=== PATIENT | female | born 1950 | race Caucasian/White ===

== ENCOUNTER → 2020-04-09 09:37 | Outpatient (BNVA) | payer MEDICARE, MEDICAID, SELFPAY | PROVIDERS: PCP Internal Medicine; Referring Provider Internal Medicine; Visit Provider Internal Medicine Endocrinology, Diabetes & Metabolism | DX: E11.65 Type 2 diabetes mellitus with hyperglycemia (principal); E11.21 Type 2 diabetes mellitus with diabetic nephropathy; E11.42 Type 2 diabetes mellitus with diabetic polyneuropathy; E11.22 Type 2 diabetes mellitus with diabetic chronic kidney disease; I12.9 Hypertensive chronic kidney disease with stage 1 through stage 4 chronic kidney disease, or unspecified chronic kidney disease; N18.30 Chronic kidney disease, stage 3 unspecified; E66.01 Morbid (severe) obesity due to excess calories; E78.5 Hyperlipidemia, unspecified; Z79.4 Long term (current) use of insulin | CPT/HCPCS: 82947; 99202 ==

== ENCOUNTER → 2020-04-12 13:10 | Outpatient (BNVA) | payer MEDICARE, MEDICAID, SELFPAY | PROVIDERS: PCP Internal Medicine; Visit Provider Dietitian, Registered | DX: Z76.89 Persons encountering health services in other specified circumstances (principal) ==

== ENCOUNTER → 2020-04-30 15:08 | Outpatient (BNVA) | payer MEDICARE, MEDICAID, SELFPAY | PROVIDERS: PCP Internal Medicine; Visit Provider Dietitian, Registered | DX: Z76.89 Persons encountering health services in other specified circumstances (principal) ==

== ENCOUNTER → 2020-06-12 12:05 | Outpatient (BNVA) | payer MEDICARE, MEDICAID, SELFPAY | PROVIDERS: PCP Internal Medicine; Visit Provider Dietitian, Registered ==

== ENCOUNTER 2020-06-26 09:29 | Outpatient (REF) | payer MEDICARE, MEDICAID, SELFPAY ==
[2020-06-26 11:34] LABS: Hematocrit 39.1 % (37-47); Hemoglobin 12.3 g/dl (12.0-16.0); Mean Corpuscular HGB Conc 31.5 g/dl (31.0-35.0); Mean Corpuscular Hemoglobin 30.1 pg (27.0-33.0); Mean Corpuscular Volume 95.6 fL (80-98); Mean Platelet Volume 10.5 fL (9.4-12.3); Platelet Count 378 X10*3/uL (160-400); Red Blood Count 4.09 X10*6/uL (4.20-5.50); Red Cell Distribution Width 13.3 % (11.0-16.0); White Blood Count 9.6 X10*3/uL (4.8-10.8)
[2020-06-26 11:48] LABS: Estimated Average Glucose 194 mg/dL; Hemoglobin A1c % 8.4 %
[2020-06-26 12:12] LABS: Cholesterol 161 mg/dL; HDL Cholesterol 61 mg/dL; LDL Cholesterol Calculated 81 mg/dl; Triglycerides 95 mg/dL
[2020-06-26 12:13] LABS: Free T4 (Free Thyroxine) 1.06 ng/dL (0.71-1.85); Thyroid Stimulating Hormone 3.09 uIU/mL (0.32-4.0)
[2020-06-26 12:20] LABS: Creatinine Urine 143.29 mg/dL; Microalbum/Creatinine Ratio Ur 60.7 ug/mg cr; TSH reflex Free T4 3.23 uIU/mL (0.32-4.0)
[2020-06-26 12:23] LABS: Alanine Aminotransferase 11 U/L (0-31); Alkaline Phosphatase 63 U/L (39-117); Anion Gap 16 (12-20); Aspartate Amino Transferase 15 U/L (5-31); Bilirubin Total 0.5 mg/dL (0.0-1.0); Blood Urea Nitrogen 25 mg/dL (9-16); Calcium 8.9 mg/dL (8.4-10.2); Carbon Dioxide 26 mmol/L (22-29); Chloride 103 mmol/L (96-108); Cholesterol 163 mg/dL; Estimated Glomerular Filt Rate 40; Glucose Fasting 186 mg/dL (60-99); HDL Cholesterol 61 mg/dL; LDL Cholesterol Calculated 84 mg/dl; Potassium 4.9 mmol/L (3.3-5.1); Sodium 140 mmol/L (135-145); Total Protein 6.8 g/dL (6.5-8.0); Triglycerides 94 mg/dL
[2020-06-26 13:12] LABS: Vitamin B12 431 pg/mL (200-900)
[2020-06-27 03:27] LABS: LDL Cholesterol Direct 82 mg/dL (<100)
[2020-06-27 19:48] LABS: C Peptide 2.22 ng/mL (0.80-3.85)
== END 2020-06-26 09:30 | disposition home or self-care (01) ==
LOC: HO.HMGCLDS 09:29
PROVIDERS: PCP Internal Medicine; Visit Provider Internal Medicine Endocrinology, Diabetes & Metabolism
DX: E11.65 Type 2 diabetes mellitus with hyperglycemia (principal); T78.40XA Allergy, unspecified, initial encounter; X58.XXXA Exposure to other specified factors, initial encounter; J45.909 Unspecified asthma, uncomplicated; K58.9 Irritable bowel syndrome, unspecified; F33.9 Major depressive disorder, recurrent, unspecified; E66.9 Obesity, unspecified; F41.1 Generalized anxiety disorder; E78.9 Disorder of lipoprotein metabolism, unspecified; Z79.4 Long term (current) use of insulin
CPT/HCPCS: 36415; 80053; 80061; 82043; 82607; 83036; 83721; 84439; 84443; 84681; 85027

== ENCOUNTER → 2020-08-02 14:31 | Outpatient (BNVA) | payer MEDICARE, MEDICAID, SELFPAY | PROVIDERS: PCP Internal Medicine; Visit Provider Dietitian, Registered | DX: E11.22 Type 2 diabetes mellitus with diabetic chronic kidney disease (principal); N18.30 Chronic kidney disease, stage 3 unspecified | CPT/HCPCS: 97803 ==

== ENCOUNTER → 2020-08-27 08:34 | Outpatient (BNVA) | payer MEDICARE, MEDICAID, SELFPAY | PROVIDERS: PCP Internal Medicine; Visit Provider Nurse Practitioner Gerontology | DX: I12.9 Hypertensive chronic kidney disease with stage 1 through stage 4 chronic kidney disease, or unspecified chronic kidney disease (principal); E11.65 Type 2 diabetes mellitus with hyperglycemia; E11.42 Type 2 diabetes mellitus with diabetic polyneuropathy; E11.21 Type 2 diabetes mellitus with diabetic nephropathy; E11.22 Type 2 diabetes mellitus with diabetic chronic kidney disease; N18.30 Chronic kidney disease, stage 3 unspecified; E66.01 Morbid (severe) obesity due to excess calories; Z68.42 Body mass index [BMI] 45.0-49.9, adult; E78.5 Hyperlipidemia, unspecified; Z79.4 Long term (current) use of insulin; Z71.3 Dietary counseling and surveillance | CPT/HCPCS: 82947; 99212 ==

== ENCOUNTER 2020-09-10 09:10 | Outpatient (REF) | payer MEDICARE, MEDICAID, SELFPAY ==
--- NOTE | ~2020-09-10 | MR_ITS ---
EXAMINATION: MRI OF THE BRAIN WITHOUT CONTRAST CLINICAL INFORMATION: Encephalopathy. COMPARISON: There are no prior studies available for comparison. TECHNIQUE: MRI of the brain was obtained using routine sequences without intravenous contrast. FINDINGS: No diffusion abnormalities are identified to suggest an acute or subacute infarct. No mass effect or midline shift is seen. The ventricles are moderately prominent. 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 Evaluation of the pituitary stalk, optic chiasm and optic nerve is suboptimal on the available images. The genu of the corpus callosum is intact. There are scattered areas of increased T2 and FLAIR signal in the periventricular and subcortical white matter, and in the dex most consistent with chronic microvascular ischemic changes. No extra-axial fluid collections are seen. The brainstem and cerebellum are normal. No pathologic magnetic susceptibility artifact is identified on the gradient refocused acquisition. The craniovertebral junction, marrow signal, and intracranial midline structures are normal. 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 There are spondylitic changes at C4-C5 and C5-C6. The major intracranial flow-voids at the level of the saxman of Jara are preserved. The dural venous sinus flow-voids are maintained. The mastoid air cells and paranasal sinuses are well-aerated. MR/MR head/brain wo con IMPRESSION: 1. There are no acute bleeds or infarcts. No masses are demonstrated. There are chronic microvascular ischemic changes. 2. 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
== END 2020-09-10 09:11 | disposition home or self-care (01) ==
LOC: HO.MRI 09:10
PROVIDERS: Visit Provider Psychiatry & Neurology Neurology
DX: G93.40 Encephalopathy, unspecified (principal); E11.65 Type 2 diabetes mellitus with hyperglycemia; Z71.3 Dietary counseling and surveillance
CPT/HCPCS: 70551; 82947; 99212

== ENCOUNTER → 2020-11-21 14:03 | Outpatient (BNVA) | payer MEDICARE, MEDICAID, SELFPAY | PROVIDERS: PCP Internal Medicine; Referring Provider Internal Medicine; Visit Provider Nurse Practitioner Family | DX: Z12.11 Encounter for screening for malignant neoplasm of colon (principal); K58.9 Irritable bowel syndrome, unspecified | CPT/HCPCS: 99202 ==

== ENCOUNTER → 2020-11-29 10:20 | Outpatient (BNVA) | payer MEDICARE, MEDICAID, SELFPAY | PROVIDERS: PCP Internal Medicine; Visit Provider Internal Medicine | DX: E66.01 Morbid (severe) obesity due to excess calories (principal); G47.33 Obstructive sleep apnea (adult) (pediatric); J45.909 Unspecified asthma, uncomplicated; Z68.43 Body mass index [BMI] 50.0-59.9, adult | CPT/HCPCS: 99202 ==

== ENCOUNTER 2020-12-27 09:52 | Outpatient (REF) | payer MEDICARE, MEDICAID, SELFPAY ==
--- NOTE | 2020-12-27 17:16 | PFT_ITS ---
Forced vital capacity, FEV1, KFC34-83, and MVV are all normal. Post bronchodilator therapy, there is no significant change. Total lung capacity is normal. Residual volume slightly decreased. Diffusion capacity normal. CONCLUSION: Normal pulmonary function test and there is no evidence of restrictive pulmonary disorder. MD LUCIANA Lancaster/MODL / [id number]
== END 2020-12-27 09:53 | disposition home or self-care (01) ==
LOC: HO.RESP 09:52
PROVIDERS: PCP Internal Medicine; Visit Provider Internal Medicine
DX: J45.909 Unspecified asthma, uncomplicated (principal); R06.00 Dyspnea, unspecified; E66.01 Morbid (severe) obesity due to excess calories; Z68.43 Body mass index [BMI] 50.0-59.9, adult
CPT/HCPCS: 94060; 94727; 94729

== ENCOUNTER 2021-02-13 10:05 | Day surgery (SDC) | payer MEDICARE, MEDICAID, SELFPAY ==
[2021-01-25 10:36] VITALS: BMI 50.6
--- NOTE | 2021-01-30 09:57 | P.CONAN_ITS ---
HPI - Anesthesia Eval Consult details Narrative: 70yo F for Colonoscopy [facility] Active Problems Active Problems: All Active Problems (Updated 01/25/21 @ 10:33 by Barb Campbell, RN) Long-term insulin use (Acute) Obesity (Acute) Morbid obesity (Acute) Cellulitis (Acute) Memory deficit (Acute) Drainage from ear, left (Acute) Sleep apnea (Acute) Encounter for general adult medical examination with abnormal findings (Acute) Breast screening (Acute) Colon cancer screening (Acute) Dyspnea on exertion (Acute) OZ (obstructive sleep apnea) (Acute) Morbid obesity with BMI of 50.0-59.9, adult (Acute) Diabetic polyneuropathy associated with type 2 diabetes mellitus (Acute) Hypertension (Acute) Dyslipidemia (Acute) CKD stage 3 due to type 2 diabetes mellitus (Acute) Diabetic nephropathy associated with type 2 diabetes mellitus (Acute) 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 (Acute) Diabetes type 2, uncontrolled (Acute) Allergies (Acute) Asthma (Acute) Irritable bowel syndrome (Acute) Depression, major, recurrent (Acute) Anxiety, generalized (Acute) Lipid disorder (Acute) Diabetes 1.5, managed as type 1 (Acute) Past Medical History Medical History (Updated 01/25/21 @ 10:33 by Barb Campbell RN) Allergies Anxiety, generalized Asthma Breast cancer CKD stage 3 due to type 2 diabetes mellitus COVID-19 vaccine series completed Depression, major, 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 Surgical History Surgical History History of colonoscopy History of lumpectomy Hx of mammogram Social History Social History (Updated 01/25/21 @ 10:35 by Barb Campbell RN) Household Members: Family Are you a primary rn wound care to a significant other at home: No Do you presently have visiting nurse or other home services: No Alcohol intake: current Alcohol intake frequency: a few times a week Alcohol type: beer Patient Tobacco Use Status: Former Tobacco user Quit Date: teenager Tobacco use type: Cigarette Use of substances other than those prescribed or required for medical reasons: No Have you been hit, kicked, punched, or otherwise hurt by someone within the past year? If so, by whom?: No Are you DNR?: No Advance Directives Information Provided: Yes (informational brochure mailed) Advance Directives on File: No Recently lost weight without trying: No Eating poorly because of decreased appetite: No Nutrition Risks: No Nutritional Risk Meds Allergies Allergy/AdvReac Type Severity Reaction Status Date / Time adhesive tape [Adhesive Tape] Allergy Severe BLISTERS Verified 11/29/20 10:30 dairy products Allergy Severe GI upset Verified 11/29/20 10:30 semaglutide [From Ozempic] Allergy Severe Diarrhea Verified 11/29/20 10:32 Home Medications Medication Instructions Recorded Confirmed Last Taken Type albuterol sulfate 90 mcg/actuation 2 puff INHALATION Q4H PRN 04/09/20 01/25/21 Unknown History aerosol inhaler carvedilol 6.25 mg tablet 6.25 mg PO BID 04/09/20 01/25/21 Unknown History metoprolol succinate 25 mg 25 mg PO BEDTIME 04/09/20 01/25/21 Unknown History tablet,extended release 24 hr pen needle, diabetic 32 gauge x #50 ea 04/09/20 10/02/20 Unknown History Exam Exam Date and Time: January 30, 2021 0957 Height,Weight and Vital Signs: Height 4 ft 10 in Weight 109.939 kg Pertinent Lab Results Pertinent Lab Results: Laboratory Tests 06/26/20 06/26/20 09:45 09:45 WBC 9.6 Hgb 12.3 Hct 39.1 Plt Count 378 Sodium 140 Potassium 4.9 Chloride 103 Carbon Dioxide 26 BUN 25 H Creatinine 1.33 Narrative Narrative: PFT 12/2020 CONCLUSION:? Normal pulmonary function test and there is no evidence of restrictive pulmonary disorder. Assessment and Plan Assessment Anesthesia Assessment: Chart Reviewed
--- NOTE | 2021-02-12 10:42 | P.CONAN_ITS ---
Documented by User: Britney Dean NP 02/12/21 10:43 HPI - Anesthesia Eval Consult details Narrative: 70yo F for Colonoscopy [facility] Active Problems Active Problems: All Active Problems (Updated 01/25/21 @ 10:33 by Barb Campbell, EVELYN) Long-term insulin use (Acute) Obesity (Acute) Morbid obesity (Acute) Cellulitis (Acute) Memory deficit (Acute) Drainage from ear, left (Acute) Sleep apnea (Acute) Encounter for general adult medical examination with abnormal findings (Acute) Breast screening (Acute) Colon cancer screening (Acute) Dyspnea on exertion (Acute) OZ (obstructive sleep apnea) (Acute) Morbid obesity with BMI of 50.0-59.9, adult (Acute) Diabetic polyneuropathy associated with type 2 diabetes mellitus (Acute) Hypertension (Acute) Dyslipidemia (Acute) CKD stage 3 due to type 2 diabetes mellitus (Acute) Diabetic nephropathy associated with type 2 diabetes mellitus (Acute) 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 of 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 (Acute) Diabetes type 2, uncontrolled (Acute) Allergies (Acute) Asthma (Acute) Irritable bowel syndrome (Acute) Depression, major, recurrent (Acute) Anxiety, generalized (Acute) Lipid disorder (Acute) Diabetes 1.5, managed as type 1 (Acute) Past Medical History Medical History (Updated 01/25/21 @ 10:33 by Barb Campbell RN) Allergies Anxiety, generalized Asthma Breast cancer CKD stage 3 due to type 2 diabetes mellitus COVID-19 vaccine series completed Depression, major, 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 Surgical History Surgical History History of colonoscopy History of lumpectomy Hx of mammogram Social History Social History (Updated 01/25/21 @ 10:35 by Barb Campbell RN) Household Members: Family Are you a primary hospice care transitions coordinator to a significant other at home: No Do you presently have visiting nurse or other home services: No Alcohol intake: current Alcohol intake frequency: a few times a week Alcohol type: beer Patient Tobacco Use Status: Former Tobacco user Quit Date: teenager Tobacco use type: Cigarette Use of substances other than those prescribed or required for medical reasons: No Have you been hit, kicked, punched, or otherwise hurt by someone within the past year? If so, by whom?: No Are you DNR?: No Advance Directives Information Provided: Yes (informational brochure mailed) Advance Directives on File: No Recently lost weight without trying: No Eating poorly because of decreased appetite: No Nutrition Risks: No Nutritional Risk Meds Allergies Allergy/AdvReac Type Severity Reaction Status Date / Time adhesive tape [Adhesive Tape] Allergy Severe BLISTERS Verified 11/29/20 10:30 dairy products Allergy Severe GI upset Verified 11/29/20 10:30 semaglutide [From Ozempic] Allergy Severe Diarrhea Verified 11/29/20 10:32 Home Medications Medication Instructions Recorded Confirmed Last Taken Type albuterol sulfate 90 mcg/actuation 2 puff INHALATION Q4H PRN 04/09/20 01/25/21 Unknown History aerosol inhaler carvedilol 6.25 mg tablet 6.25 mg PO BID 04/09/20 01/25/21 Unknown History metoprolol succinate 25 mg 25 mg PO BEDTIME 04/09/20 01/25/21 Unknown History tablet,extended release 24 hr pen needle, diabetic 32 gauge x #50 ea 04/09/20 10/02/20 Unknown History Exam Exam Date and Time: February 12, 2021 1042 Height,Weight and Vital Signs: Height 4 ft 10 in Weight 109.939 kg Pertinent Lab Results Pertinent Lab Results: Laboratory Tests 06/26/20 06/26/20 09:45 09:45 WBC 9.6 Hgb 12.3 Hct 39.1 Plt Count 378 Sodium 140 Potassium 4.9 Chloride 103 Carbon Dioxide 26 BUN 25 H Creatinine 1.33 Narrative Narrative: PFT 12/2020 CONCLUSION:? Normal pulmonary function test and there is no evidence of restrictive pulmonary disorder. 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, managed as type 1 Diabetes type 2, uncontrolled Diabetic nephropathy associated with type 2 diabetes mellitus Diabetic polyneuropathy associated with type 2 diabetes mellitus Dyslipidemia Dyspnea on exertion Hypertension Irritable bowel syndrome Lipid disorder 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 Surgical History Surgical History History of colonoscopy History of lumpectomy Hx of mammogram Social History Social History (Updated 01/25/21 @ 10:35 by Barb Campbell, EVELYN) Household Members: Family Are you a primary hospice care transitions coordinator to a significant other at home: No Do you presently have visiting nurse or other home services: No Alcohol intake: current Alcohol intake frequency: a few times a week Alcohol t ype: beer Patient Tobacco Use Status: Former Tobacco user Quit Date: teenager Tobacco use type: Cigarette Use of substances other than those prescribed or required for medical reasons: No Have you been hit, kicked, punched, or otherwise hurt by someone within the past year? If so, by whom?: No Are you DNR?: No Advance Directives Information Provided: Yes (informational brochure mailed) Advance Directives on File: No Recently lost weight without trying: No Eating poorly because of decreased appetite: No Nutrition Risks: No Nutritional Risk Meds Allergies Allergy/AdvReac Type Severity Reaction Status Date / Time adhesive tape [Adhesive Tape] Allergy Severe BLISTERS Verified 11/29/20 10:30 dairy products Allergy Severe GI upset Verified 11/29/20 10:30 semaglutide [From Ozempic] Allergy Severe Diarrhea Verified 11/29/20 10:32 Home Medications Medication Instructions Recorded Confirmed Last Taken Type albuterol sulfate 90 mcg/actuation 2 puff INHALATION Q4H PRN 04/09/20 01/25/21 Unknown History aerosol inhaler carvedilol 6.25 mg tablet 6.25 mg PO BID 04/09/20 01/25/21 Unknown History metoprolol succinate 25 mg 25 mg PO BEDTIME 04/09/20 01/25/21 Unknown History tablet,extended release 24 hr pen needle, diabetic 32 gauge x #50 ea 04/09/20 10/02/20 Unknown History Exam Airway Mallampati Class: III TM Dist: >3cm Neck ROM: Full Heart: RRR Lungs: CTA
--- NOTE | 2021-02-13 10:12 | MHC.SHP ---
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, managed as type 1 Diabetes type 2, uncontrolled Diabetic nephropathy associated with type 2 diabetes mellitus Diabetic polyneur) History of Previous Operations: Relevant previous surgery/procedure and date(s) (History of colonoscopy History of lumpectomy Hx of mammogram) Allergies: Allergies Allergy/AdvReac Type Severity Reaction Status Date / Time adhesive tape [Adhesive Tape] Allergy Severe BLISTERS Verified 11/29/20 10:30 dairy products Allergy Severe GI upset Verified 11/29/20 10:30 semaglutide [From Ozempic] Allergy Severe Diarrhea Verified 11/29/20 10:32 Review of Systems Sugical H&P ROS: Negative: Constitution, Cardiovascular, Respiratory, Neurological, Psychiatric, Hem-Onc, Allergic/Immunologic, Gastrointestinal, Genitourinary, Musculoskeletal, Integumentary, Endocrine and Eyes/Ears/Nose/Throat Exam Surgical H&P Exam: Normal: HEENT, Normal: Heart, Normal: Lungs, Normal: Extremities, Normal: Abdomen, Normal: Skin and Normal: Neurological Plan Diagnosis/Plan: Unchanged I have reviewed the history and physical and performed a pertinent physical examination on my patient. No changes have occurred unless specified.
[2021-02-13 10:55] VITALS: BP 178/81; PULSE 84; RESP 19; TEMP 36.3; O2SAT 97; BMI 48.9
--- NOTE | 2021-02-13 10:59 | PC.NURSE ---
h/o R sided breast cancer with lymph nodes removed. no blood pressure of venipuncture on R side
[2021-02-13 11:01] LABS: Glucose, Whole Blood 150 mg/dL (60-115)
[2021-02-13] MEDS: Sodium Phosphate,Mono-Dibasic 133 ML ENEMA PR (11:01)
[2021-02-13] MEDS: Lactated Ringers 1,000 ML 100 ML IVCONT (11:01)
--- NOTE | 2021-02-13 11:50 | PM.OP ---
Brief Operative Note Date of Service: 02/13/21 Pre-op diagnosis: screening Post-op diagnosis: same Procedure: see op note Surgeon: Marlon Dennison MD Anesthesia: MAC Was an Highway Maintenance Crew Worker used for this Procedure?: No Estimated blood loss (mL): 0 Condition: stable Disposition: PACU
--- NOTE | 2021-02-13 11:51 | P.OP_ITS ---
Operative Note Operative Note Date of Service: 02/13/21 Narrative: Operative Information Procedure Description: Colonoscopy COLONOSCOPY Instrument: Olympus variable stiffness adult scope 190L Colonoscopy Monitoring: Vital signs and clinical assessment, continuous EKG monitoring, Pulse oximetry, Carbon Dioxide monitoring and blood pressure monitoring were done throughout the procedure. Colon withdrawal time was 8 minutes. Procedure: The patient was placed in the left lateral decubitis position and pre-procedure medications were administered. After a digital rectal examination of the ano-rectum, the video colonoscope was inserted into the rectum and advanced through the colon to the cecum/TI. The colonoscope was slowly withdrawn in a retrograde panoramic fashion and the colon mucosa was carefully examined including a retroflexed view of the rectum. Findings and interventions are described below. Procedure Difficulty:moderate Findings: Terminal Ileum-normal Cecum:normal Ascending Colon: x 2 sessiel polyps 8-9 mm removed with forceps and 10 mm sessile polyp removed with cold snare Transverse Colon -normal Descending Colon: 8-9 mm sessile polyp removed with forcesp Sigmoid Colon: small tics and mucosal hypertrophy and narrowing Rectum: Retroflexion with moderate large internal hemorrhoids, grade I, with skin tags and inflammation Anorectum - normal Colon preparation: Stanley Bowel Preparation Scale Right colon; 2 Transverse colon: 3 Left colon; 2 (0 = Unprepared colon segment with mucosa not seen due to solid stool that cannot be cleared. 1 = Portion of mucosa of the colon segment seen, but other areas of the colon segment not well seen due to staining, residual stool and/or opaque liquid. 2 = Minor amount of residual staining, small fragments of stool and/or opaque liquid, but mucosa of colon segment seen well. 3 = Entire mucosa of colon segment seen well with no residual staining, small fragments of stool or opaque liquid) Impression and Post Procedure Diagnosis: polyps internal hemorrhoids diverticular disease Plan: High fiber diet leaflet Avoid straining at stool, epsom salts and sitz bath, anusol supps or cream Repeat Colonoscopy in 3-5 years or earlier if clinically indicated Above findings were reviewed with the patient and relevant handouts were provided if indicated.
[2021-02-13 11:56] VITALS: BP 109/43; PULSE 74; RESP 16; TEMP 37.1; O2SAT 96
[2021-02-13 12:14] VITALS: BP 113/94; PULSE 74; RESP 16; O2SAT 96
--- NOTE | 2021-02-13 14:25 | HO.POSTANES ---
Post Anesthesia Evaluation Post Anesthesia Evaluation Vital Signs: Vital Signs Temp Pulse Resp BP Pulse Ox 02/13/21 12:14 74 16 113/94 H 96 02/13/21 11:56 98.8 F 74 16 109/43 L 96 02/13/21 10:55 97.4 F 84 19 178/81 H 97 Anesthesia: Monitored Mental Status: Awake Pain Control: Satisfactory Nausea/Vomiting: None Hydration: Adequate Anesthesia-Related Issues: No Anes. Related Issues
== END 2021-02-13 12:57 | disposition home or self-care (01) ==
PROVIDERS: PCP Internal Medicine; Visit Provider Internal Medicine Gastroenterology
PROC: 0DJD8ZZ Inspection of Lower Intestinal Tract, Via Natural or Artificial Opening Endoscopic (ICD-10-PCS; CPT 45378; principal; 2021-02-13 11:00)
DX: Z12.11 Encounter for screening for malignant neoplasm of colon (principal); D12.2 Benign neoplasm of ascending colon; D12.4 Benign neoplasm of descending colon; K57.30 Diverticulosis of large intestine without perforation or abscess without bleeding; K64.0 First degree hemorrhoids; K64.4 Residual hemorrhoidal skin tags; K58.9 Irritable bowel syndrome, unspecified; J45.909 Unspecified asthma, uncomplicated; G47.33 Obstructive sleep apnea (adult) (pediatric); E11.22 Type 2 diabetes mellitus with diabetic chronic kidney disease; E11.21 Type 2 diabetes mellitus with diabetic nephropathy; E11.42 Type 2 diabetes mellitus with diabetic polyneuropathy; I12.9 Hypertensive chronic kidney disease with stage 1 through stage 4 chronic kidney disease, or unspecified chronic kidney disease; N18.30 Chronic kidney disease, stage 3 unspecified; Z79.4 Long term (current) use of insulin; Z79.899 Other long term (current) drug therapy; Z91.040 Latex allergy status; E66.01 Morbid (severe) obesity due to excess calories; Z68.43 Body mass index [BMI] 50.0-59.9, adult; Z87.891 Personal history of nicotine dependence
CPT/HCPCS: 45380; 82947; 88305

== ENCOUNTER 2021-02-19 13:36 | Outpatient (REF) | payer MEDICARE, MEDICAID, SELFPAY ==
[2021-02-19 16:25] LABS: MANUAL DIFF FLAG NO
[2021-02-19 16:29] LABS: Basophils Absolute Auto 0.1 X10*3/uL (0.0-0.2); Basophils Percent Auto 0.5 % (0-2); Eosinophils Absolute Auto 0.2 X10*3/uL (0.0-0.4); Eosinophils Percent Auto 1.9 % (0-4); Hemoglobin 12.8 g/dl (12.0-16.0); Imm Gran Abs Auto 0.05 X10*3/uL (0.00-0.03); Imm Gran Pct Auto 0.4 % (0.0-0.4); Lymphocytes Absolute Auto 3.4 X10*3/uL (1.2-4.9); Lymphocytes Percent Auto 27.4 % (20-40); Mean Corpuscular HGB Conc 31.2 g/dl (31.0-35.0); Mean Corpuscular Hemoglobin 29.6 pg (27.0-33.0); Mean Corpuscular Volume 94.9 fL (80-98); Mean Platelet Volume 10.7 fL (9.4-12.3); Monocytes Absolute Auto 0.7 X10*3/uL (0.1-1.2); Monocytes Percent Auto 5.7 % (2-11); Neutrophils Percent Auto 64.1 % (45-73); Platelet Count 392 X10*3/uL (160-400); Red Blood Count 4.32 X10*6/uL (4.20-5.50); Red Cell Distribution Width 13.4 % (11.0-16.0); White Blood Count 12.5 X10*3/uL (4.8-10.8)
[2021-02-19 16:38] LABS: Estimated Average Glucose 154 mg/dL
[2021-02-19 16:50] LABS: Alanine Aminotransferase 51 U/L (0-31); Alkaline Phosphatase 79 U/L (39-117); Anion Gap 17 (12-20); Aspartate Amino Transferase 50 U/L (5-31); Bilirubin Total 0.4 mg/dL (0.0-1.0); Blood Urea Nitrogen 20 mg/dL (9-16); Calcium 9.4 mg/dL (8.4-10.2); Carbon Dioxide 23 mmol/L (22-29); Chloride 105 mmol/L (96-108); Cholesterol 183 mg/dL; Estimated Glomerular Filt Rate 28; Glucose Fasting 87 mg/dL (60-99); HDL Cholesterol 60 mg/dL; LDL Cholesterol Calculated 101 mg/dl; Sodium 140 mmol/L (135-145); Total Protein 7.4 g/dL (6.5-8.0); Triglycerides 112 mg/dL
== END 2021-02-19 13:37 | disposition home or self-care (01) ==
LOC: HO.HMGCLDS 13:36
PROVIDERS: PCP Internal Medicine; Visit Provider Internal Medicine
DX: Z00.01 Encounter for general adult medical examination with abnormal findings (principal); E11.42 Type 2 diabetes mellitus with diabetic polyneuropathy; I10 Essential (primary) hypertension; E66.01 Morbid (severe) obesity due to excess calories; E78.5 Hyperlipidemia, unspecified; G47.30 Sleep apnea, unspecified
CPT/HCPCS: 36415; 80053; 80061; 83036; 85025

== ENCOUNTER → 2021-05-23 10:52 | Outpatient (BNVA) | payer MEDICARE, MEDICAID, SELFPAY | PROVIDERS: PCP Internal Medicine; Visit Provider Nurse Practitioner Gerontology | DX: E11.65 Type 2 diabetes mellitus with hyperglycemia (principal); E11.21 Type 2 diabetes mellitus with diabetic nephropathy; E11.42 Type 2 diabetes mellitus with diabetic polyneuropathy; E11.22 Type 2 diabetes mellitus with diabetic chronic kidney disease; I12.9 Hypertensive chronic kidney disease with stage 1 through stage 4 chronic kidney disease, or unspecified chronic kidney disease; N18.30 Chronic kidney disease, stage 3 unspecified; E78.5 Hyperlipidemia, unspecified; E66.01 Morbid (severe) obesity due to excess calories; Z79.4 Long term (current) use of insulin | CPT/HCPCS: Q3014 ==

== ENCOUNTER → 2021-06-06 13:02 | Outpatient (BNVA) | payer MEDICARE, MEDICAID, SELFPAY | PROVIDERS: PCP Internal Medicine; Visit Provider Dietitian, Registered | DX: E11.42 Type 2 diabetes mellitus with diabetic polyneuropathy (principal); Z71.6 Tobacco abuse counseling | CPT/HCPCS: 97803 ==

== ENCOUNTER → 2021-08-22 12:30 | Outpatient (BNVA) | payer MEDICARE, MEDICAID, SELFPAY | PROVIDERS: PCP Internal Medicine; Visit Provider Nurse Practitioner Gerontology | DX: E11.65 Type 2 diabetes mellitus with hyperglycemia (principal); E11.42 Type 2 diabetes mellitus with diabetic polyneuropathy; E11.21 Type 2 diabetes mellitus with diabetic nephropathy; E11.22 Type 2 diabetes mellitus with diabetic chronic kidney disease; I12.9 Hypertensive chronic kidney disease with stage 1 through stage 4 chronic kidney disease, or unspecified chronic kidney disease; N18.30 Chronic kidney disease, stage 3 unspecified; E66.01 Morbid (severe) obesity due to excess calories; E78.5 Hyperlipidemia, unspecified; Z79.4 Long term (current) use of insulin; Z79.899 Other long term (current) drug therapy | CPT/HCPCS: Q3014 ==

== ENCOUNTER 2021-10-04 09:41 | Outpatient (REF) | payer MEDICARE, SELFPAY ==
[2021-10-04 12:09] LABS: Anion Gap 14 (12-20); Blood Urea Nitrogen 34 mg/dL (9-16); Calcium 9.3 mg/dL (8.4-10.2); Carbon Dioxide 25 mmol/L (22-29); Chloride 104 mmol/L (96-108); Estimated Glomerular Filt Rate 29; Glucose Fasting 121 mg/dL (60-99); Potassium 5.3 mmol/L (3.3-5.1); Sodium 138 mmol/L (135-145)
[2021-10-04 12:12] LABS: Estimated Average Glucose 123 mg/dL; Hemoglobin A1c % 5.9 %
== END 2021-10-04 09:42 | disposition home or self-care (01) ==
LOC: HO.HMGCLDS 09:41
PROVIDERS: Nurse Practitioner Gerontology; PCP Internal Medicine; Visit Provider Internal Medicine
DX: T78.40XA Allergy, unspecified, initial encounter (principal); E11.42 Type 2 diabetes mellitus with diabetic polyneuropathy; J45.909 Unspecified asthma, uncomplicated; K58.9 Irritable bowel syndrome, unspecified; F33.9 Major depressive disorder, recurrent, unspecified; E66.9 Obesity, unspecified; F41.1 Generalized anxiety disorder; E78.9 Disorder of lipoprotein metabolism, unspecified; Z79.4 Long term (current) use of insulin
CPT/HCPCS: 36415; 80048; 83036

== ENCOUNTER 2022-06-17 11:33 | Outpatient (REF) | payer OTHER, MEDICAID, SELFPAY ==
[2022-06-17 14:16] LABS: MANUAL DIFF FLAG NO
[2022-06-17 14:25] LABS: Basophils Absolute Auto 0.1 X10*3/uL (0.0-0.2); Basophils Percent Auto 0.7 % (0-2); Eosinophils Absolute Auto 0.2 X10*3/uL (0.0-0.4); Hematocrit 42.8 % (37.0-47.0); Hemoglobin 13.1 g/dl (12.0-16.0); Imm Gran Abs Auto 0.04 X10*3/uL (0.00-0.03); Imm Gran Pct Auto 0.4 % (0.0-0.4); Lymphocytes Absolute Auto 2.8 X10*3/uL (1.2-4.9); Lymphocytes Percent Auto 28.3 % (20-40); Mean Corpuscular HGB Conc 30.6 g/dl (31.0-35.0); Mean Corpuscular Hemoglobin 29.5 pg (27.0-33.0); Mean Corpuscular Volume 96.4 fL (80.0-98.0); Mean Platelet Volume 10.3 fL (9.4-12.3); Monocytes Absolute Auto 0.6 X10*3/uL (0.1-1.2); Neutrophils Absolute Auto 6.1 x10*3/uL (2.0-8.3); Neutrophils Percent Auto 62.6 % (45-73); Platelet Count 402 X10*3/uL (160-400); Red Blood Count 4.44 X10*6/uL (4.20-5.50); Red Cell Distribution Width 14.3 % (11.0-16.0); White Blood Count 9.7 X10*3/uL (4.8-10.8)
[2022-06-17 14:42] LABS: Alanine Aminotransferase 12 U/L (0-31); Albumin Level 3.7 g/dL (3.5-5.0); Alkaline Phosphatase 59 U/L (39-117); Anion Gap 14 (12-20); Aspartate Amino Transferase 18 U/L (5-31); Bilirubin Total 0.6 mg/dL (0.0-1.0); Blood Urea Nitrogen 24 mg/dL (9-16); Calcium 9.4 mg/dL (8.4-10.2); Carbon Dioxide 24 mmol/L (22-29); Chloride 105 mmol/L (96-108); Cholesterol 163 mg/dL; Estimated Glomerular Filt Rate 31; Glucose Fasting 73 mg/dL (60-99); HDL Cholesterol 54 mg/dL; LDL Cholesterol Calculated 87 mg/dl; Sodium 138 mmol/L (135-145); Total Protein 6.7 g/dL (6.5-8.0); Triglycerides 110 mg/dL
[2022-06-17 14:49] LABS: Estimated Average Glucose 123 mg/dL; Hemoglobin A1c % 5.9 %
[2022-06-17 15:00] LABS: TSH reflex Free T4 3.46 uIU/mL (0.32-4.0)
== END 2022-06-17 11:34 | disposition home or self-care (01) ==
LOC: HO.HMGCLDS 11:33
PROVIDERS: PCP Internal Medicine; Visit Provider Internal Medicine
DX: K58.9 Irritable bowel syndrome, unspecified (principal); E78.9 Disorder of lipoprotein metabolism, unspecified; E78.5 Hyperlipidemia, unspecified; E11.21 Type 2 diabetes mellitus with diabetic nephropathy; E11.22 Type 2 diabetes mellitus with diabetic chronic kidney disease; N18.30 Chronic kidney disease, stage 3 unspecified; Z79.4 Long term (current) use of insulin
CPT/HCPCS: 36415; 80053; 80061; 83036; 84443; 85025

== ENCOUNTER 2022-08-27 09:37 | Outpatient (REF) | payer OTHER, MEDICAID, SELFPAY ==
--- NOTE | ~2022-08-27 | XR_ITS ---
EXAMINATION: XR BILATERAL KNEES CLINICAL INDICATION: Pain bilateral knees. TECHNIQUE: 2 views each knee. COMPARISON: None available. RIGHT KNEE: There is severe loss of tricompartment joint space with moderate superior periarticular spurring. No loose bodies or bony erosive changes are seen. No abnormal suprapatellar joint effusion is seen. Small areas of fat necrosis are seen anterior to the patellar tendon. LEFT KNEE: There is severe loss of tricompartment joint space with [id number] marginal osteophytes. No loose bodies or joint effusion seen. No visible acute fracture or dislocation. XR/XR knee LT 2V IMPRESSION: Severe degenerative arthritic changes of the bilateral knees.
--- NOTE | ~2022-08-27 | XR_ITS ---
EXAMINATION: XR BILATERAL KNEES CLINICAL INDICATION: Pain bilateral knees. TECHNIQUE: 2 views each knee. COMPARISON: None available. RIGHT KNEE: There is severe loss of tricompartment joint space with moderate superior periarticular spurring. No loose bodies or bony erosive changes are seen. No abnormal suprapatellar joint effusion is seen. Small areas of fat necrosis are seen anterior to the patellar tendon. LEFT KNEE: There is severe loss of tricompartment joint space with [id number] marginal osteophytes. No loose bodies or joint effusion seen. No visible acute fracture or dislocation. XR/XR knee RT 2V IMPRESSION: Severe degenerative arthritic changes of the bilateral knees.
== END 2022-08-27 09:38 | disposition home or self-care (01) ==
LOC: HO.HMGCX 09:37
PROVIDERS: PCP Internal Medicine; Visit Provider Internal Medicine
DX: M25.562 Pain in left knee (principal); M25.561 Pain in right knee
CPT/HCPCS: 73560

== ENCOUNTER 2022-10-08 12:04 | Outpatient (REF) | payer OTHER, MEDICAID, SELFPAY ==
[2022-10-08 14:00] LABS: MANUAL DIFF FLAG NO
[2022-10-08 14:07] LABS: Basophils Absolute Auto 0.1 X10*3/uL (0.0-0.2); Basophils Percent Auto 0.4 % (0-2); Eosinophils Absolute Auto 0.2 X10*3/uL (0.0-0.4); Eosinophils Percent Auto 1.9 % (0-4); Hematocrit 39.1 % (37.0-47.0); Hemoglobin 12.5 g/dl (12.0-16.0); Imm Gran Abs Auto 0.07 X10*3/uL (0.00-0.03); Imm Gran Pct Auto 0.6 % (0.0-0.4); Lymphocytes Absolute Auto 2.8 X10*3/uL (1.2-4.9); Lymphocytes Percent Auto 24.3 % (20-40); Mean Corpuscular Hemoglobin 30.7 pg (27.0-33.0); Mean Corpuscular Volume 96.1 fL (80.0-98.0); Monocytes Absolute Auto 0.6 X10*3/uL (0.1-1.2); Monocytes Percent Auto 5.3 % (2-11); Neutrophils Absolute Auto 7.7 x10*3/uL (2.0-8.3); Neutrophils Percent Auto 67.5 % (45-73); Platelet Count 429 X10*3/uL (160-400); Red Blood Count 4.07 X10*6/uL (4.20-5.50); Red Cell Distribution Width 13.8 % (11.0-16.0); White Blood Count 11.4 X10*3/uL (4.8-10.8)
[2022-10-08 14:17] LABS: Estimated Average Glucose 123 mg/dL; Hemoglobin A1c % 5.9 %
[2022-10-08 14:30] LABS: Alanine Aminotransferase 8 U/L (0-31); Albumin Level 3.6 g/dL (3.5-5.0); Alkaline Phosphatase 58 U/L (39-117); Anion Gap 15 (12-20); Aspartate Amino Transferase 15 U/L (5-31); Bilirubin Total 0.5 mg/dL (0.0-1.0); Blood Urea Nitrogen 26 mg/dL (9-16); Calcium 9.7 mg/dL (8.4-10.2); Carbon Dioxide 22 mmol/L (22-29); Chloride 105 mmol/L (96-108); Cholesterol 136 mg/dL; Estimated Glomerular Filt Rate 31; Glucose Fasting 86 mg/dL (60-99); HDL Cholesterol 51 mg/dL; LDL Cholesterol Calculated 67 mg/dl; Potassium 5.3 mmol/L (3.3-5.1); Sodium 137 mmol/L (135-145); Total Protein 7.5 g/dL (6.5-8.0); Triglycerides 92 mg/dL
[2022-10-08 14:39] LABS: TSH reflex Free T4 3.76 uIU/mL (0.32-4.0)
[2022-10-08 15:33] LABS: Creatinine Urine 219.91 mg/dL; Microalbum/Creatinine Ratio Ur 145.9 ug/mg cr
== END 2022-10-08 12:05 | disposition home or self-care (01) ==
LOC: HO.HMGCLDS 12:04
PROVIDERS: PCP Internal Medicine; Visit Provider Internal Medicine
DX: I12.9 Hypertensive chronic kidney disease with stage 1 through stage 4 chronic kidney disease, or unspecified chronic kidney disease (principal); E11.22 Type 2 diabetes mellitus with diabetic chronic kidney disease; N18.30 Chronic kidney disease, stage 3 unspecified; E11.42 Type 2 diabetes mellitus with diabetic polyneuropathy; E66.01 Morbid (severe) obesity due to excess calories; E78.5 Hyperlipidemia, unspecified; E78.9 Disorder of lipoprotein metabolism, unspecified; F33.9 Major depressive disorder, recurrent, unspecified; F41.1 Generalized anxiety disorder; G25.81 Restless legs syndrome; Z79.4 Long term (current) use of insulin
CPT/HCPCS: 36415; 80053; 80061; 82043; 83036; 84443; 85025

== ENCOUNTER 2022-10-16 06:28 | Outpatient (REF) | payer OTHER, MEDICAID, SELFPAY ==
--- NOTE | ~2022-10-16 | XR_ITS ---
EXAMINATION: XR KNEE STANDING, BILATERAL XR KNEE, RIGHT XR KNEE, LEFT CLINICAL INFORMATION: Pain in both knees. COMPARISON: 08/27/2022 TECHNIQUE: Standing AP view of both knees and sunrise views of each knee. FINDINGS: RIGHT KNEE: Severe tricompartmental osteoarthritis is most pronounced in the medial compartment with complete joint space, articular cortical irregularity, articular sclerosis, and marginal osteophytes. The joint space remains apparent at the patellofemoral compartment, though there is significant articular cortical remodeling and large marginal osteophytes. A vacuum phenomenon is present in the narrowed lateral compartment with associated articular cortical remodeling. Minimal varus angulation. Small ossific foci medial to the tibial plateau likely correspond to the foci of heterotopic bone in the superficial soft tissues anteriorly seen on the prior study. Soft tissues are diffusely swollen with subcutaneous edema. No fractures. Two curvilinear metallic foci are evident within the regions of the medial femoral condyles, unchanged as compared to prior. LEFT KNEE: Tricompartmental osteoarthritis is most severe in the medial compartment with complete medial joint space narrowing. Articular sclerosis, articular cortical remodeling, and marginal osteophytes are again noted. There is associated varus angulation at the knee which is more pronounced on these weightbearing images. More moderate osteoarthritis is evident in the lateral and patellofemoral compartments. Soft tissues are swollen with associated subcutaneous edema, XR/XR knee LT 1V IMPRESSION: 1. Severe tricompartmental osteoarthritis in both knees, most severe in the medial compartments with associated varus angulation. Varus angulation in the left knee, in particular, is more pronounced with weightbearing. 2. Small foci of heterotopic bone in the superficial soft tissues anteriorly at the right knee, unchanged from the prior study.
--- NOTE | ~2022-10-16 | XR_ITS ---
EXAMINATION: XR KNEE STANDING, BILATERAL XR KNEE, RIGHT XR KNEE, LEFT CLINICAL INFORMATION: Pain in both knees. COMPARISON: 08/27/2022 TECHNIQUE: Standing AP view of both knees and sunrise views of each knee. FINDINGS: RIGHT KNEE: Severe tricompartmental osteoarthritis is most pronounced in the medial compartment with complete joint space, articular cortical irregularity, articular sclerosis, and marginal osteophytes. The joint space remains apparent at the patellofemoral compartment, though there is significant articular cortical remodeling and large marginal osteophytes. A vacuum phenomenon is present in the narrowed lateral compartment with associated articular cortical remodeling. Minimal varus angulation. Small ossific foci medial to the tibial plateau likely correspond to the foci of heterotopic bone in the superficial soft tissues anteriorly seen on the prior study. Soft tissues are diffusely swollen with subcutaneous edema. No fractures. Two curvilinear metallic foci are evident within the regions of the medial femoral condyles, unchanged as compared to prior. LEFT KNEE: Tricompartmental osteoarthritis is most severe in the medial compartment with complete medial joint space narrowing. Articular sclerosis, articular cortical remodeling, and marginal osteophytes are again noted. There is associated varus angulation at the knee which is more pronounced on these weightbearing images. More moderate osteoarthritis is evident in the lateral and patellofemoral compartments. Soft tissues are swollen with associated subcutaneous edema, XR/XR knee RT 1V IMPRESSION: 1. Severe tricompartmental osteoarthritis in both knees, most severe in the medial compartments with associated varus angulation. Varus angulation in the left knee, in particular, is more pronounced with weightbearing. 2. Small foci of heterotopic bone in the superficial soft tissues anteriorly at the right knee, unchanged from the prior study.
--- NOTE | ~2022-10-16 | XR_ITS ---
EXAMINATION: XR KNEE STANDING, BILATERAL XR KNEE, RIGHT XR KNEE, LEFT CLINICAL INFORMATION: Pain in both knees. COMPARISON: 08/27/2022 TECHNIQUE: Standing AP view of both knees and sunrise views of each knee. FINDINGS: RIGHT KNEE: Severe tricompartmental osteoarthritis is most pronounced in the medial compartment with complete joint space, articular cortical irregularity, articular sclerosis, and marginal osteophytes. The joint space remains apparent at the patellofemoral compartment, though there is significant articular cortical remodeling and large marginal osteophytes. A vacuum phenomenon is present in the narrowed lateral compartment with associated articular cortical remodeling. Minimal varus angulation. Small ossific foci medial to the tibial plateau likely correspond to the foci of heterotopic bone in the superficial soft tissues anteriorly seen on the prior study. Soft tissues are diffusely swollen with subcutaneous edema. No fractures. Two curvilinear metallic foci are evident within the regions of the medial femoral condyles, unchanged as compared to prior. LEFT KNEE: Tricompartmental osteoarthritis is most severe in the medial compartment with complete medial joint space narrowing. Articular sclerosis, articular cortical remodeling, and marginal osteophytes are again noted. There is associated varus angulation at the knee which is more pronounced on these weightbearing images. More moderate osteoarthritis is evident in the lateral and patellofemoral compartments. Soft tissues are swollen with associated subcutaneous edema, XR/XR knee standing BI IMPRESSION: 1. Severe tricompartmental osteoarthritis in both knees, most severe in the medial compartments with associated varus angulation. Varus angulation in the left knee, in particular, is more pronounced with weightbearing. 2. Small foci of heterotopic bone in the superficial soft tissues anteriorly at the right knee, unchanged from the prior study.
== END 2022-10-16 06:29 | disposition home or self-care (01) ==
LOC: HO.HOSX 06:28
PROVIDERS: Visit Provider Physician Assistant
DX: M17.0 Bilateral primary osteoarthritis of knee (principal)
CPT/HCPCS: 20610; 73560; 73565; 99202; J1020

== ENCOUNTER 2022-12-31 09:57 | Outpatient (AMB) | payer OTHER, MEDICAID, SELFPAY ==
[2022-12-31 09:59] VITALS: BP 136/70; PULSE 103; O2SAT 98; BMI 50.2
--- NOTE | 2022-12-31 09:59 | MHC.PC.OV ---
Vital Signs 12/31/22 09:59 Height 4 ft 10 in Weight 240 lb BMI 50.2 BP 136/70 Blood Pressure Location Lt brachial Position Sitting Pulse 103 H Pulse Source Pulse Oximeter Pulse Oximetry (%) 98 Oxygen Delivery Method Room Air Intake Visit Reasons: 3 month follow up Allergies adhesive tape [Adhesive Tape] Allergy (Severe, Verified 12/31/22 09:59) BLISTERS dairy products Allergy (Severe, Verified 12/31/22 09:59) GI upset semaglutide [From Ozempic] Allergy (Severe, Verified 12/31/22 09:59) Diarrhea NSAIDS (Non-Steroidal Anti-Inflamma Adverse Reaction (Verified 12/31/22 09:59) Nephropathy Medication List - Last Reconciled 12/31/22 by Marilyn Gillespie MD acetaminophen ER (Tylenol Arthritis Pain) 650 mg PO Q8H PRN albuterol sulfate 90 mcg/actuation 2 puffs inhalation Q4H PRN amlodipine 10 mg PO DAILY 90 days blood sugar diagnostic (Bilimsuch Ultra Test strips) tid esting 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 meter (Desk Ultra2 Meter) tid testing bupropion HCl 200 mg PO ONCE 90 days carvedilol 6.25 mg PO BID dicyclomine 10 mg PO BID PRN 90 days fenofibrate 160 mg PO DAILY 90 days fluoxetine 40 mg PO DAILY 90 days insulin degludec (Tresiba FlexTouch U-200 insulin) 80 units (0.4 mL) subcut DAILY 30 days lancets tid testing lancets (Quantum OPSTouch Delica Lancets) Use to check blood sugars three times a day loratadine (Allergy Relief (loratadine)) 10 mg PO DAILY 90 days metoprolol succinate ER 25 mg PO BEDTIME pen needle, diabetic daily pen needle, diabetic (BD Nadya 2nd Gen Pen Needle) 1 ea miscellaneous BID ropinirole 0.5 mg PO BEDTIME 90 days simvastatin 20 mg PO DAILY 90 days tramadol 50 mg PO Q8H PRN 7 days Tobacco use date assessed: 12/31/22 Fall risk assessment: 2 + Falls in past year Last assessed Fall Risk: 12/31/22 Dental Screening Dental Screen Date: 12/31/22 Did you have a dental visit in the last 12 months?: No Did you have a dental problem in the last 6 months where you did not have access to dental care?: No Was dental information given to patient?: No HPI 3 month follow up HPI Details Patient is 72-year-old female came in today for her regular follow-up appointment with the daughter Patient had labs done September of this year, her creatinine was 1.64 and potassium was 5.9 She missed her appointment with the Nephrology, encouraged patient to call and book the appointment. She suffers from severe osteoarthritis of her knees and patient is morbidly obese , Her apartment is 14 stairs on 2nd floor which is making it very difficult for the patient to climb stairs She is also unstable on her feet because of diabetic neuropathy Currently using cane to ambulate She is requesting a letter for the apartment complex so they can give the residence on the ground floor. Letter provided. She will have labs done today She is taking long-acting insulin 30 units b.i.d. her last hemoglobin A1c was 5.9 when I reduced the dose from 80-60 units IBS is stable Patient also suffer from anxiety, depression, IBS Blood pressure is stable Medication list reviewed Follow-up 3 months [facility] Medical History Allergies Anxiety, generalized Asthma Breast cancer CKD stage 3 due to type 2 diabetes mellitus COVID-19 vaccine series completed Depression, major, recurrent Diabetes 1.5, managed as type 1 Diabetes type 2, uncontrolled Diabetic nephropathy associated with type 2 diabetes mellitus Diabetic polyneuropathy associated with type 2 diabetes mellitus Dyslipidemia Dyspnea on exertion Hypertension Irritable bowel syndrome Lipid disorder 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 Other Mental health disorder Substance use disorder Social History Household Members: Family Housing: House Are you a primary director of primary care to a significant other at home: No Do you presently have visiting nurse or other home services: No Alcohol intake: current Alcohol intake frequency: a few times a week Alcohol type: beer Patient Tobacco Use Status: Former Tobacco user Quit Date: teenager Tobacco use type: Cigarette e-Cigarette/Vaping Use: Never Used service: No Current occupational status: unemployed Cognitive needs: No Hearing needs: No Vision needs: No Questionnaire Thrive Questionnaire Date Thrive assessed: 06/17/22 AUDIT C Alcohol Use Questionnaire (AUDIT-C) 1. How often do you have a drink containing alcohol?: Never 3. How often do you have six or more drinks on one occasion?: Never Total Score: 0 Score Reviewed/Action Taken: Yes MADI-7 AMB Questionnaire MADI-7 Date MADI - 7 assessed: 06/17/22 Source: Developed by Drs. Johnnie Hammonds, Laly Hoyt, León Norton and colleagues, with an educational maryanne from [employer]. Review of Systems Const Denies chills and Denies fever(s) ENT Denies epistaxis and Denies nasal discharge Card Denies chest pain Resp Denies chest congestion, Denies cough and Denies hemoptysis GI Denies diarrhea and Denies nausea Skin/Breast Denies rash Neuro Reports no additional complaints Psych Reports no additional complaints Endo Reports no additional complaints Physical exam (Primary Care) Vital Signs: Last Vital Signs Pulse 103 H 12/31/22 09:59 BP 136/70 12/31/22 09:59 Pulse Ox 98 12/31/22 09:59 Oxygen Delivery Method Room Air 12/31/22 09:59 BMI result Body Mass Index 50.2 Tobacco/Smoking Status: Tobacco use Status Tobacco use date assessed 12/31/22 12/31/22 10:08 Patient Tobacco Use Status Former Tobacco user 12/31/22 10:01 Tobacco use type Cigarette 12/31/22 10:01 e-Cigarette/Vaping Use Never Used 12/31/22 10:01 Thrive Assessment: Date of Thrive Assessment Date Thrive assessed 06/17/22 12/31/22 10:01 Const General: cooperative, comfortable and no acute distress Orientation/consciousness: patient oriented x3 HENMT Head: Yes normocephalic Eyes General: appearance normal, both eyes and all related structures Neck Neck: Yes supple Resp Effort & Inspection: normal respiratory effort, no cough and no stridor Cardio Rhythm: regular rhythm Heart sounds: S1 normal heart sound present and S2 normal heart sound present Skin General skin exam: turgor normal Neuro General: patient oriented x3, tone normal and moves all extremities Extrem Right lower extremity: no edema Left lower extremity: no edema Assessment and Plan Assessment & Plan (1) Diabetes 1.5, managed as type 1: Code(s): E13.9 - Other specified diabetes mellitus without complications (2) Lipid disorder: Code(s): E78.9 - Disorder of lipoprotein metabolism, unspecified (3) Anxiety, generalized: Code(s): F41.1 - Generalized anxiety disorder (4) Depression, major, recurrent: Code(s): F33.9 - Major depressive disorder, recurrent, unspecified Qualifiers: Active/Remission status: in partial remission Qualified Code(s): F33.41 - Major depressive disorder, recurrent, in partial remission (5) Irritable bowel syndrome: Code(s): K58.9 - Irritable bowel syndrome without diarrhea Qualifiers: Irritable bowel syndrome type: with diarrhea Qualified Code(s): K58.0 - Irritable bowel syndrome with diarrhea (6) 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: Code(s): Z79.4 - skilled nursing (current) use of insulin (7) Diabetic nephropathy associated with type 2 diabetes mellitus: Code(s): E11.21 - Type 2 diabetes mellitus with diabetic nephropathy (8) Diabetic polyneuropathy associated with type 2 diabetes mellitus: Code(s): E11.42 - Type 2 diabetes mellitus with diabetic polyneuropathy (9) Morbid obesity with BMI of 50.0-59.9, adult: Code(s): E66.01 - Morbid (severe) obesity due to excess calories; Z68.43 - Body mass index [BMI] 50.0-59.9, adult (10) Restless leg syndrome: Code(s): G25.81 - Restless legs syndrome (11) Osteoarthritis of knees, bilateral: Code(s): M17.0 - Bilateral primary osteoarthritis of knee Qualifiers: Osteoarthritis type: primary Qualified Code(s): M17.0 - Bilateral primary osteoarthritis of knee Plan Patient is 72-year-old female came in today for her regular follow-up appointment with the daughter Patient had labs done September of this year, her creatinine was 1.64 and potassium was 5.9 She missed her appointment with the Nephrology, encouraged patient to call and book the appointment. She suffers from severe osteoarthritis of her knees and patient is morbidly obese , Her apartment is 14 stairs on 2nd floor which is making it very difficult for the patient to climb stairs She is also unstable on her feet because of diabetic neuropathy Currently using cane to ambulate She is requesting a letter for the apartment complex so they can give the residence on the ground floor. Letter provided. She will have labs done today She is taking long-acting insulin 30 units b.i.d. her last hemoglobin A1c was 5.9 when I reduced the dose from 80-60 units IBS is stable Patient also suffer from anxiety, depression, IBS Blood pressure is stable Medication list reviewed Follow-up 3 months Orders: Orders Comprehensive [place]. Panel Fast Today E11.21 - Type 2 diabetes mellitus with diabetic nephropathy, E11.42 - Type 2 diabetes mellitus with diabetic polyneuropathy, E13.9 - Other specified diabetes mellitus without complications, E66.01 - Morbid (severe) obesity due to excess calories, E78.9 - Disorder of lipoprotein metabolism, unspecified, F33.9 - Major depressive disorder, recurrent, unspecified, F41.1 - Generalized anxiety disorder, G25.81 - Restless legs syndrome, K58.9 - Irritable bowel syndrome without diarrhea, M17.0 - Bilateral primary osteoarthritis of knee, Z68.43 - Body mass index [BMI] 50.0-59.9, adult, Z79.4 - skilled nursing (current) use of insulin Hemoglobin A1c Today E11.21 - Type 2 diabetes mellitus with diabetic nephropathy, E11.42 - Type 2 diabetes mellitus with diabetic polyneuropathy, E13.9 - Other specified diabetes mellitus without complications, E66.01 - Morbid (severe) obesity due to excess calories, E78.9 - Disorder of lipoprotein metabolism, unspecified, F33.9 - Major depressive disorder, recurrent, unspecified, F41.1 - Generalized anxiety disorder, G25.81 - Restless legs syndrome, K58.9 - Irritable bowel syndrome without diarrhea, M17.0 - Bilateral primary osteoarthritis of knee, Z68.43 - Body mass index [BMI] 50.0-59.9, adult, Z79.4 - skilled nursing (current) use of insulin Lipid Panel Today E11.21 - Type 2 diabetes mellitus with diabetic nephropathy, E11.42 - Type 2 diabetes mellitus with diabetic polyneuropathy, E13.9 - Other specified diabetes mellitus without complications, E66.01 - Morbid (severe) obesity due to excess calories, E78.9 - Disorder of lipoprotein metabolism, unspecified, F33.9 - Major depressive disorder, recurrent, unspecified, F41.1 - Generalized anxiety disorder, G25.81 - Restless legs syndrome, K58.9 - Irritable bowel syndrome without diarrhea, M17.0 - Bilateral primary osteoarthritis of knee, Z68.43 - Body mass index [BMI] 50.0-59.9, adult, Z79.4 - 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 TSH reflex Free T4 Today E11.21 - Type 2 diabetes mellitus with diabetic nephropathy, E11.42 - Type 2 diabetes mellitus with diabetic polyneuropathy, E13.9 - Other specified diabetes mellitus without complications, E66.01 - Morbid (severe) obesity due to excess calories, E78.9 - Disorder of lipoprotein metabolism, unspecified, F33.9 - Major depressive disorder, recurrent, unspecified, F41.1 - Generalized anxiety disorder, G25.81 - Restless legs syndrome, K58.9 - Irritable bowel syndrome without diarrhea, M17.0 - Bilateral primary osteoarthritis of knee, Z68.43 - Body mass index [BMI] 50.0-59.9, adult, Z79.4 - 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 Microalbumin, Random (w Creat) Today E11.21 - Type 2 diabetes mellitus with diabetic nephropathy, E11.42 - Type 2 diabetes mellitus with diabetic polyneuropathy, E13.9 - Other specified diabetes mellitus without complications, E66.01 - Morbid (severe) obesity due to excess calories, E78.9 - Disorder of lipoprotein metabolism, unspecified, F33.9 - Major depressive disorder, recurrent, unspecified, F41.1 - Generalized anxiety disorder, G25.81 - Restless legs syndrome, K58.9 - Irritable bowel syndrome without diarrhea, M17.0 - Bilateral primary osteoarthritis of knee, Z68.43 - Body mass index [BMI] 50.0-59.9, adult, Z79.4 - 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 Complete Blood Count Auto Diff Today E11.21 - Type 2 diabetes mellitus with diabetic nephropathy, E11.42 - Type 2 diabetes mellitus with diabetic polyneuropathy, E13.9 - Other specified diabetes mellitus without complications, E66.01 - Morbid (severe) obesity due to excess calories, E78.9 - Disorder of lipoprotein metabolism, unspecified, F33.9 - Major depressive disorder, recurrent, unspecified, F41.1 - Generalized anxiety disorder, G25.81 - Restless legs syndrome, K58.9 - Irritable bowel syndrome without diarrhea, M17.0 - Bilateral primary osteoarthritis of knee, Z68.43 - Body mass index [BMI] 50.0-59.9, adult, Z79.4 - skilled nursing (current) use of insulin Medications: Changed From insulin degludec (Tresiba FlexTouch U-200 insulin) 80 units (0.4 mL) subcut DAILY 30 days 12 mL 1RF E11.65 - Type 2 diabetes mellitus with hyperglycemia To insulin degludec (Tresiba FlexTouch U-200 insulin) 30 units (0.15 mL) subcut BID 27 mL 1RF 90 days E11.65 - Type 2 diabetes mellitus with hyperglycemia Coding Level of Care Code Est Pt Level 4 (46903) Diagnoses Diabetes 1.5, managed as type 1 E13.9 Lipid disorder E78.9 Anxiety, generalized F41.1 Depression, major, recurrent F33.41 Active/Remission status: in partial remission Irritable bowel syndrome K58.0 Irritable bowel syndrome type: with diarrhea 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
== END 2022-12-31 11:38 | disposition home or self-care (01) ==
PROVIDERS: PCP Internal Medicine; Visit Provider Internal Medicine
DX: E11.21 Type 2 diabetes mellitus with diabetic nephropathy (principal); F33.41 Major depressive disorder, recurrent, in partial remission; K58.0 Irritable bowel syndrome with diarrhea; Z79.4 Long term (current) use of insulin; E11.42 Type 2 diabetes mellitus with diabetic polyneuropathy; E78.9 Disorder of lipoprotein metabolism, unspecified; F41.1 Generalized anxiety disorder; E66.01 Morbid (severe) obesity due to excess calories; Z68.43 Body mass index [BMI] 50.0-59.9, adult; G25.81 Restless legs syndrome; M17.0 Bilateral primary osteoarthritis of knee
CPT/HCPCS: 99214

== ENCOUNTER 2022-12-31 10:59 | Outpatient (REF) | payer OTHER, MEDICAID, SELFPAY ==
[2022-12-31 13:21] LABS: MANUAL DIFF FLAG NO
[2022-12-31 13:32] LABS: Basophils Absolute Auto 0.1 X10*3/uL (0.0-0.2); Basophils Percent Auto 0.6 % (0-2); Eosinophils Absolute Auto 0.2 X10*3/uL (0.0-0.4); Eosinophils Percent Auto 2.4 % (0-4); Estimated Average Glucose 126 mg/dL; Hematocrit 37.9 % (37.0-47.0); Hemoglobin 12.1 g/dl (12.0-16.0); Imm Gran Abs Auto 0.04 X10*3/uL (0.00-0.03); Imm Gran Pct Auto 0.4 % (0.0-0.4); Lymphocytes Absolute Auto 1.7 X10*3/uL (1.2-4.9); Lymphocytes Percent Auto 19.2 % (20-40); Mean Corpuscular HGB Conc 31.9 g/dl (31.0-35.0); Mean Corpuscular Hemoglobin 30.3 pg (27.0-33.0); Mean Corpuscular Volume 94.8 fL (80.0-98.0); Mean Platelet Volume 10.2 fL (9.4-12.3); Monocytes Absolute Auto 0.6 X10*3/uL (0.1-1.2); Monocytes Percent Auto 6.9 % (2-11); Neutrophils Absolute Auto 6.3 x10*3/uL (2.0-8.3); Neutrophils Percent Auto 70.5 % (45-73); Platelet Count 402 X10*3/uL (160-400)
[2022-12-31 13:51] LABS: Alanine Aminotransferase 6 U/L (0-31); Albumin Level 3.6 g/dL (3.5-5.0); Alkaline Phosphatase 55 U/L (39-117); Anion Gap 14 (12-20); Aspartate Amino Transferase 16 U/L (5-31); Bilirubin Total 0.4 mg/dL (0.0-1.0); Blood Urea Nitrogen 26 mg/dL (9-16); Calcium 9.6 mg/dL (8.4-10.2); Carbon Dioxide 22 mmol/L (22-29); Chloride 106 mmol/L (96-108); Cholesterol 146 mg/dL (<200); Estimated Glomerular Filt Rate 39; Glucose Fasting 115 mg/dL (60-99); HDL Cholesterol 60 mg/dL (>40); LDL Cholesterol Calculated 68 mg/dL (<100); Potassium 4.9 mmol/L (3.3-5.1); Sodium 137 mmol/L (135-145); Total Protein 7.3 g/dL (6.5-8.0); Triglycerides 90 mg/dL (<150)
[2022-12-31 14:12] LABS: TSH reflex Free T4 5.54 uIU/mL (0.32-4.0)
[2022-12-31 14:52] LABS: Free T4 (Free Thyroxine) 1.15 ng/dL (0.71-1.85)
== END 2022-12-31 11:00 | disposition home or self-care (01) ==
LOC: HO.HMGCLDS 10:59
PROVIDERS: PCP Internal Medicine; Visit Provider Internal Medicine
DX: E11.21 Type 2 diabetes mellitus with diabetic nephropathy (principal); E11.42 Type 2 diabetes mellitus with diabetic polyneuropathy; E78.9 Disorder of lipoprotein metabolism, unspecified; F33.9 Major depressive disorder, recurrent, unspecified; F41.1 Generalized anxiety disorder; G25.81 Restless legs syndrome; K58.9 Irritable bowel syndrome, unspecified; M17.0 Bilateral primary osteoarthritis of knee; E66.01 Morbid (severe) obesity due to excess calories; Z68.43 Body mass index [BMI] 50.0-59.9, adult; Z79.4 Long term (current) use of insulin
CPT/HCPCS: 36415; 80053; 80061; 83036; 84439; 84443; 85025

== ENCOUNTER 2023-05-27 13:19 | Outpatient (AMB) | payer MEDICARE, MEDICAID, SELFPAY ==
[2023-05-27 13:26] VITALS: BP 136/64; PULSE 70; O2SAT 96; BMI 53.5
--- NOTE | 2023-05-27 13:26 | MHC.PC.OV ---
Vital Signs 05/27/23 13:26 Height 4 ft 10 in Weight 256 lb 2 oz BMI 53.5 BP 136/64 Blood Pressure Location Lt brachial Position Sitting Pulse 70 Pulse Source Pulse Oximeter Pulse Oximetry (%) 96 Oxygen Delivery Method Room Air Intake Visit Reasons: 3 month Follow Up ( Meds) Allergies adhesive tape [Adhesive Tape] Allergy (Severe, Verified 05/27/23 13:29) BLISTERS dairy products Allergy (Severe, Verified 05/27/23 13:29) GI upset semaglutide [From Ozempic] Allergy (Severe, Verified 05/27/23 13:29) Diarrhea NSAIDS (Non-Steroidal Anti-Inflamma Adverse Reaction (Verified 05/27/23 13:29) Nephropathy Medication List - Last Reconciled 05/27/23 by Marilyn Gillespie MD acetaminophen ER (Tylenol Arthritis Pain) 650 mg PO Q8H PRN albuterol sulfate 90 mcg/actuation 2 puffs inhalation Q4H PRN amlodipine 10 mg PO DAILY 90 days blood sugar diagnostic ([employer] Ultra Test strips) tid esting 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 meter (PixelPin Ultra2 Meter) tid testing bupropion HCl 200 mg PO ONCE 90 days carvedilol 6.25 mg PO BID dicyclomine 10 mg PO BID PRN 90 days fenofibrate 160 mg PO DAILY 90 days fluoxetine 40 mg PO DAILY 90 days insulin degludec (Tresiba FlexTouch U-200 insulin) 30 units (0.15 mL) subcut BID 90 days lancets tid testing lancets (5[employer] GamesTouch Delica Lancets) Use to check blood sugars three times a day loratadine (Allergy Relief (loratadine)) 10 mg PO DAILY 90 days metoprolol succinate ER 25 mg PO BEDTIME pen needle, diabetic daily pen needle, diabetic (BD Nadya 2nd Gen Pen Needle) 1 ea miscellaneous BID ropinirole 0.5 mg PO BEDTIME 90 days simvastatin 20 mg PO DAILY 90 days tramadol 50 mg PO Q8H PRN 7 days Tobacco use date assessed: 05/27/23 Fall risk assessment: No Falls in past year Last assessed Fall Risk: 05/27/23 Dental Screening Dental Screen Date: 05/27/23 Did you have a dental visit in the last 12 months?: Yes Did you have a dental problem in the last 6 months where you did not have access to dental care?: No Was dental information given to patient?: Patient has dentist HPI 3 month Follow Up ( Meds) HPI Details Patient is 72-year-old female with a history of diabetes mellitus insulin-dependent, lipid disorder, hypertension, anxiety, depression, irritable bowel syndrome, asthma, allergies, diabetic nephropathy, diabetic polyneuropathy obstructive sleep apnea, morbid obesity, dyspnea on exertion, memory deficit, restless leg syndrome Came in today for her regular follow-up appointment with the daughter Patient is requesting a flu vaccine, explained to her that we do not carry the stronger flu vaccine that is given to seniors Patient says that she does not want to go to pharmacy so she will take the regular. She was evaluated by neurologist in 2020 when she complained of memory deficit I reviewed the note which states that patient need to stop drinking alcohol and start using her CPAP machine regularly She continued to have the problem would like to see the neurologist again. 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 Other Mental health disorder Substance use disorder Social History Household Members: Family Housing: House Are you a primary career development associate to a significant other at home: No Do you presently have visiting nurse or other home services: No Alcohol intake: current Alcohol intake frequency: a few times a week Alcohol type: beer Patient Tobacco Use Status: Former Tobacco user Quit Date: teenager Tobacco use type: Cigarette e-Cigarette/Vaping Use: Never Used service: No Current occupational status: unemployed Cognitive needs: No Hearing needs: No Vision needs: No Questionnaire Thrive Questionnaire Date Thrive assessed: 06/17/22 AUDIT C Alcohol Use Questionnaire (AUDIT-C) 1. How often do you have a drink containing alcohol?: Never 3. How often do you have six or more drinks on one occasion?: Never Total Score: 0 Score Reviewed/Action Taken: Yes MADI-7 AMB Questionnaire MADI-7 Date MADI - 7 assessed: 06/17/22 Source: Developed by Drs. Johnnie Hammonds, Laly Hoyt, León Norton and colleagues, with an educational maryanne from [employer]. Review of Systems Const Denies chills and Denies fever(s) ENT Denies epistaxis and Denies nasal discharge Card Denies chest pain Resp Denies chest congestion, Denies cough and Denies hemoptysis GI Denies diarrhea and Denies nausea Skin/Breast Denies rash Neuro Reports no additional complaints Psych Reports no additional complaints Endo Reports no additional complaints Physical exam (Primary Care) Vital Signs: Last Vital Signs Pulse 70 05/27/23 13:26 BP 136/64 05/27/23 13:26 Pulse Ox 96 05/27/23 13:26 Oxygen Delivery Method Room Air 05/27/23 13:26 BMI result Body Mass Index 53.5 Tobacco/Smoking Status: Tobacco use Status Tobacco use date assessed 05/27/23 05/27/23 13:30 Patient Tobacco Use Status Former Tobacco user 05/27/23 13:30 Tobacco use type Cigarette 05/27/23 13:30 e-Cigarette/Vaping Use Never Used 05/27/23 13:30 Thrive Assessment: Date of Thrive Assessment Date Thrive assessed 06/17/22 05/27/23 13:30 Advance Care Planning discussion: Completed/Scanned Forms completed: Health Care Proxy and MOLST Time spent: 1-15 minutes, on File Const General: cooperative, comfortable and no acute distress Orientation/consciousness: patient oriented x3 HENMT Head: Yes normocephalic Eyes General: appearance normal, both eyes and all related structures Neck Neck: Yes supple Resp Effort & Inspection: normal respiratory effort, no cough and no stridor Cardio Rhythm: regular rhythm Heart sounds: S1 normal heart sound present and S2 normal heart sound present Skin General skin exam: turgor normal Neuro General: patient oriented x3, tone normal and moves all extremities Extrem Right lower extremity: no edema Left lower extremity: no edema Office Procedures Flu Questionnaire Does the patient have a severe egg allergy?: No Does the patient have severe life threatening allergies?: No Does the patient have a fever or illness today?: No Has the patient ever had Guillain-[place] Syndrome?: No Has the patient ever had any past reaction to a flu shot?: No Immunizations flu vacc [id number] 6mos up(PF) 60 mcg(15 mcgx4)/0.5 mL IM syringe Performing Provider: Marilyn Gillespie MD Performing Location: [facility] [place] [facility] Administered by: Etienne Velásquez CMA on 05/27/23 13:53 Dose Route Admin Location Dispensed Lot Number Expiration Date NDC Prop[employer]en [employer] 0.5 mL IM Left Deltoid 0.5 mL [id number] 10/25/23 42918-903-75 [employer] VIS Given Date VIS Provided VIS Publication Date 05/27/23 Single Vaccine 20 Eligibility Eligibility Date Funding Source Not [facility] Eligible 05/27/23 Private Assessment and Plan Assessment & Plan (1) Long-term insulin use: Code(s): Z79.4 - senior living (current) use of insulin (2) Memory deficit: Code(s): R41.3 - Other amnesia (3) OZ (obstructive sleep apnea): Comment: not using CPAP at this time Code(s): G47.33 - Obstructive sleep apnea (adult) (pediatric) (4) Diabetic polyneuropathy associated with type 2 diabetes mellitus: Code(s): E11.42 - Type 2 diabetes mellitus with diabetic polyneuropathy (5) CKD stage 3 due to type 2 diabetes mellitus: Code(s): E11.22 - Type 2 diabetes mellitus with diabetic chronic kidney disease; N18.30 - Chronic kidney disease, stage 3 unspecified (6) Morbid obesity: Code(s): E66.01 - Morbid (severe) obesity due to excess calories (7) Diabetic nephropathy associated with type 2 diabetes mellitus: Code(s): E11.21 - Type 2 diabetes mellitus with diabetic nephropathy (8) Irritable bowel syndrome: Code(s): K58.9 - Irritable bowel syndrome without diarrhea Qualifiers: Irritable bowel syndrome type: with diarrhea Qualified Code(s): K58.0 - Irritable bowel syndrome with diarrhea (9) Depression, major, recurrent: Code(s): F33.9 - Major depressive disorder, recurrent, unspecified Qualifiers: Active/Remission status: in partial remission Qualified Code(s): F33.41 - Major depressive disorder, recurrent, in partial remission (10) Anxiety, generalized: Code(s): F41.1 - Generalized anxiety disorder (11) Lipid disorder: Code(s): E78.9 - Disorder of lipoprotein metabolism, unspecified (12) Diabetes 1.5, managed as type 1: Code(s): E13.9 - Other specified diabetes mellitus without complications Plan Patient is 72-year-old female with a history of diabetes mellitus insulin-dependent, lipid disorder, hypertension, anxiety, depression, irritable bowel syndrome, asthma, allergies, diabetic nephropathy, diabetic polyneuropathy obstructive sleep apnea, morbid obesity, dyspnea on exertion, memory deficit, restless leg syndrome Came in today for her regular follow-up appointment with the daughter Patient is requesting a flu vaccine, explained to her that we do not carry the stronger flu vaccine that is given to seniors Patient says that she does not want to go to pharmacy so she will take the regular. She was evaluated by neurologist in 2020 when she complained of memory deficit I reviewed the note which states that patient need to stop drinking alcohol and start using her CPAP machine regularly She continued to have the problem would like to see the neurologist again. Referral placed Patient is due for labs Her diabetes is well-controlled last hemoglobin A1c was in 6 range Patient is tolerating all her medications Medication list reviewed Orders: Orders Microalbumin, Random (w Creat) Today E11.21 - Type 2 diabetes mellitus with diabetic nephropathy, E11.22 - Type 2 diabetes mellitus with diabetic chronic kidney disease, E11.42 - Type 2 diabetes mellitus with diabetic polyneuropathy, E13.9 - Other specified diabetes mellitus without complications, E66.01 - Morbid (severe) obesity due to excess calories, E78.9 - Disorder of lipoprotein metabolism, unspecified, F33.9 - Major depressive disorder, recurrent, unspecified, F41.1 - Generalized anxiety disorder, G47.33 - Obstructive sleep apnea (adult) (pediatric), K58.9 - Irritable bowel syndrome without diarrhea, N18.30 - Chronic kidney disease, stage 3 unspecified, R41.3 - Other amnesia, Z79.4 - 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 Hemoglobin A1c Today E11.21 - Type 2 diabetes mellitus with diabetic nephropathy, E11.22 - Type 2 diabetes mellitus with diabetic chronic kidney disease, E11.42 - Type 2 diabetes mellitus with diabetic polyneuropathy, E13.9 - Other specified diabetes mellitus without complications, E66.01 - Morbid (severe) obesity due to excess calories, E78.9 - Disorder of lipoprotein metabolism, unspecified, F33.9 - Major depressive disorder, recurrent, unspecified, F41.1 - Generalized anxiety disorder, G47.33 - Obstructive sleep apnea (adult) (pediatric), K58.9 - Irritable bowel syndrome without diarrhea, N18.30 - Chronic kidney disease, stage 3 unspecified, R41.3 - Other amnesia, Z79.4 - 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 TSH reflex Free T4 Today E11.21 - Type 2 diabetes mellitus with diabetic nephropathy, E11.22 - Type 2 diabetes mellitus with diabetic chronic kidney disease, E11.42 - Type 2 diabetes mellitus with diabetic polyneuropathy, E13.9 - Other specified diabetes mellitus without complications, E66.01 - Morbid (severe) obesity due to excess calories, E78.9 - Disorder of lipoprotein metabolism, unspecified, F33.9 - Major depressive disorder, recurrent, unspecified, F41.1 - Generalized anxiety disorder, G47.33 - Obstructive sleep apnea (adult) (pediatric), K58.9 - Irritable bowel syndrome without diarrhea, N18.30 - Chronic kidney disease, stage 3 unspecified, R41.3 - Other amnesia, Z79.4 - 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 LDL Cholesterol Direct Today E11.21 - Type 2 diabetes mellitus with diabetic nephropathy, E11.22 - Type 2 diabetes mellitus with diabetic chronic kidney disease, E11.42 - Type 2 diabetes mellitus with diabetic polyneuropathy, E13.9 - Other specified diabetes mellitus without complications, E66.01 - Morbid (severe) obesity due to excess calories, E78.9 - Disorder of lipoprotein metabolism, unspecified, F33.9 - Major depressive disorder, recurrent, unspecified, F41.1 - Generalized anxiety disorder, G47.33 - Obstructive sleep apnea (adult) (pediatric), K58.9 - Irritable bowel syndrome without diarrhea, N18.30 - Chronic kidney disease, stage 3 unspecified, R41.3 - Other amnesia, Z79.4 - senior living (current) use of insulin Influenza [id number] Immunization Today Z23 - Encounter for immunization Complete Blood Count Auto Diff Today E11.21 - Type 2 diabetes mellitus with diabetic nephropathy, E11.22 - Type 2 diabetes mellitus with diabetic chronic kidney disease, E11.42 - Type 2 diabetes mellitus with diabetic polyneuropathy, E13.9 - Other specified diabetes mellitus without complications, E66.01 - Morbid (severe) obesity due to excess calories, E78.9 - Disorder of lipoprotein metabolism, unspecified, F33.9 - Major depressive disorder, recurrent, unspecified, F41.1 - Generalized anxiety disorder, G47.33 - Obstructive sleep apnea (adult) (pediatric), K58.9 - Irritable bowel syndrome without diarrhea, N18.30 - Chronic kidney disease, stage 3 unspecified, R41.3 - Other amnesia, Z79.4 - senior living (current) use of insulin Comprehensive Met. Panel Today E11.21 - Type 2 diabetes mellitus with diabetic nephropathy, E11.22 - Type 2 diabetes mellitus with diabetic chronic kidney disease, E11.42 - Type 2 diabetes mellitus with diabetic polyneuropathy, E13.9 - Other specified diabetes mellitus without complications, E66.01 - Morbid (severe) obesity due to excess calories, E78.9 - Disorder of lipoprotein metabolism, unspecified, F33.9 - Major depressive disorder, recurrent, unspecified, F41.1 - Generalized anxiety disorder, G47.33 - Obstructive sleep apnea (adult) (pediatric), K58.9 - Irritable bowel syndrome without diarrhea, N18.30 - Chronic kidney disease, stage 3 unspecified, R41.3 - Other amnesia, Z79.4 - senior living (current) use of insulin Referrals Neurology Referral R41.3 - Other amnesia Coding Level of Care Code Est Pt Level 5 (98303) Diagnoses Long-term insulin use Z79.4 Memory deficit R41.3 OZ (obstructive sleep apnea) G47.33 Diabetic polyneuropathy associated with type 2 diabetes mellitus E11.42 CKD stage 3 due to type 2 diabetes mellitus E11.22; N18.30 Morbid obesity E66.01 Diabetic nephropathy associated with type 2 diabetes mellitus E11.21 Irritable bowel syndrome with diarrhea K58.0 Irritable bowel syndrome type: with diarrhea Recurrent major depressive disorder, in partial remission F33.41 Active/Remission status: in partial remission Anxiety, generalized F41.1 Lipid disorder E78.9 Diabetes 1.5, managed as type 1 E13.9 Additional Codes Vital Signs *Quality* - Advance Care Planning discussion: Completed/Scanned ([id number]) Vital Signs *Quality* - Time spent: 1-15 minutes, on File ([id number]) Time Spent (min) 40 Comment 5 Pre visit, 25 with patient, 5 minute charting, 5 minute coordination of care
== END 2023-05-27 14:44 | disposition home or self-care (01) ==
PROVIDERS: PCP Internal Medicine; Visit Provider Internal Medicine
DX: Z23 Encounter for immunization (principal); Z00.00 Encounter for general adult medical examination without abnormal findings
CPT/HCPCS: 1123F; 90471; 90686; 99215

== ENCOUNTER 2023-05-27 13:50 | Outpatient (REF) | payer MEDICARE, MEDICAID, SELFPAY ==
[2023-05-27 16:09] LABS: MANUAL DIFF FLAG NO
[2023-05-27 16:16] LABS: Basophils Percent Auto 0.5 % (0-2); Eosinophils Absolute Auto 0.2 X10*3/uL (0.0-0.4); Hematocrit 38.9 % (37.0-47.0); Hemoglobin 12.2 g/dl (12.0-16.0); Imm Gran Abs Auto 0.03 X10*3/uL (0.00-0.03); Imm Gran Pct Auto 0.4 % (0.0-0.4); Lymphocytes Absolute Auto 2.5 X10*3/uL (1.2-4.9); Lymphocytes Percent Auto 29.5 % (20-40); Mean Corpuscular HGB Conc 31.4 g/dl (31.0-35.0); Mean Corpuscular Hemoglobin 29.9 pg (27.0-33.0); Mean Corpuscular Volume 95.3 fL (80.0-98.0); Monocytes Absolute Auto 0.6 X10*3/uL (0.1-1.2); Monocytes Percent Auto 6.9 % (2-11); Neutrophils Absolute Auto 5.2 x10*3/uL (2.0-8.3); Neutrophils Percent Auto 60.7 % (45-73); Platelet Count 286 X10*3/uL (160-400); Red Blood Count 4.08 X10*6/uL (4.20-5.50); Red Cell Distribution Width 14.6 % (11.0-16.0); White Blood Count 8.5 X10*3/uL (4.8-10.8)
[2023-05-27 16:26] LABS: Estimated Average Glucose 120 mg/dL; Hemoglobin A1c % 5.8 % (<6.0)
[2023-05-27 16:33] LABS: Alanine Aminotransferase 8 U/L (0-31); Albumin Level 3.5 g/dL (3.5-5.0); Alkaline Phosphatase 53 U/L (39-117); Anion Gap 13 (12-20); Aspartate Amino Transferase 15 U/L (5-31); Bilirubin Total 0.3 mg/dL (0.0-1.0); Blood Urea Nitrogen 26 mg/dL (9-16); Calcium 9.3 mg/dL (8.4-10.2); Carbon Dioxide 26 mmol/L (22-29); Chloride 107 mmol/L (96-108); Estimated Glomerular Filt Rate 39; Glucose Random 90 mg/dL (60-115); Potassium 4.4 mmol/L (3.3-5.1); Sodium 142 mmol/L (135-145)
[2023-05-27 16:50] LABS: TSH reflex Free T4 3.86 uIU/mL (0.32-4.0)
[2023-05-28 12:39] LABS: LDL Cholesterol Direct 71 mg/dL (<100)
== END 2023-05-27 13:51 | disposition home or self-care (01) ==
LOC: HO.HMGCLDS 13:50
PROVIDERS: PCP Internal Medicine; Visit Provider Internal Medicine
DX: E66.01 Morbid (severe) obesity due to excess calories (principal); R41.3 Other amnesia; G47.33 Obstructive sleep apnea (adult) (pediatric); E11.22 Type 2 diabetes mellitus with diabetic chronic kidney disease; N18.30 Chronic kidney disease, stage 3 unspecified; E11.42 Type 2 diabetes mellitus with diabetic polyneuropathy; E11.21 Type 2 diabetes mellitus with diabetic nephropathy; K58.9 Irritable bowel syndrome, unspecified; F41.1 Generalized anxiety disorder; E78.9 Disorder of lipoprotein metabolism, unspecified; Z79.4 Long term (current) use of insulin
CPT/HCPCS: 36415; 80053; 83036; 83721; 84443; 85025

== ENCOUNTER 2023-07-07 10:15 | Outpatient (REF) | payer MEDICARE, MEDICAID, SELFPAY ==
[2023-07-07 14:17] LABS: Creatinine Urine 60.71 mg/dL; Microalbum/Creatinine Ratio Ur 41.1 ug/mg cr (<30)
== END 2023-07-07 10:16 | disposition home or self-care (01) ==
LOC: HO.HMGCLNP 10:15
PROVIDERS: PCP Internal Medicine; Visit Provider Internal Medicine
DX: E11.42 Type 2 diabetes mellitus with diabetic polyneuropathy (principal); E11.21 Type 2 diabetes mellitus with diabetic nephropathy; E11.22 Type 2 diabetes mellitus with diabetic chronic kidney disease; N18.30 Chronic kidney disease, stage 3 unspecified; E66.01 Morbid (severe) obesity due to excess calories; Z79.4 Long term (current) use of insulin
CPT/HCPCS: 82043; 82570

== ENCOUNTER 2023-07-07 11:00 | Outpatient (AMB) | payer MEDICARE, MEDICAID, SELFPAY ==
[2023-07-07 11:03] VITALS: BP 132/68; PULSE 63; O2SAT 95; BMI 54.4
--- NOTE | 2023-07-07 11:03 | A.OFFPC_ITS ---
Vital Signs 07/07/23 11:03 Height 4 ft 10 in Weight 260 lb 2 oz BMI 54.4 BP 132/68 Blood Pressure Location Lt brachial Position Sitting Pulse 63 Pulse Source Pulse Oximeter Pulse Oximetry (%) 95 Oxygen Delivery Method Room Air Intake Visit Reasons: 6 month fu Allergies adhesive tape [Adhesive Tape] Allergy (Severe, Verified 07/07/23 11:03) BLISTERS dairy products Allergy (Severe, Verified 07/07/23 11:03) GI upset semaglutide [From Ozempic] Allergy (Severe, Verified 07/07/23 11:03) Diarrhea NSAIDS (Non-Steroidal Anti-Inflamma Adverse Reaction (Verified 07/07/23 11:03) Nephropathy Medication List - Last Reconciled 07/07/23 by Marilyn Gillespie MD acetaminophen ER (Tylenol Arthritis Pain) 650 mg PO Q8H PRN albuterol sulfate 90 mcg/actuation 2 puffs inhalation Q4H PRN amlodipine 10 mg PO DAILY 90 days blood sugar diagnostic (Mobile Authenticationuch Ultra Test strips) tid esting 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 meter (ilab Ultra2 Meter) tid testing bupropion HCl 200 mg PO ONCE 90 days carvedilol 6.25 mg PO BID dicyclomine 10 mg PO BID PRN 90 days fenofibrate 160 mg PO DAILY 90 days fluoxetine 40 mg PO DAILY 90 days insulin degludec (Tresiba FlexTouch U-200 insulin) 30 units (0.15 mL) subcut BID 90 days lancets tid testing lancets (InsightsTouch Delica Lancets) Use to check blood sugars three times a day loratadine (Allergy Relief (loratadine)) 10 mg PO DAILY 90 days metoprolol succinate ER 25 mg PO BEDTIME pen needle, diabetic daily pen needle, diabetic (BD Nadya 2nd Gen Pen Needle) 1 ea miscellaneous BID ropinirole 0.5 mg PO BEDTIME 90 days simvastatin 20 mg PO DAILY 90 days tramadol 50 mg PO Q8H PRN 7 days Tobacco use date assessed: 07/07/23 Fall risk assessment: No Falls in past year Last assessed Fall Risk: 07/07/23 Dental Screening Dental Screen Date: 07/07/23 Did you have a dental visit in the last 12 months?: No Did you have a dental problem in the last 6 months where you did not have access to dental care?: No Was dental information given to patient?: Patient has dentist HPI 6 month fu HPI Details Patient is 72-year-old female with a history of diabetes mellitus insulin-dependent, lipid disorder, hypertension, anxiety, depression, irritable bowel syndrome, asthma, allergies, diabetic nephropathy, diabetic polyneuropathy obstructive sleep apnea, morbid obesity, dyspnea on exertion, memory deficit, restless leg syndrome Came in today for her regular follow-up appointment with the daughter Patient is currently struggling to find a residence, she has requesting a letter stating that she needs a residence urgently due to her medical problems, letter provided She also have a cat that she would like to keep as an emotional support animal, letter provided for that as well Memory deficit: Patient has appointment with the neurologist coming up in August She also sleep apnea and is in need of CPAP machine, patient will need a new titration study which I have ordered for her Patient is due for labs Her diabetes is well-controlled last hemoglobin A1c was in 6 range Patient is tolerating all her medications Medication list reviewed [facility] Medical History Breast cancer COVID-19 vaccine series completed Dyspnea on exertion OZ (obstructive sleep apnea) Morbid obesity with BMI of 50.0-59.9, adult Diabetic polyneuropathy associated with type 2 diabetes mellitus Hypertension Dyslipidemia CKD stage 3 due to type 2 diabetes mellitus Diabetic nephropathy associated with type 2 diabetes mellitus 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 Other Mental health disorder Substance use disorder Social History Household Members: Family Housing: House Are you a primary assistant child care teacher to a significant other at home: No Do you presently have visiting nurse or other home services: No Alcohol intake: current Alcohol intake frequency: a few times a week Alcohol type: beer Patient Tobacco Use Status: Former Tobacco user Quit Date: teenager Tobacco use type: Cigarette e-Cigarette/Vaping Use: Never Used service: No Current occupational status: unemployed Cognitive needs: No Hearing needs: No Vision needs: No Questionnaire Thrive Questionnaire Date Thrive assessed: 06/17/22 AUDIT C Alcohol Use Questionnaire (AUDIT-C) 1. How often do you have a drink containing alcohol?: Never 3. How often do you have six or more drinks on one occasion?: Never Total Score: 0 Score Reviewed/Action Taken: Yes MADI-7 AMB Questionnaire MADI-7 Date MADI - 7 assessed: 06/17/22 Source: Developed by Drs. Johnnie Hammonds, Laly Hoyt, León Norton and colleagues, with an educational maryanne from [employer]. Review of Systems Const Denies chills and Denies fever(s) ENT Denies epistaxis and Denies nasal discharge Card Denies chest pain Resp Denies chest congestion, Denies cough and Denies hemoptysis GI Denies diarrhea and Denies nausea Skin/Breast Denies rash Neuro Reports no additional complaints Psych Reports no additional complaints Endo Reports no additional complaints Physical exam (Primary Care) Vital Signs: Last Vital Signs Pulse 63 07/07/23 11:03 BP 132/68 07/07/23 11:03 Pulse Ox 95 07/07/23 11:03 Oxygen Delivery Method Room Air 07/07/23 11:03 BMI result Body Mass Index 54.4 Tobacco/Smoking Status: Tobacco use Status Tobacco use date assessed 07/07/23 07/07/23 11:05 Patient Tobacco Use Status Former Tobacco user 07/07/23 11:05 Tobacco use type Cigarette 07/07/23 11:05 e-Cigarette/Vaping Use Never Used 07/07/23 11:05 Thrive Assessment: Date of Thrive Assessment Date Thrive assessed 06/17/22 07/07/23 11:05 Const General: cooperative, comfortable and no acute distress Orientation/consciousness: patient oriented x3 HENMT Head: Yes normocephalic Eyes General: appearance normal, both eyes and all related structures Neck Neck: Yes supple Resp Effort & Inspection: normal respiratory effort, no cough and no stridor Cardio Rhythm: regular rhythm Heart sounds: S1 normal heart sound present and S2 normal heart sound present Skin General skin exam: turgor normal Neuro General: patient oriented x3, tone normal and moves all extremities Assessment and Plan Assessment & Plan (1) Diabetes 1.5, managed as type 1: Code(s): E13.9 - Other specified diabetes mellitus without complications (2) Long-term insulin use: Code(s): Z79.4 - longterm (current) use of insulin (3) Memory deficit: Code(s): R41.3 - Other amnesia (4) OZ (obstructive sleep apnea): Comment: not using CPAP at this time Code(s): G47.33 - Obstructive sleep apnea (adult) (pediatric) (5) Diabetic polyneuropathy associated with type 2 diabetes mellitus: Code(s): E11.42 - Type 2 diabetes mellitus with diabetic polyneuropathy (6) CKD stage 3 due to type 2 diabetes mellitus: Code(s): E11.22 - Type 2 diabetes mellitus with diabetic chronic kidney disease; N18.30 - Chronic kidney disease, stage 3 unspecified (7) Morbid obesity: Code(s): E66.01 - Morbid (severe) obesity due to excess calories (8) Diabetic nephropathy associated with type 2 diabetes mellitus: Code(s): E11.21 - Type 2 diabetes mellitus with diabetic nephropathy (9) Irritable bowel syndrome: Code(s): K58.9 - Irritable bowel syndrome without diarrhea Qualifiers: Irritable bowel syndrome type: with diarrhea Qualified Code(s): K58.0 - Irritable bowel syndrome with diarrhea (10) Depression, major, recurrent: Code(s): F33.9 - Major depressive disorder, recurrent, unspecified Qualifiers: Active/Remission status: in partial remission Qualified Code(s): F33.41 - Major depressive disorder, recurrent, in partial remission (11) Anxiety, generalized: Code(s): F41.1 - Generalized anxiety disorder (12) Lipid disorder: Code(s): E78.9 - Disorder of lipoprotein metabolism, unspecified Plan Patient is 72-year-old female with a history of diabetes mellitus insulin-dependent, lipid disorder, hypertension, anxiety, depression, irritable bowel syndrome, asthma, allergies, diabetic nephropathy, diabetic polyneuropathy obstructive sleep apnea, morbid obesity, dyspnea on exertion, memory deficit, restless leg syndrome Came in today for her regular follow-up appointment with the daughter Patient is currently struggling to find a residence, she has requesting a letter stating that she needs a residence urgently due to her medical problems, letter provided She also have a cat that she would like to keep as an emotional support animal, letter provided for that as well Memory deficit: Patient has appointment with the neurologist coming up in August She also sleep apnea and is in need of CPAP machine, patient will need a new titration study which I have ordered for her Patient is due for labs Her diabetes is well-controlled last hemoglobin A1c was in 6 range Patient is tolerating all her medications Medication list reviewed Orders: Orders RT PSG in-lab sleep titration Today G47.33 - Obstructive sleep apnea (adult) (pediatric) TSH reflex Free T4 Today E11.21 - Type 2 diabetes mellitus with diabetic nephropathy, E11.22 - Type 2 diabetes mellitus with diabetic chronic kidney dise ase, E11.42 - Type 2 diabetes mellitus with diabetic polyneuropathy, E13.9 - Other specified diabetes mellitus without complications, E66.01 - Morbid (severe) obesity due to excess calories, E78.9 - Disorder of lipoprotein metabolism, unspecified, F33.9 - Major depressive disorder, recurrent, unspecified, F41.1 - Generalized anxiety disorder, G47.33 - Obstructive sleep apnea (adult) (pediatric), K58.9 - Irritable bowel syndrome without diarrhea, N18.30 - Chronic kidney disease, stage 3 unspecified, R41.3 - Other amnesia, Z79.4 - long term acute care registered nurse (current) use of insulin Microalbumin, Random (w Creat) 3 Months E11.21 - Type 2 diabetes mellitus with diabetic nephropathy, E11.22 - Type 2 diabetes mellitus with diabetic chronic kidney disease, E11.42 - Type 2 diabetes mellitus with diabetic polyneuropathy, E13.9 - Other specified diabetes mellitus without complications, E66.01 - Morbid (severe) obesity due to excess calories, E78.9 - Disorder of lipoprotein metabolism, unspecified, F33.9 - Major depressive disorder, recurrent, unspecified, F41.1 - Generalized anxiety disorder, G47.33 - Obstructive sleep apnea (adult) (pediatric), K58.9 - Irritable bowel syndrome without diarrhea, N18.30 - Chronic kidney disease, stage 3 unspecified, R41.3 - Other amnesia, Z79.4 - long term acute care registered nurse (current) use of insulin Hemoglobin A1c Today E11.21 - Type 2 diabetes mellitus with diabetic nephropathy, E11.22 - Type 2 diabetes mellitus with diabetic chronic kidney disease, E11.42 - Type 2 diabetes mellitus with diabetic polyneuropathy, E13.9 - Other specified diabetes mellitus without complications, E66.01 - Morbid (severe) obesity due to excess calories, E78.9 - Disorder of lipoprotein metabolism, unspecified, F33.9 - Major depressive disorder, recurrent, unspecified, F41.1 - Generalized anxiety disorder, G47.33 - Obstructive sleep apnea (adult) (pediatric), K58.9 - Irritable bowel syndrome without diarrhea, N18.30 - Chronic kidney disease, stage 3 unspecified, R41.3 - Other amnesia, Z79.4 - long term acute care registered nurse (current) use of insulin Complete Blood Count Auto Diff Today E11.21 - Type 2 diabetes mellitus with diabetic nephropathy, E11.22 - Type 2 diabetes mellitus with diabetic chronic kidney disease, E11.42 - Type 2 diabetes mellitus with diabetic polyneuropathy, E13.9 - Other specified diabetes mellitus without complications, E66.01 - Morbid (severe) obesity due to excess calories, E78.9 - Disorder of lipoprotein metabolism, unspecified, F33.9 - Major depressive disorder, recurrent, unspecified, F41.1 - Generalized anxiety disorder, G47.33 - Obstructive sleep apnea (adult) (pediatric), K58.9 - Irritable bowel syndrome without diarrhea, N18.30 - Chronic kidney disease, stage 3 unspecified, R41.3 - Other amnesia, Z79.4 - long term acute care registered nurse (current) use of insulin Comprehensive [place]. Panel Fast Today E11.21 - Type 2 diabetes mellitus with diabetic nephropathy, E11.22 - Type 2 diabetes mellitus with diabetic chronic kidney disease, E11.42 - Type 2 diabetes mellitus with diabetic polyneuropathy, E13.9 - Other specified diabetes mellitus without complications, E66.01 - Morbid (severe) obesity due to excess calories, E78.9 - Disorder of lipoprotein metabolism, unspecified, F33.9 - Major depressive disorder, recurrent, unspecified, F41.1 - Generalized anxiety disorder, G47.33 - Obstructive sleep apnea (adult) (pediatric), K58.9 - Irritable bowel syndrome without diarrhea, N18.30 - Chronic kidney disease, stage 3 unspecified, R41.3 - Other amnesia, Z79.4 - longterm (current) use of insulin Lipase Today E11.21 - Type 2 diabetes mellitus with diabetic nephropathy, E11.22 - Type 2 diabetes mellitus with diabetic chronic kidney disease, E11.42 - Type 2 diabetes mellitus with diabetic polyneuropathy, E13.9 - Other specified diabetes mellitus without complications, E66.01 - Morbid (severe) obesity due to excess calories, E78.9 - Disorder of lipoprotein metabolism, unspecified, F33.9 - Major depressive disorder, recurrent, unspecified, F41.1 - Generalized anxiety disorder, G47.33 - Obstructive sleep apnea (adult) (pediatric), K58.9 - Irritable bowel syndrome without diarrhea, N18.30 - Chronic kidney disease, stage 3 unspecified, R41.3 - Other amnesia, Z79.4 - long term acute care registered nurse (current) use of insulin Coding Level of Care Code Est Pt Level 5 (29191) Diagnoses Diabetes 1.5, managed as type 1 E13.9 Long-term insulin use Z79.4 Memory deficit R41.3 OZ (obstructive sleep apnea) G47.33 Diabetic polyneuropathy associated with type 2 diabetes mellitus E11.42 CKD stage 3 due to type 2 diabetes mellitus E11.22; N18.30 Morbid obesity E66.01 Diabetic nephropathy associated with type 2 diabetes mellitus E11.21 Irritable bowel syndrome with diarrhea K58.0 Irritable bowel syndrome type: with diarrhea Recurrent major depressive disorder, in partial remission F33.41 Active/Remission status: in partial remission Anxiety, generalized F41.1 Lipid disorder E78.9 Time Spent (min) 46 Comment 7 minute pre visit, 30 minute with the patient, 9 minute charting coordination of care
== END 2023-07-07 11:35 | disposition home or self-care (01) ==
PROVIDERS: PCP Internal Medicine; Visit Provider Internal Medicine
DX: E11.42 Type 2 diabetes mellitus with diabetic polyneuropathy (principal); E11.22 Type 2 diabetes mellitus with diabetic chronic kidney disease; Z79.4 Long term (current) use of insulin; N18.30 Chronic kidney disease, stage 3 unspecified; E66.01 Morbid (severe) obesity due to excess calories; F33.41 Major depressive disorder, recurrent, in partial remission; E11.21 Type 2 diabetes mellitus with diabetic nephropathy; R41.3 Other amnesia; G47.33 Obstructive sleep apnea (adult) (pediatric); K58.0 Irritable bowel syndrome with diarrhea; F41.1 Generalized anxiety disorder; E78.9 Disorder of lipoprotein metabolism, unspecified
CPT/HCPCS: 99215

== ENCOUNTER → 2023-08-04 20:30 | Outpatient (BNV) | payer MEDICARE, MEDICAID, SELFPAY | PROVIDERS: PCP Internal Medicine; Visit Provider Psychiatry & Neurology Neurology | DX: G47.33 Obstructive sleep apnea (adult) (pediatric) (principal) | CPT/HCPCS: 95811 ==

== ENCOUNTER → 2023-08-04 20:30 | Outpatient (REF) | payer MEDICARE, MEDICAID, SELFPAY | LOC: HO.SL 20:30 | PROVIDERS: PCP Internal Medicine; Visit Provider Internal Medicine | DX: G47.33 Obstructive sleep apnea (adult) (pediatric) (principal) | CPT/HCPCS: 95811 ==

== ENCOUNTER 2023-11-20 13:02 | Outpatient (AMB) | payer MEDICARE, MEDICAID, SELFPAY ==
--- NOTE | 2023-11-20 13:16 | MHC.PC.OV ---
Intake Visit Reasons: Discharge F/U [phone] Allergies adhesive tape [Adhesive Tape] Allergy (Severe, Verified 11/20/23 13:16) BLISTERS dairy products Allergy (Severe, Verified 11/20/23 13:16) GI upset semaglutide [From Ozempic] Allergy (Severe, Verified 11/20/23 13:16) Diarrhea NSAIDS (Non-Steroidal Anti-Inflamma Adverse Reaction (Verified 11/20/23 13:16) Nephropathy Tobacco use date assessed: 11/20/23 Fall risk assessment: No Falls in past year Last assessed Fall Risk: 11/20/23 Dental Screening Dental Screen Date: 11/20/23 Did you have a dental visit in the last 12 months?: No Did you have a dental problem in the last 6 months where you did not have access to dental care?: No Was dental information given to patient?: No HPI Discharge F/U [phone] HPI Details Patient is a 73-year-old morbidly obese patient with a significant history of insulin-dependent diabetes mellitus, hypertension, hyperlipidemia, chronic kidney disease stage 3, depression, osteoarthritis severe bilateral knees Patient fell July of this year and had right ankle fracture status post ORIF. Patient was discharged to rehab from rehab she was discharged home and fell again in 2 days She presented to emergency room on of this month with mechanical fall, and complaint of knee and ankle pain with ambulatory dysfunction. It was recommended by Physical therapy , for patient to return to rehab but she was discharged home. I spoke to Janell patient's eldest daughter, who tells me that her mom is living in a basement at her aunt's placed And basically Melvina is homebound. Janell is requesting a letter so she can find a low-income housing for the patient with proper accommodation. Letter with the following working provided Melvina is a patient of [facility] and was seen in the office Melvina is morbidly obese and she suffers from severe osteoarthritis both knees. She is at risk for fall and has fallen twice already this year. She need a low-income housing with wheelchair access and no stairs. She is in need of such housing urgently. Currently she is living in a basement and is basically homebound. She recently had ankle fracture which is causing even more difficulty for the patient to ambulate. Her medication list reviewed from rehab discharge Patient is on insulin Tresiba 20 units subcutaneously b.i.d. Amlodipine 10 mg once a day Bupropion 200 mg once a day Carvedilol 6.25 mg b.i.d. Dicyclomine as needed Famotidine 20 mg b.i.d. Fenofibrate 160 mg q.d. Fluoxetine 40 mg once a day Advair HFA 230 mcg b.i.d. Loratadine 10 mg once a day Metoprolol 25 mg at bedtime Simvastatin 20 mg once a day At discharge her hemoglobin was 11.2 with hematocrit of 35.5 Platelet count 313 Creatinine 1.40 GFR 40 Electrolytes within normal limit [facility] Medical History Breast cancer COVID-19 vaccine series completed Dyspnea on exertion OZ (obstructive sleep apnea) Morbid obesity with BMI of 50.0-59.9, adult Diabetic polyneuropathy associated with type 2 diabetes mellitus Hypertension Dyslipidemia CKD stage 3 due to type 2 diabetes mellitus Diabetic nephropathy associated with type 2 diabetes mellitus half-way (current) 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 Other Mental health disorder Substance use disorder Social History Household Members: Family Housing: House Are you a primary post acute care nurse practitioner to a significant other at home: No Do you presently have visiting nurse or other home services: No Alcohol intake: current Alcohol intake frequency: a few times a week Alcohol type: beer Patient Tobacco Use Status: Former Tobacco user Tobacco use type: Cigarette e-Cigarette/Vaping Use: Never Used service: No Current occupational status: unemployed Cognitive needs: No Hearing needs: No Vision needs: No Questionnaire Thrive Questionnaire Date Thrive assessed: 06/17/22 AUDIT C Alcohol Use Questionnaire (AUDIT-C) 1. How often do you have a drink containing alcohol?: Never 3. How often do you have six or more drinks on one occasion?: Never Total Score: 0 Score Reviewed/Action Taken: Yes MADI-7 AMB Questionnaire MADI-7 Date MADI - 7 assessed: 06/17/22 Source: Developed by Drs. Johnnie Hammonds, Laly Hoyt, León Norton and colleagues, with an educational maryanne from [employer]. Review of Systems Const Denies chills and Denies fever(s) ENT Denies epistaxis and Denies nasal discharge Card Denies chest pain Resp Denies chest congestion, Denies cough and Denies hemoptysis GI Denies diarrhea and Denies nausea Skin/Breast Denies rash Neuro Reports no additional complaints Psych Reports no additional complaints Endo Reports no additional complaints Physical exam (Primary Care) Tobacco/Smoking Status: Tobacco use Status Tobacco use date assessed 11/20/23 11/20/23 13:17 Patient Tobacco Use Status Former Tobacco user 11/20/23 13:17 Tobacco use type Cigarette 11/20/23 13:17 e-Cigarette/Vaping Use Never Used 11/20/23 13:17 Thrive Assessment: Date of Thrive Assessment Date Thrive assessed 06/17/22 11/20/23 13:17 Telehealth Telehealth Telehealth Platform: [employer] Location of provider rendering services: practice address Location of patient: address on file Patient Identification confirmed using: Name, : Yes Telehealth method: video (Attempted) Patient verbally consented to treatment: Yes Patient verbally consented to billing insurance company: Yes Patient informed of any privacy concerns related to visit: Yes Assessment and Plan Assessment & Plan (1) Hospital discharge follow-up: Code(s): Z09 - Encounter for follow-up examination after completed treatment for conditions other than malignant neoplasm (2) Osteoarthritis of knees, bilateral: Code(s): M17.0 - Bilateral primary osteoarthritis of knee Qualifiers: Osteoarthritis type: primary Qualified Code(s): M17.0 - Bilateral primary osteoarthritis of knee (3) Impaired mobility and ADLs: Code(s): Z74.09 - Other reduced mobility; Z78.9 - Other specified health status (4) Morbid obesity with BMI of 50.0-59.9, adult: Code(s): E66.01 - Morbid (severe) obesity due to excess calories; Z68.43 - Body mass index [BMI] 50.0-59.9, adult (5) Hypertension: Code(s): I10 - Essential (primary) hypertension Qualifiers: Hypertension type: essential hypertension Qualified Code(s): I10 - Essential (primary) hypertension (6) Diabetic polyneuropathy associated with type 2 diabetes mellitus: Code(s): E11.42 - Type 2 diabetes mellitus with diabetic polyneuropathy (7) CKD stage 3 due to type 2 diabetes mellitus: Code(s): E11.22 - Type 2 diabetes mellitus with diabetic chronic kidney disease; N18.30 - Chronic kidney disease, stage 3 unspecified (8) Diabetic nephropathy associated with type 2 diabetes mellitus: Code(s): E11.21 - Type 2 diabetes mellitus with diabetic nephropathy (9) half-way (current) use of insulin: Code(s): Z79.4 - half-way (current) use of insulin (10) Allergies: Code(s): T78.40XA - Allergy, unspecified, initial encounter Qualifiers: Encounter type: subsequent encounter Qualified Code(s): T78.40XD - Allergy, unspecified, subsequent encounter (11) Irritable bowel syndrome: Code(s): K58.9 - Irritable bowel syndrome without diarrhea Qualifiers: Irritable bowel syndrome type: with diarrhea Qualified Code(s): K58.0 - Irritable bowel syndrome with diarrhea (12) Asthma: Code(s): J45.909 - Unspecified asthma, uncomplicated Qualifiers: Asthma complication type: uncomplicated Asthma persistence: persistent Asthma severity: moderate Qualified Code(s): J45.40 - Moderate persistent asthma, uncomplicated (13) Depression, major, recurrent: Code(s): F33.9 - Major depressive disorder, recurrent, unspecified Qualifiers: Active/Remission status: in partial remission Qualified Code(s): F33.41 - Major depressive disorder, recurrent, in partial remission (14) Anxiety, generalized: Code(s): F41.1 - Generalized anxiety disorder (15) Lipid disorder: Code(s): E78.9 - Disorder of lipoprotein metabolism, unspecified (16) Recurrent falls: Code(s): R29.6 - Repeated falls (17) Difficulty walking: Code(s): R26.2 - Difficulty in walking, not elsewhere classified Plan Patient is a 73-year-old morbidly obese patient with a significant history of insulin-dependent diabetes mellitus, hypertension, hyperlipidemia, chronic kidney disease stage 3, depression, osteoarthritis severe bilateral knees Patient fell July of this year and had right ankle fracture status post ORIF. Patient was discharged to rehab from rehab she was discharged home and fell again in 2 days She presented to emergency room on 12th of this month with mechanical fall, and complaint of knee and ankle pain with ambulatory dysfunction. It was recommended by Physical therapy , for patient to return to rehab but she was discharged home. I spoke to Janell patient's eldest daughter, who tells me that her mom is living in a basement at her aunt's placed And basically Melvina is homebound. Janell is requesting a letter so she can find a low-income housing for the patient with proper accommodation. Letter with the following working provided [facility] and was seen in the office Melvina is morbidly obese and she suffers from severe osteoarthritis both knees. She is at risk for fall and has fallen twice already this year. She need a low-income housing with wheelchair access and no stairs. She is in need of such housing urgently. Currently she is living in a basement and is basically homebound. She recently had ankle fracture which is causing even more difficulty for the patient to ambulate. Her medication list reviewed from rehab discharge Patient is on insulin Tresiba 20 units subcutaneously b.i.d. Amlodipine 10 mg once a day Bupropion 200 mg once a day Carvedilol 6.25 mg b.i.d. Dicyclomine as needed Famotidine 20 mg b.i.d. Fenofibrate 160 mg q.d. Fluoxetine 40 mg once a day Advair HFA 230 mcg b.i.d. Loratadine 10 mg once a day Metoprolol 25 mg at bedtime Simvastatin 20 mg once a day At discharge her hemoglobin was 11.2 with hematocrit of 35.5 Platelet count 313 Creatinine 1.40 GFR 40 Electrolytes within normal limit 46 minute spent in care of this patient Coding Level of Care Code Tele Est Pt Level 5 (89167) Diagnoses Hospital discharge follow-up Z09 Primary osteoarthritis of both knees M17.0 Osteoarthritis type: primary Impaired mobility and ADLs Z74.09; Z78.9 Morbid obesity with BMI of 50.0-59.9, adult E66.01; Z68.43 Essential hypertension I10 Hypertension type: essential hypertension Diabetic polyneuropathy associated with type 2 diabetes mellitus E11.42 CKD stage 3 due to type 2 diabetes mellitus E11.22; N18.30 Diabetic nephropathy associated with type 2 diabetes mellitus E11.21 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 of insulin Z79.4 Allergy, subsequent encounter T78.40XD Encounter type: subsequent encounter Irritable bowel syndrome with diarrhea K58.0 Irritable bowel syndrome type: with diarrhea Moderate persistent asthma without complication J45.40 Asthma complication type: uncomplicated Asthma persistence: persistent Asthma severity: moderate Recurrent major depressive disorder, in partial remission F33.41 Active/Remission status: in partial remission Anxiety, generalized F41.1 Lipid disorder E78.9 Recurrent falls R29.6 Difficulty walking R26.2
== END 2023-11-20 17:45 | disposition home or self-care (01) ==
LOC: HO.HMGC 13:02
PROVIDERS: PCP Internal Medicine; Visit Provider Internal Medicine
DX: E11.22 Type 2 diabetes mellitus with diabetic chronic kidney disease (principal); N18.30 Chronic kidney disease, stage 3 unspecified; E66.01 Morbid (severe) obesity due to excess calories; Z68.43 Body mass index [BMI] 50.0-59.9, adult; E11.42 Type 2 diabetes mellitus with diabetic polyneuropathy; E11.21 Type 2 diabetes mellitus with diabetic nephropathy; F33.41 Major depressive disorder, recurrent, in partial remission; Z79.4 Long term (current) use of insulin; M17.0 Bilateral primary osteoarthritis of knee; Z09 Encounter for follow-up examination after completed treatment for conditions other than malignant neoplasm; Z74.09 Other reduced mobility; R29.6 Repeated falls
CPT/HCPCS: 99215

== ENCOUNTER 2023-12-22 13:02 | Outpatient (REF) | payer MEDICARE, MEDICAID, SELFPAY ==
--- NOTE | ~2023-12-22 | XR_ITS ---
EXAMINATION: XR CHEST CLINICAL INFORMATION: Obesity. COMPARISON: Prior chest June 2014. TECHNIQUE: 2 views of the chest were obtained. FINDINGS: No significant abnormality is noted involving the heart, lungs, mediastinum, bony thorax or soft tissues. XR/XR chest 2V IMPRESSION: Unremarkable examination. Electronically signed by: Rey Mckeon MD 01/12/2024 07:23 AM EDT
== END 2023-12-22 13:03 | disposition home or self-care (01) ==
LOC: HO.XRAY 13:02
PROVIDERS: PCP Internal Medicine; Visit Provider Internal Medicine
DX: J45.40 Moderate persistent asthma, uncomplicated (principal); J98.4 Other disorders of lung; E66.01 Morbid (severe) obesity due to excess calories; Z68.43 Body mass index [BMI] 50.0-59.9, adult; G47.33 Obstructive sleep apnea (adult) (pediatric)
CPT/HCPCS: 71046; 94010; 99212

== ENCOUNTER 2023-12-22 13:02 | Outpatient (AMB) | payer MEDICARE, MEDICAID, SELFPAY ==
[2023-12-22 13:16] VITALS: BP 132/60; PULSE 65; O2SAT 98
--- NOTE | 2023-12-22 13:16 | A.OFFVIS_ITS ---
Vital Signs 12/22/23 13:16 Height 4 ft 10 in BP 132/60 Blood Pressure Location Rt radial Position Sitting Pulse 65 Pulse Source Pulse Oximeter Pulse Oximetry (%) 98 Oxygen Delivery Method Room Air Intake Visit Reasons: Sleep apnea Intake Note: pt is here for foljin ramírezue follow up and states she has a cough with phelgm, and coughing with light red blood and needs refill on albuterol and family thinks there is mold in the cellar. Humidifier Operator Required: No Allergies adhesive tape [Adhesive Tape] Allergy (Severe, Verified 12/22/23 13:48) BLISTERS dairy products Allergy (Severe, Verified 12/22/23 13:48) GI upset semaglutide [From Ozempic] Allergy (Severe, Verified 12/22/23 13:48) Diarrhea NSAIDS (Non-Steroidal Anti-Inflamma Adverse Reaction (Verified 12/22/23 13:48) Nephropathy Medication List - Last Reconciled 12/22/23 by Tiffany Zimmer MD acetaminophen ER (Tylenol Arthritis Pain) 650 mg PO Q8H PRN albuterol sulfate 90 mcg/actuation 2 puffs inhalation Q4H PRN amlodipine 10 mg PO DAILY 90 days blood sugar diagnostic ([employer] [place] Ultra Test strips) tid esting 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 meter ([employer] [place] Ultra2 Meter) tid testing bupropion HCl SR 200 mg PO ONCE 90 days carvedilol 6.25 mg PO BID dicyclomine 10 mg PO BID PRN 90 days fenofibrate 160 mg PO DAILY 90 days fluoxetine 40 mg PO DAILY 90 days insulin degludec (Tresiba FlexTouch U-200 insulin) 30 units (0.15 mL) subcut BID 90 days lancets tid testing lancets ([employer]ica Lancets) Use to check blood sugars three times a day loratadine (Allergy Relief (loratadine)) 10 mg PO DAILY 90 days metoprolol succinate ER 25 mg PO BEDTIME pen needle, diabetic daily pen needle, diabetic (BD Nadya 2nd Gen Pen Needle) 1 ea miscellaneous BID ropinirole 0.5 mg PO BEDTIME 90 days simvastatin 20 mg PO DAILY 90 days tramadol 50 mg PO Q8H PRN 7 days Do you need a note to return to daycare/school/sports/work: No HPI HPI Sleep apnea: Details: 73 years old female is brought by her daughters as she is having frequent cough, but no wheezing, no shortness of breath at rest. She has past history of question of bronchial asthma, used to have albuterol inhaler to use when she had cough or shortness of breath. Now she is out of this inhaler. The family thinks that she reacts to the mold in the basement. This patient is morbidly obese. She has typical physical features conducive to sleep apnea. She had a polysomnogram study in the sleep lab on 08/04/2023. It showed severe obstructive sleep apnea with some nocturnal hypoxemia but plenty of periodic limb movements. CPAP titration in the sleep lab was recommended however patient has adamantly declined to use anything on her face. She say is she can use nasal cannula for oxygen but no mask. The daughters who came with her are hoping that we can just prescribe oxygen for the night. Patient is nonsmoker. [facility] Medical History (Updated 12/22/23 @ 14:15 by Tiffany Zimmer MD) Restrictive lung disease Breast cancer COVID-19 vaccine series completed Dyspnea on exertion OZ (obstructive sleep apnea) Morbid obesity with BMI of 50.0-59.9, adult Diabetic polyneuropathy associated with type 2 diabetes mellitus Hypertension Dyslipidemia CKD stage 3 due to type 2 diabetes mellitus Diabetic nephropathy associated with type 2 diabetes mellitus jail (current) 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 Other Mental health disorder Substance use disorder Social History Household Members: Family Housing: House Are you a primary ocular care technician to a significant other at home: No Do you presently have visiting nurse or other home services: No Alcohol intake: current Alcohol intake frequency: a few times a week Alcohol type: beer Patient Tobacco Use Status: Former Tobacco user Tobacco use type: Cigarette e-Cigarette/Vaping Use: Never Used service: No Current occupational status: unemployed Cognitive needs: No Hearing needs: No Vision needs: No Review of Systems Const All systems reviewed & are unremarkable except as noted in HPI and below Physical Exam Vital Signs: Last Vital Signs Pulse 65 12/22/23 13:16 BP 132/60 12/22/23 13:16 Pulse Ox 98 12/22/23 13:16 Oxygen Delivery Method Room Air 12/22/23 13:16 Patient is morbidly obese confined to wheelchair, She has a round face very short and obese neck. Const General: comfortable, no acute distress, alert and awake Orientation/consciousness: patient oriented x3 HEENT Head: Yes normal to inspection General nose exam: No nasal polyps present and No nasal discharge present Face and sinus: Yes sinuses nontender Mouth: oropharynx abnormals (Very narrow oropharynx, Mallampati class 4) Throat: Yes posterior oropharynx normal Eyes General: appearance normal, both eyes and all related structures Neck Other: Short and very obese Neck: Yes normal visual inspection, Yes no lymphadenopathy, Yes trachea midline and Yes no JVD Thyroid: Thyroid normal Chest Chest palpation & inspection: normal inspection of the chest, normal palpation of entire chest wall and no tenderness Resp Other: Percussion note is not perceptible because. of obesity Breath sounds are distant, No audible wheezes or crepitations Cardio Palpation: PMI not normal (Not palpable) Rate: regular rate Rhythm: regular rhythm Heart sounds: no gallops and no murmurs GI Palpation (GI): Soft to palpation, nontender, No hepatosplenomegaly present, no masses and Other GI palpation findings present (Abdomen extremely obese and protuberant) Auscultation: normal bowel sounds Back/Spine/Pelvis Thoracic/Lumbar Spine: thoracic and lumbar spine normal to inspection and No thoraco-lumbar ROM limited Skin General skin exam: no rashes or lesions noted Neuro General: patient oriented x3, No gait normal (Patient is non ambulatory because of recent fracture of the right lower ext) and no focal motor deficits Cranial nerves: Yes CN's II-XII intact bilaterally Extrem General: Yes normal to inspection, Yes no clubbing, cyanosis or edema and Yes no calf tenderness Psych Appearance: grossly normal and well kempt Speech and movement: Normal speech and movement present Office Procedures Spirometry Testing Spirometry Comments: Spirometry done in the office, Dr. Zimmer has the results results scanned to her chart. 79100- Spirometry Results Reviewed Results Reviewed: Polysomnogram study of 08/04/2023 showed very poor sleep for only 42% of the sleep time Had severe obstructive sleep apnea, with total sleep time AHI 39.6. Also had periodic limb movement disorder with PLM index of 124 Assessment & Plan Assessment & Plan (1) Morbid obesity with BMI of 50.0-59.9, adult: Comment: Patient has super morbid obesity. She was in wheelchair and could not be weighed today. She has not been able to lose any weight. Code(s): E66.01 - Morbid (severe) obesity due to excess calories; Z68.43 - Body mass index [BMI] 50.0-59.9, adult Category: Medical Plan: Advised her that she should continue to work with her primary care physician. She is on treatment for diabetes mellitus. May be considered for anti obesity meds. (2) OZ (obstructive sleep apnea): Comment: She has known case of very severe obstructive sleep apnea. She has been adamantly declining to use the CPAP. Code(s): G47.33 - Obstructive sleep apnea (adult) (pediatric) Category: Medical Plan: Had a long talk with the patient and her 2 daughters. She does need to use CPAP. If she is afraid to use fullface mask I would order, a nasal interface ( NasalAir or nasal pillows ) With pressure setting of 6-20 cm , and we will watch closely to monitor her compliance and benefits. (3) Asthma: Comment: She has periodic cough and occasional wheezing . For many years Spirometry shows mostly restrictive pattern and no obstructive airway disorder. But she could have mild reactive airways/asthma. Code(s): J45.909 - Unspecified asthma, uncomplicated Category: Medical Qualifiers: Asthma complication type: uncomplicated Asthma persistence: persistent Asthma severity: moderate Qualified Code(s): J45.40 - Moderate persistent asthma, uncomplicated Plan: Albuterol HFA 2 puffs Q 4-6 hours only p.r.n. is prescribed. (4) Restrictive lung disease: Comment: Patient is morbidly obese. As expected she has mild to moderate restrictive pulmonary disorder. Code(s): J98.4 - Other disorders of lung Category: Medical Plan: Chest x-ray is ordered. Patient advised to do deep. breathing exercises Orders: Orders XR chest 2V Today E66.01 - Morbid (severe) obesity due to excess calories, J45.40 - Moderate persistent asthma, uncomplicated, J98.4 - Other disorders of lung, Z68.43 - Body mass index [BMI] 50.0-59.9, adult AMB Spirometry Testing Today J45.40 - Moderate persistent asthma, uncomplicated Coding Level of Care Code Est Pt Level 5 (75065) Diagnoses Morbid obesity with BMI of 50.0-59.9, adult E66.01; Z68.43 OZ (obstructive sleep apnea) G47.33 Moderate persistent asthma without complication J45.40 Asthma complication type: uncomplicated Asthma persistence: persistent Asthma severity: moderate Restrictive lung disease J98.4 CPT Codes Spirometry - CPT: 10184- Spirometry ([id number])
== END 2023-12-22 14:09 | disposition home or self-care (01) ==
PROVIDERS: PCP Internal Medicine; Visit Provider Internal Medicine
DX: G47.33 Obstructive sleep apnea (adult) (pediatric) (principal); J45.40 Moderate persistent asthma, uncomplicated; J98.4 Other disorders of lung; E66.01 Morbid (severe) obesity due to excess calories; Z68.43 Body mass index [BMI] 50.0-59.9, adult
CPT/HCPCS: 94010; 99214

== ENCOUNTER 2023-12-29 12:49 | Outpatient (AMB) | payer MEDICARE, MEDICAID, SELFPAY ==
[2023-12-29 12:55] VITALS: BP 122/68; PULSE 63; O2SAT 97
--- NOTE | 2023-12-29 12:55 | MHC.PC.OV ---
Vital Signs 12/29/23 12:55 Height 4 ft 10 in BMI Reason not done Patient refused/unable BP 122/68 Blood Pressure Location Lt brachial Position Sitting Pulse 63 Pulse Source Pulse Oximeter Pulse Oximetry (%) 97 Oxygen Delivery Method Room Air Intake Visit Reasons: ED/BONE DENSITY Allergies adhesive tape [Adhesive Tape] Allergy (Severe, Verified 12/29/23 13:20) BLISTERS dairy products Allergy (Severe, Verified 12/29/23 13:20) GI upset semaglutide [From Ozempic] Allergy (Severe, Verified 12/29/23 13:20) Diarrhea NSAIDS (Non-Steroidal Anti-Inflamma Adverse Reaction (Verified 12/29/23 13:20) Nephropathy Medication List - Last Reconciled 12/29/23 by Marliyn Gillespie MD acetaminophen ER (Tylenol Arthritis Pain) 650 mg PO Q8H PRN albuterol sulfate 90 mcg/actuation 2 puffs inhalation Q4H PRN amlodipine 10 mg PO DAILY 90 days blood sugar diagnostic ([employer] Ultra Test strips) tid esting 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 meter ([employer] Ultra2 Meter) tid testing bupropion HCl SR 200 mg PO ONCE 90 days carvedilol 6.25 mg PO BID dicyclomine 10 mg PO BID PRN 90 days fenofibrate 160 mg PO DAILY 90 days fluoxetine 40 mg PO DAILY 90 days insulin degludec (Tresiba FlexTouch U-200 insulin) 30 units (0.15 mL) subcut BID 90 days lancets tid testing lancets ([employer] Delica Lancets) Use to check blood sugars three times a day loratadine (Allergy Relief (loratadine)) 10 mg PO DAILY 90 days metoprolol succinate ER 25 mg PO BEDTIME pen needle, diabetic daily pen needle, diabetic (BD Nadya 2nd Gen Pen Needle) 1 ea miscellaneous BID ropinirole 0.5 mg PO BEDTIME 90 days simvastatin 20 mg PO DAILY 90 days tramadol 50 mg PO Q8H PRN 7 days Tobacco use date assessed: 12/29/23 Fall risk assessment: 1 Fall in past year Last assessed Fall Risk: 12/29/23 Dental Screening Dental Screen Date: 12/29/23 Did you have a dental visit in the last 12 months?: No Did you have a dental problem in the last 6 months where you did not have access to dental care?: No Was dental information given to patient?: No HPI ED/BONE DENSITY HPI Details Patient is a 73-year-old morbidly obese patient with a significant history of insulin-dependent diabetes mellitus, hypertension, hyperlipidemia, chronic kidney disease stage 3, depression, osteoarthritis severe bilateral knees Patient continue to be morbidly obese she agree to try semaglutide injection, after reviewing the side effect i have sent the script she just had labs done few min ago, so i dont have the report Patient is on insulin Tresiba 20 units subcutaneously b.i.d. Amlodipine 10 mg once a day Bupropion 200 mg once a day Carvedilol 6.25 mg b.i.d. Dicyclomine as needed Famotidine 20 mg b.i.d. Fenofibrate 160 mg q.d. Fluoxetine 40 mg once a day Advair HFA 230 mcg b.i.d. Loratadine 10 mg once a day Metoprolol 25 mg at bedtime Simvastatin 20 mg once a day she has depresion / anxiety which is stable Neuropathy, and Nephropathy stable patient also have sever sleep apnea , had first part of sleep study done meghana Zimmer waiting for second part of study, I have encourged her and her daughter to call sleep lab and book apt IBS stable Allergy stable Gerd stable diabetes managed by [facility] Medical History Restrictive lung disease Breast cancer COVID-19 vaccine series completed Dyspnea on exertion OZ (obstructive sleep apnea) Morbid obesity with BMI of 50.0-59.9, adult Diabetic polyneuropathy associated with type 2 diabetes mellitus Hypertension Dyslipidemia CKD stage 3 due to type 2 diabetes mellitus Diabetic nephropathy associated with type 2 diabetes mellitus 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 Other Mental health disorder Substance use disorder Social History Household Members: Family Housing: House Are you a primary transitional care manager to a significant other at home: No Do you presently have visiting nurse or other home services: No Alcohol intake: current Alcohol intake frequency: a few times a week Alcohol type: beer Patient Tobacco Use Status: Former Tobacco user Tobacco use type: Cigarette e-Cigarette/Vaping Use: Never Used service: No Current occupational status: unemployed Cognitive needs: No Hearing needs: No Vision needs: No Questionnaire PHQ-9 Over the last 2 weeks, how often have you been bothered by any of the following problems? 1. Little interest or pleasure in doing things: more than half the days 2. Feeling down, depressed, or hopeless: more than half the days 3. Trouble falling or staying asleep, or sleeping too much: several days 4. Feeling tired or having little energy: several days 5. Poor appetite or overeating: several days 6. Feeling bad about yourself - or that you are a failure or have let yourself or your family down: more than half the days 7. Trouble concentrating on things, such as reading the newspaper or watching television: not at all 8. Moving or speaking so slowly that other people could have noticed. Or the opposite - being so fidgety or restless that you have been moving around a lot more than usual: not at all 9. Thoughts that you would be better off or of hurting yourself in some way: not at all Total score: 9 Depression Screening Interpretation: Positive Depression Screening Follow-up: Existing condition and In treatment Depression Screening Done: Yes 55300 - PHQ-9 Billing: Yes Source: Developed by Drs. Johnnie Hammonds, Laly Hoyt, León Norton and colleagues, with an educational maryanne from [employer]. Thrive Questionnaire Date Thrive assessed: 12/29/23 I am a: Patient What is your living situation today?: I have a steady place to live Within the past 12 months, did the food you bought not last and you didn't have the money to get more?: Never true Within the past 12 months, did you worry whether your food would run out before you got money to buy more?: Never true Do you have trouble paying for medicines?: No Do you have trouble getting transportation to medical appointments?: No Do you have trouble paying your heating and electricity bill?: No Do you have trouble taking care of your child, family member or friend?: No Do you have trouble with day-to-day activities such as bathing, preparing meals, shopping, managing finances, etc.?: No Are you currently unemployed and looking for a job?: No Are you interested in more education?: No Please select the resources that you would like help with: None Currently or been in a relationship where the following occur: No concerns reported THRIVE Score: 0 AUDIT C Alcohol Use Questionnaire (AUDIT-C) 1. How often do you have a drink containing alcohol?: Never 3. How often do you have six or more drinks on one occasion?: Never Total Score: 0 Score Reviewed/Action Taken: Yes MADI-7 AMB Questionnaire MADI-7 Date MADI - 7 assessed: 12/29/23 Feeling nervous, anxious, or on edge: 0 = Not at all Not being able to stop or control worryin = Not at all Worrying too much about different things: 0 = Not at all Trouble relaxin = Not at all Being so restless that it is hard to sit still: 0 = Not at all Becoming easily annoyed or irritable: 0 = Not at all Feeling afraid as if something awful might happen: 0 = Not at all Total MADI-7 score (0-4 normal; 5-9 mild; 10-14 moderate; 15-21 severe): 0 Source: Developed by Drs. Johnnie Hammonds, Laly Hoyt, León Norton and colleagues, with an educational maryanne from [employer]. MADI-7 Assessment Billing MADI-7 Assessment Tool: MADI-7 Assessment 86884 Review of Systems Const Denies chills and Denies fever(s) ENT Denies epistaxis and Denies nasal discharge Card Denies chest pain Resp Denies chest congestion, Denies cough and Denies hemoptysis Skin/Breast Denies rash Neuro Reports no additional complaints Psych Reports no additional complaints Endo Reports no additional complaints Physical exam (Primary Care) Vital Signs: Last Vital Signs Pulse 63 12/29/23 12:55 BP 122/68 12/29/23 12:55 Pulse Ox 97 12/29/23 12:55 Oxygen Delivery Method Room Air 12/29/23 12:55 Tobacco/Smoking Status: Tobacco use Status Tobacco use date assessed 12/29/23 12/29/23 13:22 Patient Tobacco Use Status Former Tobacco user 12/29/23 12:56 Tobacco use type Cigarette 12/29/23 12:56 e-Cigarette/Vaping Use Never Used 12/29/23 12:56 PHQ-9: PHQ-9 Score PHQ-9: Total score 9 12/29/23 13:36 Depression Screening Interpretation: Positive Depression Screening Follow-up: Existing condition and In treatment Thrive Assessment: Date of Thrive Assessment Date Thrive assessed 12/29/23 12/29/23 13:22 Currently or been in a relationship where the following occur: No concerns reported Const General: cooperative, comfortable and no acute distress Orientation/consciousness: patient oriented x3 HENMT Head: Yes normocephalic Eyes General: appearance normal, both eyes and all related structures Neck Neck: Yes supple Resp Effort & Inspection: normal respiratory effort, no cough and no stridor Cardio Rhythm: regular rhythm Heart sounds: S1 normal heart sound present and S2 normal heart sound present Skin General skin exam: turgor normal Neuro General: patient oriented x3, tone normal and moves all extremities Assessment and Plan Assessment & Plan (1) Severe sleep apnea: Code(s): G47.30 - Sleep apnea, unspecified (2) Long-term insulin use: Code(s): 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 (3) Morbid obesity: Code(s): E66.01 - Morbid (severe) obesity due to excess calories (4) long-term (current) use of insulin: Code(s): Z79.4 - long-term (current) use of insulin (5) Diabetic nephropathy associated with type 2 diabetes mellitus: Code(s): E11.21 - Type 2 diabetes mellitus with diabetic nephropathy (6) Diabetic polyneuropathy associated with type 2 diabetes mellitus: Code(s): E11.42 - Type 2 diabetes mellitus with diabetic polyneuropathy (7) Hypertension: Code(s): I10 - Essential (primary) hypertension Qualifiers: Hypertension type: essential hypertension Qualified Code(s): I10 - Essential (primary) hypertension (8) Dyslipidemia: Code(s): E78.5 - Hyperlipidemia, unspecified (9) CKD stage 3 due to type 2 diabetes mellitus: Code(s): E11.22 - Type 2 diabetes mellitus with diabetic chronic kidney disease; N18.30 - Chronic kidney disease, stage 3 unspecified (10) Osteoarthritis of knees, bilateral: Code(s): M17.0 - Bilateral primary osteoarthritis of knee Qualifiers: Osteoarthritis type: primary Qualified Code(s): M17.0 - Bilateral primary osteoarthritis of knee (11) Morbid obesity with BMI of 50.0-59.9, adult: Comment: Patient has super morbid obesity. She was in wheelchair and could not be weighed today. She has not been able to lose any weight. Code(s): E66.01 - Morbid (severe) obesity due to excess calories; Z68.43 - Body mass index [BMI] 50.0-59.9, adult (12) Allergies: Code(s): T78.40XA - Allergy, unspecified, initial encounter Qualifiers: Encounter type: subsequent encounter Qualified Code(s): T78.40XD - Allergy, unspecified, subsequent encounter (13) Irritable bowel syndrome: Code(s): K58.9 - Irritable bowel syndrome without diarrhea Qualifiers: Irritable bowel syndrome type: with diarrhea Qualified Code(s): K58.0 - Irritable bowel syndrome with diarrhea (14) Asthma: Comment: She has periodic cough and occasional wheezing . For many years Spirometry shows mostly restrictive pattern and no obstructive airway disorder. But she could have mild reactive airways/asthma. Code(s): J45.909 - Unspecified asthma, uncomplicated Qualifiers: Asthma severity: moderate Asthma persistence: persistent Asthma complication type: uncomplicated Qualified Code(s): J45.40 - Moderate persistent asthma, uncomplicated (15) Depression, major, recurrent: Code(s): F33.9 - Major depressive disorder, recurrent, unspecified Qualifiers: Active/Remission status: in partial remission Qualified Code(s): F33.41 - Major depressive disorder, recurrent, in partial remission (16) Anxiety, generalized: Code(s): F41.1 - Generalized anxiety disorder (17) Lipid disorder: Code(s): E78.9 - Disorder of lipoprotein metabolism, unspecified Plan Patient is a 73-year-old morbidly obese patient with a significant history of insulin-dependent diabetes mellitus, hypertension, hyperlipidemia, chronic kidney disease stage 3, depression, osteoarthritis severe bilateral knees Patient continue to be morbidly obese she agree to try semaglutide injection, after reviewing the side effect i have sent the script she just had labs done few min ago, so i dont have the report Patient is on insulin Tresiba 20 units subcutaneously b.i.d. Amlodipine 10 mg once a day Bupropion 200 mg once a day Carvedilol 6.25 mg b.i.d. Dicyclomine as needed Famotidine 20 mg b.i.d. Fenofibrate 160 mg q.d. Fluoxetine 40 mg once a day Advair HFA 230 mcg b.i.d. Loratadine 10 mg once a day Metoprolol 25 mg at bedtime Simvastatin 20 mg once a day she has depresion / anxiety which is stable Neuropathy, and Nephropathy stable patient also have sever sleep apnea , had first part of sleep study done meghana Zimmer waiting for second part of study, I have encourged her and her daughter to call sleep lab and book apt IBS stable Allergy stable Gerd stable diabetes managed by [facility] Medications: New semaglutide (weight loss) (Wegovy) administer weeks 1 through 4 of therapy 0.25 mg (0.5 mL) subcut QWEEK 2 mL 0RF E11.22 - Type 2 diabetes mellitus with diabetic chronic kidney disease, E66.01 - Morbid (severe) obesity due to excess calories, E78.5 - Hyperlipidemia, unspecified, G47.30 - Sleep apnea, unspecified, I10 - Essential (primary) hypertension, N18.30 - Chronic kidney disease, stage 3 unspecified, 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 nystatin 1 appl topical DAILY 30 days 60 grams 2RF B35.4 - Tinea corporis semaglutide (weight loss) (Wegovy) administer weeks 1 through 4 of therapy 0.25 mg (0.5 mL) subcut QWEEK 2 mL 0RF E11.22 - Type 2 diabetes mellitus with diabetic chronic kidney disease, E66.01 - Morbid (severe) obesity due to excess calories, E78.5 - Hyperlipidemia, unspecified, G47.30 - Sleep apnea, unspecified, I10 - Essential (primary) hypertension, N18.30 - Chronic kidney disease, stage 3 unspecified, 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 Coding Level of Care Code Est Pt Level 4 (84179) Complex EM visit Add On G2211 Diagnoses Severe sleep apnea G47.30 Long-term insulin use Z79.4 Morbid obesity E66.01 Diabetic nephropathy associated with type 2 diabetes mellitus E11.21 Diabetic polyneuropathy associated with type 2 diabetes mellitus E11.42 Essential hypertension I10 Hypertension type: essential hypertension Dyslipidemia E78.5 CKD stage 3 due to type 2 diabetes mellitus E11.22; N18.30 Primary osteoarthritis of both knees M17.0 Osteoarthritis type: primary Morbid obesity with BMI of 50.0-59.9, adult E66.01; Z68.43 Allergy, subsequent encounter T78.40XD Encounter type: subsequent encounter Irritable bowel syndrome with diarrhea K58.0 Irritable bowel syndrome type: with diarrhea Moderate persistent asthma without complication J45.40 Asthma severity: moderate Asthma persistence: persistent Asthma complication type: uncomplicated Recurrent major depressive disorder, in partial remission F33.41 Active/Remission status: in partial remission Anxiety, generalized F41.1 Lipid disorder E78.9 Additional Codes MADI-7 Assessment Billing - MADI-7 Assessment Tool: MADI-7 Assessment 46457 ([id number])
== END 2023-12-29 13:47 | disposition home or self-care (01) ==
PROVIDERS: PCP Internal Medicine; Visit Provider Internal Medicine
DX: I12.9 Hypertensive chronic kidney disease with stage 1 through stage 4 chronic kidney disease, or unspecified chronic kidney disease (principal); N18.30 Chronic kidney disease, stage 3 unspecified; Z79.4 Long term (current) use of insulin; E11.22 Type 2 diabetes mellitus with diabetic chronic kidney disease; E66.01 Morbid (severe) obesity due to excess calories; E11.21 Type 2 diabetes mellitus with diabetic nephropathy; E11.42 Type 2 diabetes mellitus with diabetic polyneuropathy; Z68.43 Body mass index [BMI] 50.0-59.9, adult; F33.41 Major depressive disorder, recurrent, in partial remission; G47.30 Sleep apnea, unspecified; E78.5 Hyperlipidemia, unspecified; M17.0 Bilateral primary osteoarthritis of knee
CPT/HCPCS: 99214; G2211

== ENCOUNTER 2023-12-29 12:53 | Outpatient (REF) | payer MEDICARE, MEDICAID, SELFPAY ==
[2023-12-29 16:06] LABS: MANUAL DIFF FLAG NO
[2023-12-29 16:23] LABS: Basophils Percent Auto 0.5 % (0-2); Eosinophils Absolute Auto 0.2 X10*3/uL (0.0-0.4); Eosinophils Percent Auto 1.9 % (0-4); Hematocrit 36.2 % (37.0-47.0); Hemoglobin 11.4 g/dl (12.0-16.0); Imm Gran Abs Auto 0.05 X10*3/uL (0.00-0.03); Imm Gran Pct Auto 0.6 % (0.0-0.4); Lymphocytes Percent Auto 33.4 % (20-40); Mean Corpuscular HGB Conc 31.5 g/dl (31.0-35.0); Mean Corpuscular Hemoglobin 30.4 pg (27.0-33.0); Mean Corpuscular Volume 96.5 fL (80.0-98.0); Mean Platelet Volume 10.4 fL (9.4-12.3); Monocytes Absolute Auto 0.5 X10*3/uL (0.1-1.2); Monocytes Percent Auto 6.1 % (2-11); Neutrophils Absolute Auto 5.1 x10*3/uL (2.0-8.3); Neutrophils Percent Auto 57.5 % (45-73); Platelet Count 357 X10*3/uL (160-400); Red Blood Count 3.75 X10*6/uL (4.20-5.50); Red Cell Distribution Width 14.3 % (11.0-16.0); White Blood Count 8.9 X10*3/uL (4.8-10.8)
[2023-12-29 16:45] LABS: Estimated Average Glucose 131 mg/dL; Hemoglobin A1c % 6.2 % (<6.0)
[2023-12-29 17:03] LABS: Alanine Aminotransferase 6 U/L (0-31); Albumin Level 3.5 g/dL (3.5-5.0); Alkaline Phosphatase 60 U/L (39-117); Anion Gap 14 (12-20); Aspartate Amino Transferase 12 U/L (5-31); Bilirubin Total 0.4 mg/dL (0.0-1.0); Blood Urea Nitrogen 32 mg/dL (9-16); Calcium 9.1 mg/dL (8.4-10.2); Carbon Dioxide 23 mmol/L (22-29); Chloride 106 mmol/L (96-108); Estimated Glomerular Filt Rate 36; Glucose Fasting 69 mg/dL (60-99); Lipase 30 U/L (8-78); Potassium 4.5 mmol/L (3.3-5.1); Sodium 138 mmol/L (135-145); Total Protein 6.8 g/dL (6.5-8.0)
[2023-12-29 17:09] LABS: TSH reflex Free T4 5.05 uIU/mL (0.32-4.0)
[2023-12-29 17:17] LABS: Microalbum/Creatinine Ratio Ur 42.4 ug/mg cr (<30)
[2023-12-29 20:24] LABS: Free T4 (Free Thyroxine) 1.01 ng/dL (0.71-1.85)
== END 2023-12-29 12:54 | disposition home or self-care (01) ==
LOC: HO.HMGCLDS 12:53
PROVIDERS: PCP Internal Medicine; Visit Provider Internal Medicine
DX: Z79.4 Long term (current) use of insulin (principal); E66.01 Morbid (severe) obesity due to excess calories; R41.3 Other amnesia; G47.33 Obstructive sleep apnea (adult) (pediatric); E11.42 Type 2 diabetes mellitus with diabetic polyneuropathy; E11.22 Type 2 diabetes mellitus with diabetic chronic kidney disease; N18.30 Chronic kidney disease, stage 3 unspecified; E11.21 Type 2 diabetes mellitus with diabetic nephropathy; K58.9 Irritable bowel syndrome, unspecified; E13.9 Other specified diabetes mellitus without complications; E78.9 Disorder of lipoprotein metabolism, unspecified; F41.1 Generalized anxiety disorder; F33.9 Major depressive disorder, recurrent, unspecified
CPT/HCPCS: 36415; 80053; 82043; 82570; 83036; 83690; 84439; 84443; 85025

== ENCOUNTER 2024-01-13 10:57 | Outpatient (AMB) | payer MEDICARE, MEDICAID, SELFPAY ==
--- NOTE | 2024-01-13 10:59 | AM.OFFVISMDC ---
Intake Vital Signs 01/13/24 11:03 Height 4 ft 10 in Weight 253 lb BMI 52.9 BP 128/72 Blood Pressure Location Lt brachial Position Sitting Pulse 85 Pulse Source Pulse Oximeter Pulse Oximetry (%) 96 Oxygen Delivery Method Room Air Intake Visit Reasons: SWV G0439 Allergies adhesive tape [Adhesive Tape] Allergy (Severe, Verified 01/13/24 11:04) BLISTERS dairy products Allergy (Severe, Verified 01/13/24 11:04) GI upset semaglutide [From Ozempic] Allergy (Severe, Verified 01/13/24 11:04) Diarrhea NSAIDS (Non-Steroidal Anti-Inflamma Adverse Reaction (Verified 01/13/24 11:04) Nephropathy Medication List - Last Reconciled 01/13/24 by Marilyn Gillespie MD acetaminophen ER (Tylenol Arthritis Pain) 650 mg PO Q8H PRN albuterol sulfate 90 mcg/actuation 2 puffs inhalation Q4H PRN amlodipine 10 mg PO DAILY 90 days blood sugar diagnostic (GreenC[employer] Securityuch Ultra Test strips) tid esting 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 meter (PaperV Ultra2 Meter) tid testing bupropion HCl SR 200 mg PO ONCE 90 days carvedilol 6.25 mg PO BID dicyclomine 10 mg PO BID PRN 90 days fenofibrate 160 mg PO DAILY 90 days fluoxetine 40 mg PO DAILY 90 days insulin degludec (Tresiba FlexTouch U-200 insulin) 30 units (0.15 mL) subcut BID 90 days lancets tid testing lancets ([employer]care BluebookTouch Delica Lancets) Use to check blood sugars three times a day loratadine (Allergy Relief (loratadine)) 10 mg PO DAILY 90 days metoprolol succinate ER 25 mg PO BEDTIME nystatin 1 appl topical DAILY 30 days pen needle, diabetic daily pen needle, diabetic (BD Nadya 2nd Gen Pen Needle) 1 ea miscellaneous BID ropinirole 0.5 mg PO BEDTIME 90 days semaglutide (weight loss) (Wegovy) 0.25 mg (0.5 mL) subcut QWEEK simvastatin 20 mg PO DAILY 90 days tramadol 50 mg PO Q8H PRN 7 days Do you need a note to return to daycare/school/sports/work: No HPI SWV G0439 HPI Details Labs done recently reviewed Hemoglobin came back at 11.4 Creatinine 1.42, patient have chronic nephropathy secondary to hypertension and diabetes Hemoglobin A1c is 6.2% , currently she is taking long-acting insulin 20 units b.i.d., I am reducing the dose to 15 units b.i.d. TSH came back at 5.5, I am starting her on levothyroxine 25 mcg Colonoscopy was in 2020 Follow-up 3 months HPI Comments History of Present Illness Details AWV Medical/social history reviewed Past medical history reviewed [place] of care / care team list updated Surgical/ hospitalization history reviewed Current medications including OTC and supplements reviewed Family history reviewed Tobacco controlled form updated Alcohol use form updated Illicit drug use in social history reviewed Current diagnosis of depression ?screening updated Appropriate PHQ 2/PHQ-9 completed . Vital signs reviewed Alcohol tobacco drug use reviewed and discussed . MMSE completed . ? Fall risk: ?Assessed Fall history: ?None Have you had any falls with injury in the past year?? No Have you had 2 or more falls in the past year?? No Fall risk assessment completed Home safety discussed with the patient Functional ability assessed and discussed and documented Activities of daily living reviewed and appropriate actions taken . HRA filled out by the patient and reviewed by provider and scanned . Appropriate written screening schedule established . Any health advise needed provided . Advance care planning discussed with the patient , necessary paperwork filled Examination IPPE/AWE: Balance failed Romberg failed Tandem walk failed walk-in turn failed rise from sit to stand failed . ?Hearing ?whisper test pass . Medication list reviewed, patient is stable on medications All other providers patient is seeing discussed and noted . [facility] Medical History Restrictive lung disease Breast cancer COVID-19 vaccine series completed Dyspnea on exertion OZ (obstructive sleep apnea) Morbid obesity with BMI of 50.0-59.9, adult Diabetic polyneuropathy associated with type 2 diabetes mellitus Hypertension Dyslipidemia CKD stage 3 due to type 2 diabetes mellitus Diabetic nephropathy associated with type 2 diabetes mellitus senior living (current) 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 Other Mental health disorder Substance use disorder Social History Household Members: Family Housing: House Are you a primary cattle care worker to a significant other at home: No Do you presently have visiting nurse or other home services: No Alcohol intake: current Alcohol intake frequency: a few times a week Alcohol type: beer Patient Tobacco Use Status: Former Tobacco user Tobacco use type: Cigarette e-Cigarette/Vaping Use: Never Used service: No Current occupational status: unemployed Cognitive needs: No Hearing needs: No Vision needs: No Questionnaire Medicare Wellness Checkup [age] What gender do you identify with?: female During the past 4 weeks, how much have you been bothered by emotional problems such as feeling anxious, depressed, irritable, sad or downhearted, and blue?: slightly During the past 4 weeks, has your physical & emotional health limited your social activities with family, friends, neighbors, or groups?: slightly During the past 4 weeks, how much bodily pain have you generally had?: severe pain During the past 4 weeks, was someone available to help you if you needed & wanted help?: yes, quite a bit During the past 4 weeks, what was the hardest physical activity you could do for at least 2 minutes?: moderate Can you get to places out of walking distance without help? (For eg., can you travel alone on buses, taxis or drive your car?): No Can you go shopping for groceries or clothes without someone's help?: No Can you prepare your own meals?: No Can you do your housework without help?: No Because of any health problems, do you need the help of another person with your personal care needs such as eating, bathing, dressing or getting around the house?: Yes Can you handle your own money without help?: Yes During the past 4 weeks, how would you rate your health in general?: good During the past 4 weeks how have things been going for you?: pretty bad Are you having difficulties driving your car?: not applicable, I don't use a car Do you always fasten your seat belt when you are in a car?: yes, sometimes During past 4 weeks, have you been bothered by the following: never: Sexual problems? and Trouble eating well?, sometimes: Falling or dizzy when standing up, Teeth or denture problems? and Problems using the telephone? and often: Tiredness or fatigue? Have you fallen 2 or more times in the past year?: Yes Are you afraid of falling?: Yes Are you a smoker?: no During the past 4 weeks, how many drinks of wine, beer, or other alcoholic beverages did you have?: no alcohol at all Do you exercise for about 20 minutes 3 or more times a week?: yes, some of the time Have you been given information to help with the following?: yes: Hazards in your house that might hurt you? and yes: Keeping track of your medications? How often do you have trouble taking medicines the way you have been told to take them?: I always take medicine as prescribed How confident are you that you can control & manage most of your health problems?: somewhat confident What is your race?: White Mini Mental State Exam (MMSE) Orientation What is the (year) (season) (date) (day) (month)?: year, season, date, day and month Where are we (state) (county) (town or city) (hospital) (floor)?: state, county, town or city, hospital/clinic and floor Score Score: 10 Activity of Daily Living Bathing - sponge bath, tub bath or shower: receives help in bathing more than one body part (or not bathed) Dressing - getting clothes from closets & drawers, including inner/outer garments & fasteners.: receives help getting clothes or getting dressed, or stays undressed Toileting - going to the 'toilet room' for urine/bowel elimination & cleaning self/arranging clothes: receives help going to toilet room, cleaning self or arranging clothes Transfer: moves in & out of bed or chair with help Continence: supervision helps urination/bowel control; catheter use; incontinent Feeding: feeds self without help Total Score: 3 Information obtained from: patient Using telephone: independent Traveling: dependent Shopping: dependent Preparing meals: dependent Housework: dependent Taking medicine: dependent Managing money: needs assistance PHQ-9 Over the last 2 weeks, how often have you been bothered by any of the following problems? 1. Little interest or pleasure in doing things: several days 2. Feeling down, depressed, or hopeless: not at all 3. Trouble falling or staying asleep, or sleeping too much: more than half the days 4. Feeling tired or having little energy: more than half the days 5. Poor appetite or overeating: not at all 6. Feeling bad about yourself - or that you are a failure or have let yourself or your family down: not at all 7. Trouble concentrating on things, such as reading the newspaper or watching television: several days 8. Moving or speaking so slowly that other people could have noticed. Or the opposite - being so fidgety or restless that you have been moving around a lot more than usual: not at all 9. Thoughts that you would be better off or of hurting yourself in some way: not at all Total score: 6 Depression Screening Interpretation: Negative Depression Screening Done: Yes 56966 - PHQ-9 Billing: Yes Source: Developed by Drs. Johnnie Hammonds, Laly Hoyt, León Norton and colleagues, with an educational maryanne from [employer]. Review of Systems Const Denies chills and Denies fever(s) ENT Denies epistaxis and Denies nasal discharge Card Denies chest pain Resp Denies chest congestion, Denies cough and Denies hemoptysis GI Denies diarrhea and Denies nausea Skin/Breast Denies rash Neuro Reports no additional complaints Psych Reports no additional complaints Endo Reports no additional complaints Physical Exam Vital Signs: Last Vital Signs Pulse 85 01/13/24 11:03 BP 128/72 01/13/24 11:03 Pulse Ox 96 01/13/24 11:03 Oxygen Delivery Method Room Air 01/13/24 11:03 BMI result Body Mass Index 52.9 Const General: cooperative, comfortable and no acute distress Orientation/consciousness: patient oriented x3 HEENT Head: Yes normocephalic Eyes General: appearance normal, both eyes and all related structures Neck Other: Supple Neck: Yes supple Resp Effort & Inspection: normal respiratory effort, no cough and no stridor Cardio Rhythm: regular rhythm Heart sounds: S1 normal heart sound present and S2 normal heart sound present Skin General skin exam: turgor normal Neuro Other: Motor sensory intact General: patient oriented x3, tone normal and moves all extremities Psych Other: Normal effect, speech clear Assessment & Plan Assessment & Plan (1) Medicare annual wellness visit, subsequent: Code(s): Z00.00 - Encounter for general adult medical examination without abnormal findings (2) Diabetes 1.5, managed as type 1: Code(s): E13.9 - Other specified diabetes mellitus without complications (3) Diabetic polyneuropathy associated with type 2 diabetes mellitus: Code(s): E11.42 - Type 2 diabetes mellitus with diabetic polyneuropathy (4) long term care social worker (current) use of insulin: Code(s): Z79.4 - senior living (current) use of insulin (5) CKD stage 3 due to type 2 diabetes mellitus: Code(s): E11.22 - Type 2 diabetes mellitus with diabetic chronic kidney disease; N18.30 - Chronic kidney disease, stage 3 unspecified (6) Diabetic nephropathy associated with type 2 diabetes mellitus: Code(s): E11.21 - Type 2 diabetes mellitus with diabetic nephropathy (7) Hypertension: Code(s): I10 - Essential (primary) hypertension Qualifiers: Hypertension type: essential hypertension Qualified Code(s): I10 - Essential (primary) hypertension (8) Dyslipidemia: Code(s): E78.5 - Hyperlipidemia, unspecified (9) Morbid obesity: Code(s): E66.01 - Morbid (severe) obesity due to excess calories (10) Breast screening: Code(s): Z12.39 - Encounter for other screening for malignant neoplasm of breast (11) Restless leg syndrome: Code(s): G25.81 - Restless legs syndrome (12) Sleep apnea: Code(s): G47.30 - Sleep apnea, unspecified Qualifiers: Sleep apnea type: unspecified type Qualified Code(s): G47.30 - Sleep apnea, unspecified (13) Lipid disorder: Code(s): E78.9 - Disorder of lipoprotein metabolism, unspecified (14) Anxiety, generalized: Code(s): F41.1 - Generalized anxiety disorder (15) Depression, major, recurrent: Code(s): F33.9 - Major depressive disorder, recurrent, unspecified Qualifiers: Active/Remission status: in partial remission Qualified Code(s): F33.41 - Major depressive disorder, recurrent, in partial remission (16) Irritable bowel syndrome: Code(s): K58.9 - Irritable bowel syndrome without diarrhea Qualifiers: Irritable bowel syndrome type: with diarrhea Qualified Code(s): K58.0 - Irritable bowel syndrome with diarrhea (17) Allergies: Code(s): T78.40XA - Allergy, unspecified, initial encounter Qualifiers: Encounter type: subsequent encounter Qualified Code(s): T78.40XD - Allergy, unspecified, subsequent encounter Plan Labs done recently reviewed Hemoglobin came back at 11.4 Creatinine 1.42, patient have chronic nephropathy secondary to hypertension and diabetes Hemoglobin A1c is 6.2% , currently she is taking long-acting insulin 20 units b.i.d., I am reducing the dose to 15 units b.i.d. TSH came back at 5.5, I am starting her on levothyroxine 25 mcg Colonoscopy was in 2020 Orders: Orders MM tomosynthesis screening BI Today Z12.31 - Encounter for screening mammogram for malignant neoplasm of breast Medications: New levothyroxine 25 mcg PO DAILY 90 tabs 0RF Changed From insulin degludec (Tresiba FlexTouch U-200 insulin) 30 units (0.15 mL) subcut BID 90 days 27 mL 2RF E11.65 - Type 2 diabetes mellitus with hyperglycemia To insulin degludec (Tresiba FlexTouch U-200 insulin) 15 units (0.075 mL) subcut BID 90 days 13.5 mL 2RF E11.65 - Type 2 diabetes mellitus with hyperglycemia Refilled dicyclomine take 20 min before meal 10 mg PO BID 90 days PRN 180 caps 0RF abdominal cramping Quality Reporting (2019) Depression/Bipolar (159/160/161/177) PHQ-9: Total score: 6 Coding Level of Care Code Medicare Subsequent (G0439) Est Pt Level 4 (20236) Diagnoses Medicare annual wellness visit, subsequent Z00.00 Diabetes 1.5, managed as type 1 E13.9 Diabetic polyneuropathy associated with type 2 diabetes mellitus E11.42 long term care social worker (current) use of insulin Z79.4 CKD stage 3 due to type 2 diabetes mellitus E11.22; N18.30 Diabetic nephropathy associated with type 2 diabetes mellitus E11.21 Essential hypertension I10 Hypertension type: essential hypertension Dyslipidemia E78.5 Morbid obesity E66.01 Breast screening Z12.39 Restless leg syndrome G25.81 Sleep apnea, unspecified type G47.30 Sleep apnea type: unspecified type Lipid disorder E78.9 Anxiety, generalized F41.1 Recurrent major depressive disorder, in partial remission F33.41 Active/Remission status: in partial remission Irritable bowel syndrome with diarrhea K58.0 Irritable bowel syndrome type: with diarrhea Allergy, subsequent encounter T78.40XD Encounter type: subsequent encounter CPT Codes Advance Care Planning - Advance Care Planning discussion: On file, no changes ([id number]) Advance Care Planning Advance Care Planning discussion: On file, no changes
[2024-01-13 11:03] VITALS: BP 128/72; PULSE 85; O2SAT 96; BMI 52.9
== END 2024-01-13 11:35 | disposition home or self-care (01) ==
PROVIDERS: PCP Internal Medicine; Visit Provider Internal Medicine
DX: Z00.00 Encounter for general adult medical examination without abnormal findings (principal); I12.9 Hypertensive chronic kidney disease with stage 1 through stage 4 chronic kidney disease, or unspecified chronic kidney disease; N18.30 Chronic kidney disease, stage 3 unspecified; E11.22 Type 2 diabetes mellitus with diabetic chronic kidney disease; E11.42 Type 2 diabetes mellitus with diabetic polyneuropathy; Z79.4 Long term (current) use of insulin; E11.21 Type 2 diabetes mellitus with diabetic nephropathy; E66.01 Morbid (severe) obesity due to excess calories; E78.5 Hyperlipidemia, unspecified; Z12.39 Encounter for other screening for malignant neoplasm of breast; G25.81 Restless legs syndrome

== ENCOUNTER → 2024-01-13 10:57 | Outpatient (BNVA) | payer MEDICARE, MEDICAID, SELFPAY | PROVIDERS: PCP Internal Medicine; Visit Provider Internal Medicine | DX: Z00.00 Encounter for general adult medical examination without abnormal findings (principal); E11.42 Type 2 diabetes mellitus with diabetic polyneuropathy; I12.9 Hypertensive chronic kidney disease with stage 1 through stage 4 chronic kidney disease, or unspecified chronic kidney disease; E11.22 Type 2 diabetes mellitus with diabetic chronic kidney disease; N18.30 Chronic kidney disease, stage 3 unspecified; E11.21 Type 2 diabetes mellitus with diabetic nephropathy; E66.01 Morbid (severe) obesity due to excess calories; Z68.43 Body mass index [BMI] 50.0-59.9, adult; G25.81 Restless legs syndrome; G47.30 Sleep apnea, unspecified; E78.9 Disorder of lipoprotein metabolism, unspecified; F41.1 Generalized anxiety disorder; F33.41 Major depressive disorder, recurrent, in partial remission; K58.0 Irritable bowel syndrome with diarrhea; T78.40XD Allergy, unspecified, subsequent encounter; Z71.3 Dietary counseling and surveillance | CPT/HCPCS: 99212 ==

== ENCOUNTER 2024-02-16 12:48 | Outpatient (AMB) | payer MEDICARE, MEDICAID, SELFPAY ==
--- NOTE | 2024-02-16 12:50 | A.OFFPC_ITS ---
Vital Signs 02/16/24 12:51 Height 4 ft 10 in Weight 262 lb BMI 54.8 BP 122/70 Blood Pressure Location Rt radial Position Sitting Pulse 68 Pulse Source Pulse Oximeter Pulse Oximetry (%) 98 Oxygen Delivery Method Room Air Intake Visit Reasons: Bilateral Severe Ankle foot swelling Allergies adhesive tape [Adhesive Tape] Allergy (Severe, Verified 02/16/24 12:51) BLISTERS dairy products Allergy (Severe, Verified 02/16/24 12:51) GI upset semaglutide [From Ozempic] Allergy (Severe, Verified 02/16/24 12:51) Diarrhea NSAIDS (Non-Steroidal Anti-Inflamma Adverse Reaction (Verified 02/16/24 12:51) Nephropathy Medication List - Last Reconciled 02/16/24 by Marilyn Gillespie MD acetaminophen ER (Tylenol Arthritis Pain) 650 mg PO Q8H PRN [Adult Pull-ups As directed] [adult pull-ups size As directed] albuterol sulfate 90 mcg/actuation 2 puffs inhalation Q4H PRN alcohol swabs (Alcohol Pads) 1 pad topical TIDWMEAL amlodipine 10 mg PO DAILY 90 days blood sugar diagnostic (OneTouch Ultra Test strips) tid esting 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 meter (OneTouch Ultra2 Meter) tid testing 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 meter,continuous (FreeStyle Ihsan 3 [place]) As directed 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 sensor (FreeStyle Ihsan 3 Sensor device) As directed bupropion HCl SR 200 mg PO ONCE 90 days carvedilol 6.25 mg PO BID [cloth bed pads As directed] dicyclomine 10 mg PO BID PRN 90 days fenofibrate 160 mg PO DAILY 90 days fluoxetine 40 mg PO DAILY 90 days insulin degludec (Tresiba FlexTouch U-200 insulin) 15 units (0.075 mL) subcut BID 90 days lancets tid testing lancets Use to check blood sugars three times a day levothyroxine 25 mcg PO DAILY loratadine (Allergy Relief (loratadine)) 10 mg PO DAILY 90 days metoprolol succinate ER 25 mg PO BEDTIME nystatin 1 appl topical DAILY 30 days [panty liners As directed] pen needle, diabetic daily pen needle, diabetic (BD Nadya 2nd Gen Pen Needle) 1 ea miscellaneous BID ropinirole 0.5 mg PO BEDTIME 90 days simvastatin 20 mg PO DAILY 90 days tramadol 50 mg PO Q8H PRN 7 days Tobacco use date assessed: 02/16/24 Fall risk assessment: 2 + Falls in past year Last assessed Fall Risk: 02/16/24 Dental Screening Dental Screen Date: 02/16/24 Did you have a dental visit in the last 12 months?: No Did you have a dental problem in the last 6 months where you did not have access to dental care?: No Was dental information given to patient?: No HPI Bilateral Severe Ankle foot swelling HPI Details Patient is 73-year-old female came in today to be evaluated for swelling of his ankles Left more than right I see that patient is on amlodipine I am stopping that That might improve the swelling Her blood pressure is well-controlled She has appointment in March we will re-evaluate off amlodipine and if needed we will send another medication for blood pressure Hemoglobin A1c was 6.2 in December Her sugars are running low in the morning still currently she is taking 15 units of long-acting insulin b.i.d. I am reducing it to 10 units b.i.d. Other abnormalities in her labs were Creatinine was slightly elevated TSH was also elevated She will be repeating labs again Patient is questioning possibility of UTI as she was having discomfort suprapubic this past weekend UA added IBS: Dicyclomine was denied by the insurance initially but it is approve now New script sent [facility] Medical History Restrictive lung disease Breast cancer COVID-19 vaccine series completed Dyspnea on exertion OZ (obstructive sleep apnea) Morbid obesity with BMI of 50.0-59.9, adult Diabetic polyneuropathy associated with type 2 diabetes mellitus Hypertension Dyslipidemia CKD stage 3 due to type 2 diabetes mellitus Diabetic nephropathy associated with type 2 diabetes mellitus half-way (current) 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 Other Mental health disorder Substance use disorder Social History Household Members: Family Housing: House Are you a primary care team assistant to a significant other at home: No Do you presently have visiting nurse or other home services: No Alcohol intake: current Alcohol intake frequency: a few times a week Alcohol type: beer Patient Tobacco Use Status: Former Tobacco user Tobacco use type: Cigarette e-Cigarette/Vaping Use: Never Used service: No Current occupational status: unemployed Cognitive needs: No Hearing needs: No Vision needs: No Questionnaire PHQ-9 Over the last 2 weeks, how often have you been bothered by any of the following problems? 2. Feeling down, depressed, or hopeless: more than half the days Source: Developed by Drs. Johnnie Hammonds, Laly Hoyt, León Norton and colleagues, with an educational maryanne from [employer]. Thrive Questionnaire Date Thrive assessed: 01/13/24 I am a: Patient What is your living situation today?: I do not have a steady places to live I am living in an abandoned building Within the past 12 months, did the food you bought not last and you didn't have the money to get more?: Never true Within the past 12 months, did you worry whether your food would run out before you got money to buy more?: Never true Do you have trouble paying for medicines?: No Do you have trouble getting transportation to medical appointments?: No Do you have trouble paying your heating and electricity bill?: No Do you have trouble taking care of your child, family member or friend?: No Do you have trouble with day-to-day activities such as bathing, preparing meals, shopping, managing finances, etc.?: Yes Are you currently unemployed and looking for a job?: Yes Are you interested in more education?: No Please select the resources that you would like help with: Housing/Longterm Currently or been in a relationship where the following occur: I choose not to answer THRIVE Score: 1 AUDIT C Alcohol Use Questionnaire (AUDIT-C) 1. How often do you have a drink containing alcohol?: Monthly or less 2. How many drinks containing alcohol do you have on a typical day when you are drinking?: 3 or 4 3. How often do you have six or more drinks on one occasion?: Never Total Score: 2 MADI-7 AMB Questionnaire MADI-7 Date MADI - 7 assessed: 12/29/23 Source: Developed by Drs. Johnnie Hammonds, Laly Hoyt, León Norton and colleagues, with an educational maryanne from [employer]. Review of Systems Const Denies chills and Denies fever(s) ENT Denies epistaxis and Denies nasal discharge Card Denies chest pain Resp Denies chest congestion, Denies cough and Denies hemoptysis GI Denies diarrhea and Denies nausea Skin/Breast Denies rash Neuro Reports no additional complaints Psych Reports no additional complaints Endo Reports no additional complaints Physical exam (Primary Care) Vital Signs: Last Vital Signs Pulse 68 02/16/24 12:51 BP 122/70 02/16/24 12:51 Pulse Ox 98 02/16/24 12:51 Oxygen Delivery Method Room Air 02/16/24 12:51 BMI result Body Mass Index 54.8 Tobacco/Smoking Status: Tobacco use Status Tobacco use date assessed 02/16/24 02/16/24 12:53 Patient Tobacco Use Status Former Tobacco user 02/16/24 12:53 Tobacco use type Cigarette 02/16/24 12:53 e-Cigarette/Vaping Use Never Used 02/16/24 12:53 Thrive Assessment: Date of Thrive Assessment Date Thrive assessed 01/13/24 02/16/24 12:53 Currently or been in a relationship where the following occur: I choose not to answer Const General: cooperative, comfortable and no acute distress Orientation/consciousness: patient oriented x3 HENMT Head: Yes normocephalic Eyes General: appearance normal, both eyes and all related structures Neck Neck: Yes supple Resp Effort & Inspection: normal respiratory effort, no cough and no stridor Cardio Rhythm: regular rhythm Heart sounds: S1 normal heart sound present and S2 normal heart sound present Skin General skin exam: turgor normal Neuro General: patient oriented x3, tone normal and moves all extremities Extrem Other: 1+ pitting edema right more than left ankle Coding Level of Care Code Est Pt Level 5 (63612) Diagnoses Diabetes 1.5, managed as type 1 E13.9 Lipid disorder E78.9 Anxiety, generalized F41.1 Recurrent major depressive disorder, in partial remission F33.41 Active/Remission status: in partial remission Irritable bowel syndrome with diarrhea K58.0 Irritable bowel syndrome type: with diarrhea CKD stage 3 due to type 2 diabetes mellitus E11.22; N18.30 half-way (current) use of insulin Z79.4 Diabetic polyneuropathy associated with type 2 diabetes mellitus E11.42 Morbid obesity with BMI of 50.0-59.9, adult E66.01; Z68.43 OZ (obstructive sleep apnea) G47.33 Primary osteoarthritis of both knees M17.0 Osteoarthritis type: primary Assessment & Plan Assessment & Plan (1) Diabetes 1.5, managed as type 1: Code(s): E13.9 - Other specified diabetes mellitus without complications Category: Medical (2) Lipid disorder: Code(s): E78.9 - Disorder of lipoprotein metabolism, unspecified Category: Medical (3) Anxiety, generalized: Code(s): F41.1 - Generalized anxiety disorder Category: Medical (4) Depression, major, recurrent: Code(s): F33.9 - Major depressive disorder, recurrent, unspecified Category: Medical Qualifiers: Active/Remission status: in partial remission Qualified Code(s): F33.41 - Major depressive disorder, recurrent, in partial remission (5) Irritable bowel syndrome: Code(s): K58.9 - Irritable bowel syndrome, unspecified Category: Medical Qualifiers: Irritable bowel syndrome type: with diarrhea Qualified Code(s): K58.0 - Irritable bowel syndrome with diarrhea (6) CKD stage 3 due to type 2 diabetes mellitus: Code(s): E11.22 - Type 2 diabetes mellitus with diabetic chronic kidney disease; N18.30 - Chronic kidney disease, stage 3 unspecified Category: Medical (7) half-way (current) use of insulin: Code(s): Z79.4 - half-way (current) use of insulin Category: Medical (8) Diabetic polyneuropathy associated with type 2 diabetes mellitus: Code(s): E11.42 - Type 2 diabetes mellitus with diabetic polyneuropathy Category: Medical (9) Morbid obesity with BMI of 50.0-59.9, adult: Comment: Patient has super morbid obesity. She was in wheelchair and could not be weighed today. She has not been able to lose any weight. Code(s): E66.01 - Morbid (severe) obesity due to excess calories; Z68.43 - Body mass index [BMI] 50.0-59.9, adult Category: Medical (10) OZ (obstructive sleep apnea): Comment: She has known case of very severe obstructive sleep apnea. She has been adamantly declining to use the CPAP. Code(s): G47.33 - Obstructive sleep apnea (adult) (pediatric) Category: Medical (11) Osteoarthritis of knees, bilateral: Code(s): M17.0 - Bilateral primary osteoarthritis of knee Category: Medical Qualifiers: Osteoarthritis type: primary Qualified Code(s): M17.0 - Bilateral primary osteoarthritis of knee Plan Patient is 73-year-old female with a history of depression/anxiety, insulin- dependent diabetes mellitus, irritable bowel syndrome, lipid disorder, hypothyroidism, restless legs syndrome, came in today to be evaluated for swelling of her ankles Left more than right I see that patient is on amlodipine I am stopping that That might improve the swelling Her blood pressure is well-controlled She has appointment in March we will re-evaluate off amlodipine and if needed we will send another medication for blood pressure Hemoglobin A1c was 6.2 in December Her sugars are running low in the morning still currently she is taking 15 units of long-acting insulin b.i.d. I am reducing it to 10 units b.i.d. Other abnormalities in her labs were Creatinine was slightly elevated TSH was also elevated She will be repeating labs again Patient is questioning possibility of UTI as she was having discomfort suprapubic this past weekend UA added IBS: Dicyclomine was denied by the insurance initially but it is approve now New script sent Patient is morbidly obese, we tried to get her on Wegovy injection which were denied by her insurance company We will zepbound, patient was instructed not to start the medication without talking to me She is also asking for letter to be formulated so she can find an apartment on the ground floor close to parking space Due to her inability to walk or climb stairs, patient have severe osteoarthritis and morbid obesity along with COPD Letter formulated and handed to patient 45 minutes spent in care of this patient Orders: Orders UA CC w/rflx Micro + Cult Today E11.22 - Type 2 diabetes mellitus with diabetic chronic kidney disease, E13.9 - Other specified diabetes mellitus without complications, E78.9 - Disorder of lipoprotein metabolism, unspecified, F33.41 - Major depressive disorder, recurrent, in partial remission, F41.1 - Generalized anxiety disorder, K58.0 - Irritable bowel syndrome with diarrhea, N18.30 - Chronic kidney disease, stage 3 unspecified, Z79.4 - superintendent terminal (current) use of insulin TSH reflex Free T4 Today E11.22 - Type 2 diabetes mellitus with diabetic chronic kidney disease, E13.9 - Other specified diabetes mellitus without complications, E78.9 - Disorder of lipoprotein metabolism, unspecified, F33.41 - Major depressive disorder, recurrent, in partial remission, F41.1 - Generalized anxiety disorder, K58.0 - Irritable bowel syndrome with diarrhea, N18.30 - Chronic kidney disease, stage 3 unspecified, Z79.4 - superintendent terminal (current) use of insulin Comprehensive Met. Panel Today E11.22 - Type 2 diabetes mellitus with diabetic chronic kidney disease, E13.9 - Other specified diabetes mellitus without complications, E78.9 - Disorder of lipoprotein metabolism, unspecified, F33.41 - Major depressive disorder, recurrent, in partial remission, F41.1 - Generalized anxiety disorder, K58.0 - Irritable bowel syndrome with diarrhea, N18.30 - Chronic kidney disease, stage 3 unspecified, Z79.4 - superintendent terminal (current) use of insulin Complete Blood Count Auto Diff Today E11.22 - Type 2 diabetes mellitus with diabetic chronic kidney disease, E13.9 - Other specified diabetes mellitus without complications, E78.9 - Disorder of lipoprotein metabolism, unspecified, F33.41 - Major depressive disorder, recurrent, in partial remission, F41.1 - Generalized anxiety disorder, K58.0 - Irritable bowel syndrome with diarrhea, N18.30 - Chronic kidney disease, stage 3 unspecified, Z79.4 - half-way (current) use of insulin Ferritin Today E11.22 - Type 2 diabetes mellitus with diabetic chronic kidney disease, E13.9 - Other specified diabetes mellitus without complications, E78.9 - Disorder of lipoprotein metabolism, unspecified, F33.41 - Major depressive disorder, recurrent, in partial remission, F41.1 - Generalized anxiety disorder, K58.0 - Irritable bowel syndrome with diarrhea, N18.30 - Chronic kidney disease, stage 3 unspecified, Z79.4 - half-way (current) use of insulin Medications: New tirzepatide (weight loss) (Zepbound) 2.5 mg (0.5 mL) subcut QWEEK 2 mL 0RF 4 weeks E11.21 - Type 2 diabetes mellitus with diabetic nephropathy, E11.42 - Type 2 diabetes mellitus with diabetic polyneuropathy, E13.9 - Other specified diabetes mellitus without complications, E66.01 - Morbid (severe) obesity due to excess calories, E78.9 - Disorder of lipoprotein metabolism, unspecified, G47.33 - Obstructive sleep apnea (adult) (pediatric), M17.0 - Bilateral primary osteoarthritis of knee, Z68.43 - Body mass index [BMI] 50.0-59.9, adult, Z79.4 - superintendent terminal (current) use of insulin
[2024-02-16 12:51] VITALS: BP 122/70; PULSE 68; O2SAT 98; BMI 54.8
== END 2024-02-16 14:22 | disposition home or self-care (01) ==
PROVIDERS: PCP Internal Medicine; Visit Provider Internal Medicine
DX: E11.22 Type 2 diabetes mellitus with diabetic chronic kidney disease (principal); F33.41 Major depressive disorder, recurrent, in partial remission; N18.30 Chronic kidney disease, stage 3 unspecified; Z79.4 Long term (current) use of insulin; E11.42 Type 2 diabetes mellitus with diabetic polyneuropathy; E66.01 Morbid (severe) obesity due to excess calories; Z68.43 Body mass index [BMI] 50.0-59.9, adult; E78.9 Disorder of lipoprotein metabolism, unspecified; F41.1 Generalized anxiety disorder; K58.0 Irritable bowel syndrome with diarrhea; G47.33 Obstructive sleep apnea (adult) (pediatric); M17.0 Bilateral primary osteoarthritis of knee

== ENCOUNTER → 2024-02-16 12:48 | Outpatient (BNVA) | payer MEDICARE, MEDICAID, SELFPAY | PROVIDERS: PCP Internal Medicine; Visit Provider Internal Medicine ==

== ENCOUNTER 2024-02-16 13:18 | Outpatient (REF) | payer MEDICARE, MEDICAID, SELFPAY ==
[2024-02-16 16:44] LABS: MANUAL DIFF FLAG NO
[2024-02-16 16:59] LABS: Basophils Percent Auto 0.5 % (0-2); Eosinophils Absolute Auto 0.3 X10*3/uL (0.0-0.4); Eosinophils Percent Auto 4.4 % (0-4); Hematocrit 34.6 % (37.0-47.0); Hemoglobin 10.9 g/dl (12.0-16.0); Imm Gran Abs Auto 0.02 X10*3/uL (0.00-0.03); Imm Gran Pct Auto 0.3 % (0.0-0.4); Lymphocytes Absolute Auto 2.1 X10*3/uL (1.2-4.9); Lymphocytes Percent Auto 28.8 % (20-40); Mean Corpuscular HGB Conc 31.5 g/dl (31.0-35.0); Mean Corpuscular Hemoglobin 30.3 pg (27.0-33.0); Mean Corpuscular Volume 96.1 fL (80.0-98.0); Mean Platelet Volume 10.8 fL (9.4-12.3); Monocytes Absolute Auto 0.5 X10*3/uL (0.1-1.2); Monocytes Percent Auto 7.3 % (2-11); Neutrophils Absolute Auto 4.3 x10*3/uL (2.0-8.3); Neutrophils Percent Auto 58.7 % (45-73); Platelet Count 271 X10*3/uL (160-400); Red Cell Distribution Width 14.3 % (11.0-16.0); White Blood Count 7.3 X10*3/uL (4.8-10.8)
[2024-02-16 17:16] LABS: Appearance Urine Clear; Color Urine Yellow; Glucose Urine UA Negative (Negative); Leukocyte Esterase Urine Trace (Negative); Nitrite Urine Negative (Negative); UMIC TRIGGER UACC YES; Urine Blood Small (1+) (Negative); Urine Ketones Negative (Negative); Urine Protein Negative (Neg-Trace)
[2024-02-16 17:27] LABS: Alanine Aminotransferase 10 U/L (0-31); Albumin Level 3.7 g/dL (3.5-5.0); Alkaline Phosphatase 53 U/L (39-117); Anion Gap 12 (12-20); Aspartate Amino Transferase 24 U/L (5-31); Bilirubin Total 0.4 mg/dL (0.0-1.0); Blood Urea Nitrogen 30 mg/dL (9-16); Calcium 9.6 mg/dL (8.4-10.2); Carbon Dioxide 24 mmol/L (22-29); Chloride 109 mmol/L (96-108); Estimated Glomerular Filt Rate 34; Ferritin 86 ng/mL (10-250); Glucose Random 75 mg/dL (60-115); Potassium 5.3 mmol/L (3.3-5.1); Sodium 140 mmol/L (135-145); TSH reflex Free T4 3.95 uIU/mL (0.32-4.0)
[2024-02-16 17:35] LABS: RBC Urine 0-2 /HPF (0-2); WBC Urine 0-5 /HPF (0-5)
[2024-02-16 17:36] LABS: Bacteria Urine 2+ (None Seen); Hyaline Casts Urine 0-2 /LPF (0-2)
== END 2024-02-16 13:19 | disposition home or self-care (01) ==
LOC: HO.HMGCLDS 13:18
PROVIDERS: PCP Internal Medicine; Visit Provider Internal Medicine
DX: E11.22 Type 2 diabetes mellitus with diabetic chronic kidney disease (principal); E78.9 Disorder of lipoprotein metabolism, unspecified; F41.1 Generalized anxiety disorder; F33.41 Major depressive disorder, recurrent, in partial remission; K58.0 Irritable bowel syndrome with diarrhea; N18.30 Chronic kidney disease, stage 3 unspecified; E11.42 Type 2 diabetes mellitus with diabetic polyneuropathy; E66.01 Morbid (severe) obesity due to excess calories; Z68.43 Body mass index [BMI] 50.0-59.9, adult; G47.33 Obstructive sleep apnea (adult) (pediatric); M17.0 Bilateral primary osteoarthritis of knee; Z79.4 Long term (current) use of insulin
CPT/HCPCS: 36415; 80053; 81001; 81003; 82728; 84443; 85025; 99212

== ENCOUNTER 2024-03-08 13:16 | Outpatient (AMB) | payer MEDICARE, MEDICAID, SELFPAY ==
--- NOTE | 2024-03-08 13:41 | AM.OFFWIN_ITS ---
Intake Vital Signs 03/08/24 13:48 Weight 266 lb BP 118/74 Blood Pressure Location Rt brachial Position Sitting Pulse 69 Pulse Source Pulse Oximeter Pulse Oximetry (%) 97 Oxygen Delivery Method Room Air Intake Visit Reasons: EP Bilateral Leg swelling Intake Note: Patient here for bilat leg pain and swelling that has been worsening over the past month. Patient Tobacco Use Status: Former Tobacco user Allergies adhesive tape [Adhesive Tape] Allergy (Severe, Verified 03/08/24 13:46) BLISTERS dairy products Allergy (Severe, Verified 03/08/24 13:46) GI upset semaglutide [From Ozempic] Allergy (Severe, Verified 03/08/24 13:46) Diarrhea NSAIDS (Non-Steroidal Anti-Inflamma Adverse Reaction (Verified 03/08/24 13:46) Nephropathy Do you need a note to return to daycare/school/sports/work: No HPI HPI Comments History of Present Illness Details 73 y/o female patient who presents to [facility] walk [facility] clinic with c/o B/L lower extremities edema. Denies SOB, CP, Wheezing or cough. She is Morbidly obese and uses Wheelchair for ambulation. 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 Other Mental health disorder Substance use disorder Social History Household Members: Family Housing: House Are you a primary campground caretaker to a significant other at home: No Do you presently have visiting nurse or other home services: No Alcohol intake: current Alcohol intake frequency: a few times a week Alcohol type: beer Patient Tobacco Use Status: Former Tobacco user Tobacco use type: Cigarette e-Cigarette/Vaping Use: Never Used service: No Current occupational status: unemployed Cognitive needs: No Hearing needs: No Vision needs: No Review of Systems Const All systems reviewed & are unremarkable except as noted in HPI and below Physical Exam Vital Signs: Last Vital Signs Pulse 69 03/08/24 13:48 BP 118/74 03/08/24 13:48 Pulse Ox 97 03/08/24 13:48 Oxygen Delivery Method Room Air 03/08/24 13:48 Const General: cooperative and no acute distress Nutritional Appearance: obese morbidly obese Orientation/consciousness: patient oriented x3 Limitations: wheelchair Resp Effort & Inspection: normal respiratory effort Auscultation: clear to auscultation bilaterally Cardio Heart sounds: S1 normal heart sound present and S2 normal heart sound present Neuro General: patient oriented x3 Assessment & Plan Assessment & Plan (1) Peripheral edema: Code(s): R60.0 - Localized edema Plan: Discussed the use of Compression stockings Ordered a short course of Diuretic for 7 days. Urged Patient to f/u with PCP for possible Cardiology referral if necessary. Weight loss and healthy diet. Medications: New furosemide 20 mg PO DAILY 10 tabs 0RF R60.0 - Localized edema Coding Level of Care Code Est Pt Level 3 (49963) Diagnoses Peripheral edema R60.0 Time Spent (min) 15
[2024-03-08 13:48] VITALS: BP 118/74; PULSE 69; O2SAT 97
== END 2024-03-08 14:39 | disposition home or self-care (01) ==
PROVIDERS: PCP Internal Medicine; Visit Provider Nurse Practitioner Family
DX: R60.0 Localized edema (principal)

== ENCOUNTER → 2024-03-08 13:16 | Outpatient (BNVA) | payer MEDICARE, MEDICAID, SELFPAY | PROVIDERS: PCP Internal Medicine; Visit Provider Nurse Practitioner Family | DX: R60.0 Localized edema (principal) | CPT/HCPCS: 99212 ==

== ENCOUNTER 2024-03-10 08:41 | Outpatient (AMB) | payer MEDICARE, MEDICAID, SELFPAY ==
--- NOTE | 2024-03-10 08:43 | A.OFFPC_ITS ---
Intake Visit Reasons: Follow up Walk-In Allergies adhesive tape [Adhesive Tape] Allergy (Severe, Verified 03/10/24 08:43) BLISTERS dairy products Allergy (Severe, Verified 03/10/24 08:43) GI upset semaglutide [From Ozempic] Allergy (Severe, Verified 03/10/24 08:43) Diarrhea NSAIDS (Non-Steroidal Anti-Inflamma Adverse Reaction (Verified 03/10/24 08:43) Nephropathy Medication List - Last Reconciled 03/10/24 by Marilyn Gillespie MD acetaminophen ER (Tylenol Arthritis Pain) 650 mg PO Q8H PRN [Adult Pull-ups As directed] [adult pull-ups size As directed] albuterol sulfate 90 mcg/actuation 2 puffs inhalation Q4H PRN alcohol swabs (Alcohol Pads) 1 pad topical TIDWMEAL blood sugar diagnostic (OneTouch Ultra Test strips) tid esting 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 meter (OneTouch Ultra2 Meter) tid testing 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 meter,continuous (FreeStyle Ihsan 3 Buckner) As directed 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 sensor (FreeStyle Ihsan 3 Sensor device) As directed bupropion HCl SR 200 mg PO ONCE 90 days carvedilol 6.25 mg PO BID [cloth bed pads As directed] dicyclomine 10 mg PO BID PRN 90 days fenofibrate 160 mg PO DAILY 90 days ferrous sulfate 324 mg PO BID 90 days fluoxetine 40 mg PO DAILY 90 days furosemide 20 mg PO DAILY insulin degludec (Tresiba FlexTouch U-200 insulin) 15 units (0.075 mL) subcut BID 90 days lancets tid testing lancets Use to check blood sugars three times a day levothyroxine 25 mcg PO DAILY loratadine (Allergy Relief (loratadine)) 10 mg PO DAILY 90 days metoprolol succinate ER 25 mg PO BEDTIME nystatin 1 appl topical DAILY 30 days [panty liners As directed] pen needle, diabetic daily pen needle, diabetic (BD Nadya 2nd Gen Pen Needle) 1 ea miscellaneous BID ropinirole 0.5 mg PO BEDTIME 90 days simvastatin 20 mg PO DAILY 90 days tirzepatide (weight loss) (Zepbound) 2.5 mg (0.5 mL) subcut QWEEK 4 weeks tramadol 50 mg PO Q8H PRN 7 days Tobacco use date assessed: 03/10/24 Dental Screening Dental Screen Date: 02/16/24 HPI Follow up Walk-In HPI Details Patient is morbidly obese women with CKD secondary to IDDM started having lower ext edema both side for past few weeks she was in our walk in clinic Mar 08 and was given Lasix 20 mg which she still has not started taking she said she will pick that today i am ordering Echo heart to r/u cardiac issues she does have varcosities in lower ext ref to vascular placed as well PFSH Medical History Restrictive lung disease Breast cancer COVID-19 vaccine series completed Dyspnea on exertion OZ (obstructive sleep apnea) Morbid obesity with BMI of 50.0-59.9, adult Diabetic polyneuropathy associated with type 2 diabetes mellitus Hypertension Dyslipidemia CKD stage 3 due to type 2 diabetes mellitus Diabetic nephropathy associated with type 2 diabetes mellitus senior care (current) 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 Other Mental health disorder Substance use disorder Social History Household Members: Family Housing: House Are you a primary healthcare educator to a significant other at home: No Do you presently have visiting nurse or other home services: No Alcohol intake: current Alcohol intake frequency: a few times a week Alcohol type: beer Patient Tobacco Use Status: Former Tobacco user Tobacco use type: Cigarette e-Cigarette/Vaping Use: Never Used service: No Current occupational status: unemployed Cognitive needs: No Hearing needs: No Vision needs: No Questionnaire Thrive Questionnaire Date Thrive assessed: 01/13/24 MADI-7 AMB Questionnaire MADI-7 Date MADI - 7 assessed: 12/29/23 Source: Developed by Drs. Johnnie Hammonds, Laly Hoyt, León Norton and colleagues, with an educational maryanne from [employer]. Review of Systems Const Denies chills and Denies fever(s) ENT Denies epistaxis and Denies nasal discharge Card Denies chest pain Resp Denies chest congestion, Denies cough and Denies hemoptysis GI Denies diarrhea and Denies nausea Skin/Breast Denies rash Neuro Reports no additional complaints Psych Reports no additional complaints Endo Reports no additional complaints Physical exam (Primary Care) Tobacco/Smoking Status: Tobacco use Status Tobacco use date assessed 03/10/24 03/10/24 08:44 Patient Tobacco Use Status Former Tobacco user 03/10/24 08:44 Tobacco use type Cigarette 03/10/24 08:44 e-Cigarette/Vaping Use Never Used 03/10/24 08:44 Thrive Assessment: Date of Thrive Assessment Date Thrive assessed 01/13/24 03/10/24 08:44 Telehealth Telehealth Telehealth Platform: [employer] Location of provider rendering services: practice address Location of patient: address on file Patient Identification confirmed using: Name, : Yes Telehealth method: voice only Patient verbally consented to treatment: Yes Patient verbally consented to billing insurance company: Yes Patient informed of any privacy concerns related to visit: Yes Minutes spent on Phone/Video with Pt.: 14 Coding Level of Care Code Tele Est Pt Level 3 (46330) Diagnoses Localized edema R60.0 Edema type: localized Varicose veins of bilateral lower extremities with other complications I83.893 Varicose vein complication: other Laterality: bilateral Assessment & Plan Assessment & Plan (1) Edema: Code(s): R60.9 - Edema, unspecified Category: Medical Qualifiers: Edema type: localized Qualified Code(s): R60.0 - Localized edema (2) Varicose veins of lower extremity: Code(s): I83.90 - Asymptomatic varicose veins of unspecified lower extremity Category: Medical Qualifiers: Varicose vein complication: other Laterality: bilateral Qualified Code(s): I83.893 - Varicose veins of bilateral lower extremities with other complications Plan Patient is morbidly obese women with CKD secondary to IDDM started having lower ext edema both side for past few weeks she was in our walk in clinic Mar 08 and was given Lasix 20 mg which she still has not started taking she said she will pick that today i am ordering Echo heart to r/u cardiac issues she does have varcosities in lower ext ref to vascular placed as well Orders: Orders CA echo transthoracic complete Today R60.9 - Edema, unspecified Referrals Vascular Surgery Referral I83.90 - Asymptomatic varicose veins of unspecified lower extremity, R60.9 - Edema, unspecified
== END 2024-03-10 15:45 | disposition home or self-care (01) ==
LOC: HO.HMCC 08:41
PROVIDERS: PCP Internal Medicine; Visit Provider Internal Medicine
DX: R60.0 Localized edema (principal); I83.893 Varicose veins of bilateral lower extremities with other complications

== ENCOUNTER → 2024-03-10 08:41 | Outpatient (BNVA) | payer MEDICARE, MEDICAID, SELFPAY | PROVIDERS: PCP Internal Medicine; Visit Provider Internal Medicine ==

== ENCOUNTER → 2024-04-01 12:57 | Outpatient (REF) | payer MEDICARE, MEDICAID, SELFPAY ==
--- NOTE | 2024-04-01 13:00 | CA_ITS ---
Transthoracic Echocardiogram Patient (Last, First, Middle): Melvina Lau A Gender: Female Date of : 1950 Age: 73 Procedure Date: 04/01/2024 Procedure Type: Transthoracic Echocardiogram Location: OP Height: 147.32 cm Weight: 120.2 kg BSA: 2.05 m2 Heart Rate: 77 bpm BP: 118 / 74 mmHg Director [employer]: SB Referring MD: Marilyn Gillespie MD Symptoms: R60.9 - Edema, unspecified Study Quality: Adequate w contrast ECG Rhythm: Sinus Conclusions: - Normal left ventricular size, thickness, systolic function, and wall motion. The visually estimated ejection fraction is between 65-70%. Abnormal diastolic function is noted. Spectral Doppler is indicative of a pseudonormal filling pattern. Elevated filling pressures. - Normal right ventricular cavity size and systolic function. - There is mild aortic valve stenosis. Findings Procedure Information Contrast agent, definity, is being given per protocol without apparent complications. The quality of the study was technically difficult. The study quality is limited by patients body habitus. Left Ventricle Normal left ventricular size, thickness, systolic function, and wall motion. The visually estimated ejection fraction is between 65-70%. Abnormal diastolic function is noted. Spectral Doppler is indicative of a pseudonormal filling pattern. Elevated filling pressures. Right Ventricle Normal right ventricular cavity size and systolic function. Atria The left atrium is normal in size. The right atrium is normal in size. Aortic Valve The aortic valve structure and function is likely normal. There is mild calcification of the aortic valve. There is mild aortic valve stenosis. The peak aortic velocity is 2.39 m/s. The mean gradient is 13 mmHg. The aortic valve area is 1.28 cm2. There is trace (trivial) aortic valve regurgitation. Mitral Valve There is moderate mitral annular calcification. There is no mitral valve regurgitation. There is no mitral valve stenosis. Pulmonic Valve The pulmonic valve was not well visualized. Tricuspid Valve Normal tricuspid valve structure. There is no tricuspid valve regurgitation. Normal right atrial pressure. There is no evidence of pulmonary hypertension. Great Vessels All visible segments of the aorta are normal in size. Venous The inferior vena cava is normal in size and collapses greater than 50% with inspiration. Pericardium/Pleural There is no evidence of pericardial effusion. Prior Study Comparison No prior study available for comparison. Measurements 2D Linear Measurements IVSd: 1.03 0.6-0.9/0.6-1.0 cm LVIDd: 4.43 3.9-5.3/4.2-5.9 cm LVIDd Index: 2.16 2.4-3.2/2.2-3.1 cm/m2 LVIDs: 2.81 2.0-3.6 cm LVPWd: 0.80 0.7-1.1 cm LA Diam: 3.00 2.7-3.8/3.0-4.0 cm LAIDs Index: 1.46 1.5-2.3 cm/m2 LV Mass: 164.83 67-162/88-224 g LV Mass Index: 80.41 43-95/49-115 g/m2 LVOT Diam: 1.80 3.0+(-)1.3 cm 2D Systolic Function EF 4C: 74.00 >55% EF 2C: 73.60 >55% EF BiP: 73.40 >55% Mitral Valve MV VTI: 0.41 MV Pk Ahsan: 1.53 MV Mn Ahsan: 1.10 MV Pk Grad: 9.00 MV Mn Grad: 6.00 MV Pk E: 1.41 MV PK A: 1.40 MV Decel Time: 243.00 E/A: 1.00 E'Lateral: 5.11 E'Medial: 5.66 E/E' Med: 24.90 E/E' Lat: 27.60 PHT: 71.00 MVA PHT: 3.10 MVA Continuity: 1.69 Decel [place]: 5.81 Aortic Valve AoV Pk Ahsan: 2.39 AoV Mn Ahsan: 1.68 AoV VTI: 0.55 AoV Pk Grad: 23.00 Aov Mn Grad: 13.00 NAZIA Cont.VTI: 1.28 LVOT LVOT Pk Ahsan: 1.19 LVOT Mn Ahsan: 0.80 LVOT VTI: 0.28 LVOT Pk Grad: 6.00 LVOT Mn Grad: 3.00 LVOT Diam: 1.80 LVOT Area: 2.54 Diastolic Function MV Pk E: 1.41 MV Pk A: 1.40 E/A: 1.00 E'Medial: 5.66 E/E' Med: 24.90 E' Laterial: 5.11 E/E' Lat: 27.60 Right Ventricle TAPSE (mm): 22.40 TVS' Ahsan: 12.10 Tricuspid Valve TR Pk Ahsan: 2.01 TR Pk Grad: 16.00 RA Press: 3.00 RVSP: 19.00 Great Vessels Aorta Sinus of Valsalva: 3.10 2.0-3.5 cm Ao Asc: 3.30 2.1-3.4 cm Pulmonary Valve PV Pk Ahsan: 0.95 Peak PV Grad: 4.00 Updated in Other Vendor System with Status of Final Osvaldo Milligan MD electronically signed on 04/03/2024 12:16:39 PM with status of Final
--- OUTSIDE RECORDS SUMMARY | 2024-04-06 09:01 | XMS_ITS | Clinical Summary ---
Author Organization Unknown Care Team Providers Care Employment Law Specialist Name Role Phone MARIA ISABEL CHAVEZ, PAULA Unavailable Unavailable ADAM RN, DOUGLAS Unavailable Unavailable MIMI VACAN, CHARLENE Unavailable Unavailable LUDWIN PT, NIKKI Unavailable Unavailable KARLEE BOTTLE WASHER MACHINE, MICHAEL Unavailable Unavailable SPAFFORD OT, NETO Unavailable Unavailable CONDINO CJ/RIVERO, YUNIEL Unavailable Unav ailable Payers Payer Name Policy Type Policy Number Effective Date Expira tion Date [facility] 1942 Problems Condition Name Condition Details Condition Category Status Onset Date Resolution Date Last Treatment Date Treating Clinician Comments OTH FRACTURE OF R LOW LEG, SUBS FOR CLOS FX W ROUTN HEAL Active 12-11 00:00: 00 UNSP FX SHAFT OF R FIBULA, SUBS FOR CLOS FX W ROUTN HEAL Active 12-11 00:00: 00 TYPE 2 DIABETES MELLITUS W DIABETIC CHRONIC KIDNEY DISEASE Active 12-11 00:00: 00 HYPERTENSIVE CHRONIC KIDNEY DISEASE W STG 1-4/UNSP CHR KDNY Active 04-27 00:00: 00 CHRONIC KIDNEY DISEASE, STAGE 3 UNSPECIFIED Active 04-27 00:00: 00 HYPERLIPIDEM IA, UNSPECIFIED Active 04-27 00:00: 00 OTHER SPECIFIED ANXIETY DISORDERS Active 04-27 00:00: 00 UNSPECIFIED RIGHT BUNDLE-BRANC H BLOCK Active 04-27 00:00: 00 HISTORY OF FALLING Active 12-11 00:00: 00 CARE HOME (CURRENT) USE OF INSULIN Active 04-27 00:00: 00 Allergies, Adverse Reactions, Alerts Allergy Name Allergy Type Status Severity Reaction(s) Onset Date Inactive Date Treating Clinician Comments NO KNOWN ALLERGIES Propensity to adverse reactions Active 12-11 11:52: 23 Medications Ordered Medication Name Filled Medication Name Start Date Stop Date Current Medication? Ordering Clinician Indication Dosage Frequency Signature (SIG) Comments Components acetaminoph en 500 mg tablet 12-11 00:00: 00 Yes [id number] PAIN 2 tablet 3 TIMES DAILY 2 tablet 3 TIMES DAILY (route: oral) Med Classific ation: Analgesic , Anti-infl ammatory or Antipyret ic Advair HFA 230 mcg-21 mcg/actuati on aerosol inhaler 12-11 00:00: 00 Yes [id number] COPD 2 puff 2 TIMES DAILY 2 puff 2 TIMES DAILY (route: inhalation ) Med Classific ation: Respirato ry Therapy Agents amlodipine 10 mg tablet 12-11 00:00: 00 Yes [id number] HTN 1 tablet DAILY 1 tablet DAILY (route: oral) Med Classific ation: Cardiovas cular Therapy Agents bupropion HCl SR 200 mg tablet,12 hr sustained-r elease 12-11 00:00: 00 Yes [id number] DEPRESSION 1 tablet DAILY 1 tablet DAILY (route: oral) Med Classific ation: Central Nervous System Agents carvedilol 6.25 mg tablet 12-11 00:00: 00 Yes [id number] HTN 1 tablet 2 TIMES DAILY 1 tablet 2 TIMES DAILY (route: oral) Med Classific ation: Cardiovas cular Therapy Agents famotidine 20 mg tablet 12-11 00:00: 00 Yes [id number] GERD 1 tablet 2 TIMES DAILY 1 tablet 2 TIMES DAILY (route: oral) Med Classific ation: Gastroint estinal Therapy Agents fenofibrate 160 mg tablet 12-11 00:00: 00 Yes [id number] CHOLEST 1 tablet DAILY 1 tablet DAILY (route: oral) Med Classific ation: Cardiovas cular Therapy Agents fluoxetine 40 mg capsule 12-11 00:00: 00 Yes [id number] DEPRESSION 1 capsule DAILY 1 capsule DAILY (route: oral) Med Classific ation: Central Nervous System Agents loratadine 10 mg capsule 12-11 00:00: 00 Yes [id number] ALLERGIES 1 capsule DAILY 1 capsule DAILY (route: oral) Med Classific ation: Respirato ry Therapy Agents metoprolol succinate ER 25 mg tablet,exte nded release 24 hr 12-11 00:00: 00 Yes [id number] HTN 1 tablet DAILY 1 tablet DAILY (route: oral) Med Classific ation: Cardiovas cular Therapy Agents Senna Lax 8.6 mg tablet 12-11 00:00: 00 Yes [id number] LAXATIVE 2 tablet DAILY 2 tablet DAILY (route: oral) Med Classific ation: Gastroint estinal Therapy Agents simvastatin 20 mg tablet 12-11 00:00: 00 Yes [id number] CHOLESTEROL 1 tablet DAILY 1 tablet DAILY (route: oral) Med Classific ation: Cardiovas cular Therapy Agents Tresiba FlexTouch U-100 insulin 100 unit/mL (3 mL) subcutaneou s pen 12-11 00:00: 00 Yes [id number] DM 20 unit 2 TIMES DAILY 20 unit 2 TIMES DAILY (route: subcutaneo us) Med Classific ation: Endocrine levothyroxi ne 25 mcg tablet 01-12 00:00: 00 Yes [id number] HYPOTHYROID ISM 1 tablet DAILY 1 tablet DAILY (route: oral) Med Classific ation: Endocrine meloxicam 15 mg tablet 01-24 00:00: 00 Yes [id number] PAIN 1 tablet DAILY 1 tablet DAILY (route: oral) Med Classific ation: Analgesic , Anti-infl ammatory or Antipyret ic Vital Signs Vital Name Observation Time Observation Value Commen ts Temperature 2024-02-05 14:42:00.000 97.7 [degF] Temperature 2024-02-01 13:11:00.000 97.7 [degF] Temperature 2024-01-28 14:57:00.000 96.9 [degF] Temperature 2024-01-19 14:59:00.000 97.7 [degF] Temperature 2024-01-18 10:30:00.000 97.2 [degF] Temperature 2024-01-13 15:00:00.000 97.7 [degF] Temperature 2024-01-06 14:48:00.000 97.4 [degF] Temperature 2024-01-05 13:07:00.000 98 [degF] Temperature 2023-12-31 13:08:00.000 98.1 [degF] Temperature 2023-12-30 14:23:00.000 97.2 [degF] Temperature 2023-12-30 11:45:00.000 97.1 [degF] Temperature 2023-12-24 14:30:00.000 97.2 [degF] Temperature 2023-12-24 11:50:00.000 97.2 [degF] Temperature 2023-12-17 11:20:00.000 97.2 [degF] Temperature 2023-12-17 09:11:00.000 97.6 [degF] Temperature 2023-12-15 13:25:00.000 96.6 [degF] Temperature 2023-12-12 12:20:00.000 97.5 [degF] BMI (%) 2023-12-12 12:07:04.000 50 kg/m2 Height 2023-12-12 12:06:47.000 58 [in_us] Pulse 2024-02-05 14:42:00.000 64 /min Pulse 2024-02-01 13:11:00.000 66 /min Pulse 2024-01-28 14:57:00.000 69 /min Pulse 2024-01-19 14:59:00.000 79 /min Pulse 2024-01-18 10:30:00.000 80 /min Pulse 2024-01-13 15:00:00.000 78 /min Pulse 2024-01-06 14:48:00.000 69 /min Pulse 2024-01-05 13:07:00.000 79 /min Pulse 2023-12-31 13:08:00.000 78 /min Pulse 2023-12-30 14:23:00.000 60 /min Pulse 2023-12-30 11:45:00.000 68 /min Pulse 2023-12-24 14:30:00.000 78 /min Pulse 2023-12-24 11:50:00.000 77 /min Pulse 2023-12-17 11:20:00.000 74 /min Pulse 2023-12-17 09:11:00.000 66 /min Pulse 2023-12-15 13:25:00.000 66 /min Pulse 2023-12-12 12:20:00.000 70 /min O2 Saturation (%) 2024-02-05 14:42:00.000 96 % O2 Saturation (%) 2024-02-01 13:11:00.000 97 % O2 Saturation (%) 2024-01-13 15:00:00.000 97 % O2 Saturation (%) 2024-01-06 14:48:00.000 98 % O2 Saturation (%) 2023-12-31 13:09:00.000 94 % O2 Saturation (%) 2023-12-30 11:45:00.000 96 % O2 Saturation (%) 2023-12-24 11:50:00.000 97 % O2 Saturation (%) 2023-12-17 11:21:00.000 96 % O2 Saturation (%) 2023-12-17 09:11:00.000 99 % O2 Saturation (%) 2023-12-15 13:25:00.000 97 % O2 Saturation (%) 2023-12-12 12:21:00.000 95 % Respirations 2024-02-05 14:42:00.000 18 /min Respirations 2024-02-01 13:11:00.000 18 /min Respirations 2024-01-28 14:57:00.000 18 /min Respirations 2024-01-19 14:59:00.000 18 /min Respirations 2024-01-18 10:30:00.000 18 /min Respirations 2024-01-13 15:00:00.000 18 /min Respirations 2024-01-06 14:48:00.000 18 /min Respirations 2024-01-05 13:07:00.000 18 /min Respirations 2023-12-31 13:08:00.000 19 /min Respirations 2023-12-30 14:23:00.000 18 /min Respirations 2023-12-30 11:45:00.000 18 /min Respirations 2023-12-24 14:30:00.000 18 /min Respirations 2023-12-24 11:50:00.000 18 /min Respirations 2023-12-17 11:20:00.000 18 /min Respirations 2023-12-17 09:11:00.000 16 /min Respirations 2023-12-15 13:25:00.000 16 /min Respirations 2023-12-12 12:20:00.000 18 /min Weight (lbs) 2023-12-12 12:07:04.000 243 [lb_av] Systolic Blood Pressure 2024-02-05 14:42:00.000 128 mm [Hg] Systolic Blood Pressure 2024-02-01 13:11:00.000 122 mm [Hg] Systolic Blood Pressure 2024-01-28 14:57:00.000 110 mm [Hg] Systolic Blood Pressure 2024-01-19 14:59:00.000 132 mm [Hg] Systolic Blood Pressure 2024-01-18 10:30:00.000 110 mm [Hg] Systolic Blood Pressure 2024-01-13 15:00:00.000 132 mm [Hg] Systolic Blood Pressure 2024-01-06 14:48:00.000 120 mm [Hg] Systolic Blood Pressure 2024-01-05 13:07:00.000 134 mm [Hg] Systolic Blood Pressure 2023-12-31 13:08:00.000 130 mm [Hg] Systolic Blood Pressure 2023-12-30 14:23:00.000 110 mm [Hg] Systolic Blood Pressure 2023-12-30 11:45:00.000 138 mm [Hg] Systolic Blood Pressure 2023-12-24 14:30:00.000 140 mm [Hg] Systolic Blood Pressure 2023-12-24 11:50:00.000 144 mm [Hg] Systolic Blood Pressure 2023-12-17 11:20:00.000 106 mm [Hg] Systolic Blood Pressure 2023-12-17 09:11:00.000 130 mm [Hg] Systolic Blood Pressure 2023-12-15 13:30:00.000 130 mm [Hg] Systolic Blood Pressure 2023-12-12 12:20:00.000 124 mm [Hg] Diastolic Blood Pressure 2024-02-05 14:42:00.000 68 mm [Hg] Diastolic Blood Pressure 2024-02-01 13:11:00.000 68 mm [Hg] Diastolic Blood Pressure 2024-01-28 14:57:00.000 60 mm [Hg] Diastolic Blood Pressure 2024-01-19 14:59:00.000 70 mm [Hg] Diastolic Blood Pressure 2024-01-18 10:30:00.000 62 mm [Hg] Diastolic Blood Pressure 2024-01-13 15:00:00.000 74 mm [Hg] Diastolic Blood Pressure 2024-01-06 14:48:00.000 74 mm [Hg] Diastolic Blood Pressure 2024-01-05 13:07:00.000 76 mm [Hg] Diastolic Blood Pressure 2023-12-31 13:08:00.000 68 mm [Hg] Diastolic Blood Pressure 2023-12-30 14:23:00.000 62 mm [Hg] Diastolic Blood Pressure 2023-12-30 11:45:00.000 70 mm [Hg] Diastolic Blood Pressure 2023-12-24 14:30:00.000 80 mm [Hg] Diastolic Blood Pressure 2023-12-24 11:50:00.000 80 mm [Hg] Diastolic Blood Pressure 2023-12-17 11:20:00.000 68 mm [Hg] Diastolic Blood Pressure 2023-12-17 09:11:00.000 80 mm [Hg] Diastolic Blood Pressure 2023-12-15 13:30:00.000 75 mm [Hg] Diastolic Blood Pressure 2023-12-12 12:20:00.000 70 mm [Hg] Plan of Treatment Planned Activity Planned Date Details Comments Future Scheduled Test RN TO OBSE RVE, ASSESS, EVALUATE, AND DEVELOP AN INDIVIDUALIZED PLAN OF CARE. AGENCY MAY ACCEPT ORDERS FROM CONSULTING PHYSICIANS REGISTERED NURSETO OBSERVE AND ASSESS/LICENSED PRACTICAL NURSE TO OBSERVE FOR RISK FOR FALLS AND INSTRUCT IN FALL PREVENTION, HOME SAFETY, MEDICATION MANAGEMENT, INFECTION PREVENTION, AND NUTRITION MANAGEMENT. REGISTERED NURSE/LICENSED PRACTICAL NURSE MAY PERFORM O2 SATURATION LEVEL ON ADMISSION AND PRN FOR RESP STATUS CHANGES FOR RN TO ASSESS/ADOPTION SPECIALIST TO OBSERVE PATIENT, WITH NOTIFICATION TO THE PHYSICIAN IF SATURATION IS 90% IN THE ABSENCE OF MORE SPECIFIC PARAMETERS FROM THE PHYSICIAN. AGENCY MAY PERFORM A RESUMPTION OF CARE VISIT FOLLOWING ANY HOSPITAL ADMISSION. REGISTERED NURSE/LICENSED PRACTICAL NURSE TO MONITOR CO-MORBID CONDITIONS LISTED ON THE PLAN OF CARE AND ANY NEW CONDITIONS THAT PRESENT THEMSELVES DURING THIS EPISODE TO IDENTIFY CHANGES AND INTERVENE TO MINIMIZE COMPLICATIONS. [code = RN TO OBSERVE, ASSESS, EVALUATE, AND DEVELOP AN INDIVIDUALIZED PLAN OF CARE. AGENCY MAY ACCEPT ORDERS FROM CONSULTING PHYSICIANS REGISTERED NURSETO OBSERVE AND ASSESS/LICENSED PRACTICAL NURSE TO OBSERVE FOR RISK FOR FALLS AND INSTRUCT IN FALL PREVENTION, HOME SAFETY, MEDICATION MANAGEMENT, INFECTION PREVENTION, AND NUTRITION MANAGEMENT. REGISTERED NURSE/LICENSED PRACTICAL NURSE MAY PERFORM O2 SATURATION LEVEL ON ADMISSION AND PRN FOR RESP STATUS CHANGES FOR RN TO ASSESS/ADOPTION SPECIALIST TO OBSERVE PATIENT, WITH NOTIFICATION TO THE PHYSICIAN IF SATURATION IS 90% IN THE ABSENCE OF MORE SPECIFIC PARAMETERS FROM THE PHYSICIAN. AGENCY MAY PERFORM A RESUMPTION OF CARE VISIT FOLLOWING ANY HOSPITAL ADMISSION. REGISTERED NURSE/LICENSED PRACTICAL NURSE TO MONITOR CO-MORBID CONDITIONS LISTED ON THE PLAN OF CARE AND ANY NEW CONDITIONS THAT PRESENT THEMSELVES DURING THIS EPISODE TO IDENTIFY CHANGES AND INTERVENE TO MINIMIZE COMPLICATIONS.] Future Scheduled Test RISK FOR H OSPITALIZATION; REGISTERED NURSE TO ASSESS /TEACH, LICENSED PRACTICAL NURSE TO OBSERVE/TEACH PATIENT/CAREGIVER ON RISK FOR HOSPITALIZATION/EMERGENCY ROOM VISITS, TEACH SIGNS AND SYMPTOMS THAT PUT PATIENT AT RISK, WHEN TO NOTIFY NURSE/PHYSICIAN OF COMPLICATIONS/DECLINE, AND WHEN TO CALL 911. [code = RISK FOR HOSPITALIZATION; REGISTERED NURSE TO ASSESS /TEACH, LICENSED PRACTICAL NURSE TO OBSERVE/TEACH PATIENT/CAREGIVER ON RISK FOR HOSPITALIZATION/EMERGENCY ROOM VISITS, TEACH SIGNS AND SYMPTOMS THAT PUT PATIENT AT RISK, WHEN TO NOTIFY NURSE/PHYSICIAN OF COMPLICATIONS/DECLINE, AND WHEN TO CALL 911.] Future Scheduled Test MEDICATION MANAGEMENT; REGISTERED NURSE/LICENSED PRACTICAL NURSE TO REVIEW MEDICATIONS FOR INTERACTIONS, EFFECTIVENESS OF DRUG THERAPY, AND SIGNS/SYMPTOMS OF ADVERSE REACTIONS. MAY INSTRUCT AND REINFORCE MEDICATION TEACHING RELATED TO THE USE OF MEDICATIONS, DOSAGE, FREQUENCY, PURPOSE, SIDE EFFECTS, AND TO REPORT COMPLICATIONS. [code = MEDICATION MANAGEMENT; REGISTERED NURSE/LICENSED PRACTICAL NURSE TO REVIEW MEDICATIONS FOR INTERACTIONS, EFFECTIVENESS OF DRUG THERAPY, AND SIGNS/SYMPTOMS OF ADVERSE REACTIONS. MAY INSTRUCT AND REINFORCE MEDICATION TEACHING RELATED TO THE USE OF MEDICATIONS, DOSAGE, FREQUENCY, PURPOSE, SIDE EFFECTS, AND TO REPORT COMPLICATIONS.] Future Scheduled Test CARDIOVASC ULAR SYSTEM; REGISTERED NURSE TO ASSESS /TEACH, LICENSED PRACTICAL NURSE TO OBSERVE/TEACH RELATED TO ALTERED CARDIOVASCULAR STATUS TO MINIMIZE COMPLICATIONS AND REDUCE HOSPITALIZATION. [code = CARDIOVASCULAR SYSTEM; REGISTERED NURSE TO ASSESS /TEACH, LICENSED PRACTICAL NURSE TO OBSERVE/TEACH RELATED TO ALTERED CARDIOVASCULAR STATUS TO MINIMIZE COMPLICATIONS AND REDUCE HOSPITALIZATION. ] Future Scheduled Test PAIN MANAG EMENT; REGISTERED NURSE TO ASSESS AND TEACH/LICENSED PRACTICAL NURSE TO OBSERVE AND TEACH AND PROVIDE EDUCATION ON PAIN MANAGEMENT TECHNIQUES. [code = PAIN MANAGEMENT; REGISTERED NURSE TO ASSESS AND TEACH/LICENSED PRACTICAL NURSE TO OBSERVE AND TEACH AND PROVIDE EDUCATION ON PAIN MANAGEMENT TECHNIQUES.] Future Scheduled Test DIABETES M ANAGEMENT; REGISTERED NURSE TO ASSESS AND TEACH/LICENSED PRACTICAL NURSE TO OBSERVE AND TEACH INSTRUCTIONS OF DIABETIC CARE TO INCLUDE: DIET DIABETIC SKIN CARE, SIGNS AND SYMPTOMS OF HYPO/HYPERGLYCEMIA, PROPER ADMINISTRATION OF DIABETIC MEDICATION. REGISTERED NURSE/LICENSED PRACTICAL NURSE TO INSTRUCT ON DIABETIC FOOT CARE AND MONITOR FOR SKIN LESIONS ON LOWER EXTREMITIES. BLOOD GLUCOSE TESTING 2X DAILY FREQ. REGISTERED NURSE TO ASSESS AND TEACH/LICENSED PRACTICAL NURSE TO OBSERVE AND TEACH PATIENT/CAREGIVER ABILITY TO PERFORM AND RECORD BLOOD GLUCOSE TESTING ORDERED AND TO REPORT ABNORMAL FINDINGS TO PHYSICIAN. REGISTERED NURSE/LICENSED PRACTICAL NURSE MAY PERFORM BLOOD GLUCOSE TEST NEEDED. REGISTERED NURSE/LICENSED PRACTICAL NURSE TO REPORT TO PHYSICIAN BLOOD GLUCOSE READINGS GREATER THAN 350 OR LESS THAN 70 REGISTERED NURSE AND LICENSED PRACTICAL NURSE TO INSTRUCT PATIENT ON IMPORTANCE OF HGBA1C MONITORING, KIDNEY FUNCTION TEST, EYE AND FOOT EXAMS. [code = DIABETES MANAGEMENT; REGISTERED NURSE TO ASSESS AND TEACH/LICENSED PRACTICAL NURSE TO OBSERVE AND TEACH INSTRUCTIONS OF DIABETIC CARE TO INCLUDE: DIET DIABETIC SKIN CARE, SIGNS AND SYMPTOMS OF HYPO/HYPERGLYCEMIA, PROPER ADMINISTRATION OF DIABETIC MEDICATION. REGISTERED NURSE/LICENSED PRACTICAL NURSE TO INSTRUCT ON DIABETIC FOOT CARE AND MONITOR FOR SKIN LESIONS ON LOWER EXTREMITIES. BLOOD GLUCOSE TESTING 2X DAILY FREQ. REGISTERED NURSE TO ASSESS AND TEACH/LICENSED PRACTICAL NURSE TO OBSERVE AND TEACH PATIENT/CAREGIVER ABILITY TO PERFORM AND RECORD BLOOD GLUCOSE TESTING ORDERED AND TO REPORT ABNORMAL FINDINGS TO PHYSICIAN. REGISTERED NURSE/LICENSED PRACTICAL NURSE MAY PERFORM BLOOD GLUCOSE TEST NEEDED. REGISTERED NURSE/LICENSED PRACTICAL NURSE TO REPORT TO PHYSICIAN BLOOD GLUCOSE READINGS GREATER THAN 350 OR LESS THAN 70 REGISTERED NURSE AND LICENSED PRACTICAL NURSE TO INSTRUCT PATIENT ON IMPORTANCE OF HGBA1C MONITORING, KIDNEY FUNCTION TEST, EYE AND FOOT EXAMS.] Future Scheduled Test FALL REDUC TION MANAGEMENT; REGISTERED NURSE TO ASSESS AND TEACH/LICENSED PRACTICAL NURSE TO OBSERVE AND TEACH ON EDUCATION AND INTERVENTION TO IDENTIFY FALL RISK FACTORS SUCH MEDICATIONS THAT MAY CAUSE DIZZINESS, CHRONIC DISEASES, PSYCHOLOGICAL FACTORS, AND EMPOWER/EDUCATE PATIENT/CAREGIVER TO MINIMIZE FALL RISK. [code = FALL REDUCTION MANAGEMENT; REGISTERED NURSE TO ASSESS AND TEACH/LICENSED PRACTICAL NURSE TO OBSERVE AND TEACH ON EDUCATION AND INTERVENTION TO IDENTIFY FALL RISK FACTORS SUCH MEDICATIONS THAT MAY CAUSE DIZZINESS, CHRONIC DISEASES, PSYCHOLOGICAL FACTORS, AND EMPOWER/EDUCATE PATIENT/CAREGIVER TO MINIMIZE FALL RISK.] Future Scheduled Test OCCUPATION AL THERAPIST TO EVALUATE FOR ADL AND IADL DEFECIT TRAINING [code = OCCUPATIONAL THERAPIST TO EVALUATE FOR ADL AND IADL DEFECIT TRAINING] Future Scheduled Test AGENCY MAY PERFORM A RESUMPTION OF CARE VISIT FOLLOWING ANY HOSPITAL ADMISSION. OT TO EVALUATE, OBSERVE / ASSESS, AND MONITOR, CAR EXAMINER TO OBSERVE AND MONITOR, PROVIDE SKILLED THERAPEUTIC INTERVENTION, ACTIVITY, EDUCATION, AND TRAINING TO ADDRESS; PERSONAL HYGIENE/GROOMING (OT/CAR EXAMINER) TOILET TRANSFER (OT/CJ) WHEELCHAIR TRANSFER (OT/CJ) HOME ACTIVITY / EXERCISE PROGRAM (OT/CJ) POSTURAL CONTROL/BALANCE (OT/CJ) THERAPEUTIC EXERCISE (OT/CAR EXAMINER) OT/CJ TO MONITOR AND EDUCATE ON OXYGEN SATURATION DURING ADLS/IADLS, NOTIFY PHYSICIAN AND/OR THE RN CLINICAL FIELD TRAINER FOR PHYSICIAN NOTIFICATION AND IF O2 SATS BELOW 90% AFTER 10 MIN OF REST. OT / CJ TO IDENTIFY FALL RISK FACTORS; EDUCATE THE PATIENT/CAREGIVER ON WAYS TO REDUCE FALL RISK FACTORS AND ESTABLISH HOME EXERCISE PROGRAM TO MINIMIZE FALL RISK. MAY TEACH THE PATIENT FLOOR RECOVERY WHEN CLINICALLY APPROPRIATE. OT/CJ MAY EDUCATE ON PAIN MANAGEMENT CLINICALLY INDICATED, INCLUDING NON-PHARMACOLOGICAL PAIN REDUCTION TECHNIQUES. [code = AGENCY MAY PERFORM A RESUMPTION OF CARE VISIT FOLLOWING ANY HOSPITAL ADMISSION. OT TO EVALUATE, OBSERVE / ASSESS, AND MONITOR, CAR EXAMINER TO OBSERVE AND MONITOR, PROVIDE SKILLED THERAPEUTIC INTERVENTION, ACTIVITY, EDUCATION, AND TRAINING TO ADDRESS; PERSONAL HYGIENE/GROOMING (OT/CAR EXAMINER) TOILET TRANSFER (OT/CJ) WHEELCHAIR TRANSFER (OT/CJ) HOME ACTIVITY / EXERCISE PROGRAM (OT/CAR EXAMINER) POSTURAL CONTROL/BALANCE (OT/CJ) THERAPEUTIC EXERCISE (OT/CAR EXAMINER) OT/CJ TO MONITOR AND EDUCATE ON OXYGEN SATURATION DURING ADLS/IADLS, NOTIFY PHYSICIAN AND/OR THE RN CLINICAL FIELD TRAINER FOR PHYSICIAN NOTIFICATION AND IF O2 SATS BELOW 90% AFTER 10 MIN OF REST. OT / CJ TO IDENTIFY FALL RISK FACTORS; EDUCATE THE PATIENT/CAREGIVER ON WAYS TO REDUCE FALL RISK FACTORS AND ESTABLISH HOME EXERCISE PROGRAM TO MINIMIZE FALL RISK. MAY TEACH THE PATIENT FLOOR RECOVERY WHEN CLINICALLY APPROPRIATE. OT/CJ MAY EDUCATE ON PAIN MANAGEMENT CLINICALLY INDICATED, INCLUDING NON-PHARMACOLOGICAL PAIN REDUCTION TECHNIQUES. ] Future Scheduled Test AGENCY MAY PERFORM A RESUMPTION OF CARE VISIT FOLLOWING ANY HOSPITAL ADMISSION. PT TO EVALUATE, OBSERVE / ASSESS, AND MONITOR, BOTTLE WASHER MACHINE TO OBSERVE AND MONITOR, PROVIDE SKILLED THERAPEUTIC INTERVENTION, ACTIVITY, EDUCATION, AND TRAINING TO ADDRESS; PT/BOTTLE WASHER MACHINE TO PROVIDE GAIT TRAINING FOR IMPROVED MOBILITY AND /OR TO NORMALIZE GAIT PATTERN NEUROMUSCULAR RE-EDUCATION / BALANCE / POSTURAL CONTROL (PT) THERAPEUTIC EXERCISES AND ESTABLISHING A HOME EXERCISE PROGRAM (PT/BOTTLE WASHER MACHINE) PT/BOTTLE WASHER MACHINE TO PROVIDE STAIR TRAINING CHAIR TRANSFERS (PT/BOTTLE WASHER MACHINE) PT / BOTTLE WASHER MACHINE MAY EDUCATE ON PAIN MANAGEMENT CLINICALLY INDICATED, INCLUDING NON-PHARMACOLOGICAL PAIN REDUCTION TECHNIQUES AND USE OF CRYOTHERAPY OR HEAT UP TO 20 MIN AT A TIME FOR PAIN MANAGEMENT 3 TIMES PER DAY TO BILATERAL KNEES. PT / BOTTLE WASHER MACHINE TO MONITOR FOR HYPO/HYPERGLYCEMIA AND CONDUCT ROUTINE FOOT INSPECTIONS. RECORD PATIENT REPORTED BLOOD SUGAR LEVELS AND NOTIFY PHYSICIAN AND/OR THE RN CLINICAL FIELD TRAINER FOR PHYSICIAN NOTIFICATION IF BLOOD SUGAR LEVELS ARE OUTSIDE ORDERED PARAMETERS. TEACH PATIENT/CAREGIVER ON DAILY FOOT INSPECTIONS PT/BOTTLE WASHER MACHINE TO IDENTIFY FALL RISK FACTORS; EDUCATE THE PATIENT/CAREGIVER ON WAYS TO REDUCE FALL RISK FACTORS AND ESTABLISH HOME EXERCISE PROGRAM TO MINIMIZE FALL RISK. MAY TEACH THE PATIENT FLOOR RECOVERY WHEN CLINICALLY APPROPRIATE [code = AGENCY MAY PERFORM A RESUMPTION OF CARE VISIT FOLLOWING ANY HOSPITAL ADMISSION. PT TO EVALUATE, OBSERVE / ASSESS, AND MONITOR, BOTTLE WASHER MACHINE TO OBSERVE AND MONITOR, PROVIDE SKILLED THERAPEUTIC INTERVENTION, ACTIVITY, EDUCATION, AND TRAINING TO ADDRESS; PT/BOTTLE WASHER MACHINE TO PROVIDE GAIT TRAINING FOR IMPROVED MOBILITY AND /OR TO NORMALIZE GAIT PATTERN NEUROMUSCULAR RE-EDUCATION / BALANCE / POSTURAL CONTROL (PT) THERAPEUTIC EXERCISES AND ESTABLISHING A HOME EXERCISE PROGRAM (PT/BOTTLE WASHER MACHINE) PT/BOTTLE WASHER MACHINE TO PROVIDE STAIR TRAINING CHAIR TRANSFERS (PT/BOTTLE WASHER MACHINE) PT / BOTTLE WASHER MACHINE MAY EDUCATE ON PAIN MANAGEMENT CLINICALLY INDICATED, INCLUDING NON-PHARMACOLOGICAL PAIN REDUCTION TECHNIQUES AND USE OF CRYOTHERAPY OR HEAT UP TO 20 MIN AT A TIME FOR PAIN MANAGEMENT 3 TIMES PER DAY TO BILATERAL KNEES. PT / BOTTLE WASHER MACHINE TO MONITOR FOR HYPO/HYPERGLYCEMIA AND CONDUCT ROUTINE FOOT INSPECTIONS. RECORD PATIENT REPORTED BLOOD SUGAR LEVELS AND NOTIFY PHYSICIAN AND/OR THE RN CLINICAL FIELD TRAINER FOR PHYSICIAN NOTIFICATION IF BLOOD SUGAR LEVELS ARE OUTSIDE ORDERED PARAMETERS. TEACH PATIENT/CAREGIVER ON DAILY FOOT INSPECTIONS PT/BOTTLE WASHER MACHINE TO IDENTIFY FALL RISK FACTORS; EDUCATE THE PATIENT/CAREGIVER ON WAYS TO REDUCE FALL RISK FACTORS AND ESTABLISH HOME EXERCISE PROGRAM TO MINIMIZE FALL RISK. MAY TEACH THE PATIENT FLOOR RECOVERY WHEN CLINICALLY APPROPRIATE] Goal 2024-02-05 Patient Goal - TO GET STRONG ER Goal Provider Goal - A PLAN OF CARE WILL BE ESTABLISHED THAT MEETS THE PATIENTS NEEDS. PATIENT WILL DEMONSTRATE OXYGEN SATURATION WITHIN NORMAL LIMITS OR PATIENTS OPTIMAL LEVEL ESTABLISHED BY THE PHYSICIAN THROUGHOUT CARE. CHANGES TO CO-MORBID CONDITIONS AND ANY NEW CONDITIONS WILL BE IDENTIFIED AND REPORTED TO THE PHYSICIAN. Goal Provider Goal - PATIENT/CAREGIVER WILL VERBALIZE UNDERSTANDING OF SIGNS AND SYMPTOMS THAT PUT THE PATIENT AT RISK FOR HOSPITALIZATION /EMERGENCY ROOM VISITS, WHEN TO NOTIFY NURSE/PHYSICIAN OF COMPLICATIONS/DECLINE AND WHEN TO CALL 911. Goal Provider Goal - PATIENT/CAREGIVER TO VERBALIZE, AND CONSISTENTLY DEMONSTRATE EFFECTIVE, SAFE MANAGEMENT OF MEDICATION INCLUDING KNOWLEDGE OF EFFECTIVENESS, POTENTIAL SIDE EFFECTS AND DRUG REACTIONS AND WHEN TO CONTACT THE APPROPRIATE CARE PROVIDER. PATIENT/CAREGIVER WILL BE ABLE TO VERBALIZE UNDERSTANDING OF MEDICATION REGIMEN AND ACCURATELY TAKE MEDICATIONS PRESCRIBED WITHOUT ADVERSE EFFECTS BY 02/09/24 Goal Provider Goal - PATIENT / CAREGIVER WILL VERBALIZE/DEMONSTRATE UNDERSTANDING OF MEASURES TO MANAGE ALTERED CARDIOVASCULAR STATUS BY END OF EPISODE. Goal Provider Goal - PATIENT / CAREGIVER WILL VERBALIZE / DEMONSTRATE UNDERSTANDING OF PAIN CONTROL MEASURES BY 02/09/24 Goal Provider Goal - PATIENT / CAREGIVER WILL VERBALIZE / DEMONSTRATE AN ABILITY TO ADHERE TO SELF-MANAGEMENT OF DIABETES MANAGEMENT BY 02/09/24 Goal Provider Goal - PATIENT/CAREGIVER ABLE TO IDENTIFY FALL RISK FACTORS AND IMPLEMENT STRATEGIES TO MINIMIZE FALL RISK. PATIENT/CAREGIVER WILL VERBALIZE/DEMONSTRATE AN ABILITY TO ADHERE TO FALL REDUCTION SELF MANAGEMENT AND LIFE-STYLE CHANGES AT DISCHARGE. PERSONAL GOAL(S) STATED BY PATIENT/CAREGIVER WILL BE MET BY 02/09/24 Goal Provider Goal - OT STG: PATIENT WILL DEMONSTRATE IMPROVED ABILITY TO PERFORM PERSONAL HYGIENE FROM MIN A TO MODIFIED INDEPENDENCE WITHIN 4 WEEKS OT STG: PATIENT WILL DEMONSTRATE IMPROVED ABILITY TO PERFORM TOILET TRANSFER FROM MIN A TO MODIFIED INDEPENDENT UTILIZING WC WITHIN 5 WEEKS OT LTG: PATIENT WILL DEMONSTRATE IMPROVED INDEPENDENCE WITH ACTIVITIES OF DAILY LIVING (ADL) SKILLS EVIDENCED BY AN IMPROVEMENT IN MODIFIED VINICIO INDEX SCORE FROM 58/100 TO 68/100 INDICATING DECREASED DEPENDENCY ON CAREGIVER ASSISTANCE WITHIN 5 WEEKS. OT LTG: PATIENT WILL DEMONSTRATE DECREASED FALL RISK EVIDENCED BY AN IMPROVEMENT IN FUNCTIONAL REACH SCORE FROM 4 INCHES TO 6 INCHES FOR IMPROVED ADL/IADL COMPLETION AND HOME SAFETY BY DISCHARGE WITHIN 5 WEEKS OT LTG: PATIENT WILL DEMONSTRATE IMPROVED UE MUSCLE STRENGTH EVIDENCED BY AN IMPROVEMENT IN MMT/FUNCTIONAL STRENGTH FROM 3+ TO 4-/5 IN ORDER TO PERFORM ADLS MORE INDEPENDENTLY AND BE INDEPENDENT WITH HEP WITHIN 5 WEEKS OT LTG: PATIENT WILL DEMONSTRATE IMPROVED ABILITY TO COMPLETE WHEELCHAIR TRANSFER TO/FROM MIN A FROM RECLINER CHAIR TO WC WITHIN 4 WEEKS IN ORDER TO UTILIZE BATHROOM SAFELY DAY AND NIGHT. OT LTG: PATIENT WILL DEMONSTRATE IMPROVED STRENGTH/COORDINATION BUES FOR IMPROVED PARTICIPATION IN ADLS EVIDENCED BY IMPROVED GROOMING AND TOILETING FROM MIN A TO MODIFIED INDEPENDENCE WITHIN WEEKS OT LTG: PATIENT WILL MAINTAIN OXYGEN SATURATION WITHIN PHYSICIAN ORDERED PARAMETERS THROUGHOUT THE EPISODE OF CARE. OT LTG: PATIENT/CAREGIVER WILL BE ABLE TO IMPLEMENT RECOMMENDATIONS SPECIFIC TO FALL REDUCTION FOR IMPROVED ADL/IADL COMPLETION AND HOME SAFETY BY END OF EPISODE. OT LTG: PATIENT WILL DEMONSTRATE UNDERSTANDING OF PAIN MANAGEMENT TECHNIQUES BY END OF EPISODE. Goal Provider Goal - PT LTG: PATIENT WILL DEMONSTRATE REDUCED GAIT DEVIATIONS TO REDUCE THE RISK FOR FALLING AND MINIMIZE STRAIN ON KNEES/HIPS AND BACK EVIDENCED BY IMPROVED HEEL STRIKE AND STANCE PHASE STABILITY WITH IMPROVED SWING PHASE FOOT CLEARANCE AND STEP LENGTH USING RW TO WALK INDEPENDENTLY IN ORDER TO ACCESS HOME WITHIN 9 WEEKS. PT LTG: PATIENT WILL DEMONSTRATE IMPROVED FUNCTIONAL STRENGTH EVIDENCED BY FIVE TIMES SIT TO STAND TEST (CUT SCORE >12 SECONDS INDICATES AN INCREASED FALL RISK) IMPROVING FROM 35 TO 15 WITHIN 9 WEEKS. PT LTG: PATIENT WILL DEMONSTRATE INCREASED STRENGTH OF BILAT LES FROM 3+ TO 4/5 WITHIN 9 WEEKS IN ORDER TO RETURN TO INDEPENDENT MOBILITY SKILLS. PT STG: PATIENT WILL DEMONSTRATE IMPROVED ABILITY TO PERFORM SIT TO/FROM STAND TRANSFERS TO REDUCE THE RISK OF SKIN BREAKDOWN AND REDUCE FALL RISK FROM CGA TO INDEPENDENT WITHIN 3 WEEKS. PT LTG: PATIENT WILL DEMONSTRATE IMPROVED ABILITY TO PERFORM CHAIR TRANSFERS TO REDUCE THE RISK OF SKIN BREAKDOWN AND FALL RISK FROM CGA TO INDEPENDENT WITHIN 9 WEEKS. PT LTG: PATIENT WILL DEMONSTRATE IMPROVEMENT IN STAIR SKILLS FROM MAX ASSIST TO INDEPENDENT TO ALLOW PATIENT TO GET IN AND OUT OF HOME INDEPENDENTLY WITHIN 9 WEEKS. PT GOAL: PATIENT WILL DEMONSTRATE UNDERSTANDING OF PAIN MANAGEMENT TECHNIQUES EVIDENCED BY REDUCED PAIN IN BILAT KNEES FROM 7 TO 2 WITHIN 9 WEEKS. PATIENTS BLOOD SUGAR WILL REMAIN WELL CONTROLLED WITH SELF-MANAGEMENT THROUGHOUT EPISODE OF CARE. PT LTG: PATIENT/CAREGIVER WILL DEMONSTRATE ADHERENCE TO FALL REDUCTION SELF-MANAGEMENT AND REDUCING FALL RISK FACTORS TO MINIMIZE FALL RISK BY END OF EPISODE . PT LTG: PATIENT WILL BE INDEPENDENT WITH IMPLEMENTATION OF HEP WITHIN 5 WEEKS. Reason for Visit INDEPENDENT WITH USE OF ASSISTIVE DEVICE Encounters Start Date/Time End Date/Time Encounter Type Admission Type Attending Clinicians Care Facility Care Department Encounter ID Discharge Date Discharge Status Discharge Condition Discharge Reason Percent Goals Met 2023-12-12 00:00:00 2024-02-05 00:00:00 Outpatient NEW ADMISSION DOUGLAS [facility] [id number] 2024-02-05 00:00:00 DISCHARGE TO HOME OR SELF CARE INDEPENDEN T WITH USE OF ASSISTIVE DEVICE HH OR PAL- GOALS MET 64.44
== END ==
LOC: HO.CARD 12:57
PROVIDERS: PCP Internal Medicine; Visit Provider Internal Medicine
DX: R60.9 Edema, unspecified (principal)
CPT/HCPCS: 93306; Q9957

== ENCOUNTER → 2024-04-01 13:00 | Outpatient (BNV) | payer MEDICARE, MEDICAID, SELFPAY | PROVIDERS: PCP Internal Medicine; Visit Provider Internal Medicine Cardiovascular Disease | DX: I35.0 Nonrheumatic aortic (valve) stenosis (principal); I34.81 Nonrheumatic mitral (valve) annulus calcification | CPT/HCPCS: 93306 ==

== ENCOUNTER 2024-04-26 11:07 | Outpatient (REF) | payer MEDICARE, MEDICAID, SELFPAY ==
--- OUTSIDE RECORDS SUMMARY | 2024-04-26 11:45 | XMS_ITS | Clinical Summary ---
Author Organization Unknown Care Team Providers Care Resort Housekeeper Name Role Phone MARIA ISABEL CHAVEZ, PAULA Unavailable Unavailable ADAM RN, DOUGLAS Unavailable Unavailable MIMI VACAN, CHARLENE Unavailable Unavailable LUDWIN PT, NIKKI Unavailable Unavailable KARLEE LIQUID COMPOUNDER, MICHAEL Unavailable Unavailable SPAFFORD OT, NETO Unavailable Unavailable CONDINO CJ/RIVERO, YUNIEL Unavailable Unav ailable Payers Payer Name Policy Type Policy Number Effective Date Expira tion Date [facility] [id number] Problems Condition Name Condition Details Condition Category [...] HISTORY OF FALLING Active 12-11 00:00: 00 JAIL (CURRENT) USE OF INSULIN Active 04-27 00:00: [...] 500 mg tablet 12-11 00:00: 00 Yes [id number] PAIN 2 tablet 3 TIMES DAILY 2 tablet 3 TIMES DAILY (route: oral) Med Classific ation: Analgesic , Anti-infl ammatory or Antipyret ic Advair HFA 230 mcg-21 mcg/actuati on aerosol inhaler 12-11 00:00: 00 Yes [id number] COPD 2 puff 2 TIMES DAILY 2 puff 2 TIMES DAILY (route: inhalation ) Med Classific ation: Respirato ry Therapy Agents amlodipine 10 mg tablet 12-11 00:00: 00 Yes [id number] HTN 1 tablet DAILY 1 tablet DAILY (route: oral) Med Classific ation: Cardiovas cular Therapy Agents bupropion HCl SR 200 mg tablet,12 hr sustained-r elease 12-11 00:00: 00 Yes [id number] DEPRESSION 1 tablet DAILY 1 tablet DAILY (route: oral) Med Classific ation: Central Nervous System Agents carvedilol 6.25 mg tablet 12-11 00:00: 00 Yes [id number] HTN 1 tablet 2 TIMES DAILY 1 tablet 2 TIMES DAILY (route: oral) Med Classific ation: Cardiovas cular Therapy Agents famotidine 20 mg tablet 12-11 00:00: 00 Yes [id number] GERD 1 tablet 2 TIMES DAILY 1 tablet 2 TIMES DAILY (route: oral) Med Classific ation: Gastroint estinal Therapy Agents fenofibrate 160 mg tablet 12-11 00:00: 00 Yes [id number] CHOLEST 1 tablet DAILY 1 tablet DAILY (route: oral) Med Classific ation: Cardiovas cular Therapy Agents fluoxetine 40 mg capsule 12-11 00:00: 00 Yes [id number] DEPRESSION 1 capsule DAILY 1 capsule DAILY (route: oral) Med Classific ation: Central Nervous System Agents loratadine 10 mg capsule 12-11 00:00: 00 Yes [id number] ALLERGIES 1 capsule DAILY 1 capsule DAILY (route: oral) Med Classific ation: Respirato ry Therapy Agents metoprolol succinate ER 25 mg tablet,exte nded release 24 hr 12-11 00:00: 00 Yes [id number] HTN 1 tablet DAILY 1 tablet DAILY (route: oral) Med Classific ation: Cardiovas cular Therapy Agents Senna Lax 8.6 mg tablet 12-11 00:00: 00 Yes [id number] LAXATIVE 2 tablet DAILY 2 tablet DAILY (route: oral) Med Classific ation: Gastroint estinal Therapy Agents simvastatin 20 mg tablet 12-11 00:00: 00 Yes [id number] CHOLESTEROL 1 tablet DAILY 1 tablet DAILY (route: oral) Med Classific ation: Cardiovas cular Therapy Agents Tresiba FlexTouch U-100 insulin 100 unit/mL (3 mL) subcutaneou s pen 12-11 00:00: 00 Yes [id number] DM 20 unit 2 TIMES DAILY 20 unit 2 TIMES DAILY (route: subcutaneo us) Med Classific ation: Endocrine levothyroxi ne 25 mcg tablet 01-12 00:00: 00 Yes [id number] HYPOTHYROID ISM 1 tablet DAILY 1 tablet DAILY (route: oral) Med Classific ation: Endocrine meloxicam 15 mg tablet 01-24 00:00: 00 Yes [id number] PAIN 1 tablet DAILY 1 tablet DAILY [...] FOR RESP STATUS CHANGES FOR RN TO ASSESS/FACING CUTTING MACHINE OPERATOR TO OBSERVE PATIENT, WITH NOTIFICATION TO THE [...] FOR RESP STATUS CHANGES FOR RN TO ASSESS/FACING CUTTING MACHINE OPERATOR TO OBSERVE PATIENT, WITH NOTIFICATION TO THE [...] TO EVALUATE, OBSERVE / ASSESS, AND MONITOR, EYELET OPERATOR TO OBSERVE AND MONITOR, PROVIDE SKILLED THERAPEUTIC INTERVENTION, ACTIVITY, EDUCATION, AND TRAINING TO ADDRESS; PERSONAL HYGIENE/GROOMING (OT/EYELET OPERATOR) TOILET TRANSFER (OT/CJ) WHEELCHAIR TRANSFER (OT/CJ) HOME ACTIVITY / EXERCISE PROGRAM (OT/CJ) POSTURAL CONTROL/BALANCE (OT/CJ) THERAPEUTIC EXERCISE (OT/EYELET OPERATOR) OT/CJ TO MONITOR AND EDUCATE ON OXYGEN SATURATION DURING ADLS/IADLS, NOTIFY PHYSICIAN AND/OR THE RN CLINICAL OFFSET PRESS OPERATOR APPRENTICE FOR PHYSICIAN NOTIFICATION AND IF O2 SATS [...] TO EVALUATE, OBSERVE / ASSESS, AND MONITOR, EYELET OPERATOR TO OBSERVE AND MONITOR, PROVIDE SKILLED THERAPEUTIC INTERVENTION, ACTIVITY, EDUCATION, AND TRAINING TO ADDRESS; PERSONAL HYGIENE/GROOMING (OT/EYELET OPERATOR) TOILET TRANSFER (OT/CJ) WHEELCHAIR TRANSFER (OT/CJ) HOME ACTIVITY / EXERCISE PROGRAM (OT/EYELET OPERATOR) POSTURAL CONTROL/BALANCE (OT/CJ) THERAPEUTIC EXERCISE (OT/EYELET OPERATOR) OT/CJ TO MONITOR AND EDUCATE ON OXYGEN SATURATION DURING ADLS/IADLS, NOTIFY PHYSICIAN AND/OR THE RN CLINICAL OFFSET PRESS OPERATOR APPRENTICE FOR PHYSICIAN NOTIFICATION AND IF O2 SATS [...] TO EVALUATE, OBSERVE / ASSESS, AND MONITOR, LIQUID COMPOUNDER TO OBSERVE AND MONITOR, PROVIDE SKILLED THERAPEUTIC INTERVENTION, ACTIVITY, EDUCATION, AND TRAINING TO ADDRESS; PT/LIQUID COMPOUNDER TO PROVIDE GAIT TRAINING FOR IMPROVED MOBILITY AND /OR TO NORMALIZE GAIT PATTERN NEUROMUSCULAR RE-EDUCATION / BALANCE / POSTURAL CONTROL (PT) THERAPEUTIC EXERCISES AND ESTABLISHING A HOME EXERCISE PROGRAM (PT/LIQUID COMPOUNDER) PT/LIQUID COMPOUNDER TO PROVIDE STAIR TRAINING CHAIR TRANSFERS (PT/LIQUID COMPOUNDER) PT / LIQUID COMPOUNDER MAY EDUCATE ON PAIN MANAGEMENT CLINICALLY INDICATED, INCLUDING NON-PHARMACOLOGICAL PAIN REDUCTION TECHNIQUES AND USE OF CRYOTHERAPY OR HEAT UP TO 20 MIN AT A TIME FOR PAIN MANAGEMENT 3 TIMES PER DAY TO BILATERAL KNEES. PT / LIQUID COMPOUNDER TO MONITOR FOR HYPO/HYPERGLYCEMIA AND CONDUCT ROUTINE FOOT INSPECTIONS. RECORD PATIENT REPORTED BLOOD SUGAR LEVELS AND NOTIFY PHYSICIAN AND/OR THE RN CLINICAL OFFSET PRESS OPERATOR APPRENTICE FOR PHYSICIAN NOTIFICATION IF BLOOD SUGAR LEVELS ARE OUTSIDE ORDERED PARAMETERS. TEACH PATIENT/CAREGIVER ON DAILY FOOT INSPECTIONS PT/LIQUID COMPOUNDER TO IDENTIFY FALL RISK FACTORS; EDUCATE THE PATIENT/CAREGIVER ON WAYS TO REDUCE FALL RISK FACTORS AND ESTABLISH HOME EXERCISE PROGRAM TO MINIMIZE FALL RISK. MAY TEACH THE PATIENT FLOOR RECOVERY WHEN CLINICALLY APPROPRIATE [code = AGENCY MAY PERFORM A RESUMPTION OF CARE VISIT FOLLOWING ANY HOSPITAL ADMISSION. PT TO EVALUATE, OBSERVE / ASSESS, AND MONITOR, LIQUID COMPOUNDER TO OBSERVE AND MONITOR, PROVIDE SKILLED THERAPEUTIC INTERVENTION, ACTIVITY, EDUCATION, AND TRAINING TO ADDRESS; PT/LIQUID COMPOUNDER TO PROVIDE GAIT TRAINING FOR IMPROVED MOBILITY AND /OR TO NORMALIZE GAIT PATTERN NEUROMUSCULAR RE-EDUCATION / BALANCE / POSTURAL CONTROL (PT) THERAPEUTIC EXERCISES AND ESTABLISHING A HOME EXERCISE PROGRAM (PT/LIQUID COMPOUNDER) PT/LIQUID COMPOUNDER TO PROVIDE STAIR TRAINING CHAIR TRANSFERS (PT/LIQUID COMPOUNDER) PT / LIQUID COMPOUNDER MAY EDUCATE ON PAIN MANAGEMENT CLINICALLY INDICATED, INCLUDING NON-PHARMACOLOGICAL PAIN REDUCTION TECHNIQUES AND USE OF CRYOTHERAPY OR HEAT UP TO 20 MIN AT A TIME FOR PAIN MANAGEMENT 3 TIMES PER DAY TO BILATERAL KNEES. PT / LIQUID COMPOUNDER TO MONITOR FOR HYPO/HYPERGLYCEMIA AND CONDUCT ROUTINE FOOT INSPECTIONS. RECORD PATIENT REPORTED BLOOD SUGAR LEVELS AND NOTIFY PHYSICIAN AND/OR THE RN CLINICAL OFFSET PRESS OPERATOR APPRENTICE FOR PHYSICIAN NOTIFICATION IF BLOOD SUGAR LEVELS ARE OUTSIDE ORDERED PARAMETERS. TEACH PATIENT/CAREGIVER ON DAILY FOOT INSPECTIONS PT/LIQUID COMPOUNDER TO IDENTIFY FALL RISK FACTORS; EDUCATE THE [...] 2024-02-05 00:00:00 Outpatient NEW ADMISSION DOUGLAS [facility] [id number] 2024-02-05 00:00:00 DISCHARGE TO HOME OR SELF CARE INDEPENDEN T WITH USE OF ASSISTIVE DEVICE HH OR PAL- GOALS MET 64.44
--- OUTSIDE RECORDS SUMMARY | 2024-04-26 11:45 | XMS_ITS | Clinical Summary ---
Author Organization Unknown Care Team Providers Care Vice President Medical Affairs Name Role Phone MARIA ISABEL CHAVEZ, PAULA Unavailable Unavailable ADAM RN, DOUGLAS Unavailable Unavailable MIMI VACAN, CHARLENE Unavailable Unavailable LUDWIN PT, NIKKI Unavailable Unavailable KARLEE TELEVISION INSPECTOR, MICAHEL Unavailable Unavailable SPAFFORD OT, NETO Unavailable Unavailable CONDINO CJ/RIVERO, YUNIEL Unavailable Unav ailable Payers Payer Name Policy Type Policy Number Effective Date Expira tion Date [id number] Problems Condition Name Condition Details Condition Category [...] HISTORY OF FALLING Active 12-11 00:00: 00 ASSISTED (CURRENT) USE OF INSULIN Active 04-27 00:00: [...] 500 mg tablet 12-11 00:00: 00 Yes [id number] PAIN 2 tablet 3 TIMES DAILY 2 tablet 3 TIMES DAILY (route: oral) Med Classific ation: Analgesic , Anti-infl ammatory or Antipyret ic Advair HFA 230 mcg-21 mcg/actuati on aerosol inhaler 12-11 00:00: 00 Yes [id number] COPD 2 puff 2 TIMES DAILY 2 puff 2 TIMES DAILY (route: inhalation ) Med Classific ation: Respirato ry Therapy Agents amlodipine 10 mg tablet 12-11 00:00: 00 Yes [id number] HTN 1 tablet DAILY 1 tablet DAILY (route: oral) Med Classific ation: Cardiovas cular Therapy Agents bupropion HCl SR 200 mg tablet,12 hr sustained-r elease 12-11 00:00: 00 Yes [id number] DEPRESSION 1 tablet DAILY 1 tablet DAILY (route: oral) Med Classific ation: Central Nervous System Agents carvedilol 6.25 mg tablet 12-11 00:00: 00 Yes [id number] HTN 1 tablet 2 TIMES DAILY 1 tablet 2 TIMES DAILY (route: oral) Med Classific ation: Cardiovas cular Therapy Agents famotidine 20 mg tablet 12-11 00:00: 00 Yes [id number] GERD 1 tablet 2 TIMES DAILY 1 tablet 2 TIMES DAILY (route: oral) Med Classific ation: Gastroint estinal Therapy Agents fenofibrate 160 mg tablet 12-11 00:00: 00 Yes [id number] CHOLEST 1 tablet DAILY 1 tablet DAILY (route: oral) Med Classific ation: Cardiovas cular Therapy Agents fluoxetine 40 mg capsule 12-11 00:00: 00 Yes [id number] DEPRESSION 1 capsule DAILY 1 capsule DAILY (route: oral) Med Classific ation: Central Nervous System Agents loratadine 10 mg capsule 12-11 00:00: 00 Yes [id number] ALLERGIES 1 capsule DAILY 1 capsule DAILY (route: oral) Med Classific ation: Respirato ry Therapy Agents metoprolol succinate ER 25 mg tablet,exte nded release 24 hr 12-11 00:00: 00 Yes [id number] HTN 1 tablet DAILY 1 tablet DAILY (route: oral) Med Classific ation: Cardiovas cular Therapy Agents Senna Lax 8.6 mg tablet 12-11 00:00: 00 Yes [id number] LAXATIVE 2 tablet DAILY 2 tablet DAILY (route: oral) Med Classific ation: Gastroint estinal Therapy Agents simvastatin 20 mg tablet 12-11 00:00: 00 Yes [id number] CHOLESTEROL 1 tablet DAILY 1 tablet DAILY (route: oral) Med Classific ation: Cardiovas cular Therapy Agents Tresiba FlexTouch U-100 insulin 100 unit/mL (3 mL) subcutaneou s pen 12-11 00:00: 00 Yes [id number] DM 20 unit 2 TIMES DAILY 20 unit 2 TIMES DAILY (route: subcutaneo us) Med Classific ation: Endocrine levothyroxi ne 25 mcg tablet 01-12 00:00: 00 Yes [id number] HYPOTHYROID ISM 1 tablet DAILY 1 tablet DAILY (route: oral) Med Classific ation: Endocrine meloxicam 15 mg tablet 01-24 00:00: 00 Yes [id number] PAIN 1 tablet DAILY 1 tablet DAILY [...] FOR RESP STATUS CHANGES FOR RN TO ASSESS/PIPE LINE MAINTENANCE SUPERVISOR TO OBSERVE PATIENT, WITH NOTIFICATION TO [...] FOR RESP STATUS CHANGES FOR RN TO ASSESS/PIPE LINE MAINTENANCE SUPERVISOR TO OBSERVE PATIENT, WITH NOTIFICATION TO [...] TO EVALUATE, OBSERVE / ASSESS, AND MONITOR, ASSAULT AMPHIBIOUS VEHICLE OFFICER TO OBSERVE AND MONITOR, PROVIDE SKILLED THERAPEUTIC INTERVENTION, ACTIVITY, EDUCATION, AND TRAINING TO ADDRESS; PERSONAL HYGIENE/GROOMING (OT/ASSAULT AMPHIBIOUS VEHICLE OFFICER) TOILET TRANSFER (OT/CJ) WHEELCHAIR TRANSFER (OT/CJ) HOME ACTIVITY / EXERCISE PROGRAM (OT/CJ) POSTURAL CONTROL/BALANCE (OT/CJ) THERAPEUTIC EXERCISE (OT/ASSAULT AMPHIBIOUS VEHICLE OFFICER) OT/CJ TO MONITOR AND EDUCATE ON OXYGEN SATURATION DURING ADLS/IADLS, NOTIFY PHYSICIAN AND/OR THE RN CLINICAL STICK INSERTER FOR PHYSICIAN NOTIFICATION AND IF O2 SATS [...] TO EVALUATE, OBSERVE / ASSESS, AND MONITOR, ASSAULT AMPHIBIOUS VEHICLE OFFICER TO OBSERVE AND MONITOR, PROVIDE SKILLED THERAPEUTIC INTERVENTION, ACTIVITY, EDUCATION, AND TRAINING TO ADDRESS; PERSONAL HYGIENE/GROOMING (OT/ASSAULT AMPHIBIOUS VEHICLE OFFICER) TOILET TRANSFER (OT/CJ) WHEELCHAIR TRANSFER (OT/CJ) HOME ACTIVITY / EXERCISE PROGRAM (OT/ASSAULT AMPHIBIOUS VEHICLE OFFICER) POSTURAL CONTROL/BALANCE (OT/CJ) THERAPEUTIC EXERCISE (OT/ASSAULT AMPHIBIOUS VEHICLE OFFICER) OT/CJ TO MONITOR AND EDUCATE ON OXYGEN SATURATION DURING ADLS/IADLS, NOTIFY PHYSICIAN AND/OR THE RN CLINICAL STICK INSERTER FOR PHYSICIAN NOTIFICATION AND IF O2 SATS [...] TO EVALUATE, OBSERVE / ASSESS, AND MONITOR, TELEVISION INSPECTOR TO OBSERVE AND MONITOR, PROVIDE SKILLED THERAPEUTIC INTERVENTION, ACTIVITY, EDUCATION, AND TRAINING TO ADDRESS; PT/TELEVISION INSPECTOR TO PROVIDE GAIT TRAINING FOR IMPROVED MOBILITY AND /OR TO NORMALIZE GAIT PATTERN NEUROMUSCULAR RE-EDUCATION / BALANCE / POSTURAL CONTROL (PT) THERAPEUTIC EXERCISES AND ESTABLISHING A HOME EXERCISE PROGRAM (PT/TELEVISION INSPECTOR) PT/TELEVISION INSPECTOR TO PROVIDE STAIR TRAINING CHAIR TRANSFERS (PT/TELEVISION INSPECTOR) PT / TELEVISION INSPECTOR MAY EDUCATE ON PAIN MANAGEMENT CLINICALLY INDICATED, INCLUDING NON-PHARMACOLOGICAL PAIN REDUCTION TECHNIQUES AND USE OF CRYOTHERAPY OR HEAT UP TO 20 MIN AT A TIME FOR PAIN MANAGEMENT 3 TIMES PER DAY TO BILATERAL KNEES. PT / TELEVISION INSPECTOR TO MONITOR FOR HYPO/HYPERGLYCEMIA AND CONDUCT ROUTINE FOOT INSPECTIONS. RECORD PATIENT REPORTED BLOOD SUGAR LEVELS AND NOTIFY PHYSICIAN AND/OR THE RN CLINICAL STICK INSERTER FOR PHYSICIAN NOTIFICATION IF BLOOD SUGAR LEVELS ARE OUTSIDE ORDERED PARAMETERS. TEACH PATIENT/CAREGIVER ON DAILY FOOT INSPECTIONS PT/TELEVISION INSPECTOR TO IDENTIFY FALL RISK FACTORS; EDUCATE THE PATIENT/CAREGIVER ON WAYS TO REDUCE FALL RISK FACTORS AND ESTABLISH HOME EXERCISE PROGRAM TO MINIMIZE FALL RISK. MAY TEACH THE PATIENT FLOOR RECOVERY WHEN CLINICALLY APPROPRIATE [code = AGENCY MAY PERFORM A RESUMPTION OF CARE VISIT FOLLOWING ANY HOSPITAL ADMISSION. PT TO EVALUATE, OBSERVE / ASSESS, AND MONITOR, TELEVISION INSPECTOR TO OBSERVE AND MONITOR, PROVIDE SKILLED THERAPEUTIC INTERVENTION, ACTIVITY, EDUCATION, AND TRAINING TO ADDRESS; PT/TELEVISION INSPECTOR TO PROVIDE GAIT TRAINING FOR IMPROVED MOBILITY AND /OR TO NORMALIZE GAIT PATTERN NEUROMUSCULAR RE-EDUCATION / BALANCE / POSTURAL CONTROL (PT) THERAPEUTIC EXERCISES AND ESTABLISHING A HOME EXERCISE PROGRAM (PT/TELEVISION INSPECTOR) PT/TELEVISION INSPECTOR TO PROVIDE STAIR TRAINING CHAIR TRANSFERS (PT/TELEVISION INSPECTOR) PT / TELEVISION INSPECTOR MAY EDUCATE ON PAIN MANAGEMENT CLINICALLY INDICATED, INCLUDING NON-PHARMACOLOGICAL PAIN REDUCTION TECHNIQUES AND USE OF CRYOTHERAPY OR HEAT UP TO 20 MIN AT A TIME FOR PAIN MANAGEMENT 3 TIMES PER DAY TO BILATERAL KNEES. PT / TELEVISION INSPECTOR TO MONITOR FOR HYPO/HYPERGLYCEMIA AND CONDUCT ROUTINE FOOT INSPECTIONS. RECORD PATIENT REPORTED BLOOD SUGAR LEVELS AND NOTIFY PHYSICIAN AND/OR THE RN CLINICAL STICK INSERTER FOR PHYSICIAN NOTIFICATION IF BLOOD SUGAR LEVELS ARE OUTSIDE ORDERED PARAMETERS. TEACH PATIENT/CAREGIVER ON DAILY FOOT INSPECTIONS PT/TELEVISION INSPECTOR TO IDENTIFY FALL RISK FACTORS; EDUCATE THE [...] 2024-02-05 00:00:00 Outpatient NEW ADMISSION DOUGLAS [facility] [id number] 2024-02-05 00:00:00 DISCHARGE TO HOME OR SELF CARE INDEPENDEN T WITH USE OF ASSISTIVE DEVICE HH OR PAL- GOALS MET 64.44
[2024-04-26 13:26] LABS: MANUAL DIFF FLAG NO
[2024-04-26 13:29] LABS: Basophils Absolute Auto 0.1 X10*3/uL (0.0-0.2); Basophils Percent Auto 0.7 % (0-2); Eosinophils Absolute Auto 0.2 X10*3/uL (0.0-0.4); Eosinophils Percent Auto 3.1 % (0-4); Hematocrit 36.6 % (37.0-47.0); Hemoglobin 11.4 g/dl (12.0-16.0); Imm Gran Abs Auto 0.02 X10*3/uL (0.00-0.03); Imm Gran Pct Auto 0.3 % (0.0-0.4); Lymphocytes Absolute Auto 2.6 X10*3/uL (1.2-4.9); Lymphocytes Percent Auto 34.7 % (20-40); Mean Corpuscular HGB Conc 31.1 g/dl (31.0-35.0); Mean Corpuscular Hemoglobin 30.3 pg (27.0-33.0); Mean Corpuscular Volume 97.3 fL (80.0-98.0); Mean Platelet Volume 10.1 fL (9.4-12.3); Monocytes Absolute Auto 0.5 X10*3/uL (0.1-1.2); Monocytes Percent Auto 7.3 % (2-11); Neutrophils Percent Auto 53.9 % (45-73); Platelet Count 328 X10*3/uL (160-400); Red Blood Count 3.76 X10*6/uL (4.20-5.50); Red Cell Distribution Width 14.9 % (11.0-16.0); White Blood Count 7.4 X10*3/uL (4.8-10.8)
[2024-04-26 13:40] LABS: Estimated Average Glucose 108 mg/dL; Hemoglobin A1C 104.0296 umol/L; Hemoglobin A1c % 5.4 % (<6.0); Total Hemoglobin (HGBA1C) 2897.9334 umol/L
[2024-04-26 14:01] LABS: Alanine Aminotransferase 28 U/L (0-31); Albumin Level 3.5 g/dL (3.5-5.0); Alkaline Phosphatase 58 U/L (39-117); Anion Gap 11 (12-20); Aspartate Amino Transferase 46 U/L (5-31); Bilirubin Total 0.4 mg/dL (0.0-1.0); Blood Urea Nitrogen 24 mg/dL (9-16); Carbon Dioxide 26 mmol/L (22-29); Chloride 109 mmol/L (96-108); Cholesterol 137 mg/dL (<200); Estimated Glomerular Filt Rate 45; Glucose Fasting 61 mg/dL (60-99); HDL Cholesterol 56 mg/dL (>40); LDL Cholesterol Calculated 67 mg/dL (<100); Potassium 4.6 mmol/L (3.3-5.1); Sodium 141 mmol/L (135-145); Triglycerides 74 mg/dL (<150)
[2024-04-26 14:09] LABS: Ferritin 224 ng/mL (10-250)
[2024-04-30 15:59] LABS: Testosterone, Total 19 ng/dL (2-45)
== END 2024-04-26 11:08 | disposition home or self-care (01) ==
LOC: HO.HMGCLDS 11:07
PROVIDERS: PCP Internal Medicine; Visit Provider Internal Medicine
DX: I83.893 Varicose veins of bilateral lower extremities with other complications (principal); E11.42 Type 2 diabetes mellitus with diabetic polyneuropathy; E11.22 Type 2 diabetes mellitus with diabetic chronic kidney disease; I12.9 Hypertensive chronic kidney disease with stage 1 through stage 4 chronic kidney disease, or unspecified chronic kidney disease; N18.30 Chronic kidney disease, stage 3 unspecified; E78.5 Hyperlipidemia, unspecified; E66.01 Morbid (severe) obesity due to excess calories; R60.0 Localized edema; R26.2 Difficulty in walking, not elsewhere classified; M17.0 Bilateral primary osteoarthritis of knee; G25.81 Restless legs syndrome; F41.1 Generalized anxiety disorder; F33.41 Major depressive disorder, recurrent, in partial remission; E78.9 Disorder of lipoprotein metabolism, unspecified; K58.0 Irritable bowel syndrome with diarrhea; Z79.4 Long term (current) use of insulin; Z74.09 Other reduced mobility
CPT/HCPCS: 36415; 80053; 80061; 82728; 83036; 84403; 85025; 99212

== ENCOUNTER 2024-04-26 11:07 | Outpatient (AMB) | payer MEDICARE, MEDICAID, SELFPAY ==
--- OUTSIDE RECORDS SUMMARY | 2024-04-26 11:09 | XMS_ITS | Clinical Summary ---
Author Organization Unknown Care Team Providers Care Keyboard Operator Name Role Phone MARIA ISABEL CHAVEZ, PAULA Unavailable Unavailable ADAM RN, DOUGLAS Unavailable Unavailable MIMI VACAN, CHARLENE Unavailable Unavailable LUDWIN PT, NIKKI Unavailable Unavailable KARLEE CRUISE STAFF MEMBER, MICHAEL Unavailable Unavailable SPAFFORD OT, NETO Unavailable Unavailable CONDINO CJ/RIVERO, YUNIEL Unavailable Unav ailable Payers Payer Name Policy Type Policy Number Effective Date Expira tion Date [facility] [id number] Problems Condition Name Condition Details Condition Category [...] HISTORY OF FALLING Active 12-11 00:00: 00 CORRECTION (CURRENT) USE OF INSULIN Active 04-27 00:00: [...] 500 mg tablet 12-11 00:00: 00 Yes [id number] PAIN 2 tablet 3 TIMES DAILY 2 tablet 3 TIMES DAILY (route: oral) Med Classific ation: Analgesic , Anti-infl ammatory or Antipyret ic Advair HFA 230 mcg-21 mcg/actuati on aerosol inhaler 12-11 00:00: 00 Yes [id number] COPD 2 puff 2 TIMES DAILY 2 puff 2 TIMES DAILY (route: inhalation ) Med Classific ation: Respirato ry Therapy Agents amlodipine 10 mg tablet 12-11 00:00: 00 Yes [id number] HTN 1 tablet DAILY 1 tablet DAILY (route: oral) Med Classific ation: Cardiovas cular Therapy Agents bupropion HCl SR 200 mg tablet,12 hr sustained-r elease 12-11 00:00: 00 Yes [id number] DEPRESSION 1 tablet DAILY 1 tablet DAILY (route: oral) Med Classific ation: Central Nervous System Agents carvedilol 6.25 mg tablet 12-11 00:00: 00 Yes [id number] HTN 1 tablet 2 TIMES DAILY 1 tablet 2 TIMES DAILY (route: oral) Med Classific ation: Cardiovas cular Therapy Agents famotidine 20 mg tablet 12-11 00:00: 00 Yes [id number] GERD 1 tablet 2 TIMES DAILY 1 tablet 2 TIMES DAILY (route: oral) Med Classific ation: Gastroint estinal Therapy Agents fenofibrate 160 mg tablet 12-11 00:00: 00 Yes [id number] CHOLEST 1 tablet DAILY 1 tablet DAILY (route: oral) Med Classific ation: Cardiovas cular Therapy Agents fluoxetine 40 mg capsule 12-11 00:00: 00 Yes [id number] DEPRESSION 1 capsule DAILY 1 capsule DAILY (route: oral) Med Classific ation: Central Nervous System Agents loratadine 10 mg capsule 12-11 00:00: 00 Yes [id number] ALLERGIES 1 capsule DAILY 1 capsule DAILY (route: oral) Med Classific ation: Respirato ry Therapy Agents metoprolol succinate ER 25 mg tablet,exte nded release 24 hr 12-11 00:00: 00 Yes [id number] HTN 1 tablet DAILY 1 tablet DAILY (route: oral) Med Classific ation: Cardiovas cular Therapy Agents Senna Lax 8.6 mg tablet 12-11 00:00: 00 Yes [id number] LAXATIVE 2 tablet DAILY 2 tablet DAILY (route: oral) Med Classific ation: Gastroint estinal Therapy Agents simvastatin 20 mg tablet 12-11 00:00: 00 Yes [id number] CHOLESTEROL 1 tablet DAILY 1 tablet DAILY (route: oral) Med Classific ation: Cardiovas cular Therapy Agents Tresiba FlexTouch U-100 insulin 100 unit/mL (3 mL) subcutaneou s pen 12-11 00:00: 00 Yes [id number] DM 20 unit 2 TIMES DAILY 20 unit 2 TIMES DAILY (route: subcutaneo us) Med Classific ation: Endocrine levothyroxi ne 25 mcg tablet 01-12 00:00: 00 Yes [id number] HYPOTHYROID ISM 1 tablet DAILY 1 tablet DAILY (route: oral) Med Classific ation: Endocrine meloxicam 15 mg tablet 01-24 00:00: 00 Yes [id number] PAIN 1 tablet DAILY 1 tablet DAILY [...] FOR RESP STATUS CHANGES FOR RN TO ASSESS/ELECTROLYSIS ENGINEER TO OBSERVE PATIENT, WITH NOTIFICATION TO THE [...] FOR RESP STATUS CHANGES FOR RN TO ASSESS/ELECTROLYSIS ENGINEER TO OBSERVE PATIENT, WITH NOTIFICATION TO THE [...] TO EVALUATE, OBSERVE / ASSESS, AND MONITOR, BINDERY SUPERVISOR TO OBSERVE AND MONITOR, PROVIDE SKILLED THERAPEUTIC INTERVENTION, ACTIVITY, EDUCATION, AND TRAINING TO ADDRESS; PERSONAL HYGIENE/GROOMING (OT/BINDERY SUPERVISOR) TOILET TRANSFER (OT/CJ) WHEELCHAIR TRANSFER (OT/CJ) HOME ACTIVITY / EXERCISE PROGRAM (OT/CJ) POSTURAL CONTROL/BALANCE (OT/CJ) THERAPEUTIC EXERCISE (OT/BINDERY SUPERVISOR) OT/CJ TO MONITOR AND EDUCATE ON OXYGEN SATURATION DURING ADLS/IADLS, NOTIFY PHYSICIAN AND/OR THE RN CLINICAL MFT FOR PHYSICIAN NOTIFICATION AND IF O2 SATS [...] TO EVALUATE, OBSERVE / ASSESS, AND MONITOR, BINDERY SUPERVISOR TO OBSERVE AND MONITOR, PROVIDE SKILLED THERAPEUTIC INTERVENTION, ACTIVITY, EDUCATION, AND TRAINING TO ADDRESS; PERSONAL HYGIENE/GROOMING (OT/BINDERY SUPERVISOR) TOILET TRANSFER (OT/CJ) WHEELCHAIR TRANSFER (OT/CJ) HOME ACTIVITY / EXERCISE PROGRAM (OT/BINDERY SUPERVISOR) POSTURAL CONTROL/BALANCE (OT/CJ) THERAPEUTIC EXERCISE (OT/BINDERY SUPERVISOR) OT/CJ TO MONITOR AND EDUCATE ON OXYGEN SATURATION DURING ADLS/IADLS, NOTIFY PHYSICIAN AND/OR THE RN CLINICAL MFT FOR PHYSICIAN NOTIFICATION AND IF O2 SATS [...] TO EVALUATE, OBSERVE / ASSESS, AND MONITOR, CRUISE STAFF MEMBER TO OBSERVE AND MONITOR, PROVIDE SKILLED THERAPEUTIC INTERVENTION, ACTIVITY, EDUCATION, AND TRAINING TO ADDRESS; PT/CRUISE STAFF MEMBER TO PROVIDE GAIT TRAINING FOR IMPROVED MOBILITY AND /OR TO NORMALIZE GAIT PATTERN NEUROMUSCULAR RE-EDUCATION / BALANCE / POSTURAL CONTROL (PT) THERAPEUTIC EXERCISES AND ESTABLISHING A HOME EXERCISE PROGRAM (PT/CRUISE STAFF MEMBER) PT/CRUISE STAFF MEMBER TO PROVIDE STAIR TRAINING CHAIR TRANSFERS (PT/CRUISE STAFF MEMBER) PT / CRUISE STAFF MEMBER MAY EDUCATE ON PAIN MANAGEMENT CLINICALLY INDICATED, INCLUDING NON-PHARMACOLOGICAL PAIN REDUCTION TECHNIQUES AND USE OF CRYOTHERAPY OR HEAT UP TO 20 MIN AT A TIME FOR PAIN MANAGEMENT 3 TIMES PER DAY TO BILATERAL KNEES. PT / CRUISE STAFF MEMBER TO MONITOR FOR HYPO/HYPERGLYCEMIA AND CONDUCT ROUTINE FOOT INSPECTIONS. RECORD PATIENT REPORTED BLOOD SUGAR LEVELS AND NOTIFY PHYSICIAN AND/OR THE RN CLINICAL MFT FOR PHYSICIAN NOTIFICATION IF BLOOD SUGAR LEVELS ARE OUTSIDE ORDERED PARAMETERS. TEACH PATIENT/CAREGIVER ON DAILY FOOT INSPECTIONS PT/CRUISE STAFF MEMBER TO IDENTIFY FALL RISK FACTORS; EDUCATE THE PATIENT/CAREGIVER ON WAYS TO REDUCE FALL RISK FACTORS AND ESTABLISH HOME EXERCISE PROGRAM TO MINIMIZE FALL RISK. MAY TEACH THE PATIENT FLOOR RECOVERY WHEN CLINICALLY APPROPRIATE [code = AGENCY MAY PERFORM A RESUMPTION OF CARE VISIT FOLLOWING ANY HOSPITAL ADMISSION. PT TO EVALUATE, OBSERVE / ASSESS, AND MONITOR, CRUISE STAFF MEMBER TO OBSERVE AND MONITOR, PROVIDE SKILLED THERAPEUTIC INTERVENTION, ACTIVITY, EDUCATION, AND TRAINING TO ADDRESS; PT/CRUISE STAFF MEMBER TO PROVIDE GAIT TRAINING FOR IMPROVED MOBILITY AND /OR TO NORMALIZE GAIT PATTERN NEUROMUSCULAR RE-EDUCATION / BALANCE / POSTURAL CONTROL (PT) THERAPEUTIC EXERCISES AND ESTABLISHING A HOME EXERCISE PROGRAM (PT/CRUISE STAFF MEMBER) PT/CRUISE STAFF MEMBER TO PROVIDE STAIR TRAINING CHAIR TRANSFERS (PT/CRUISE STAFF MEMBER) PT / CRUISE STAFF MEMBER MAY EDUCATE ON PAIN MANAGEMENT CLINICALLY INDICATED, INCLUDING NON-PHARMACOLOGICAL PAIN REDUCTION TECHNIQUES AND USE OF CRYOTHERAPY OR HEAT UP TO 20 MIN AT A TIME FOR PAIN MANAGEMENT 3 TIMES PER DAY TO BILATERAL KNEES. PT / CRUISE STAFF MEMBER TO MONITOR FOR HYPO/HYPERGLYCEMIA AND CONDUCT ROUTINE FOOT INSPECTIONS. RECORD PATIENT REPORTED BLOOD SUGAR LEVELS AND NOTIFY PHYSICIAN AND/OR THE RN CLINICAL MFT FOR PHYSICIAN NOTIFICATION IF BLOOD SUGAR LEVELS ARE OUTSIDE ORDERED PARAMETERS. TEACH PATIENT/CAREGIVER ON DAILY FOOT INSPECTIONS PT/CRUISE STAFF MEMBER TO IDENTIFY FALL RISK FACTORS; EDUCATE THE [...] 2024-02-05 00:00:00 Outpatient NEW ADMISSION DOUGLAS MEDINA [facility] [id number] 2024-02-05 00:00:00 DISCHARGE TO HOME OR SELF CARE INDEPENDEN T WITH USE OF ASSISTIVE DEVICE HH OR PAL- GOALS MET 64.44
--- OUTSIDE RECORDS SUMMARY | 2024-04-26 11:09 | XMS_ITS | Clinical Summary ---
Author Organization Unknown Care Team Providers Care Fire Range Technician Name Role Phone AMRIA ISABEL CHAVEZ, PAULA Unavailable Unavailable ADAM RN, DOUGLAS Unavailable Unavailable MIMI VACAN, CHARLENE Unavailable Unavailable LUDWIN PT, NIKKI Unavailable Unavailable KARLEE PAINTER STRUCTURAL STEEL, MICHAEL Unavailable Unavailable SPAFFORD OT, NETO Unavailable Unavailable CONDINO CJ/RIVERO, YUNIEL Unavailable Unav ailable Payers Payer Name Policy Type Policy Number Effective Date Expira [facility]ion Date [id number] Problems Condition Name Condition Details Condition Category [...] 500 mg tablet 12-11 00:00: 00 Yes [id number] PAIN 2 tablet 3 TIMES DAILY 2 tablet 3 TIMES DAILY (route: oral) Med Classific ation: Analgesic , Anti-infl ammatory or Antipyret ic Advair HFA 230 mcg-21 mcg/actuati on aerosol inhaler 12-11 00:00: 00 Yes [id number] COPD 2 puff 2 TIMES DAILY 2 puff 2 TIMES DAILY (route: inhalation ) Med Classific ation: Respirato ry Therapy Agents amlodipine 10 mg tablet 12-11 00:00: 00 Yes [id number] HTN 1 tablet DAILY 1 tablet DAILY (route: oral) Med Classific ation: Cardiovas cular Therapy Agents bupropion HCl SR 200 mg tablet,12 hr sustained-r elease 12-11 00:00: 00 Yes [id number] DEPRESSION 1 tablet DAILY 1 tablet DAILY (route: oral) Med Classific ation: Central Nervous System Agents carvedilol 6.25 mg tablet 12-11 00:00: 00 Yes [id number] HTN 1 tablet 2 TIMES DAILY 1 tablet 2 TIMES DAILY (route: oral) Med Classific ation: Cardiovas cular Therapy Agents famotidine 20 mg tablet 12-11 00:00: 00 Yes [id number] GERD 1 tablet 2 TIMES DAILY 1 tablet 2 TIMES DAILY (route: oral) Med Classific ation: Gastroint estinal Therapy Agents fenofibrate 160 mg tablet 12-11 00:00: 00 Yes [id number] CHOLEST 1 tablet DAILY 1 tablet DAILY (route: oral) Med Classific ation: Cardiovas cular Therapy Agents fluoxetine 40 mg capsule 12-11 00:00: 00 Yes [id number] DEPRESSION 1 capsule DAILY 1 capsule DAILY (route: oral) Med Classific ation: Central Nervous System Agents loratadine 10 mg capsule 12-11 00:00: 00 Yes [id number] ALLERGIES 1 capsule DAILY 1 capsule DAILY (route: oral) Med Classific ation: Respirato ry Therapy Agents metoprolol succinate ER 25 mg tablet,exte nded release 24 hr 12-11 00:00: 00 Yes [id number] HTN 1 tablet DAILY 1 tablet DAILY (route: oral) Med Classific ation: Cardiovas cular Therapy Agents Senna Lax 8.6 mg tablet 12-11 00:00: 00 Yes [id number] LAXATIVE 2 tablet DAILY 2 tablet DAILY (route: oral) Med Classific ation: Gastroint estinal Therapy Agents simvastatin 20 mg tablet 12-11 00:00: 00 Yes [id number] CHOLESTEROL 1 tablet DAILY 1 tablet DAILY (route: oral) Med Classific ation: Cardiovas cular Therapy Agents Tresiba FlexTouch U-100 insulin 100 unit/mL (3 mL) subcutaneou s pen 12-11 00:00: 00 Yes [id number] DM 20 unit 2 TIMES DAILY 20 unit 2 TIMES DAILY (route: subcutaneo us) Med Classific ation: Endocrine levothyroxi ne 25 mcg tablet 01-12 00:00: 00 Yes [id number] HYPOTHYROID ISM 1 tablet DAILY 1 tablet DAILY (route: oral) Med Classific ation: Endocrine meloxicam 15 mg tablet 01-24 00:00: 00 Yes [id number] PAIN 1 tablet DAILY 1 tablet DAILY [...] FOR RESP STATUS CHANGES FOR RN TO ASSESS/PRESS ROOM SUPERVISOR TO OBSERVE PATIENT, WITH NOTIFICATION TO THE [...] FOR RESP STATUS CHANGES FOR RN TO ASSESS/PRESS ROOM SUPERVISOR TO OBSERVE PATIENT, WITH NOTIFICATION TO THE [...] TO EVALUATE, OBSERVE / ASSESS, AND MONITOR, PLASTICS DESIGN ENGINEER TO OBSERVE AND MONITOR, PROVIDE SKILLED THERAPEUTIC INTERVENTION, ACTIVITY, EDUCATION, AND TRAINING TO ADDRESS; PERSONAL HYGIENE/GROOMING (OT/PLASTICS DESIGN ENGINEER) TOILET TRANSFER (OT/CJ) WHEELCHAIR TRANSFER (OT/CJ) HOME ACTIVITY / EXERCISE PROGRAM (OT/CJ) POSTURAL CONTROL/BALANCE (OT/CJ) THERAPEUTIC EXERCISE (OT/PLASTICS DESIGN ENGINEER) OT/CJ TO MONITOR AND EDUCATE ON OXYGEN SATURATION DURING ADLS/IADLS, NOTIFY PHYSICIAN AND/OR THE RN CLINICAL SURVEILLANCE SENSOR OFFICER FOR PHYSICIAN NOTIFICATION AND IF O2 SATS [...] TO EVALUATE, OBSERVE / ASSESS, AND MONITOR, PLASTICS DESIGN ENGINEER TO OBSERVE AND MONITOR, PROVIDE SKILLED THERAPEUTIC INTERVENTION, ACTIVITY, EDUCATION, AND TRAINING TO ADDRESS; PERSONAL HYGIENE/GROOMING (OT/PLASTICS DESIGN ENGINEER) TOILET TRANSFER (OT/CJ) WHEELCHAIR TRANSFER (OT/CJ) HOME ACTIVITY / EXERCISE PROGRAM (OT/PLASTICS DESIGN ENGINEER) POSTURAL CONTROL/BALANCE (OT/CJ) THERAPEUTIC EXERCISE (OT/PLASTICS DESIGN ENGINEER) OT/CJ TO MONITOR AND EDUCATE ON OXYGEN SATURATION DURING ADLS/IADLS, NOTIFY PHYSICIAN AND/OR THE RN CLINICAL SURVEILLANCE SENSOR OFFICER FOR PHYSICIAN NOTIFICATION AND IF O2 SATS [...] TO EVALUATE, OBSERVE / ASSESS, AND MONITOR, PAINTER STRUCTURAL STEEL TO OBSERVE AND MONITOR, PROVIDE SKILLED THERAPEUTIC INTERVENTION, ACTIVITY, EDUCATION, AND TRAINING TO ADDRESS; PT/PAINTER STRUCTURAL STEEL TO PROVIDE GAIT TRAINING FOR IMPROVED MOBILITY AND /OR TO NORMALIZE GAIT PATTERN NEUROMUSCULAR RE-EDUCATION / BALANCE / POSTURAL CONTROL (PT) THERAPEUTIC EXERCISES AND ESTABLISHING A HOME EXERCISE PROGRAM (PT/PAINTER STRUCTURAL STEEL) PT/PAINTER STRUCTURAL STEEL TO PROVIDE STAIR TRAINING CHAIR TRANSFERS (PT/PAINTER STRUCTURAL STEEL) PT / PAINTER STRUCTURAL STEEL MAY EDUCATE ON PAIN MANAGEMENT CLINICALLY INDICATED, INCLUDING NON-PHARMACOLOGICAL PAIN REDUCTION TECHNIQUES AND USE OF CRYOTHERAPY OR HEAT UP TO 20 MIN AT A TIME FOR PAIN MANAGEMENT 3 TIMES PER DAY TO BILATERAL KNEES. PT / PAINTER STRUCTURAL STEEL TO MONITOR FOR HYPO/HYPERGLYCEMIA AND CONDUCT ROUTINE FOOT INSPECTIONS. RECORD PATIENT REPORTED BLOOD SUGAR LEVELS AND NOTIFY PHYSICIAN AND/OR THE RN CLINICAL SURVEILLANCE SENSOR OFFICER FOR PHYSICIAN NOTIFICATION IF BLOOD SUGAR LEVELS ARE OUTSIDE ORDERED PARAMETERS. TEACH PATIENT/CAREGIVER ON DAILY FOOT INSPECTIONS PT/PAINTER STRUCTURAL STEEL TO IDENTIFY FALL RISK FACTORS; EDUCATE THE PATIENT/CAREGIVER ON WAYS TO REDUCE FALL RISK FACTORS AND ESTABLISH HOME EXERCISE PROGRAM TO MINIMIZE FALL RISK. MAY TEACH THE PATIENT FLOOR RECOVERY WHEN CLINICALLY APPROPRIATE [code = AGENCY MAY PERFORM A RESUMPTION OF CARE VISIT FOLLOWING ANY HOSPITAL ADMISSION. PT TO EVALUATE, OBSERVE / ASSESS, AND MONITOR, PAINTER STRUCTURAL STEEL TO OBSERVE AND MONITOR, PROVIDE SKILLED THERAPEUTIC INTERVENTION, ACTIVITY, EDUCATION, AND TRAINING TO ADDRESS; PT/PAINTER STRUCTURAL STEEL TO PROVIDE GAIT TRAINING FOR IMPROVED MOBILITY AND /OR TO NORMALIZE GAIT PATTERN NEUROMUSCULAR RE-EDUCATION / BALANCE / POSTURAL CONTROL (PT) THERAPEUTIC EXERCISES AND ESTABLISHING A HOME EXERCISE PROGRAM (PT/PAINTER STRUCTURAL STEEL) PT/PAINTER STRUCTURAL STEEL TO PROVIDE STAIR TRAINING CHAIR TRANSFERS (PT/PAINTER STRUCTURAL STEEL) PT / PAINTER STRUCTURAL STEEL MAY EDUCATE ON PAIN MANAGEMENT CLINICALLY INDICATED, INCLUDING NON-PHARMACOLOGICAL PAIN REDUCTION TECHNIQUES AND USE OF CRYOTHERAPY OR HEAT UP TO 20 MIN AT A TIME FOR PAIN MANAGEMENT 3 TIMES PER DAY TO BILATERAL KNEES. PT / PAINTER STRUCTURAL STEEL TO MONITOR FOR HYPO/HYPERGLYCEMIA AND CONDUCT ROUTINE FOOT INSPECTIONS. RECORD PATIENT REPORTED BLOOD SUGAR LEVELS AND NOTIFY PHYSICIAN AND/OR THE RN CLINICAL SURVEILLANCE SENSOR OFFICER FOR PHYSICIAN NOTIFICATION IF BLOOD SUGAR LEVELS ARE OUTSIDE ORDERED PARAMETERS. TEACH PATIENT/CAREGIVER ON DAILY FOOT INSPECTIONS PT/PAINTER STRUCTURAL STEEL TO IDENTIFY FALL RISK FACTORS; EDUCATE THE [...] 2024-02-05 00:00:00 Outpatient NEW ADMISSION DOUGLAS MEDINA [facility] [id number] 2024-02-05 00:00:00 DISCHARGE TO HOME OR SELF CARE INDEPENDEN T WITH USE OF ASSISTIVE DEVICE HH OR PAL- GOALS MET 64.44
[2024-04-26 11:10] VITALS: BP 134/80; PULSE 65; O2SAT 96; BMI 53.4
--- NOTE | 2024-04-26 11:10 | MHC.PC.OV ---
Vital Signs 04/26/24 11:10 Height 4 ft 10 in Weight 255 lb 8 oz BMI 53.4 BP 134/80 Blood Pressure Location Lt brachial Position Sitting Pulse 65 Pulse Source Pulse Oximeter Pulse Oximetry (%) 96 Oxygen Delivery Method Room Air Intake Visit Reasons: 3 months f/up Allergies adhesive tape [Adhesive Tape] Allergy (Severe, Verified 03/10/24 08:43) BLISTERS dairy products Allergy (Severe, Verified 03/10/24 08:43) GI upset semaglutide [From Ozempic] Allergy (Severe, Verified 03/10/24 08:43) Diarrhea NSAIDS (Non-Steroidal Anti-Inflamma Adverse Reaction (Verified 03/10/24 08:43) Nephropathy Medication List - Last Reconciled 04/26/24 by Marilyn Gillespie MD acetaminophen ER (Tylenol Arthritis Pain) 650 mg PO Q8H PRN [Adult Pull-ups As directed] [adult pull-ups size As directed] albuterol sulfate 90 mcg/actuation 2 puffs inhalation Q4H PRN alcohol swabs (Alcohol Pads) 1 pad topical TIDWMEAL blood sugar diagnostic (OneTouch Ultra Test strips) tid esting 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 meter (OneTouch Ultra2 Meter) tid testing 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 meter,continuous (FreeStyle Ihsan 3 Carlton) As directed 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 sensor (FreeStyle Ihsan 3 Sensor device) As directed bupropion HCl SR 200 mg PO ONCE 90 days carvedilol 6.25 mg PO BID [cloth bed pads As directed] dicyclomine 10 mg PO BID PRN 90 days fenofibrate 160 mg PO DAILY 90 days ferrous sulfate 324 mg PO BID 90 days fluoxetine 40 mg PO DAILY 90 days furosemide 20 mg PO DAILY insulin degludec (Tresiba FlexTouch U-200 insulin) 15 units (0.075 mL) subcut BID 90 days lancets tid testing lancets Use to check blood sugars three times a day levothyroxine 25 mcg PO DAILY loratadine (Allergy Relief (loratadine)) 10 mg PO DAILY 90 days metoprolol succinate ER 25 mg PO BEDTIME nystatin 1 appl topical DAILY 30 days [panty liners As directed] pen needle, diabetic daily pen needle, diabetic (BD Nadya 2nd Gen Pen Needle) 1 ea miscellaneous BID ropinirole 0.5 mg PO BEDTIME 90 days simvastatin 20 mg PO DAILY 90 days tirzepatide (weight loss) (Zepbound) 2.5 mg (0.5 mL) subcut QWEEK 4 weeks tramadol 50 mg PO Q8H PRN 7 days Tobacco use date assessed: 04/26/24 Fall risk assessment: 1 Fall in past year Last assessed Fall Risk: 04/26/24 Dental Screening Dental Screen Date: 04/26/24 Did you have a dental visit in the last 12 months?: No Did you have a dental problem in the last 6 months where you did not have access to dental care?: No Was dental information given to patient?: No HPI 3 months f/up HPI Details - The patient is a 73-year-old female presenting with bilateral lower extremity edema. - Swelling has been present for an unspecified duration, unsuccessful with diuretic therapy. - Neuropathy reported as a tingly sensation under feet has been confirmed. - Recent echocardiogram reviewed with no significant cardiac issues observed. - Kidney function has been noted as compromised, contributing to edema. - Weight management is a concern due to obesity, with potential impact on edema. - History of anemia acknowledged, currently managed with iron supplementation. Problem List - Bilateral lower extremity edema - Peripheral neuropathy - Anemia - Obesity - Compromised renal function IBS stable Depression stable Anxiety stable Diabetes controlled Lipid disorder continue medications Thyroid: Continue levothyroxine 25 mcg Allergies controlled Restless leg stable with ropinirole Taking tramadol for pain control, aware of side effects Medications - Iron supplement for anemia - Previously prescribed diuretic for edema, though discontinued due to ineffectiveness Diagnostic results - Echocardiogram: No worrisome cardiac findings reported Review of Systems - Gastrointestinal: Reports black stools when taking iron supplements General: No fever no chills neurological: No headaches no dizziness ear nose throat: No sore throat no hearing difficulty no ear pain cardiovascular: No syncope, no chest pain, no palpitations gastrointestinal: No nausea vomiting or diarrhea endocrine: No polyuria polydipsia no heat intolerance genitourinary: No dysuria skin: No new complaints Physical Exam general: No acute distress, sitting in wheelchair accompanied by her daughter HEENT: No acute findings neck: Supple respiratory system: Able to talk in full sentences, no audible wheeze no stridor cardiovascular: S1-S2 gastrointestinal: Black stools, likely due to iron supplementation extremities: Swollen ankles 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 motor sensory intact skin: Normal turgor Patient Instructions - Continue taking iron supplements as previously directed - Follow up with the kidney specialist; I will send a message to expedite contact - Coordinate appointments with both the knee doctor and the vascular specialist - Check with your insurance to evaluate coverage options for weight management programs - Refrain from continuing with water pills since they are not providing relief from edema - Discuss with the kidney specialist about potentially starting phentermine for weight management after assessment of kidney function Continue all other medications PFSH Medical History Restrictive lung disease Breast cancer COVID-19 vaccine series completed Dyspnea on exertion OZ (obstructive sleep apnea) Morbid obesity with BMI of 50.0-59.9, adult Diabetic polyneuropathy associated with type 2 diabetes mellitus Hypertension Dyslipidemia CKD stage 3 due to type 2 diabetes mellitus Diabetic nephropathy associated with type 2 diabetes mellitus prison (current) 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 Other Mental health disorder Substance use disorder Social History Household Members: Family Housing: House Are you a primary patient care specialist to a significant other at home: No Do you presently have visiting nurse or other home services: No Alcohol intake: current Alcohol intake frequency: a few times a week Alcohol type: beer Patient Tobacco Use Status: Former Tobacco user Tobacco use type: Cigarette e-Cigarette/Vaping Use: Never Used service: No Current occupational status: unemployed Cognitive needs: No Hearing needs: No Vision needs: No Questionnaire Thrive Questionnaire Date Thrive assessed: 04/26/24 I am a: Patient What is your living situation today?: I do not have a steady places to live I am living in an abandoned building Within the past 12 months, did the food you bought not last and you didn't have the money to get more?: Never true Within the past 12 months, did you worry whether your food would run out before you got money to buy more?: Never true Do you have trouble paying for medicines?: No Do you have trouble getting transportation to medical appointments?: No Do you have trouble paying your heating and electricity bill?: No Do you have trouble taking care of your child, family member or friend?: No Do you have trouble with day-to-day activities such as bathing, preparing meals, shopping, managing finances, etc.?: Yes Are you currently unemployed and looking for a job?: Yes Are you interested in more education?: No Please select the resources that you would like help with: Housing/Correction Currently or been in a relationship where the following occur: I choose not to answer THRIVE Score: 1 AUDIT C Alcohol Use Questionnaire (AUDIT-C) 1. How often do you have a drink containing alcohol?: Monthly or less 2. How many drinks containing alcohol do you have on a typical day when you are drinking?: 3 or 4 3. How often do you have six or more drinks on one occasion?: Never Total Score: 2 Score Reviewed/Action Taken: Yes MADI-7 AMB Questionnaire MADI-7 Date MADI - 7 assessed: 12/29/23 Source: Developed by Drs. Johnnie Hammonds, Laly Hoyt, León Norton and colleagues, with an educational maryanne from [employer]. Physical exam (Primary Care) Vital Signs: Last Vital Signs Pulse 65 04/26/24 11:10 BP 134/80 04/26/24 11:10 Pulse Ox 96 04/26/24 11:10 Oxygen Delivery Method Room Air 04/26/24 11:10 BMI result Body Mass Index 53.4 Tobacco/Smoking Status: Tobacco use Status Tobacco use date assessed 04/26/24 04/26/24 11:20 Patient Tobacco Use Status Former Tobacco user 04/26/24 11:11 Tobacco use type Cigarette 04/26/24 11:11 e-Cigarette/Vaping Use Never Used 04/26/24 11:11 Thrive Assessment: Date of Thrive Assessment Date Thrive assessed 04/26/24 04/26/24 11:20 Currently or been in a relationship where the following occur: I choose not to answer Coding Level of Care Code Est Pt Level 5 (29790) Complex EM visit Add On G2211 Diagnoses Varicose veins of bilateral lower extremities with other complications I83.893 Laterality: bilateral Varicose vein complication: other Long-term insulin use Z79.4 Morbid obesity E66.01 Diabetic polyneuropathy associated with type 2 diabetes mellitus E11.42 Essential hypertension I10 Hypertension type: essential hypertension Dyslipidemia E78.5 CKD stage 3 due to type 2 diabetes mellitus E11.22; N18.30 Localized edema R60.0 Edema type: localized Impaired mobility and ADLs Z74.09; Z78.9 Difficulty walking R26.2 Primary osteoarthritis of both knees M17.0 Osteoarthritis type: primary Restless leg syndrome G25.81 Anxiety, generalized F41.1 Recurrent major depressive disorder, in partial remission F33.41 Active/Remission status: in partial remission Lipid disorder E78.9 Irritable bowel syndrome with diarrhea K58.0 Irritable bowel syndrome type: with diarrhea Assessment & Plan Assessment & Plan (1) Varicose veins of lower extremity: Code(s): I83.90 - Asymptomatic varicose veins of unspecified lower extremity Category: Medical Qualifiers: Laterality: bilateral Varicose vein complication: other Qualified Code(s): I83.893 - Varicose veins of bilateral lower extremities with other complications (2) Long-term insulin use: Code(s): Z79.4 - 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 Category: Medical (3) Morbid obesity: Code(s): E66.01 - Morbid (severe) obesity due to excess calories Category: Medical (4) Diabetic polyneuropathy associated with type 2 diabetes mellitus: Code(s): E11.42 - Type 2 diabetes mellitus with diabetic polyneuropathy Category: Medical (5) Hypertension: Code(s): I10 - Essential (primary) hypertension Category: Medical Qualifiers: Hypertension type: essential hypertension Qualified Code(s): I10 - Essential (primary) hypertension (6) Dyslipidemia: Code(s): E78.5 - Hyperlipidemia, unspecified Category: Medical (7) CKD stage 3 due to type 2 diabetes mellitus: Code(s): E11.22 - Type 2 diabetes mellitus with diabetic chronic kidney disease; N18.30 - Chronic kidney disease, stage 3 unspecified Category: Medical (8) Edema: Code(s): R60.9 - Edema, unspecified Category: Medical Qualifiers: Edema type: localized Qualified Code(s): R60.0 - Localized edema (9) Impaired mobility and ADLs: Code(s): Z74.09 - Other reduced mobility; Z78.9 - Other specified health status Category: Medical (10) Difficulty walking: Code(s): R26.2 - Difficulty in walking, not elsewhere classified Category: Medical (11) Osteoarthritis of knees, bilateral: Code(s): M17.0 - Bilateral primary osteoarthritis of knee Category: Medical Qualifiers: Osteoarthritis type: primary Qualified Code(s): M17.0 - Bilateral primary osteoarthritis of knee (12) Restless leg syndrome: Code(s): G25.81 - Restless legs syndrome Category: Medical (13) Anxiety, generalized: Code(s): F41.1 - Generalized anxiety disorder Category: Medical (14) Depression, major, recurrent: Code(s): F33.9 - Major depressive disorder, recurrent, unspecified Category: Medical Qualifiers: Active/Remission status: in partial remission Qualified Code(s): F33.41 - Major depressive disorder, recurrent, in partial remission (15) Lipid disorder: Code(s): E78.9 - Disorder of lipoprotein metabolism, unspecified Category: Medical (16) Irritable bowel syndrome: Code(s): K58.9 - Irritable bowel syndrome, unspecified Category: Medical Qualifiers: Irritable bowel syndrome type: with diarrhea Qualified Code(s): K58.0 - Irritable bowel syndrome with diarrhea Plan - The patient is a 73-year-old female presenting with bilateral lower extremity edema. - Swelling has been present for an unspecified duration, unsuccessful with diuretic therapy. - Neuropathy reported as a tingly sensation under feet has been confirmed. - Recent echocardiogram reviewed with no significant cardiac issues observed. - Kidney function has been noted as compromised, contributing to edema. - Weight management is a concern due to obesity, with potential impact on edema. - History of anemia acknowledged, currently managed with iron supplementation. Problem List - Bilateral lower extremity edema - Peripheral neuropathy - Anemia - Obesity - Compromised renal function IBS stable Depression stable Anxiety stable Diabetes controlled Lipid disorder continue medications Thyroid: Continue levothyroxine 25 mcg Allergies controlled Restless leg stable with ropinirole Taking tramadol for pain control, aware of side effects Medications - Iron supplement for anemia - Previously prescribed diuretic for edema, though discontinued due to ineffectiveness Diagnostic results - Echocardiogram: No worrisome cardiac findings reported Review of Systems - Gastrointestinal: Reports black stools when taking iron supplements General: No fever no chills neurological: No headaches no dizziness ear nose throat: No sore throat no hearing difficulty no ear pain cardiovascular: No syncope, no chest pain, no palpitations gastrointestinal: No nausea vomiting or diarrhea endocrine: No polyuria polydipsia no heat intolerance genitourinary: No dysuria skin: No new complaints Physical Exam general: No acute distress, sitting in wheelchair accompanied by her daughter HEENT: No acute findings neck: Supple respiratory system: Able to talk in full sentences, no audible wheeze no stridor cardiovascular: S1-S2 gastrointestinal: Black stools, likely due to iron supplementation extremities: Swollen ankles 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 motor sensory intact skin: Normal turgor Patient Instructions - Continue taking iron supplements as previously directed - Follow up with the kidney specialist; I will send a message to expedite contact - Coordinate appointments with both the knee doctor and the vascular specialist - Check with your insurance to evaluate coverage options for weight management programs - Refrain from continuing with water pills since they are not providing relief from edema - Discuss with the kidney specialist about potentially starting phentermine for weight management after assessment of kidney function Continue all other medications Message is sent to vascular and Nephrology office 45 minutes spent in care of this patient Orders: Orders Hemoglobin A1c Today E11.42 - Type 2 diabetes mellitus with diabetic polyneuropathy, E66.01 - Morbid (severe) obesity due to excess calories, E78.5 - Hyperlipidemia, unspecified, I10 - Essential (primary) hypertension, I83.893 - Varicose veins of bilateral lower extremities with other complications, Z79.4 - 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 Testosterone, Total Today E11.42 - Type 2 diabetes mellitus with diabetic polyneuropathy, E66.01 - Morbid (severe) obesity due to excess calories, E78.5 - Hyperlipidemia, unspecified, I10 - Essential (primary) hypertension, I83.893 - Varicose veins of bilateral lower extremities with other complications, Z79.4 - 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 Ferritin Today E11.42 - Type 2 diabetes mellitus with diabetic polyneuropathy, E66.01 - Morbid (severe) obesity due to excess calories, E78.5 - Hyperlipidemia, unspecified, I10 - Essential (primary) hypertension, I83.893 - Varicose veins of bilateral lower extremities with other complications, Z79.4 - 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 Panel Fast Today E11.42 - Type 2 diabetes mellitus with diabetic polyneuropathy, E66.01 - Morbid (severe) obesity due to excess calories, E78.5 - Hyperlipidemia, unspecified, I10 - Essential (primary) hypertension, I83.893 - Varicose veins of bilateral lower extremities with other complications, Z79.4 - prison (current) use of insulin Lipid Panel Today E11.42 - Type 2 diabetes mellitus with diabetic polyneuropathy, E66.01 - Morbid (severe) obesity due to excess calories, E78.5 - Hyperlipidemia, unspecified, I10 - Essential (primary) hypertension, I83.893 - Varicose veins of bilateral lower extremities with other complications, Z79.4 - prison (current) use of insulin Referrals Nephrology Referral E11.22 - Type 2 diabetes mellitus with diabetic chronic kidney disease, N18.30 - Chronic kidney disease, stage 3 unspecified
== END 2024-04-26 11:39 | disposition home or self-care (01) ==
PROVIDERS: PCP Internal Medicine; Visit Provider Internal Medicine
DX: I12.9 Hypertensive chronic kidney disease with stage 1 through stage 4 chronic kidney disease, or unspecified chronic kidney disease (principal); E11.42 Type 2 diabetes mellitus with diabetic polyneuropathy; E66.01 Morbid (severe) obesity due to excess calories; Z79.4 Long term (current) use of insulin; E11.22 Type 2 diabetes mellitus with diabetic chronic kidney disease; F33.41 Major depressive disorder, recurrent, in partial remission; N18.30 Chronic kidney disease, stage 3 unspecified; I83.893 Varicose veins of bilateral lower extremities with other complications; E78.5 Hyperlipidemia, unspecified; R60.0 Localized edema; Z74.09 Other reduced mobility; Z78.9 Other specified health status

== ENCOUNTER 2024-05-13 09:42 | Outpatient (AMB) | payer MEDICARE, MEDICAID, SELFPAY ==
--- NOTE | 2024-05-13 09:57 | HO.NEPHOV ---
Vital Signs 05/13/24 10:01 Height 4 ft 10 in Weight 263 lb BMI 55.0 BP 132/80 Blood Pressure Location Lt radial Position Sitting Pulse 67 Pulse Source Pulse Oximeter Pulse Oximetry (%) 97 Oxygen Delivery Method Room Air Intake Visit Reasons: INP: CKD/ Conf Association Executive Required: No Accompanied by: Daughter Allergies adhesive tape [Adhesive Tape] Allergy (Severe, Verified 05/13/24 10:01) BLISTERS dairy products Allergy (Severe, Verified 05/13/24 10:01) GI upset semaglutide [From Ozempic] Allergy (Severe, Verified 05/13/24 10:01) Diarrhea NSAIDS (Non-Steroidal Anti-Inflamma Adverse Reaction (Verified 05/13/24 10:01) Nephropathy Medication List - Last Reconciled 05/13/24 by Vitor Lay MD acetaminophen ER (Tylenol Arthritis Pain) 650 mg PO Q8H PRN [Adult Pull-ups As directed] [adult pull-ups size As directed] albuterol sulfate 90 mcg/actuation 2 puffs inhalation Q4H PRN alcohol swabs (Alcohol Pads) 1 pad topical TIDWMEAL blood sugar diagnostic (OneTouch Ultra Test strips) tid esting 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 meter (OneTouch Ultra2 Meter) tid testing 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 meter,continuous (FreeStyle Ihsan 3 [place]) As directed 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 sensor (FreeStyle Ihsan 3 Sensor device) As directed bupropion HCl SR 200 mg PO DAILY carvedilol 6.25 mg PO BID [cloth bed pads As directed] dicyclomine 10 mg PO BID PRN 90 days fenofibrate 160 mg PO DAILY 90 days ferrous sulfate 324 mg PO BID 90 days fluoxetine 40 mg PO DAILY 90 days furosemide 20 mg PO DAILY insulin degludec (Tresiba FlexTouch U-200 insulin) 15 units (0.075 mL) subcut BID 90 days lancets tid testing lancets Use to check blood sugars three times a day levothyroxine 25 mcg PO DAILY loratadine (Allergy Relief (loratadine)) 10 mg PO DAILY 90 days metoprolol succinate ER 25 mg PO BEDTIME nystatin 1 appl topical DAILY 30 days [panty liners As directed] pen needle, diabetic daily pen needle, diabetic (BD Nadya 2nd Gen Pen Needle) 1 ea miscellaneous BID ropinirole 0.5 mg PO BEDTIME 90 days simvastatin 20 mg PO DAILY 90 days tramadol 50 mg PO Q8H PRN 7 days HPI Comments Details: Melvina is a pleasant 73-year-old woman with a history of longstanding diabetes mellitus and obesity. She has been referred for leg edema. She was history of chronic kidney disease. Serum creatinine has been around 1.5-1.7 mg/dL. However the recent serum creatinine was around 1.18 mg/dL as of April 26. She was on Lasix 20 mg a day she ran out of it about a month ago. She has a history of obstructive sleep apnea. She does not use CPAP. Recently echocardiogram with the heart was unremarkable. No mention of pulmonary hypertension. She claims to be on low-sodium diet. Recent urine microalbumin creatinine ratio was 42.4 and a as of October 2019 urine protein creatinine ratio was 0.21. Urinalysis was otherwise unremarkable. She does have mild anemia with a hemoglobin of 11.4 PFSH Medical History Restrictive lung disease Breast cancer COVID-19 vaccine series completed Dyspnea on exertion OZ (obstructive sleep apnea) Morbid obesity with BMI of 50.0-59.9, adult Diabetic polyneuropathy associated with type 2 diabetes mellitus Hypertension Dyslipidemia CKD stage 3 due to type 2 diabetes mellitus Diabetic nephropathy associated with type 2 diabetes mellitus assisted (current) 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 Other Mental health disorder Substance use disorder Social History Household Members: Family Housing: House Are you a primary campground caretaker to a significant other at home: No Do you presently have visiting nurse or other home services: No Alcohol intake: current Alcohol intake frequency: a few times a week Alcohol type: beer Patient Tobacco Use Status: Former Tobacco user Tobacco use type: Cigarette e-Cigarette/Vaping Use: Never Used service: No Current occupational status: unemployed Cognitive needs: No Hearing needs: No Vision needs: No Review of Systems Const Denies fever(s) and Denies weight loss Card Denies chest pain Resp Denies cough and Denies hemoptysis GI Denies abdominal pain, Denies diarrhea and Denies nausea Musc Denies back pain Neuro Denies focal weakness Physical Exam Vital Signs: Last Vital Signs Pulse 67 05/13/24 10:01 BP 132/80 05/13/24 10:01 Pulse Ox 97 05/13/24 10:01 Oxygen Delivery Method Room Air 05/13/24 10:01 BMI result Body Mass Index 55.0 Const General: comfortable; No acute distress Orientation/consciousness: patient oriented x3 Eyes General: appearance normal, both eyes and all related structures Neck Neck: Yes supple and No JVD Resp Effort & Inspection: normal respiratory effort and respiratory effort not decreased Cardio Palpation: no palpable S3 and no palpable S4 Heart sounds: no rubs GI Inspection: Yes normal to inspection Palpation (GI): Soft to palpation Percussion: Yes normal to percussion Auscultation: normal bowel sounds General: No CVA tenderness Back/Spine/Pelvis Back: No CVA tenderness Skin General skin exam: no petechiae and no purpura Neuro General: patient oriented x3 and no focal motor deficits Extrem General: No clubbing and No edema Results Reviewed Nephrology Results: Hgb 11.4 g/dl (12.0-16.0) L 04/26/24 WBC 7.4 X10*3/uL (4.8-10.8) 04/26/24 Plt Count 328 X10*3/uL (160-400) 04/26/24 Sodium 141 mmol/L (135-145) 04/26/24 Potassium 4.6 mmol/L (3.3-5.1) 04/26/24 Chloride 109 mmol/L (96-108) H 04/26/24 Carbon Dioxide 26 mmol/L (22-29) 04/26/24 BUN 24 mg/dL (9-16) H 04/26/24 Creatinine 1.18 mg/dL (0.5-1.4) 04/26/24 Calcium 9.0 mg/dL (8.4-10.2) 04/26/24 Assessment & Plan Assessment & Plan (1) CKD stage 3 due to type 2 diabetes mellitus: Code(s): E11.22 - Type 2 diabetes mellitus with diabetic chronic kidney disease; N18.30 - Chronic kidney disease, stage 3 unspecified Category: Medical (2) Edema: Code(s): R60.9 - Edema, unspecified Category: Medical Qualifiers: Edema type: localized Qualified Code(s): R60.0 - Localized edema Plan 73-year-old woman with a history of longstanding diabetes mellitus and obesity has CKD 3B. This is most likely due to underlying diabetic kidney disease. I believe her baseline serum creatinine is around 1.2 mg/dL. I have ordered a basic workup for CKD including renal ultrasonogram and urine studies. Over the last few years renal function has been relatively stable. Goal is to slow the progression of renal disease. Discussed importance of tight control of blood sugar. Maintain blood pressure less than 130/80. She will benefit from low-dose MARGO inhibitors or ARB use. Next step would be to add an SGLT2 inhibitor as well. Leg edema. She has minimal edema. She should stay on low-sodium diet. I have encouraged her to use CPAP regularly. I will add low-dose of Lasix 20 mg once a day and monitor the renal function and edema. Orders: Orders Creatinine Urine Today Vitor Lay MD E11.22 - Type 2 diabetes mellitus with diabetic chronic kidney disease, N18.30 - Chronic kidney disease, stage 3 unspecified, R60.0 - Localized edema UA and rflx microscopic Today Vitor Lay MD E11.22 - Type 2 diabetes mellitus with diabetic chronic kidney disease, N18.30 - Chronic kidney disease, stage 3 unspecified, R60.0 - Localized edema US renal BI Today Vitor Lay MD E11.22 - Type 2 diabetes mellitus with diabetic chronic kidney disease, I10 - Essential (primary) hypertension, N18.30 - Chronic kidney disease, stage 3 unspecified, R60.0 - Localized edema Complete Blood Count no Diff Today Vitor Lay MD E11.22 - Type 2 diabetes mellitus with diabetic chronic kidney disease, N18.30 - Chronic kidney disease, stage 3 unspecified, R60.0 - Localized edema Total Protein Urine Random Today Vitor Lay MD E11.22 - Type 2 diabetes mellitus with diabetic chronic kidney disease, N18.30 - Chronic kidney disease, stage 3 unspecified, R60.0 - Localized edema Comprehensive Met. Panel Today Vitor Lay MD E11.22 - Type 2 diabetes mellitus with diabetic chronic kidney disease, N18.30 - Chronic kidney disease, stage 3 unspecified, R60.0 - Localized edema Medications: Changed From bupropion HCl SR Only 1 tablet a day 200 mg PO ONCE 90 days 90 tabs 0RF To bupropion HCl SR Only 1 tablet a day 200 mg PO DAILY Juan Santos, MABEL- Refilled furosemide 20 mg PO DAILY 30 tabs 1RF Vitor Lay MD R60.0 - Localized edema Coding Level of Care Code New Pt Level 4 (71577) Diagnoses CKD stage 3 due to type 2 diabetes mellitus E11.22; N18.30 Localized edema R60.0 Edema type: localized
[2024-05-13 10:01] VITALS: BP 132/80; PULSE 67; O2SAT 97; BMI 55.0
--- OUTSIDE RECORDS SUMMARY | 2024-05-13 10:51 | XMS_ITS | Clinical Summary ---
Author Organization Unknown Care Team Providers Care Agricultural Mechanic Name Role Phone MARIA ISABEL CHAVEZ, PAULA Unavailable Unavailable ADAM RN, DOUGLAS Unavailable Unavailable MIMI VACAN, CHARLENE Unavailable Unavailable LUDWIN PT, NIKKI Unavailable Unavailable KARLEE SUPERVISOR SCREEN PRINTING, MICHAEL Unavailable Unavailable SPAFFORD OT, NETO Unavailable Unavailable CONDINO FORM STRIPPER/RIVERO, YUNIEL Unavailable Unav ailable Payers Payer Name Policy Type Policy Number Effective Date Expira tion Date [id number] Problems Condition Name Condition Details Condition Category [...] HISTORY OF FALLING Active 12-11 00:00: 00 CIGARETTE PAPER TESTER (CURRENT) USE OF INSULIN Active 04-27 00:00: [...] 500 mg tablet 12-11 00:00: 00 Yes [id number] PAIN 2 tablet 3 TIMES DAILY 2 tablet 3 TIMES DAILY (route: oral) Med Classific ation: Analgesic , Anti-infl ammatory or Antipyret ic Advair HFA 230 mcg-21 mcg/actuati on aerosol inhaler 12-11 00:00: 00 Yes [id number] COPD 2 puff 2 TIMES DAILY 2 puff 2 TIMES DAILY (route: inhalation ) Med Classific ation: Respirato ry Therapy Agents amlodipine 10 mg tablet 12-11 00:00: 00 Yes [id number] HTN 1 tablet DAILY 1 tablet DAILY (route: oral) Med Classific ation: Cardiovas cular Therapy Agents bupropion HCl SR 200 mg tablet,12 hr sustained-r elease 12-11 00:00: 00 Yes [id number] DEPRESSION 1 tablet DAILY 1 tablet DAILY (route: oral) Med Classific ation: Central Nervous System Agents carvedilol 6.25 mg tablet 12-11 00:00: 00 Yes [id number] HTN 1 tablet 2 TIMES DAILY 1 tablet 2 TIMES DAILY (route: oral) Med Classific ation: Cardiovas cular Therapy Agents famotidine 20 mg tablet 12-11 00:00: 00 Yes [id number] GERD 1 tablet 2 TIMES DAILY 1 tablet 2 TIMES DAILY (route: oral) Med Classific ation: Gastroint estinal Therapy Agents fenofibrate 160 mg tablet 12-11 00:00: 00 Yes [id number] CHOLEST 1 tablet DAILY 1 tablet DAILY (route: oral) Med Classific ation: Cardiovas cular Therapy Agents fluoxetine 40 mg capsule 12-11 00:00: 00 Yes [id number] DEPRESSION 1 capsule DAILY 1 capsule DAILY (route: oral) Med Classific ation: Central Nervous System Agents loratadine 10 mg capsule 12-11 00:00: 00 Yes [id number] ALLERGIES 1 capsule DAILY 1 capsule DAILY (route: oral) Med Classific ation: Respirato ry Therapy Agents metoprolol succinate ER 25 mg tablet,exte nded release 24 hr 12-11 00:00: 00 Yes [id number] HTN 1 tablet DAILY 1 tablet DAILY (route: oral) Med Classific ation: Cardiovas cular Therapy Agents Senna Lax 8.6 mg tablet 12-11 00:00: 00 Yes [id number] LAXATIVE 2 tablet DAILY 2 tablet DAILY (route: oral) Med Classific ation: Gastroint estinal Therapy Agents simvastatin 20 mg tablet 12-11 00:00: 00 Yes [id number] CHOLESTEROL 1 tablet DAILY 1 tablet DAILY (route: oral) Med Classific ation: Cardiovas cular Therapy Agents Tresiba FlexTouch U-100 insulin 100 unit/mL (3 mL) subcutaneou s pen 12-11 00:00: 00 Yes [id number] DM 20 unit 2 TIMES DAILY 20 unit 2 TIMES DAILY (route: subcutaneo us) Med Classific ation: Endocrine levothyroxi ne 25 mcg tablet 01-12 00:00: 00 Yes [id number] HYPOTHYROID ISM 1 tablet DAILY 1 tablet DAILY (route: oral) Med Classific ation: Endocrine meloxicam 15 mg tablet 01-24 00:00: 00 Yes [id number] PAIN 1 tablet DAILY 1 tablet DAILY [...] FOR RESP STATUS CHANGES FOR RN TO ASSESS/ACID EXTRACTOR TO OBSERVE PATIENT, WITH NOTIFICATION TO THE [...] FOR RESP STATUS CHANGES FOR RN TO ASSESS/ACID EXTRACTOR TO OBSERVE PATIENT, WITH NOTIFICATION TO THE [...] TO EVALUATE, OBSERVE / ASSESS, AND MONITOR, FORM STRIPPER TO OBSERVE AND MONITOR, PROVIDE SKILLED THERAPEUTIC INTERVENTION, ACTIVITY, EDUCATION, AND TRAINING TO ADDRESS; PERSONAL HYGIENE/GROOMING (OT/CJ) TOILET TRANSFER (OT/FORM STRIPPER) WHEELCHAIR TRANSFER (OT/FORM STRIPPER) HOME ACTIVITY / EXERCISE PROGRAM (OT/CJ) POSTURAL CONTROL/BALANCE (OT/FORM STRIPPER) THERAPEUTIC EXERCISE (OT/FORM STRIPPER) OT/CJ TO MONITOR AND EDUCATE ON OXYGEN SATURATION DURING ADLS/IADLS, NOTIFY PHYSICIAN AND/OR THE RN CLINICAL WAITER/WAITRESS CABIN CLASS FOR PHYSICIAN NOTIFICATION AND IF O2 SATS BELOW 90% AFTER 10 MIN OF REST. OT / CJ TO IDENTIFY FALL RISK FACTORS; EDUCATE THE PATIENT/CAREGIVER ON WAYS TO REDUCE FALL RISK FACTORS AND ESTABLISH HOME EXERCISE PROGRAM TO MINIMIZE FALL RISK. MAY TEACH THE PATIENT FLOOR RECOVERY WHEN CLINICALLY APPROPRIATE. OT/FORM STRIPPER MAY EDUCATE ON PAIN MANAGEMENT CLINICALLY INDICATED, INCLUDING NON-PHARMACOLOGICAL PAIN REDUCTION TECHNIQUES. [code = AGENCY MAY PERFORM A RESUMPTION OF CARE VISIT FOLLOWING ANY HOSPITAL ADMISSION. OT TO EVALUATE, OBSERVE / ASSESS, AND MONITOR, FORM STRIPPER TO OBSERVE AND MONITOR, PROVIDE SKILLED THERAPEUTIC INTERVENTION, ACTIVITY, EDUCATION, AND TRAINING TO ADDRESS; PERSONAL HYGIENE/GROOMING (OT/CJ) TOILET TRANSFER (OT/FORM STRIPPER) WHEELCHAIR TRANSFER (OT/FORM STRIPPER) HOME ACTIVITY / EXERCISE PROGRAM (OT/FORM STRIPPER) POSTURAL CONTROL/BALANCE (OT/FORM STRIPPER) THERAPEUTIC EXERCISE (OT/CJ) OT/FORM STRIPPER TO MONITOR AND EDUCATE ON OXYGEN SATURATION DURING ADLS/IADLS, NOTIFY PHYSICIAN AND/OR THE RN CLINICAL WAITER/WAITRESS CABIN CLASS FOR PHYSICIAN NOTIFICATION AND IF O2 SATS BELOW 90% AFTER 10 MIN OF REST. OT / FORM STRIPPER TO IDENTIFY FALL RISK FACTORS; EDUCATE THE PATIENT/CAREGIVER ON WAYS TO REDUCE FALL RISK FACTORS AND ESTABLISH HOME EXERCISE PROGRAM TO MINIMIZE FALL RISK. MAY TEACH THE PATIENT FLOOR RECOVERY WHEN CLINICALLY APPROPRIATE. OT/FORM STRIPPER MAY EDUCATE ON PAIN MANAGEMENT CLINICALLY INDICATED, INCLUDING NON-PHARMACOLOGICAL PAIN REDUCTION TECHNIQUES. ] Future Scheduled Test AGENCY MAY PERFORM A RESUMPTION OF CARE VISIT FOLLOWING ANY HOSPITAL ADMISSION. PT TO EVALUATE, OBSERVE / ASSESS, AND MONITOR, SUPERVISOR SCREEN PRINTING TO OBSERVE AND MONITOR, PROVIDE SKILLED THERAPEUTIC INTERVENTION, ACTIVITY, EDUCATION, AND TRAINING TO ADDRESS; PT/SUPERVISOR SCREEN PRINTING TO PROVIDE GAIT TRAINING FOR IMPROVED MOBILITY AND /OR TO NORMALIZE GAIT PATTERN NEUROMUSCULAR RE-EDUCATION / BALANCE / POSTURAL CONTROL (PT) THERAPEUTIC EXERCISES AND ESTABLISHING A HOME EXERCISE PROGRAM (PT/SUPERVISOR SCREEN PRINTING) PT/SUPERVISOR SCREEN PRINTING TO PROVIDE STAIR TRAINING CHAIR TRANSFERS (PT/SUPERVISOR SCREEN PRINTING) PT / SUPERVISOR SCREEN PRINTING MAY EDUCATE ON PAIN MANAGEMENT CLINICALLY INDICATED, INCLUDING NON-PHARMACOLOGICAL PAIN REDUCTION TECHNIQUES AND USE OF CRYOTHERAPY OR HEAT UP TO 20 MIN AT A TIME FOR PAIN MANAGEMENT 3 TIMES PER DAY TO BILATERAL KNEES. PT / SUPERVISOR SCREEN PRINTING TO MONITOR FOR HYPO/HYPERGLYCEMIA AND CONDUCT ROUTINE FOOT INSPECTIONS. RECORD PATIENT REPORTED BLOOD SUGAR LEVELS AND NOTIFY PHYSICIAN AND/OR THE RN CLINICAL WAITER/WAITRESS CABIN CLASS FOR PHYSICIAN NOTIFICATION IF BLOOD SUGAR LEVELS ARE OUTSIDE ORDERED PARAMETERS. TEACH PATIENT/CAREGIVER ON DAILY FOOT INSPECTIONS PT/SUPERVISOR SCREEN PRINTING TO IDENTIFY FALL RISK FACTORS; EDUCATE THE PATIENT/CAREGIVER ON WAYS TO REDUCE FALL RISK FACTORS AND ESTABLISH HOME EXERCISE PROGRAM TO MINIMIZE FALL RISK. MAY TEACH THE PATIENT FLOOR RECOVERY WHEN CLINICALLY APPROPRIATE [code = AGENCY MAY PERFORM A RESUMPTION OF CARE VISIT FOLLOWING ANY HOSPITAL ADMISSION. PT TO EVALUATE, OBSERVE / ASSESS, AND MONITOR, SUPERVISOR SCREEN PRINTING TO OBSERVE AND MONITOR, PROVIDE SKILLED THERAPEUTIC INTERVENTION, ACTIVITY, EDUCATION, AND TRAINING TO ADDRESS; PT/SUPERVISOR SCREEN PRINTING TO PROVIDE GAIT TRAINING FOR IMPROVED MOBILITY AND /OR TO NORMALIZE GAIT PATTERN NEUROMUSCULAR RE-EDUCATION / BALANCE / POSTURAL CONTROL (PT) THERAPEUTIC EXERCISES AND ESTABLISHING A HOME EXERCISE PROGRAM (PT/SUPERVISOR SCREEN PRINTING) PT/SUPERVISOR SCREEN PRINTING TO PROVIDE STAIR TRAINING CHAIR TRANSFERS (PT/SUPERVISOR SCREEN PRINTING) PT / SUPERVISOR SCREEN PRINTING MAY EDUCATE ON PAIN MANAGEMENT CLINICALLY INDICATED, INCLUDING NON-PHARMACOLOGICAL PAIN REDUCTION TECHNIQUES AND USE OF CRYOTHERAPY OR HEAT UP TO 20 MIN AT A TIME FOR PAIN MANAGEMENT 3 TIMES PER DAY TO BILATERAL KNEES. PT / SUPERVISOR SCREEN PRINTING TO MONITOR FOR HYPO/HYPERGLYCEMIA AND CONDUCT ROUTINE FOOT INSPECTIONS. RECORD PATIENT REPORTED BLOOD SUGAR LEVELS AND NOTIFY PHYSICIAN AND/OR THE RN CLINICAL WAITER/WAITRESS CABIN CLASS FOR PHYSICIAN NOTIFICATION IF BLOOD SUGAR LEVELS ARE OUTSIDE ORDERED PARAMETERS. TEACH PATIENT/CAREGIVER ON DAILY FOOT INSPECTIONS PT/SUPERVISOR SCREEN PRINTING TO IDENTIFY FALL RISK FACTORS; EDUCATE THE [...] 2024-02-05 00:00:00 Outpatient NEW ADMISSION DOUGLAS [facility] [id number] 2024-02-05 00:00:00 DISCHARGE TO HOME OR SELF CARE INDEPENDEN T WITH USE OF ASSISTIVE DEVICE HH OR PAL- GOALS MET 64.44
--- OUTSIDE RECORDS SUMMARY | 2024-05-13 10:52 | XMS_ITS | Clinical Summary ---
Author Organization Unknown Care Team Providers Care Research Project Coordinator Name Role Phone MARIA ISABEL CHAVEZ, PAULA Unavailable Unavailable ADAM RN, DOUGLAS Unavailable Unavailable MIMI VACAN, CHARLENE Unavailable Unavailable LUDWIN PT, NIKKI Unavailable Unavailable KARLEE ASPHALT ROLLER OPERATOR, MICHAEL Unavailable Unavailable SPAFFORD OT, NETO Unavailable Unavailable CONDINO REGIONAL ACCOUNT MANAGER/RIVERO, YUNIEL Unavailable Unav ailable Payers Payer Name Policy Type Policy Number Effective Date Expira tion Date [id number] Problems Condition Name Condition Details Condition Category [...] HISTORY OF FALLING Active 12-11 00:00: 00 CREDIT AUTHORIZER (CURRENT) USE OF INSULIN Active 04-27 00:00: [...] 500 mg tablet 12-11 00:00: 00 Yes [id number] PAIN 2 tablet 3 TIMES DAILY 2 tablet 3 TIMES DAILY (route: oral) Med Classific ation: Analgesic , Anti-infl ammatory or Antipyret ic Advair HFA 230 mcg-21 mcg/actuati on aerosol inhaler 12-11 00:00: 00 Yes [id number] COPD 2 puff 2 TIMES DAILY 2 puff 2 TIMES DAILY (route: inhalation ) Med Classific ation: Respirato ry Therapy Agents amlodipine 10 mg tablet 12-11 00:00: 00 Yes [id number] HTN 1 tablet DAILY 1 tablet DAILY (route: oral) Med Classific ation: Cardiovas cular Therapy Agents bupropion HCl SR 200 mg tablet,12 hr sustained-r elease 12-11 00:00: 00 Yes [id number] DEPRESSION 1 tablet DAILY 1 tablet DAILY (route: oral) Med Classific ation: Central Nervous System Agents carvedilol 6.25 mg tablet 12-11 00:00: 00 Yes [id number] HTN 1 tablet 2 TIMES DAILY 1 tablet 2 TIMES DAILY (route: oral) Med Classific ation: Cardiovas cular Therapy Agents famotidine 20 mg tablet 12-11 00:00: 00 Yes [id number] GERD 1 tablet 2 TIMES DAILY 1 tablet 2 TIMES DAILY (route: oral) Med Classific ation: Gastroint estinal Therapy Agents fenofibrate 160 mg tablet 12-11 00:00: 00 Yes [id number] CHOLEST 1 tablet DAILY 1 tablet DAILY (route: oral) Med Classific ation: Cardiovas cular Therapy Agents fluoxetine 40 mg capsule 12-11 00:00: 00 Yes [id number] DEPRESSION 1 capsule DAILY 1 capsule DAILY (route: oral) Med Classific ation: Central Nervous System Agents loratadine 10 mg capsule 12-11 00:00: 00 Yes [id number] ALLERGIES 1 capsule DAILY 1 capsule DAILY (route: oral) Med Classific ation: Respirato ry Therapy Agents metoprolol succinate ER 25 mg tablet,exte nded release 24 hr 12-11 00:00: 00 Yes [id number] HTN 1 tablet DAILY 1 tablet DAILY (route: oral) Med Classific ation: Cardiovas cular Therapy Agents Senna Lax 8.6 mg tablet 12-11 00:00: 00 Yes [id number] LAXATIVE 2 tablet DAILY 2 tablet DAILY (route: oral) Med Classific ation: Gastroint estinal Therapy Agents simvastatin 20 mg tablet 12-11 00:00: 00 Yes [id number] CHOLESTEROL 1 tablet DAILY 1 tablet DAILY (route: oral) Med Classific ation: Cardiovas cular Therapy Agents Tresiba FlexTouch U-100 insulin 100 unit/mL (3 mL) subcutaneou s pen 12-11 00:00: 00 Yes [id number] DM 20 unit 2 TIMES DAILY 20 unit 2 TIMES DAILY (route: subcutaneo us) Med Classific ation: Endocrine levothyroxi ne 25 mcg tablet 01-12 00:00: 00 Yes [id number] HYPOTHYROID ISM 1 tablet DAILY 1 tablet DAILY (route: oral) Med Classific ation: Endocrine meloxicam 15 mg tablet 01-24 00:00: 00 Yes [id number] PAIN 1 tablet DAILY 1 tablet DAILY [...] FOR RESP STATUS CHANGES FOR RN TO ASSESS/BLOCK HAND TO OBSERVE PATIENT, WITH NOTIFICATION TO THE [...] FOR RESP STATUS CHANGES FOR RN TO ASSESS/BLOCK HAND TO OBSERVE PATIENT, WITH NOTIFICATION TO THE [...] TO EVALUATE, OBSERVE / ASSESS, AND MONITOR, REGIONAL ACCOUNT MANAGER TO OBSERVE AND MONITOR, PROVIDE SKILLED THERAPEUTIC INTERVENTION, ACTIVITY, EDUCATION, AND TRAINING TO ADDRESS; PERSONAL HYGIENE/GROOMING (OT/CJ) TOILET TRANSFER (OT/REGIONAL ACCOUNT MANAGER) WHEELCHAIR TRANSFER (OT/REGIONAL ACCOUNT MANAGER) HOME ACTIVITY / EXERCISE PROGRAM (OT/CJ) POSTURAL CONTROL/BALANCE (OT/REGIONAL ACCOUNT MANAGER) THERAPEUTIC EXERCISE (OT/REGIONAL ACCOUNT MANAGER) OT/CJ TO MONITOR AND EDUCATE ON OXYGEN SATURATION DURING ADLS/IADLS, NOTIFY PHYSICIAN AND/OR THE RN CLINICAL METROLOGY TECHNICIAN FOR PHYSICIAN NOTIFICATION AND IF O2 SATS BELOW 90% AFTER 10 MIN OF REST. OT / CJ TO IDENTIFY FALL RISK FACTORS; EDUCATE THE PATIENT/CAREGIVER ON WAYS TO REDUCE FALL RISK FACTORS AND ESTABLISH HOME EXERCISE PROGRAM TO MINIMIZE FALL RISK. MAY TEACH THE PATIENT FLOOR RECOVERY WHEN CLINICALLY APPROPRIATE. OT/REGIONAL ACCOUNT MANAGER MAY EDUCATE ON PAIN MANAGEMENT CLINICALLY INDICATED, INCLUDING NON-PHARMACOLOGICAL PAIN REDUCTION TECHNIQUES. [code = AGENCY MAY PERFORM A RESUMPTION OF CARE VISIT FOLLOWING ANY HOSPITAL ADMISSION. OT TO EVALUATE, OBSERVE / ASSESS, AND MONITOR, REGIONAL ACCOUNT MANAGER TO OBSERVE AND MONITOR, PROVIDE SKILLED THERAPEUTIC INTERVENTION, ACTIVITY, EDUCATION, AND TRAINING TO ADDRESS; PERSONAL HYGIENE/GROOMING (OT/CJ) TOILET TRANSFER (OT/REGIONAL ACCOUNT MANAGER) WHEELCHAIR TRANSFER (OT/REGIONAL ACCOUNT MANAGER) HOME ACTIVITY / EXERCISE PROGRAM (OT/REGIONAL ACCOUNT MANAGER) POSTURAL CONTROL/BALANCE (OT/REGIONAL ACCOUNT MANAGER) THERAPEUTIC EXERCISE (OT/CJ) OT/REGIONAL ACCOUNT MANAGER TO MONITOR AND EDUCATE ON OXYGEN SATURATION DURING ADLS/IADLS, NOTIFY PHYSICIAN AND/OR THE RN CLINICAL METROLOGY TECHNICIAN FOR PHYSICIAN NOTIFICATION AND IF O2 SATS BELOW 90% AFTER 10 MIN OF REST. OT / REGIONAL ACCOUNT MANAGER TO IDENTIFY FALL RISK FACTORS; EDUCATE THE PATIENT/CAREGIVER ON WAYS TO REDUCE FALL RISK FACTORS AND ESTABLISH HOME EXERCISE PROGRAM TO MINIMIZE FALL RISK. MAY TEACH THE PATIENT FLOOR RECOVERY WHEN CLINICALLY APPROPRIATE. OT/REGIONAL ACCOUNT MANAGER MAY EDUCATE ON PAIN MANAGEMENT CLINICALLY INDICATED, INCLUDING NON-PHARMACOLOGICAL PAIN REDUCTION TECHNIQUES. ] Future Scheduled Test AGENCY MAY PERFORM A RESUMPTION OF CARE VISIT FOLLOWING ANY HOSPITAL ADMISSION. PT TO EVALUATE, OBSERVE / ASSESS, AND MONITOR, ASPHALT ROLLER OPERATOR TO OBSERVE AND MONITOR, PROVIDE SKILLED THERAPEUTIC INTERVENTION, ACTIVITY, EDUCATION, AND TRAINING TO ADDRESS; PT/ASPHALT ROLLER OPERATOR TO PROVIDE GAIT TRAINING FOR IMPROVED MOBILITY AND /OR TO NORMALIZE GAIT PATTERN NEUROMUSCULAR RE-EDUCATION / BALANCE / POSTURAL CONTROL (PT) THERAPEUTIC EXERCISES AND ESTABLISHING A HOME EXERCISE PROGRAM (PT/ASPHALT ROLLER OPERATOR) PT/ASPHALT ROLLER OPERATOR TO PROVIDE STAIR TRAINING CHAIR TRANSFERS (PT/ASPHALT ROLLER OPERATOR) PT / ASPHALT ROLLER OPERATOR MAY EDUCATE ON PAIN MANAGEMENT CLINICALLY INDICATED, INCLUDING NON-PHARMACOLOGICAL PAIN REDUCTION TECHNIQUES AND USE OF CRYOTHERAPY OR HEAT UP TO 20 MIN AT A TIME FOR PAIN MANAGEMENT 3 TIMES PER DAY TO BILATERAL KNEES. PT / ASPHALT ROLLER OPERATOR TO MONITOR FOR HYPO/HYPERGLYCEMIA AND CONDUCT ROUTINE FOOT INSPECTIONS. RECORD PATIENT REPORTED BLOOD SUGAR LEVELS AND NOTIFY PHYSICIAN AND/OR THE RN CLINICAL METROLOGY TECHNICIAN FOR PHYSICIAN NOTIFICATION IF BLOOD SUGAR LEVELS ARE OUTSIDE ORDERED PARAMETERS. TEACH PATIENT/CAREGIVER ON DAILY FOOT INSPECTIONS PT/ASPHALT ROLLER OPERATOR TO IDENTIFY FALL RISK FACTORS; EDUCATE THE PATIENT/CAREGIVER ON WAYS TO REDUCE FALL RISK FACTORS AND ESTABLISH HOME EXERCISE PROGRAM TO MINIMIZE FALL RISK. MAY TEACH THE PATIENT FLOOR RECOVERY WHEN CLINICALLY APPROPRIATE [code = AGENCY MAY PERFORM A RESUMPTION OF CARE VISIT FOLLOWING ANY HOSPITAL ADMISSION. PT TO EVALUATE, OBSERVE / ASSESS, AND MONITOR, ASPHALT ROLLER OPERATOR TO OBSERVE AND MONITOR, PROVIDE SKILLED THERAPEUTIC INTERVENTION, ACTIVITY, EDUCATION, AND TRAINING TO ADDRESS; PT/ASPHALT ROLLER OPERATOR TO PROVIDE GAIT TRAINING FOR IMPROVED MOBILITY AND /OR TO NORMALIZE GAIT PATTERN NEUROMUSCULAR RE-EDUCATION / BALANCE / POSTURAL CONTROL (PT) THERAPEUTIC EXERCISES AND ESTABLISHING A HOME EXERCISE PROGRAM (PT/ASPHALT ROLLER OPERATOR) PT/ASPHALT ROLLER OPERATOR TO PROVIDE STAIR TRAINING CHAIR TRANSFERS (PT/ASPHALT ROLLER OPERATOR) PT / ASPHALT ROLLER OPERATOR MAY EDUCATE ON PAIN MANAGEMENT CLINICALLY INDICATED, INCLUDING NON-PHARMACOLOGICAL PAIN REDUCTION TECHNIQUES AND USE OF CRYOTHERAPY OR HEAT UP TO 20 MIN AT A TIME FOR PAIN MANAGEMENT 3 TIMES PER DAY TO BILATERAL KNEES. PT / ASPHALT ROLLER OPERATOR TO MONITOR FOR HYPO/HYPERGLYCEMIA AND CONDUCT ROUTINE FOOT INSPECTIONS. RECORD PATIENT REPORTED BLOOD SUGAR LEVELS AND NOTIFY PHYSICIAN AND/OR THE RN CLINICAL METROLOGY TECHNICIAN FOR PHYSICIAN NOTIFICATION IF BLOOD SUGAR LEVELS ARE OUTSIDE ORDERED PARAMETERS. TEACH PATIENT/CAREGIVER ON DAILY FOOT INSPECTIONS PT/ASPHALT ROLLER OPERATOR TO IDENTIFY FALL RISK FACTORS; EDUCATE THE [...] 00:00:00 Outpatient NEW ADMISSION DOUGLAS [facility] [id number] 2024-02-05 00:00:00 DISCHARGE TO HOME OR SELF CARE INDEPENDEN T WITH USE OF ASSISTIVE DEVICE HH OR PAL- GOALS MET 64.44
== END 2024-05-13 10:20 | disposition home or self-care (01) ==
PROVIDERS: PCP Internal Medicine; Referring Provider Internal Medicine; Visit Provider Internal Medicine Hypertension Specialist
DX: E11.22 Type 2 diabetes mellitus with diabetic chronic kidney disease (principal); N18.30 Chronic kidney disease, stage 3 unspecified; R60.0 Localized edema
CPT/HCPCS: 99204

== ENCOUNTER → 2024-05-13 09:42 | Outpatient (BNVA) | payer MEDICARE, MEDICAID, SELFPAY | PROVIDERS: PCP Internal Medicine; Referring Provider Internal Medicine; Visit Provider Internal Medicine Hypertension Specialist | DX: E11.22 Type 2 diabetes mellitus with diabetic chronic kidney disease (principal); N18.30 Chronic kidney disease, stage 3 unspecified; R60.0 Localized edema | CPT/HCPCS: 99202 ==

== ENCOUNTER 2024-05-13 10:27 | Outpatient (REF) | payer MEDICARE, MEDICAID, SELFPAY ==
[2024-05-13 12:52] LABS: Hematocrit 36.2 % (37.0-47.0); Hemoglobin 11.3 g/dl (12.0-16.0); Mean Corpuscular HGB Conc 31.2 g/dl (31.0-35.0); Mean Corpuscular Hemoglobin 30.5 pg (27.0-33.0); Mean Corpuscular Volume 97.6 fL (80.0-98.0); Mean Platelet Volume 10.9 fL (9.4-12.3); Platelet Count 348 X10*3/uL (160-400); Red Blood Count 3.71 X10*6/uL (4.20-5.50); Red Cell Distribution Width 14.6 % (11.0-16.0); White Blood Count 4.5 X10*3/uL (4.8-10.8)
== END 2024-05-13 10:28 | disposition home or self-care (01) ==
LOC: HO.10HDL 10:27
PROVIDERS: Visit Provider Internal Medicine Hypertension Specialist
DX: E11.22 Type 2 diabetes mellitus with diabetic chronic kidney disease (principal); N18.30 Chronic kidney disease, stage 3 unspecified; R60.0 Localized edema
CPT/HCPCS: 36415; 80053; 85027

== ENCOUNTER 2024-05-19 11:21 | Outpatient (REF) | payer MEDICARE, MEDICAID, SELFPAY ==
--- NOTE | ~2024-05-19 | US_ITS ---
EXAMINATION: US RETROPERITONEAL LIMITED (RENAL ONLY) CLINICAL INFORMATION: CKD III. Hypertension and edema. COMPARISON: None available. TECHNIQUE: Real-time imaging of the kidneys. FINDINGS: RIGHT KIDNEY: 8.7 x 4.8 x 4.9 cm (SAG x AP x TRV). The kidney is normal in size and contour. Increased cortical echogenicity. Renal cortical thickness is normal. No calculi or focal parenchymal lesions. No hydronephrosis. LEFT KIDNEY: 8.2 x 4.8 x 5.0 cm (SAG x AP x TRV). The kidney is normal in size and contour. Increased cortical echogenicity. Renal cortical thickness is normal. No calculi or focal parenchymal lesions. No hydronephrosis. US/US renal BI IMPRESSION: 1. Bilateral kidneys showing mildly increased cortical echogenicity in keeping with intrinsic medical renal disease. No hydronephrosis, calculus, or mass.. Electronically signed by: Apollo Amin MD 05/19/2024 12:27 PM [facility] [place]
[2024-05-19 13:52] LABS: Appearance Urine Clear; Color Urine Yellow; Glucose Urine UA Negative (Negative); Leukocyte Esterase Urine Trace (Negative); Nitrite Urine Negative (Negative); PH 5.5 (5.0-9.0); Specific Gravity - Urine 1.015 (1.005-1.025); UMIC TRIGGER UA YES; Urine Blood Negative (Negative); Urine Ketones Negative (Negative); Urine Protein Negative (Neg-Trace)
[2024-05-19 14:06] LABS: Alanine Aminotransferase 27 U/L (0-31); Albumin Level 3.6 g/dL (3.5-5.0); Alkaline Phosphatase 61 U/L (39-117); Anion Gap 14 (12-20); Aspartate Amino Transferase 39 U/L (5-31); Bilirubin Total 0.4 mg/dL (0.0-1.0); Blood Urea Nitrogen 32 mg/dL (9-16); Calcium 9.5 mg/dL (8.4-10.2); Carbon Dioxide 26 mmol/L (22-29); Chloride 105 mmol/L (96-108); Estimated Glomerular Filt Rate 32; Glucose Random 101 mg/dL (60-115); Potassium 4.5 mmol/L (3.3-5.1); Sodium 140 mmol/L (135-145); Total Protein 7.3 g/dL (6.5-8.0)
[2024-05-19 14:11] LABS: Bacteria Urine 2+ (None Seen); RBC Urine 0-2 /HPF (0-2)
[2024-05-19 14:15] LABS: Creatinine Urine 71.26 mg/dL; Total Protein Urine Random 13 mg/dL (<12)
== END 2024-05-19 11:22 | disposition home or self-care (01) ==
LOC: HO.HMGCX 11:21
PROVIDERS: PCP Internal Medicine; Visit Provider Internal Medicine Hypertension Specialist
DX: R60.0 Localized edema (principal); E11.22 Type 2 diabetes mellitus with diabetic chronic kidney disease; N18.30 Chronic kidney disease, stage 3 unspecified; I12.9 Hypertensive chronic kidney disease with stage 1 through stage 4 chronic kidney disease, or unspecified chronic kidney disease
CPT/HCPCS: 36415; 76775; 80053; 81001; 82570; 84156

== ENCOUNTER → 2024-05-19 11:36 | Outpatient (BNV) | payer MEDICARE, MEDICAID, SELFPAY | PROVIDERS: PCP Internal Medicine; Visit Provider Radiology Diagnostic Radiology | DX: I12.9 Hypertensive chronic kidney disease with stage 1 through stage 4 chronic kidney disease, or unspecified chronic kidney disease (principal); N18.30 Chronic kidney disease, stage 3 unspecified; R60.9 Edema, unspecified | CPT/HCPCS: 76775 ==

== ENCOUNTER 2024-05-24 11:10 | Outpatient (AMB) | payer MEDICARE, MEDICAID, SELFPAY ==
--- NOTE | 2024-05-24 11:32 | A.OFFVIS_ITS ---
Intake Visit Reasons: [employer]/[facility] referral for VV/Edema Intake Note: New patient presents for VV with edema. Patient states she had an accident in July of 2023. Patient broke her right ankle. Patient states she has cramping , swelling, numbness, redness and pain. Right leg is worse. She gets tingling on the bottom of her feet . Hurts to walk. Accompanied by: Daughter Allergies adhesive tape [Adhesive Tape] Allergy (Severe, Verified 05/24/24 11:35) BLISTERS dairy products Allergy (Severe, Verified 05/24/24 11:35) GI upset semaglutide [From Ozempic] Allergy (Severe, Verified 05/24/24 11:35) Diarrhea NSAIDS (Non-Steroidal Anti-Inflamma Adverse Reaction (Verified 05/24/24 11:35) Nephropathy HPI HPI [employer]/[facility] referral for VV/Edema: Details: Melvina, a pleasant morbidly obese 73-year-old female patient, is presenting with her daughter today on a referral from her PCP for bilateral lower extremity swelling with pain. Complaints include pain, swelling of lower extremities, cramping, fatigue, and heaviness of the lower extremities. It has been affecting their daily activities including walking and standing. It is noted in bilateral legs. She is an insulin-dependent diabetic but does not smoke. Patient denies any previous venous surgery or injections. Patient denies any history of DVT/ PE. Patient denies any history of phlebitis. Trial of compression includes - elevation with some relief They now present for vascular evaluation regarding their varicose veins. 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 Other Mental health disorder Substance use disorder Social History Household Members: Family Housing: House Are you a primary child care coordinator to a significant other at home: No Do you presently have visiting nurse or other home services: No Alcohol intake: current Alcohol intake frequency: a few times a week Alcohol type: beer Patient Tobacco Use Status: Former Tobacco user Tobacco use type: Cigarette e-Cigarette/Vaping Use: Never Used service: No Current occupational status: unemployed Cognitive needs: No Hearing needs: No Vision needs: No Review of Systems Const Reports as per HPI and Denies weakness ENT Reports Normal hearing present and Denies dizziness Card Reports as per HPI, Denies chest pain, Denies chest pain at rest, Denies chest pain with activity, Denies dyspnea and Denies dyspnea on exertion Resp Reports as per HPI, Denies cough, Denies dyspnea and Denies dyspnea on exertion GI Reports as per HPI, Denies abdominal pain, Denies nausea and Denies vomiting Musc Denies numbness Skin/Breast Reports as per HPI, Denies erythema and Denies wounds Neuro Reports Normal hearing present, Denies dizziness, Denies numbness, Denies Sensory deficit (Neuro) and Denies weakness Psych Reports no additional complaints Endo Reports no additional complaints Physical Exam Const General: healthy appearing and no acute distress Orientation/consciousness: patient oriented x3 HEENT Head: Yes normal to inspection Ears: hearing grossly normal bilaterally Mouth: Normal oral and palatal mucosa present Resp Effort & Inspection: normal respiratory effort and able to speak in complete sentences Auscultation: clear to auscultation bilaterally Cardio Jugular venous distension: no JVD Rate: regular rate Rhythm: regular rhythm Heart sounds: S1 normal heart sound present and S2 normal heart sound present Bruits: no abdominal aortic bruits, no carotid bruits, no femoral bruits and no renal bruits Peripheral pulses: Peripheral pulses 2+ throughout GI Inspection: Yes normal to inspection Palpation (GI): No Abdominal aortic bruit present Skin General skin exam: no rashes or lesions noted Wounds: no wounds Hair: normal Neuro General: patient oriented x3 Cranial nerves: Yes Normal hearing present Cognition (Neuro): normal cognition Gait exam (Neuro): Normal gait present Motor exam (neuro): 5/5 motor strength present throughout Sensory Exam: No Sensory deficit (Neuro) Extrem Other: Bilateral lower extremities:+2/3 peripheral edema noted. Discoloration noted around the ankles. Weak but palpable DP pulses. CEAP: C - 4 E - primary A - superficial P - reflux General: Yes normal to inspection, Yes full ROM, Yes capillary refill normal and Yes normal gait Assessment & Plan Assessment & Plan (1) Varicose veins of both lower extremities with inflammation: Code(s): I83.11 - Varicose veins of right lower extremity with inflammation; I83.12 - Varicose veins of left lower extremity with inflammation Category: Medical Plan: Melvina is presenting today on a referral from her PCP for worsening pain and swelling of bilateral lower extremities. She states the swelling got worse sin ce July of 2023. She does elevate her legs but is unable to do any compression stockings. In short, the patient has evidence of venous insufficiency. I have discussed the pathophysiology with the patient. In addition I have provided informational material regarding venous disease to the patient. We have discussed conservative measures including compression, elevation, and exercise. I have also provided a handout regarding appropriate use of compression stockings and where to purchase good compression stockings as well. I have taken the liberty of ordering venous insufficiency testing with the patient. They will follow up with me after testing. The patient had an opportunity to ask questions regarding the treatment plan. All questions were answered. Imaging studies, laboratory studies and physical exam results were discussed and reviewed in detail. No major barriers to understanding were identified. The patient expressed understanding and agreement with the above treatment plan. The patient is aware they should contact our office by phone for worsening of the current condition or the appearance of new symptoms. Thank you for allowing me to participate in the vascular care of this patient. If you have any questions or concerns regarding the treatment for the above condition please do not hesitate to contact me. The office telephone contact is [phone]. This note is constructed using voice recognition software. While every effort has been made to ensure accuracy, dental mold maker errors may have been included. Thank you for allowing me to participate in the care of your patient. Yours sincerely, JOÃO Benjamin Orders: Orders US venous duplex LE BI 1 Week I83.11 - Varicose veins of right lower extremity with inflammation, I83.12 - Varicose veins of left lower extremity with inflammation Coding Level of Care Code New Pt Level 4 (60838) Diagnoses Varicose veins of both lower extremities with inflammation I83.11; I83.12
--- OUTSIDE RECORDS SUMMARY | 2024-05-24 12:26 | XMS_ITS | Clinical Summary ---
Author Organization [facility] Address [address] [facility] [address] [place] [address] Phone Care Team Providers Care Painter Helper Sign Name Role Phone Marilyn Gillespie MD Primary Care Provider [phone] Allergies No known active allergies Medications amLODIPine (NORVASC) 10 MG tablet Take 1 tablet by mouth 1 (one) time each day 08/04/2019 Active dicyclomine (BENTYL) 10 MG capsule Take 1 capsule by mouth 3 (three) times a day Active fenofibrate (TRIGLIDE) 160 MG tablet Take 1 tablet by mouth 1 (one) time each day Active Tresiba FlexTouch 200 UNIT/ML injection 100 Units 07/05/2020 Active pramipexole (MIRAPEX) 0.5 MG tablet Take 0.5 mg by mouth Active Januvia 100 MG tablet Take 1 tablet by mouth 1 (one) time each day 04/07/2021 Active simvastatin (ZOCOR) 20 MG tablet Take 1 tablet by mouth 1 (one) time each day 03/06/2021 Active buPROPion SR (WELLBUTRIN SR) 200 MG 12 hr tablet Take 1 tablet by mouth 1 (one) time each day 03/06/2021 Active FLUoxetine (PROzac) 40 MG capsule Take 1 capsule by mouth 1 (one) time each day 02/21/2021 Active loratadine (CLARITIN) 10 MG tablet Take 1 tablet by mouth 1 (one) time each day 02/21/2021 Active famotidine (PEPCID) 10 MG tablet Take 10 mg by mouth 2 (two) times a day Active FREESTYLE LITE test strip USE 1 STRIP DIRECTED TO CHECK BLOOD GLUCOSE THREE TIMES DAILY 04/23/2021 Active Victoza 18 MG/3ML injection 1 (one) time each day 0.6 daily for seven days 1.2 mg once daily 08/22/2021 Active carvedilol (COREG) 6.25 MG tabletIndicatio ns:Hypertensive renal disease,Chronic kidney disease, stage 4 (severe) (HCC) Take 1 tablet (6.25 mg total) by mouth every morning and evening 180 tablet 07/01/2023 Active Active Problems Problem Noted Date Diagnosed Date Stage 3b chronic kidney disease 03/11/2023 Chronic kidney disease, stage 4 (severe) 022 Renal osteodystrophy 05/07/2021 Chronic kidney disease stage 3 09/21/2020 Essential hypertension 09/21/2020 Hypertensive renal disease 09/21/2020 Renal disorder due to type 2 diabetes mellitus 0 09/21/2020 Family History Medical History Relation Comments Diabetes Father Hypertension Father Diabetes Mother Hypertension Mother Kidney disease Sibling brother Relation Status Comments Father Mother Sibling Social History Tobacco Use Types Packs/Day Years Used Date Smoking Tobacco: Former Smokeless Tobacco: Former Comments:Smoking History Inf o:Every day Alcohol Use Standard Drinks/Week Comments No 0 (1 standard drink = 0.6 oz pur e alcohol) Comments Unknown Sex and Gender Information Value Date Recorded Sex Assigned at Not on file Legal Sex Female 4:45 PM EST Gender Identity Not on file Sexual Orientation Not on file Last Filed Vital Signs Vital Sign Reading Time Taken Comments Blood Pressure 143/65 03/11/2023 1:29 PM EST Pulse 74 03/11/2023 1:29 PM EST Temperature - - Respiratory Rate - - Oxygen Saturation 97% 03/11/2023 1:29 PM EST Inhaled Oxygen Concentration - - Weight 111 kg (244 lb 3.2 oz) 03/11/2023 1:29 PM EST Height 147.3 cm (4' 10 ) 10/18/2018 12:00 PM EDT Body Mass Index 51.04 10/18/2018 12:00 PM EDT Plan of Treatment Health Maintenance Due Date Last Done Comments Breast Cancer Screening 1950 Pneumococcal Vaccine: 65+ Ye ars (1 of 2 - PCV) 10[birth year]07/1956 Colorectal Cancer Screening: Annual FOBT 10/07/2000 Colorectal Cancer Screening: Colonoscopy 10/07/2000 Colorectal Cancer Screening: Sigmoidoscopy 10/07/2000 Diabetes: Hemoglobin A1C 05/28/2020 Diabetes: Ophthalmology Exam 05/28/2020 Diabetes: Pedal Pulse Checked 05/28/2020 Diabetes: Sensory Foot Exam 05/28/2020 Diabetes: Visual Foot Exam 05/28/2020 Influenza Vaccine (#1) 2023 Hepatitis B Vaccine Aged Out No longe r eligible based on patient's age to complete this topic Insurance MEDICAID [place] [facility] AD[facility] PPO ([id number]) [employer] [facility] ADV PPO ([id number]) MEDICAID [place] Care Teams Painter Helper Sign Relationship Specialty Start Date End Date Marilyn Gillespie MD [facility] [place] [address] PCP - General 05/07/20
--- OUTSIDE RECORDS SUMMARY | 2024-05-24 12:26 | XMS_ITS ---
Author Organization [facility] Address Unknown Problems Problem Status Start Date End Date OTHER SPECIFIED DISORDERS OF BONE DENSITY AND STRUCTURE, LEFT ANKLE AND FOOT (Primary) (M85.872 - ICD-10-CM) ACTIVE 11/09/19 24 PAIN IN RIGHT ANKLE AND JOIN TS OF RIGHT FOOT (M25.571 - ICD-10-CM) ACTIVE 11/09/2023 UNSPECIFIED FALL, SUBSEQUENT ENCOUNTER (W19.XXXD - ICD-10-CM) ACTIVE 11/09/2023 MUSCLE WEAKNESS (GENERALIZED) (M62.81 - ICD-10-CM) ACT CHRIS 11/09/2023 UNSTEADINESS ON FEET (R26.81 - ICD-10-CM) ACTIVE 11/09/2023 NEED FOR ASSISTANCE WITH PERSONAL CARE (Z74.1 - ICD-10 -CM) ACTIVE 11/09/2023 TYPE 2 DIABETES MELLITUS WIT HOUT COMPLICATIONS (E11.9 - ICD-10-CM) ACTIVE 11/09/2023 ESSENTIAL (PRIMARY) HYPERTENSION (I10 - ICD-10-CM) ACT CHRIS 11/09/2023 HYPERLIPIDEMIA, UNSPECIFIED (E78.5 - ICD-10-CM) ACTIVE 11/09/2023 CHRONIC KIDNEY DISEASE, STAG E 3 UNSPECIFIED (N18.30 - ICD-10-CM) ACTIVE 11/09/2023 DEPRESSION, UNSPECIFIED (F32.A - ICD-10-CM) ACTIVE 11/09/2023 PAIN IN UNSPECIFIED ANKLE AN D JOINTS OF UNSPECIFIED FOOT (M25.579 - ICD-10-CM) ACTIVE 11/09/2023 MORBID (SEVERE) OBESITY DUE TO EXCESS CALORIES (E66.01 - ICD-10-CM) ACTIVE 11/09/2023 OTHER INTERVERTEBRAL DISC DE GENERATION, LUMBAR REGION (M51.36 - ICD-10-CM) ACTIVE 11/09/2023 PAIN IN RIGHT KNEE (M25.561 - ICD-10-CM) ACTIVE 11/09/2023 PAIN IN LEFT KNEE (M25.562 - ICD-10-CM) ACTIVE 0 11/09/2023 PAIN IN LEFT ANKLE AND JOINT S OF LEFT FOOT (M25.572 - ICD-10-CM) ACTIVE 11/09/2023 LOW BACK PAIN, UNSPECIFIED (M54.50 - ICD-10-CM) ACTIVE 11/09/2023 Encounters Encounter Performer Performer Role Encounter Diagnoses Location Date Discharge - Discharged to home or self care - [facility] [place] - Private home/apt. with home health services [facility] 11/09/2023 05:51 pm EDT - 12/08/2023 03:41 pm EDT Immunizations Vaccine Date Influenza 05/27/2023 12:00 am EST Zostavax(Shingles) 09/19/2015 12:00 am EDT Pneumococcal Conjugate Vaccine (PCV13) 0 07/15/2018 12:00 am EDT SARS-COV-2 (COVID-19) 09/14/2020 12:00 a m EDT SARS-COV-2 (COVID-19) 08/24/2020 12:00 a m EDT Tdap 08/07/2023 12:00 am EDT Social History
--- OUTSIDE RECORDS SUMMARY | 2024-05-24 12:26 | XMS_ITS | Encounter Summary ---
Author Organization [facility] Address [address] [facility] [address] [place] [address] Phone Care Team Providers Care Sprue Cutting Press Operator Name Role Phone Marilyn Gillespie MD Primary Care Provider [phone] Reason for Visit * Reason Comments Med Refill Encounter Details Date Type Department Care Team (Late st Contact Info) Description 01/09/2021 Refill [facility] [address] [facility] [address] [place] [phone] Ricco Butler MD [address] [facility] [address] [place] [address] Social History Tobacco Use Types Packs/Day Years Used Date Smoking Tobacco: Former Comments:Smoking History Inf o:Every day Alcohol Use Standard Drinks/Week Comments No 0 (1 standard drink = 0.6 oz pur e alcohol) Comments Unknown Sex and Gender Information Value Date Recorded Sex Assigned at Not on file Legal Sex Female 4:45 PM EST Gender Identity Not on file Sexual Orientation Not on file documented as of this encounter Miscellaneous Notes * Telephone Encounter - Ricco Butler MD - 01/09/2021 12:21 PM EDT Needs f/u in 5-6 weeks with me 1. tell them I sent rx but no refils 2. They must see me or have a telehealth visit with me before I can renew it again 3. when u call them be sure to make the f/u appt at the same time u inform them th rx was sent by me documented in this encounter Plan of Treatment Not on file documented as of this encounter Visit Diagnoses Not on filedocumented in this encounter Care Teams Sprue Cutting Press Operator Relationship Specialty Start Date End Date Marilyn Gillespie MD [facility] [place] [address] PCP - General 05/07/20 documented as of this encounter
--- OUTSIDE RECORDS SUMMARY | 2024-05-24 12:26 | XMS_ITS | Encounter Summary ---
Author Organization [facility] Address [address] [facility] [address] [place] [address] Phone Care Team Providers Care Credentialer Name Role Phone Marilyn Gillespie MD Primary Care Provider [phone] Reason for Visit * Reason Comments Med Refill Encounter Details Date Type Department Care Team (Late st Contact Info) Description 02/05/2021 Refill [facility] [address] [facility] [[email or web address] [address] [place] [phone] Ricco Butler MD [address] [facility] [address] [place] [address] Social History Tobacco Use Types [...] Telephone Encounter - Ricco Butler MD - 02/05/2021 1:41 PM EDT Needs f/u in 5-6 weeks [...] on filedocumented in this encounter Care Teams Credentialer Relationship Specialty Start Date End Date Marilyn Gillespie MD [facility] [place] [address] PCP - General 05/07/20 documented as of this encounter
--- OUTSIDE RECORDS SUMMARY | 2024-05-24 12:26 | XMS_ITS | Encounter Summary ---
Author Organization [facility] Address [address] [facility] [address] [place] [address] Phone Care Team Providers Care Credit Relationship Manager Name Role Phone Marilyn Gillespie MD Primary Care Provider [phone] Encounter Details Date Type Department Care Team (Latest Contact Info) Description 03/08/2023 Office Communication [facility] [address] [facility] [address] [place] [address] Ricco Butler MD [address] [facility] [address] [place] [address] Chronic kidney disease, stage 4 (severe) (HCC) (Primary Dx) Social History Tobacco Use Types Packs/Day Years [...] on file documented as of this encounter Plan of Treatment Not on file documented as of this encounter Results * Albumin (03/10/2023 11:22 AM EST) Albumin 4.0 (3.4-4.8) GM/DL [facility] Comment: Testing performed or reported by [facility], a Service of [facility], [address] [place] [address] Cade Duffy MD, Brisket Puller CLIA# [id number] Blood (Blood, Venous) 03/10/2023 11:22 AM EST 03/10/2023 11:27 AM EST Ricco Butler MD LAB BLOOD ORDERABLES Final Re sult Performing Organization Address [facility] de Phone Number [facility] * Magnesium (03/10/2023 11:22 AM EST) [facility] Magnesium 1.9 (1.6-2.3) mg/dL [facility] Comment: Testing performed or reported by [facility], a Service of [address] [address] Cade Duffy MD, Brisket Puller CLIA# [id number] Blood (Blood, Venous) 03/10/2023 11:22 AM EST 03/10/2023 11:27 AM EST Ricco Butler MD LAB BLOOD ORDERABLES Final Re sult Performing Organization Address [facility] de Phone Number [facility] * Vitamin D 25 Hydroxy (03/10/2023 11:22 AM EST) [facility] Vitamin D, 25-Hydroxy 26.3 (20-50) NG/ML [facility] Comment: Testing performed or reported by [facility], a Service of [facility], [address] [place] [address] Cade Duffy MD, Brisket Puller CLIA# [id number] Blood (Blood, Venous) 03/10/2023 11:22 AM EST 03/10/2023 11:27 AM EST Result [facility] Ricco Butler MD LAB BLOOD ORDERABLES Final Re sult Performing Organization Address [facility] de Phone Number [facility] * Protein, Total, Random Urine w/Creatinine (Protein/Creat Ratio) (03/10/2023 11:22 AM EST) [facility] Protein/Creatine Ratio 0.14 (0-0.2) [facility] Protein, Urine 24 MG/DL [facility] Comment: The urine microalbumin test is designed to monitor renal function. When screening for Bence Amin proteinuria, urine electrophoresis is recommended. Creatinine, Urine 171.5 MG/DL [facility] Comment: Testing performed or reported by [facility], a Service of [facility], [address] [place] [address] Cade Duffy MD, Brisket Puller CLIA# [id number] Urine (Urine, Clean Catch) 03/10/2023 11:22 AM EST 03/10/2023 11:27 AM EST Ricco Butler MD LAB URINE ORDERABLES Final Re sult Performing Organization Address [facility] de Phone Number [facility] * (ABNORMAL) Urine Albumin / Creatinine Ratio (03/10/2023 11:22 AM EST) Urine Microalbumin 58.0(H) (<20) MG/L [facility] Comment: The urine microalbumin test is designed to monitor renal function. When screening for Bence Amin proteinuria, urine electrophoresis is recommended. Microalbumin/Creati nine Ratio 33.6(H) (0-20) MG/GM [facility] Microalb/Creat Ratio 171.5 MG/DL [facility] Comment: Testing performed or reported by [facility], a Service of [facility], [address] [place] [address] Cade Duffy MD, Brisket Puller [facility]# [id number] Urine (Urine, Clean Catch) 03/10/2023 11:22 AM EST 03/10/2023 11:27 AM EST Ricco Butler MD LAB URINE ORDERABLES Final Re sult Performing Organization Address [facility] de Phone Number [facility] * (ABNORMAL) Urinalysis with microscopic (03/10/2023 11:22 AM EST) Appearance YELLOW [facility] Comment:TURBID Specific [place] 1.026 (1.002-1. 030) [facility] pH Urine 5.5 (5.0-8.0) [facility] Albumin, Urine TRACE(A) (NEG) [facility] Glucose, Ur NEGATIVE (NEG) [facility] Ketones, Urine NEGATIVE (NEG) [facility] Bilirubin Urine NEGATIVE (NEG) [facility] Hemoglobin Presence in Urine NEGATIVE (NEG) [facility] Nitrite, Urine NEGATIVE (NEG) [facility] Leukocyte Esterase Urine 3+(A) (NEG) [facility] Urobilinogen Urine NORMAL (NORM) MG/DL [facility] WBC, Urine 8(H) (0-5) /HPF [facility] RBC, Urine 1 (0-3) /HPF [facility] Bacteria MODERATE(A) (NEG) HPF [facility] Mucus, Urine SLIGHT /LPF [facility] Squamous Epithelial, Urine 20(H) (0-8) /HPF [facility] Comment: Testing performed or reported by [facility] [place], a Service of [address] [address] Cade Duffy MD, Brisket Puller [facility]# [id number] Urine (Urine, Clean Catch) 03/10/2023 11:22 AM EST 03/10/2023 11:27 AM EST us Ricco Butler MD LAB URINE ORDERABLES Final Re sult [facility] * (ABNORMAL) Renal Function Panel (03/10/2023 11:22 AM EST) Glucose 72 (70-99) MG/DL [facility] BUN 33(H) (8-23) MG/DL [facility] Creatinine 1.7(H) (0.5-1.0) MG/DL [facility] Sodium 138 (133-145) MMOL/L [facility] Potassium 5.1 (3.6-5.2) MMOL/L [facility] Chloride 103 (98-107) MMOL/L [facility] Bicarbonate (CO2) 21(L) (22-29) MMOL/L [facility] Anion Gap 14 (4-17) [facility] Albumin 4.0 (3.4-4.8) GM/DL [facility] Calcium 9.5 (8.6-10.5) MG/DL [facility] Phosphorus, Serum 4.2 (2.5-4.5) MG/DL [facility] Est GFR Non 32 ML/MIN/1.7 3 M2 [facility] Comment: Creatinine based estimated glomerular filtration (eGFR) in adults is calculated using the [employer] recommended 2020 CKD-EPI equation. Estimates GFR from serum creatinine, age and sex. Testing performed or reported by [facility] [place], a Service of [address] [place] [address] Cade Duffy MD, Brisket Puller CLIA# [id number] Blood (Blood, Venous) 03/10/2023 11:22 AM EST 03/10/2023 11:27 AM EST Ricco Butler MD LAB BLOOD ORDERABLES Final Re sult Performing Organization Address [facility]/ZIP Co de Phone Number [facility] * (ABNORMAL) PTH, Intact (03/10/2023 11:22 AM EST) PTH, Intact 89(H) (15-65) PG/ML [facility] Comment: Testing performed or reported by [facility], a Service of [address] [address] Cade Duffy MD, Brisket Puller CLIA# [id number] Blood (Blood, Venous) 03/10/2023 11:22 AM EST 03/10/2023 11:26 AM EST us Ricco Butler MD LAB BLOOD ORDERABLES Final Re sult Performing Organization Address [facility] Co de Phone Number [facility] documented in this encounter Visit Diagnoses Diagnosis Chronic kidney disease, stage 4 (severe) (HCC)- Primary documented in this encounter Care Teams Credit Relationship Manager Relationship Specialty Start Date End Date Marilyn Gillespie MD [address] [place] [id number] PCP - General 05/07/20 documented as of this encounter
--- OUTSIDE RECORDS SUMMARY | 2024-05-24 12:26 | XMS_ITS | Encounter Summary ---
Author Organization [facility] Address [address] [facility] [address] [place] [address] Phone Care Team Providers Care Grease Refiner Operator Name Role Phone Marilyn Gillespie MD Primary Care Provider [phone] Reason for Visit * Reason Comments Med Refill Encounter Details Date Type Department Care Team (Late st Contact Info) Description 12/24/2022 Refill [facility] [address] [facility] [address] [place] [id number] Ricco Butler MD [address] [facility] [address] [place] [address] Hypertensive renal disease; Chronic kidney disease, stage 4 (severe) (HCC) Social History Tobacco Use Types Packs/Day Years [...] documented as of this encounter Visit Diagnoses Diagnosis Hypertensive renal disease Chronic kidney disease, stage 4 (severe) (HCC) documented in this encounter Care Teams Grease Refiner Operator Relationship Specialty Start Date End Date Marilyn Gillespie MD [address] [place] [address] PCP - General 05/07/20 documented as of this encounter
== END 2024-05-24 11:53 | disposition home or self-care (01) ==
PROVIDERS: PCP Internal Medicine; Visit Provider Physician Assistant Surgical
DX: I83.11 Varicose veins of right lower extremity with inflammation (principal); I83.12 Varicose veins of left lower extremity with inflammation
CPT/HCPCS: 99204

== ENCOUNTER → 2024-05-24 11:10 | Outpatient (BNVA) | payer MEDICARE, MEDICAID, SELFPAY | PROVIDERS: PCP Internal Medicine; Visit Provider Physician Assistant Surgical | DX: I83.11 Varicose veins of right lower extremity with inflammation (principal); I83.12 Varicose veins of left lower extremity with inflammation | CPT/HCPCS: 99202 ==

== ENCOUNTER 2024-06-20 09:23 | Outpatient (AMB) | payer MEDICARE, MEDICAID, SELFPAY ==
--- NOTE | 2024-06-20 09:29 | HO.NEPHOV ---
Vital Signs 06/20/24 09:30 Height 4 ft 10 in Weight 246 lb BMI 51.4 BP 138/84 Blood Pressure Location Lt radial Position Sitting Pulse 91 Pulse Source Pulse Oximeter Pulse Oximetry (%) 98 Oxygen Delivery Method Room Air Intake Visit Reasons: CKD Jewelry Sales Required: No Accompanied by: Daughter Allergies adhesive tape [Adhesive Tape] Allergy (Severe, Verified 06/20/24 09:33) BLISTERS dairy products Allergy (Severe, Verified 06/20/24 09:33) GI upset semaglutide [From Ozempic] Allergy (Severe, Verified 06/20/24 09:33) Diarrhea NSAIDS (Non-Steroidal Anti-Inflamma Adverse Reaction (Verified 06/20/24 09:33) Nephropathy Medication List - Last Reconciled 06/20/24 by Vitor Lay MD acetaminophen ER (Tylenol Arthritis Pain) 650 mg PO Q8H PRN [Adult Pull-ups As directed] [adult pull-ups size As directed] albuterol sulfate 90 mcg/actuation 2 puffs inhalation Q4H PRN alcohol swabs (Alcohol Pads) 1 pad topical TIDWMEAL blood sugar diagnostic (OneTouch Ultra Test strips) tid esting 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 meter (OneTouch Ultra2 Meter) tid testing 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 meter,continuous (FreeStyle Ihsan 3 Waller) As directed 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 sensor (FreeStyle Ihsan 3 Sensor device) As directed bupropion HCl SR 200 mg PO DAILY carvedilol 6.25 mg PO BID [cloth bed pads As directed] dicyclomine 10 mg PO BID PRN 90 days fenofibrate 160 mg PO DAILY 90 days ferrous sulfate 324 mg PO BID 90 days fluoxetine 40 mg PO DAILY 90 days furosemide 20 mg PO DAILY insulin degludec (Tresiba FlexTouch U-200 insulin) 15 units (0.075 mL) subcut BID 90 days lancets tid testing lancets Use to check blood sugars three times a day levothyroxine 25 mcg PO DAILY loratadine (Allergy Relief (loratadine)) 10 mg PO DAILY 90 days metoprolol succinate ER 25 mg PO BEDTIME nystatin 1 appl topical DAILY 30 days [panty liners As directed] pen needle, diabetic daily pen needle, diabetic (BD Nadya 2nd Gen Pen Needle) 1 ea miscellaneous BID ropinirole 0.5 mg PO BEDTIME 90 days simvastatin 20 mg PO DAILY 90 days tramadol 50 mg PO Q8H PRN 7 days HPI Comments Details: Melvina is a pleasant 73-year-old woman with a history of longstanding diabetes mellitus and obesity. She has been referred for leg edema. She was history of chronic kidney disease. Serum creatinine has been around 1.5-1.7 mg/dL. However the recent serum creatinine was around 1.18 mg/dL as of April 26. She was on Lasix 20 mg a day she ran out of it about a month ago. She has a history of obstructive sleep apnea. She does not use CPAP. Recently echocardiogram with the heart was unremarkable. No mention of pulmonary hypertension. She claims to be on low-sodium diet. Recent urine microalbumin creatinine ratio was 42.4 and a as of October 2019 urine protein creatinine ratio was 0.21. Urinalysis was otherwise unremarkable. She does have mild anemia with a hemoglobin of 11.4 06/20/2024. After adding Lasix 20 mg daily there has been no significant improvement in leg edema Recent serum creatinine is 1.57 No significant proteinuria She complains of pain and she has been on tramadol on and off [facility] Medical History Restrictive lung disease Breast cancer COVID-19 vaccine series completed Dyspnea on exertion OZ (obstructive sleep apnea) Morbid obesity with BMI of 50.0-59.9, adult Diabetic polyneuropathy associated with type 2 diabetes mellitus Hypertension Dyslipidemia CKD stage 3 due to type 2 diabetes mellitus Diabetic nephropathy associated with type 2 diabetes mellitus alf (current) 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 Other Mental health disorder Substance use disorder Social History Household Members: Family Housing: House Are you a primary insurance healthcare representative to a significant other at home: No Do you presently have visiting nurse or other home services: No Alcohol intake: current Alcohol intake frequency: a few times a week Alcohol type: beer Patient Tobacco Use Status: Former Tobacco user Tobacco use type: Cigarette e-Cigarette/Vaping Use: Never Used service: No Current occupational status: unemployed Cognitive needs: No Hearing needs: No Vision needs: No Physical Exam Vital Signs: Last Vital Signs Pulse 91 06/20/24 09:30 BP 138/84 06/20/24 09:30 Pulse Ox 98 06/20/24 09:30 Oxygen Delivery Method Room Air 06/20/24 09:30 BMI result Body Mass Index 51.4 Comfortable Neck supple no JVD. Lungs entry equal no rales. Heart S1-S2 heard no gallop or rub. Abdomen soft nontender. Neuro alert awake oriented. No asterixis. Extremities no edema. Results Reviewed Results Reviewed: Echocardiogram March/2024 - Normal left ventricular size, thickness, systolic function, and wall motion. The visually estimated ejection fraction is between 65-70%. Abnormal diastolic function is noted. Spectral Doppler is indicative of a pseudonormal filling pattern. Elevated filling pressures. - Normal right ventricular cavity size and systolic function. - There is mild aortic valve stenosis. Nephrology Results: Hgb 11.3 g/dl (12.0-16.0) L 05/13/24 WBC 4.5 X10*3/uL (4.8-10.8) L 05/13/24 Plt Count 348 X10*3/uL (160-400) 05/13/24 Sodium 140 mmol/L (135-145) 05/19/24 Potassium 4.5 mmol/L (3.3-5.1) 05/19/24 Chloride 105 mmol/L (96-108) 05/19/24 Carbon Dioxide 26 mmol/L (22-29) 05/19/24 BUN 32 mg/dL (9-16) H 05/19/24 Creatinine 1.57 mg/dL (0.5-1.4) H 05/19/24 Calcium 9.5 mg/dL (8.4-10.2) 05/19/24 Urine Protein Negative mg/dL (Neg-Trace) 05/19/24 Urine Creatinine 71.26 mg/dL 05/19/24 Renal US 05/19/24 Assessment & Plan Assessment & Plan (1) CKD stage 3 due to type 2 diabetes mellitus: Code(s): E11.22 - Type 2 diabetes mellitus with diabetic chronic kidney disease; N18.30 - Chronic kidney disease, stage 3 unspecified Category: Medical (2) Edema: Code(s): R60.9 - Edema, unspecified Category: Medical Qualifiers: Edema type: localized Qualified Code(s): R60.0 - Localized edema Plan 73-year-old woman with a history of longstanding diabetes mellitus and obesity has CKD 3B. This is most likely due to underlying diabetic kidney disease. No significant proteinuria Serum creatinine is at 1.57 Over the last few years renal function has been relatively stable. Goal is to slow the progression of renal disease. Discussed importance of tight control of blood sugar. Maintain blood pressure less than 130/80. She will benefit from low-dose MARGO inhibitors or ARB use. Next step would be to add an SGLT2 inhibitor as well. Leg edema. She has minimal edema. She should stay on low-sodium diet. I have encouraged her to use CPAP regularly. She can discontinue Lasix after his current prescription is completed and use as needed. Follow up with the vascular. Await ultrasound on July 07 Gave a prescription for tramadol 50 mg daily p.r.n. for pain Avoid NSAIDs Orders: Orders Basic Metabolic Panel 4 Months E11.22 - Type 2 diabetes mellitus with diabetic chronic kidney disease, N18.30 - Chronic kidney disease, stage 3 unspecified, R60.0 - Localized edema Medications: Changed From tramadol 50 mg PO Q8H 7 days PRN 21 tabs 0RF pain To tramadol 50 mg PO DAILY PRN 30 tabs 0RF pain 30 days Coding Level of Care Code Est Pt Level 4 (45179) Diagnoses CKD stage 3 due to type 2 diabetes mellitus E11.22; N18.30 Localized edema R60.0 Edema type: localized
[2024-06-20 09:30] VITALS: BP 138/84; PULSE 91; O2SAT 98; BMI 51.4
--- OUTSIDE RECORDS SUMMARY | 2024-06-20 10:04 | XMS_ITS | Encounter Summary ---
Author Organization [facility] Address 100 [facility] 200 [place] [address] Phone Care Team Providers Care Ball Shagger Name Role Phone Marilyn Gillespie MD Primary Care Provider [phone] Encounter Details Date Type Department Care Team (Latest Contact Info) Description 03/08/2023 Office Communication [facility] 100 [facility] 200 [place] [address] Ricco Butler MD [address] [facility] 204 [place] [address] Chronic kidney disease, stage 4 [...] 11:22 AM EST) Albumin 4.0 (3.4-4.8) GM/DL [facility] Comment: Testing performed or reported by [facility], a Service of [facility], [address] [place] [address] Cade Duffy MD, Tallow Refiner CLIA# [id number] Blood (Blood, Venous) 03/10/2023 11:22 AM EST 03/10/2023 11:27 AM EST Ricco Butler MD LAB BLOOD ORDERABLES Final Re sult Performing Organization Address [facility] de Phone Number [facility] * Magnesium (03/10/2023 11:22 AM EST) [facility] Magnesium 1.9 (1.6-2.3) mg/dL [facility] Comment: Testing performed or reported by [facility], a Service of [address] [address] Cade Duffy MD, Tallow Refiner CLIA# [id number] Blood (Blood, Venous) 03/10/2023 11:22 AM EST 03/10/2023 11:27 AM EST Ricco Butler MD LAB BLOOD ORDERABLES Final Re sult Performing Organization Address [facility] de Phone Number [facility] * Vitamin D 25 Hydroxy (03/10/2023 11:22 AM EST) [facility] Vitamin D, 25-Hydroxy 26.3 (20-50) NG/ML [facility] Comment: Testing performed or reported by [facility], a Service of [facility], [address] [place] [address] Cade Duffy MD, Tallow Refiner CLIA# [id number] Blood (Blood, Venous) 03/10/2023 11:22 AM EST 03/10/2023 11:27 AM EST Result [facility] Ricco Butler MD LAB BLOOD ORDERABLES Final Re sult Performing Organization Address [facility] de Phone Number [facility] * Protein, Total, Random Urine w/Creatinine (Protein/Creat Ratio) (03/10/2023 11:22 AM EST) [facility] Protein/Creatine Ratio 0.14 (0-0.2) [facility] Protein, Urine 24 MG/DL [facility] Comment: The urine microalbumin test is designed to monitor renal function. When screening for Bence Amin proteinuria, urine electrophoresis is recommended. Creatinine, Urine 171.5 MG/DL [facility] Comment: Testing performed or reported by [facility], a Service of [facility], [address] [place] [address] Cade Duffy MD, Tallow Refiner CLIA# [id number] Urine (Urine, Clean Catch) 03/10/2023 11:22 AM EST 03/10/2023 11:27 AM EST Ricco Butler MD LAB URINE ORDERABLES Final Re sult Performing Organization Address [facility] de Phone Number [facility] * (ABNORMAL) Urine Albumin / Creatinine Ratio (03/10/2023 11:22 AM EST) Urine Microalbumin 58.0(H) (<20) MG/L [facility] Comment: The urine microalbumin test is designed to monitor renal function. When screening for Bence Amin proteinuria, urine electrophoresis is recommended. Microalbumin/Creati nine Ratio 33.6(H) (0-20) MG/GM [facility] Microalb/Creat Ratio 171.5 MG/DL [facility] Comment: Testing performed or reported by [facility], a Service of [facility], [address] [place] [address] Cade Duffy MD, Tallow Refiner [facility]# [id number] Urine (Urine, Clean Catch) 03/10/2023 11:22 AM EST 03/10/2023 11:27 AM EST Ricco Butler MD LAB URINE ORDERABLES Final Re sult Performing Organization Address [facility] de Phone Number [facility] * (ABNORMAL) Urinalysis with microscopic (03/10/2023 11:22 AM EST) Appearance YELLOW [facility] Comment:TURBID Specific [place] 1.026 (1.002-1. 030) [facility] pH Urine 5.5 (5.0-8.0) [facility] Albumin, Urine TRACE(A) (NEG) [facility] Glucose, Ur NEGATIVE (NEG) [facility] Ketones, Urine NEGATIVE (NEG) [facility] Bilirubin Urine NEGATIVE (NEG) [facility] Hemoglobin Presence in Urine NEGATIVE (NEG) [facility] Nitrite, Urine NEGATIVE (NEG) [facility] Leukocyte Esterase Urine 3+(A) (NEG) [facility] Urobilinogen Urine NORMAL (NORM) MG/DL [facility] WBC, Urine 8(H) (0-5) /HPF [facility] RBC, Urine 1 (0-3) /HPF [facility] Bacteria MODERATE(A) (NEG) HPF [facility] Mucus, Urine SLIGHT /LPF [facility] Squamous Epithelial, Urine 20(H) (0-8) /HPF [facility] Comment: Testing performed or reported by [facility] [employer], a Service of [address] [address] Cade Duffy MD, Tallow Refiner [facility]# [id number] Urine (Urine, Clean Catch) 03/10/2023 11:22 AM EST 03/10/2023 11:27 AM EST us Ricco Butler MD LAB URINE ORDERABLES Final Re sult [facility] * (ABNORMAL) Renal Function Panel (03/10/2023 11:22 AM EST) Glucose 72 (70-99) MG/DL [facility] BUN 33(H) (8-23) MG/DL [facility] Creatinine 1.7(H) (0.5-1.0) MG/DL [facility] Sodium 138 (133-145) MMOL/L [facility] Potassium 5.1 (3.6-5.2) MMOL/L [facility] Chloride 103 (98-107) MMOL/L [facility] Bicarbonate (CO2) 21(L) (22-29) MMOL/L [facility] Anion Gap 14 (4-17) [facility] Albumin 4.0 (3.4-4.8) GM/DL [facility] Calcium 9.5 (8.6-10.5) MG/DL [facility] Phosphorus, Serum 4.2 (2.5-4.5) MG/DL [facility] Est GFR Non 32 ML/MIN/1.7 3 M2 [facility] Comment: Creatinine based estimated glomerular filtration (eGFR) in adults is calculated using the National Kidney Foundation recommended 2020 CKD-EPI equation. Estimates GFR from serum creatinine, age and sex. Testing performed or reported by [facility] [employer], a Service of [address] [place] [address] Cade Duffy MD, Tallow Refiner CLIA# [id number] Blood (Blood, Venous) 03/10/2023 11:22 AM EST 03/10/2023 11:27 AM EST Ricco Butler MD LAB BLOOD ORDERABLES Final Re sult Performing Organization Address [facility]/ZIP Co de Phone Number [facility] * (ABNORMAL) PTH, Intact (03/10/2023 11:22 AM EST) PTH, Intact 89(H) (15-65) PG/ML [facility] Comment: Testing performed or reported by [facility], a Service of [address] [address] Cade Duffy MD, Tallow Refiner CLIA# [id number] Blood (Blood, Venous) 03/10/2023 11:22 AM EST 03/10/2023 11:26 AM EST us Ricco Butler MD LAB BLOOD ORDERABLES Final Re sult Performing Organization Address [facility] Co de Phone Number [facility] documented in this encounter Visit Diagnoses Diagnosis Chronic kidney disease, stage 4 (severe) (HCC)- Primary documented in this encounter Care Teams Ball Shagger Relationship Specialty Start Date End Date Marilyn Gillespie MD [address] [place] [address] PCP - General 05/07/20 documented as of this encounter
--- OUTSIDE RECORDS SUMMARY | 2024-06-20 10:04 | XMS_ITS | Clinical Summary ---
Author Organization [facility] Address 100 [facility] 20 0 [place] [address] Phone Care Team Providers Care Stone And Plate Preparer Apprentice Name Role Phone Marilyn Gillespie MD Primary Care Provider [phone] Allergies No known active allergies Medications amLODIPine [...] complete this topic Insurance [place]ID [place] AENA [facility] ADV PPO ([id number]) AETNA [facility] ADV PPO ([id number]) MEDICAID [place] Care Teams Stone And Plate Preparer Apprentice Relationship Specialty Start Date End Date Marilyn Gillespie MD [facility] [place] [address] PCP - General 05/07/20
--- OUTSIDE RECORDS SUMMARY | 2024-06-20 10:04 | XMS_ITS | Encounter Summary ---
Author Organization [facility] Address 100 [facility] 200 [place] [address] Phone Care Team Providers Care Cmm Technician Name Role Phone Marilyn Gillespie MD Primary Care Provider [phone] Reason for Visit * Reason Comments Med Refill Encounter Details Date Type Department Care Team (Late st Contact Info) Description 01/09/2021 Refill [facility] 100 [facility] 200 [place] [phone] Ricco Butler MD 58[address] [facility] 204 [place] [address] Social History Tobacco Use Types [...] on filedocumented in this encounter Care Teams Cmm Technician Relationship Specialty Start Date End Date Marilyn Gillespie MD [facility] [place] [address] PCP - General 05/07/20 documented as of this encounter
--- OUTSIDE RECORDS SUMMARY | 2024-06-20 10:04 | XMS_ITS | Encounter Summary ---
Author Organization [facility] Address 100 [facility] 200 [place] [address] Phone Care Team Providers Care Graduate Assistant Name Role Phone Marilyn Gillespie MD Primary Care Provider Reason for Visit * Reason Comments Med Refill Encounter Details Date Type Department Care Team (Late st Contact Info) Description 12/24/2022 Refill [facility] 100 [facility] 200 [place] [phone] Ricco Butler MD [address] [facility] 204 [place] [address] Hypertensive renal disease; Chronic kidney [...] (HCC) documented in this encounter Care Teams Graduate Assistant Relationship Specialty Start Date End Date Marilyn Gillespie MD [address] [place] [address] PCP - General 05/07/20 documented as of this encounter
--- OUTSIDE RECORDS SUMMARY | 2024-06-20 10:04 | XMS_ITS | Encounter Summary ---
Author Organization [facility] Address 100 [facility] 200 [place] [address] Phone Care Team Providers Care Radiology Therapist Name Role Phone Marilyn Gillespie MD Primary Care Provider Reason for Visit * Reason Comments Med Refill Encounter Details Date Type Department Care Team (Late st Contact Info) Description 02/05/2021 Refill [facility] 100 [facility] 200 [place] [phone] Ricco Butler MD 5[address] [facility] 204 [place] [address] Social History Tobacco Use Types [...] on filedocumented in this encounter Care Teams Radiology Therapist Relationship Specialty Start Date End Date Marilyn Gillespie MD [facility] [place] [address] PCP - General 05/07/20 documented as of this encounter
== END 2024-06-20 09:48 | disposition home or self-care (01) ==
PROVIDERS: PCP Internal Medicine; Visit Provider Internal Medicine Hypertension Specialist
DX: E11.22 Type 2 diabetes mellitus with diabetic chronic kidney disease (principal); N18.30 Chronic kidney disease, stage 3 unspecified; R60.0 Localized edema
CPT/HCPCS: 99214

== ENCOUNTER → 2024-06-20 09:23 | Outpatient (BNVA) | payer MEDICARE, MEDICAID, SELFPAY | PROVIDERS: PCP Internal Medicine; Visit Provider Internal Medicine Hypertension Specialist | DX: E11.22 Type 2 diabetes mellitus with diabetic chronic kidney disease (principal); E11.42 Type 2 diabetes mellitus with diabetic polyneuropathy; E11.21 Type 2 diabetes mellitus with diabetic nephropathy; N18.30 Chronic kidney disease, stage 3 unspecified; R60.0 Localized edema; Z79.4 Long term (current) use of insulin | CPT/HCPCS: 99212 ==

== ENCOUNTER 2024-07-07 10:32 | Outpatient (REF) | payer MEDICARE, MEDICAID, SELFPAY ==
--- NOTE | ~2024-07-07 | US_ITS ---
EXAMINATION: US VENOUS (REFLUX EXAM) ULTRASOUND WITH DOPPLER LOWER EXTREMITY, BILATERAL CLINICAL INFORMATION: Varicose veins of right lower extremity with inflammation. COMPARISON: None available. TECHNIQUE: Ultrasound of the superficial veins is performed in the bilateral lower extremities from the hip to the calf with compression sonography and color and pulse Doppler assessment. Spectral analysis with color-flow imaging is performed. FINDINGS: RIGHT SIDE: GREATER SAPHENOUS VEIN: The right saphenofemoral junction diameter is 0.8 cm. There is no reflux. The right proximal thigh diameter is 0.5 cm. There is no reflux. The right mid thigh diameter is 0.2 cm. There is no reflux. The right above-knee diameter is 0.2 cm. There is no reflux. The right at-knee diameter is 0.2 cm. There is no reflux. The right below-knee diameter is 0.2 cm. There is no reflux. The right mid calf diameter is 0.2 cm. There is no reflux. The right ankle diameter is 0.2 cm. There is no reflux. LESSER SAPHENOUS VEIN: Origin at thigh extension. The right saphenopopliteal junction diameter is 0.1 cm. There is no reflux. The right mid calf diameter is 0.1 cm. There is no reflux. The right distal calf diameter is 0.2 cm. There is no reflux. SAPHENOUS PERFORATORS: None. VARICOSITIES: At right GSV thigh proximally measures 0.3 cm. There is no reflux. At right GSV thigh mid measures 0.3 cm. There is no reflux. LEFT SIDE: GREATER SAPHENOUS VEIN: The left saphenofemoral junction diameter is 0.6 cm. There is no reflux. The left proximal thigh diameter is 0.5 cm. There is no reflux. The left mid thigh diameter is 0.5 cm. There is no reflux. The left above-knee diameter is 0.4 cm. There is no reflux. The left at-knee diameter is 0.3 cm. There is no reflux. The left below-knee diameter is 0.2 cm. There is no reflux. The left mid calf diameter is 0.2 cm. There is no reflux. The left ankle diameter is 0.3 cm. There is no reflux. LATERAL ACCESSORY GREATER SAPHENOUS VEIN: The left saphenofemoral junction diameter is 0.3 cm. There is no reflux The left mid thigh diameter is 0.2 cm. There is no reflux. LESSER SAPHENOUS VEIN: Origin at thigh extension. The left saphenopopliteal junction diameter is 0.07 cm. There is no reflux. The left mid calf diameter is 0.2 cm. There is no reflux. The left distal calf diameter is 0.2 cm. There is no reflux. SAPHENOUS PERFORATORS: At greater saphenous vein at the mid calf measures 0.3 cm. There is no reflux. VARICOSITIES: At left GSV mid thigh measures 0.3 cm. There is no reflux. OTHER: No DVT or deep venous reflux in either lower extremity. US/US venous insuf bilat IMPRESSION: 1. No hemodynamically significant reflux is seen of the bilateral greater or lesser saphenous veins. There is no lower extremity DVT or superficial thrombosis. 2. There are varicosities measures 0.3 cm arising from the RIGHT GSV mid and proximal thigh. 3. There is a varicosity measuring 0.3 cm arising from the LEFT GSV mid thigh. 4. Venous measurements as detailed above. Electronically signed by: Apollo Amin MD 07/08/2024 02:09 PM EDT
--- OUTSIDE RECORDS SUMMARY | 2024-07-07 13:14 | XMS_ITS | Encounter Summary ---
Author Organization [facility] Address 100 [facility] 200 [place] [address] Phone Care Team Providers Care Knot Tying Operator Name Role Phone Marilyn Gillespie MD Primary Care Provider [phone] Reason for Visit * Reason Comments Med Refill Encounter Details Date Type Department Care Team (Late st Contact Info) Description 02/05/2021 Refill [facility] 100 [facility] 200 [place] [phone] Ricco Butler MD [address] [facility] 204 [place] [address] Social History Tobacco Use Types [...] on filedocumented in this encounter Care Teams Knot Tying Operator Relationship Specialty Start Date End Date Marilyn Gillespie [place] [address] PCP - General 05/07/20 documented as of this encounter
--- OUTSIDE RECORDS SUMMARY | 2024-07-07 13:14 | XMS_ITS | Clinical Summary ---
Author Organization [facility] Address 100 [facility] 20 0 [place] [address] Phone Care Team Providers Care Displayer Name Role Phone Marilyn Gillespie MD Primary Care Provider [phone] Allergies No known active allergies Medications amLODIPine [...] complete this topic Insurance [place]ID [place] AENA [facility] ADV PPO ([id number]) AETNA [facility] ADV PPO ([id number]) [place]ICAID [place] Care Teams Displayer Relationship Specialty Start Date End Date Marilyn Gillespie MD [facility] [place] [address] PCP - General 05/07/20
--- OUTSIDE RECORDS SUMMARY | 2024-07-07 13:15 | XMS_ITS | Encounter Summary ---
Author Organization [facility] Address 100 [facility] 200 [place] [address] Phone Care Team Providers Care Tooth Grinder Name Role Phone Marilyn Gillespie MD Primary Care Provider [phone] Encounter Details Date Type Department Care Team (Latest Contact Info) Description 03/08/2023 Office Communication [facility] 100 [facility] 200 [place] [address] Ricco Butler MD [address] [facility] 204 [place] [address] Chronic kidney disease, stage 4 [...] 11:22 AM EST) Albumin 4.0 (3.4-4.8) GM/DL [facility] Comment: Testing performed or reported by [facility], a Service of [facility], [address] [place] [address] Cade Duffy MD, Roll Operator CLIA# [id number] Blood (Blood, Venous) 03/10/2023 11:22 AM EST 03/10/2023 11:27 AM EST Ricco Butler MD LAB BLOOD ORDERABLES Final Re sult Performing Organization Address [facility] de Phone Number [facility] * Magnesium (03/10/2023 11:22 AM EST) [facility] Magnesium 1.9 (1.6-2.3) mg/dL [facility] Comment: Testing performed or reported by [facility], a Service of [address] [address] Cade Duffy MD, Roll Operator CLIA# [id number] Blood (Blood, Venous) 03/10/2023 11:22 AM EST 03/10/2023 11:27 AM EST Ricco Butler MD LAB BLOOD ORDERABLES Final Re sult Performing Organization Address [facility] de Phone Number [facility] * Vitamin D 25 Hydroxy (03/10/2023 11:22 AM EST) [facility] Vitamin D, 25-Hydroxy 26.3 (20-50) NG/ML [facility] Comment: Testing performed or reported by [facility], a Service of [facility], [address] [place] [address] Cade Duffy MD, Roll Operator CLIA# [id number] Blood (Blood, Venous) 03/10/2023 11:22 AM EST 03/10/2023 11:27 AM EST Result [facility] Ricco Butler MD LAB BLOOD ORDERABLES Final Re sult Performing Organization Address [facility] de Phone Number [facility] * Protein, Total, Random Urine w/Creatinine (Protein/Creat Ratio) (03/10/2023 11:22 AM EST) [facility] Protein/Creatine Ratio 0.14 (0-0.2) [facility] Protein, Urine 24 MG/DL [facility] Comment: The urine microalbumin test is designed to monitor renal function. When screening for Bence Amin proteinuria, urine electrophoresis is recommended. Creatinine, Urine 171.5 MG/DL [facility] Comment: Testing performed or reported by [facility], a Service of [facility], [address] [place] [address] Cade Duffy MD, Roll Operator CLIA# [id number] Urine (Urine, Clean Catch) 03/10/2023 11:22 AM EST 03/10/2023 11:27 AM EST Ricco Butler MD LAB URINE ORDERABLES Final Re sult Performing Organization Address [facility] de Phone Number [facility] * (ABNORMAL) Urine Albumin / Creatinine Ratio (03/10/2023 11:22 AM EST) Urine Microalbumin 58.0(H) (<20) MG/L [facility] Comment: The urine microalbumin test is designed to monitor renal function. When screening for Bence Amin proteinuria, urine electrophoresis is recommended. Microalbumin/Creati nine Ratio 33.6(H) (0-20) MG/GM [facility] Microalb/Creat Ratio 171.5 MG/DL [facility] Comment: Testing performed or reported by [facility], a Service of [facility], [address] [place] [address] Cade Duffy MD, Roll Operator [facility]# [id number] Urine (Urine, Clean Catch) 03/10/2023 11:22 AM EST 03/10/2023 11:27 AM EST Ricco Butler MD LAB URINE ORDERABLES Final Re sult Performing Organization Address [facility] de Phone Number [facility] * (ABNORMAL) Urinalysis with microscopic (03/10/2023 11:22 AM EST) Appearance YELLOW [facility] Comment:TURBID Specific [place] 1.026 (1.002-1. 030) [facility] pH Urine 5.5 (5.0-8.0) [facility] Albumin, Urine TRACE(A) (NEG) [facility] Glucose, Ur NEGATIVE (NEG) [facility] Ketones, Urine NEGATIVE (NEG) [facility] Bilirubin Urine NEGATIVE (NEG) [facility] Hemoglobin Presence in Urine NEGATIVE (NEG) [facility] Nitrite, Urine NEGATIVE (NEG) [facility] Leukocyte Esterase Urine 3+(A) (NEG) [facility] Urobilinogen Urine NORMAL (NORM) MG/DL [facility] WBC, Urine 8(H) (0-5) /HPF [facility] RBC, Urine 1 (0-3) /HPF [facility] Bacteria MODERATE(A) (NEG) HPF [facility] Mucus, Urine SLIGHT /LPF [facility] Squamous Epithelial, Urine 20(H) (0-8) /HPF [facility] Comment: Testing performed or reported by [facility] [employer], a Service of [address] [address] Cade Duffy MD, Roll Operator [facility]# [id number] Urine (Urine, Clean Catch) 03/10/2023 11:22 AM EST 03/10/2023 11:27 AM EST us Ricco Butler MD LAB URINE ORDERABLES Final Re sult [facility] * (ABNORMAL) Renal Function Panel (03/10/2023 11:22 AM EST) Glucose 72 (70-99) MG/DL [facility] BUN 33(H) (8-23) MG/DL [facility] Creatinine 1.7(H) (0.5-1.0) MG/DL [facility] Sodium 138 (133-145) MMOL/L [facility] Potassium 5.1 (3.6-5.2) MMOL/L [facility] Chloride 103 (98-107) MMOL/L [facility] Bicarbonate (CO2) 21(L) (22-29) MMOL/L [facility] Anion Gap 14 (4-17) [facility] Albumin 4.0 (3.4-4.8) GM/DL [facility] Calcium 9.5 (8.6-10.5) MG/DL [facility] Phosphorus, Serum 4.2 (2.5-4.5) MG/DL [facility] Est GFR Non 32 ML/MIN/1.7 3 M2 [facility] Comment: Creatinine based estimated glomerular filtration (eGFR) in adults is calculated using the National Kidney Foundation recommended 2020 CKD-EPI equation. Estimates GFR from serum creatinine, age and sex. Testing performed or reported by [facility] [employer] [facility], a Service of [address] [place] [address] Cade Duffy MD, Roll Operator CLIA# [id number] Blood (Blood, Venous) 03/10/2023 11:22 AM EST 03/10/2023 11:27 AM EST Ricco Butler MD LAB BLOOD ORDERABLES Final Re sult Performing Organization Address [facility]/ZIP Co de Phone Number [facility] * (ABNORMAL) PTH, Intact (03/10/2023 11:22 AM EST) PTH, Intact 89(H) (15-65) PG/ML [facility] Comment: Testing performed or reported by [facility], a Service of [address] [address] Cade Duffy MD, Roll Operator CLIA# [id number] Blood (Blood, Venous) 03/10/2023 11:22 AM EST 03/10/2023 11:26 AM EST us Ricco Butler MD LAB BLOOD ORDERABLES Final Re sult Performing Organization Address [facility] Co de Phone Number [facility] documented in this encounter Visit Diagnoses Diagnosis Chronic kidney disease, stage 4 (severe) (HCC)- Primary documented in this encounter Care Teams Tooth Grinder Relationship Specialty Start Date End Date Marilyn Gillespie MD [address] [place] [address] PCP - General 05/07/20 documented as of this encounter
--- OUTSIDE RECORDS SUMMARY | 2024-07-07 13:15 | XMS_ITS | Encounter Summary ---
Author Organization [facility] Address 100 [facility] 200 [place] [address] Phone Care Team Providers Care Hides Inspector Name Role Phone Marilyn Gillespie MD Primary Care Provider [phone] Reason for Visit * Reason Comments Med Refill Encounter Details Date Type Department Care Team (Late st Contact Info) Description 01/09/2021 Refill [facility] 100 [facility] 200 [place] [phone] Ricco Butler MD [address] [facility] 204 [place] [address] Social History Tobacco Use Types [...] on filedocumented in this encounter Care Teams Hides Inspector Relationship Specialty Start Date End Date Marilyn Gillespie MD [facility] [place] [address] PCP - General 05/07/20 documented as of this encounter
--- OUTSIDE RECORDS SUMMARY | 2024-07-07 13:15 | XMS_ITS | Encounter Summary ---
Author Organization [facility] Address 100 [facility] 200 [place] [address] Phone Care Team Providers Care Plycor Operator Name Role Phone Marilyn Gillespie MD Primary Care Provider [phone] Reason for Visit * Reason Comments Med Refill Encounter Details Date Type Department Care Team (Late st Contact Info) Description 12/24/2022 Refill [facility] 100 [facility] 200 [place] [phone] Ricco Butler MD [address] [facility] 204 [place] [address] Hypertensive renal disease; Chronic kidney [...] (HCC) documented in this encounter Care Teams Plycor Operator Relationship Specialty Start Date End Date Marilyn Gillespie MD [address] [place] [address] PCP - General 05/07/20 documented as of this encounter
== END 2024-07-07 10:33 | disposition home or self-care (01) ==
LOC: HO.US 10:32
PROVIDERS: PCP Internal Medicine; Visit Provider Physician Assistant Surgical
DX: I83.11 Varicose veins of right lower extremity with inflammation (principal); I83.12 Varicose veins of left lower extremity with inflammation
CPT/HCPCS: 93970

== ENCOUNTER → 2024-07-07 10:35 | Outpatient (BNV) | payer MEDICARE, MEDICAID, SELFPAY | PROVIDERS: PCP Internal Medicine; Visit Provider Radiology Diagnostic Radiology | DX: I83.11 Varicose veins of right lower extremity with inflammation (principal); I83.92 Asymptomatic varicose veins of left lower extremity | CPT/HCPCS: 93970 ==

== ENCOUNTER 2024-07-20 12:11 | Outpatient (REF) | payer MEDICARE, MEDICAID, SELFPAY ==
[2024-07-20 16:11] LABS: MANUAL DIFF FLAG NO
[2024-07-20 16:27] LABS: Basophils Percent Auto 0.5 % (0-2); Eosinophils Absolute Auto 0.3 X10*3/uL (0.0-0.4); Eosinophils Percent Auto 3.3 % (0-4); Hematocrit 39.6 % (37.0-47.0); Hemoglobin 12.8 g/dl (12.0-16.0); Imm Gran Abs Auto 0.04 X10*3/uL (0.00-0.03); Imm Gran Pct Auto 0.5 % (0.0-0.4); Lymphocytes Absolute Auto 3.2 X10*3/uL (1.2-4.9); Lymphocytes Percent Auto 36.2 % (20-40); Mean Corpuscular HGB Conc 32.3 g/dl (31.0-35.0); Mean Corpuscular Hemoglobin 31.8 pg (27.0-33.0); Mean Corpuscular Volume 98.5 fL (80.0-98.0); Mean Platelet Volume 10.2 fL (9.4-12.3); Monocytes Absolute Auto 0.6 X10*3/uL (0.1-1.2); Neutrophils Absolute Auto 4.6 x10*3/uL (2.0-8.3); Neutrophils Percent Auto 52.5 % (45-73); Platelet Count 343 X10*3/uL (160-400); Red Blood Count 4.02 X10*6/uL (4.20-5.50); Red Cell Distribution Width 13.9 % (11.0-16.0); White Blood Count 8.7 X10*3/uL (4.8-10.8)
[2024-07-20 16:37] LABS: Estimated Average Glucose 123 mg/dL; Hemoglobin A1c % 5.9 % (<6.0); Total Hemoglobin (HGBA1C) 3367.7981 umol/L
[2024-07-20 16:44] LABS: Alanine Aminotransferase 12 U/L (0-31); Albumin Level 3.7 g/dL (3.5-5.0); Alkaline Phosphatase 70 U/L (39-117); Anion Gap 13 (12-20); Aspartate Amino Transferase 26 U/L (5-31); Bilirubin Total 0.4 mg/dL (0.0-1.0); Blood Urea Nitrogen 31 mg/dL (9-16); Calcium 9.5 mg/dL (8.4-10.2); Carbon Dioxide 24 mmol/L (22-29); Chloride 107 mmol/L (96-108); Cholesterol 140 mg/dL (<200); Estimated Glomerular Filt Rate 39; Glucose Fasting 64 mg/dL (60-99); HDL Cholesterol 57 mg/dL (>40); LDL Cholesterol Calculated 65 mg/dL (<100); Potassium 4.7 mmol/L (3.3-5.1); Sodium 139 mmol/L (135-145); Total Protein 7.2 g/dL (6.5-8.0); Triglycerides 93 mg/dL (<150)
[2024-07-20 17:01] LABS: TSH reflex Free T4 2.14 uIU/mL (0.32-4.0)
[2024-07-25 21:19] LABS: Vitamin D 25-OH, D2 <4 ng/mL; Vitamin D 25-OH, D3 24 ng/mL; Vitamin D 25-OH, Total 24 ng/mL (30-100)
== END 2024-07-20 12:12 | disposition home or self-care (01) ==
LOC: HO.HMGCLDS 12:11
PROVIDERS: PCP Internal Medicine; Visit Provider Internal Medicine
DX: E11.42 Type 2 diabetes mellitus with diabetic polyneuropathy (principal); E66.01 Morbid (severe) obesity due to excess calories; F33.41 Major depressive disorder, recurrent, in partial remission; F41.1 Generalized anxiety disorder; E78.9 Disorder of lipoprotein metabolism, unspecified; K58.0 Irritable bowel syndrome with diarrhea; E03.9 Hypothyroidism, unspecified; E11.21 Type 2 diabetes mellitus with diabetic nephropathy; I12.9 Hypertensive chronic kidney disease with stage 1 through stage 4 chronic kidney disease, or unspecified chronic kidney disease; E11.22 Type 2 diabetes mellitus with diabetic chronic kidney disease; N18.30 Chronic kidney disease, stage 3 unspecified; D50.0 Iron deficiency anemia secondary to blood loss (chronic); Z79.4 Long term (current) use of insulin; Z79.899 Other long term (current) drug therapy; Z59.01 Sheltered homelessness
CPT/HCPCS: 36415; 80053; 80061; 82306; 83036; 84443; 85025; 96127; 99212

== ENCOUNTER 2024-07-20 12:11 | Outpatient (AMB) | payer MEDICARE, MEDICAID, SELFPAY ==
--- NOTE | 2024-07-20 12:14 | A.OFFPC_ITS ---
Vital Signs 07/20/24 12:17 Height 4 ft 10 in Weight 246 lb 2 oz BMI 51.4 BP 136/82 Blood Pressure Location Rt brachial Position Sitting Pulse 80 Pulse Source Pulse Oximeter Pulse Oximetry (%) 98 Oxygen Delivery Method Room Air Intake Visit Reasons: 3 months f/up Allergies adhesive tape [Adhesive Tape] Allergy (Severe, Verified 07/20/24 12:14) BLISTERS dairy products Allergy (Severe, Verified 07/20/24 12:14) GI upset semaglutide [From Ozempic] Allergy (Severe, Verified 07/20/24 12:14) Diarrhea NSAIDS (Non-Steroidal Anti-Inflamma Adverse Reaction (Verified 07/20/24 12:14) Nephropathy Medication List - Last Reconciled 07/20/24 by Marilyn Gillespie MD acetaminophen ER (Tylenol Arthritis Pain) 650 mg PO Q8H PRN [Adult Pull-ups As directed] [adult pull-ups size As directed] albuterol sulfate 90 mcg/actuation 2 puffs inhalation Q4H PRN alcohol swabs (Alcohol Pads) 1 pad topical TIDWMEAL blood sugar diagnostic (OneTouch Ultra Test strips) tid esting 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 meter (OneTouch Ultra2 Meter) tid testing 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 meter,continuous (FreeStyle Ihsan 3 [place]) As directed 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 sensor (FreeStyle Ihsan 3 Sensor device) As directed bupropion HCl SR 200 mg PO DAILY carvedilol 6.25 mg PO BID [cloth bed pads As directed] dicyclomine 10 mg PO BID PRN 90 days fenofibrate 160 mg PO DAILY 90 days ferrous sulfate 324 mg PO BID 90 days fluoxetine 40 mg PO DAILY 90 days furosemide 20 mg PO DAILY insulin degludec (Tresiba FlexTouch U-200 insulin) 15 units (0.075 mL) subcut BID 90 days lancets tid testing lancets Use to check blood sugars three times a day levothyroxine 25 mcg PO DAILY loratadine (Allergy Relief (loratadine)) 10 mg PO DAILY 90 days metoprolol succinate ER 25 mg PO BEDTIME nystatin 1 appl topical DAILY 30 days [panty liners As directed] pen needle, diabetic daily pen needle, diabetic (BD Nadya 2nd Gen Pen Needle) 1 ea miscellaneous BID ropinirole 0.5 mg PO BEDTIME 90 days simvastatin 20 mg PO DAILY 90 days tramadol 50 mg PO DAILY PRN 30 days Tobacco use date assessed: 07/20/24 Fall risk assessment: No Falls in past year Last assessed Fall Risk: 07/20/24 Dental Screening Dental Screen Date: 07/20/24 Did you have a dental visit in the last 12 months?: No Did you have a dental problem in the last 6 months where you did not have access to dental care?: No Was dental information given to patient?: No HPI 3 months f/up HPI Details Regular follow-up appointment - The patient is a 73-year-old female Wi th a history of peripheral neuropathy, diabetes, chronic anemia iron-deficiency, morbid obesity, compromised renal fun ction, IBS, depression, anxiety, lipid disorder, hypothyroidism, allergies, restless legs syndrome, lower extremity edema Currently patient is homeless She is staying 2 weeks with 1 daughter and 2 weeks with other daughter She has applied for housing and is on a waiting list She suffers from sleep apnea as well and is having difficulty with the equipment Waiting for the parts Continued to be severely depressed since her situation has changed Patient had baseline depression and anxiety to begin with She is dependent on walker for mobility presenting with concerns about bowel changes and medication management. - Reports black stools, potentially link ed to iron supplementation. She takes iron twice daily and expressed interest in reducing intake. Past hemoglobin was 11.3 g/dL. - Her kidney function has declined, pote ntially due to diabetes, requiring repeat evaluation. - The patient manages diabetes, checking glucose levels twice daily, with recent readings of 111 mg/dL and 117 mg/dL. - The patient's residence in a basement was condemned due to insufficient emergency exits, affecting her living situation. Currently rotating between family homes. Medications - Iron supplementation: 2x daily for iro n deficiency anemia - Levothyroxine for hypothyroidism - Simvastatin for hyperlipidemia - Propranolol for anxiety - Metoprolol for hypertension - Tresheba, 15 units BID, for diabetes m ellitus - Fluoxetine, 40 mg daily, for depressio n - Flucemide, presumably for fluid retent ion or heart failure - Finofibrate, 160 mg for dyslipidemia - Dicyclomine, 10 mg for irritable bowel symptoms - Carvedilol, 6.25 mg BID for hypertensi on/heart failure - Bupropion, 200 mg for depression - Albuterol inhaler as needed for respir atory issues Patient Instructions - Reduce iron supplementation to once da mica. - Complete blood tests today to monitor hemoglobin and kidney function. - Continue current medication regimen. - Follow up with a psychiatrist aurora lucas mental health medication adjustments. - Utilize the behavioral care coordinato r to expedite mental health support. - Explore housing stability options and continue necessary applications. Review of Systems General: No fever no chills neurological: No headaches no dizziness ear nose throat: No sore throat no hearing difficulty no ear pain cardiovascular: No syncope, no chest pain, no palpitations gastrointestinal: No nausea vomiting or diarrhea endocrine: No polyuria polydipsia no heat intolerance genitourinary: No dysuria skin: No new complaints Physical Exam general: No acute distress, dependent on walker for ambulation HEENT: No acute findings neck: Supple respiratory system: Able to talk in full sentences, no audible wheeze no stridor cardiovascular: S1-S2 gastrointestinal: No pain extremities: No new findings, mild edema present bilateral ankle 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: Alert awake oriented x3 motor sensory intact skin: Normal turgor PFSH Medical History Restrictive lung disease Breast cancer COVID-19 vaccine series completed Dyspnea on exertion OZ (obstructive sleep apnea) Morbid obesity with BMI of 50.0-59.9, adult Diabetic polyneuropathy associated with type 2 diabetes mellitus Hypertension Dyslipidemia CKD stage 3 due to type 2 diabetes mellitus Diabetic nephropathy associated with type 2 diabetes mellitus FPC (current) 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 Other Mental health disorder Substance use disorder Social History Household Members: Family Housing: House Are you a primary career center director to a significant other at home: No Do you presently have visiting nurse or other home services: No Alcohol intake: current Alcohol intake frequency: a few times a week Alcohol type: beer Patient Tobacco Use Status: Former Tobacco user Tobacco use type: Cigarette e-Cigarette/Vaping Use: Never Used service: No Current occupational status: unemployed Cognitive needs: No Hearing needs: No Vision needs: No Questionnaire PHQ-9 Over the last 2 weeks, how often have you been bothered by any of the following problems? 1. Little interest or pleasure in doing things: more than half the days 2. Feeling down, depressed, or hopeless: not at all 3. Trouble falling or staying asleep, or sleeping too much: more than half the days 4. Feeling tired or having little energy: more than half the days 5. Poor appetite or overeating: not at all 6. Feeling bad about yourself - or that you are a failure or have let yourself or your family down: not at all 7. Trouble concentrating on things, such as reading the newspaper or watching television: nearly every day 8. Moving or speaking so slowly that other people could have noticed. Or the opposite - being so fidgety or restless that you have been moving around a lot more than usual: not at all 9. Thoughts that you would be better off or of hurting yourself in some way: not at all Total score: 9 Depression Screening Interpretation: Positive Depression Screening Follow-up: Existing condition and In treatment Depression Screening Done: Yes 56375 - PHQ-9 Billing: Yes Source: Developed by Drs. Johnnie Hammonds, Laly Hoyt, León Norton and colleagues, with an educational maryanne from [employer]. Thrive Questionnaire Date Thrive assessed: 07/20/24 I am a: Parent/Caregiver What is your living situation today?: I do not have a steady places to live I am temporarily staying with others Within the past 12 months, did the food you bought not last and you didn't have the money to get more?: I choose not to answer this question Within the past 12 months, did you worry whether your food would run out before you got money to buy more?: I choose not to answer this question Do you have trouble paying for medicines?: No Do you have trouble getting transportation to medical appointments?: No Do you have trouble paying your heating and electricity bill?: No Do you have trouble taking care of your child, family member or friend?: No Do you have trouble with day-to-day activities such as bathing, preparing meals, shopping, managing finances, etc.?: No Are you currently unemployed and looking for a job?: I choose not to answer this question Are you interested in more education?: No Please select the resources that you would like help with: Housing/Half-Way Currently or been in a relationship where the following occur: I choose not to answer THRIVE Score: 1 AUDIT C Alcohol Use Questionnaire (AUDIT-C) 1. How often do you have a drink containing alcohol?: Never 3. How often do you have six or more drinks on one occasion?: Never Total Score: 0 Score Reviewed/Action Taken: Yes MADI-7 AMB Questionnaire MADI-7 Date MADI - 7 assessed: 07/20/24 Feeling nervous, anxious, or on edge: 0 = Not at all Not being able to stop or control worryin = Not at all Worrying too much about different things: 0 = Not at all Trouble relaxin = Not at all Being so restless that it is hard to sit still: 0 = Not at all Becoming easily annoyed or irritable: 0 = Not at all Feeling afraid as if something awful might happen: 0 = Not at all Total MADI-7 score (0-4 normal; 5-9 mild; 10-14 moderate; 15-21 severe): 0 Source: Developed by Drs. Johnnie Hammonds, Laly Hoyt, León Norton and colleagues, with an educational maryanne from [employer]. MADI-7 Assessment Billing MADI-7 Assessment Tool: MADI-7 Assessment 82416 Physical exam (Primary Care) Vital Signs: Last Vital Signs Pulse 80 07/20/24 12:17 BP 136/82 07/20/24 12:17 Pulse Ox 98 07/20/24 12:17 Oxygen Delivery Method Room Air 07/20/24 12:17 BMI result Body Mass Index 51.4 Tobacco/Smoking Status: Tobacco use Status Tobacco use date assessed 07/20/24 07/20/24 12:21 Patient Tobacco Use Status Former Tobacco user 07/20/24 12:14 Tobacco use type Cigarette 07/20/24 12:14 e-Cigarette/Vaping Use Never Used 07/20/24 12:14 PHQ-9: PHQ-9 Score PHQ-9: Total score 9 07/20/24 12:21 Depression Screening Interpretation: Positive Depression Screening Follow-up: Existing condition and In treatment Thrive Assessment: Date of Thrive Assessment Date Thrive assessed 07/20/24 07/20/24 12:14 Currently or been in a relationship where the following occur: I choose not to answer Coding Level of Care Code Est Pt Level 5 (56519) Complex EM visit Add On G2211 Diagnoses Diabetes 1.5, managed as type 1 E13.9 Lipid disorder E78.9 Anxiety, generalized F41.1 Recurrent major depressive disorder, in partial remission F33.41 Active/Remission status: in partial remission Irritable bowel syndrome with diarrhea K58.0 Irritable bowel syndrome 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: with 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 Z79.4 Diabetic nephropathy associated with type 2 diabetes mellitus E11.21 CKD stage 3 due to type 2 diabetes mellitus E11.22; N18.30 Essential hypertension I10 Hypertension type: essential hypertension Morbid obesity E66.01 Iron deficiency anemia due to chronic blood loss D50.0 Iron deficiency anemia type: chronic blood loss Additional Codes MADI-7 Assessment Billing - MADI-7 Assessment Tool: MADI-7 Assessment 33173 ([id number]) PHQ-9 - 97658 - PHQ-9 Billing: Yes ([id number]) Assessment & Plan Assessment & Plan (1) Diabetes 1.5, managed as type 1: Code(s): E13.9 - Other specified diabetes mellitus without complications Category: Medical (2) Lipid disorder: Code(s): E78.9 - Disorder of lipoprotein metabolism, unspecified Category: Medical (3) Anxiety, generalized: Code(s): F41.1 - Generalized anxiety disorder Category: Medical (4) Depression, major, recurrent: Code(s): F33.9 - Major depressive disorder, recurrent, unspecified Category: Medical Qualifiers: Active/Remission status: in partial remission Qualified Code(s): F33.41 - Major depressive disorder, recurrent, in partial remission (5) Irritable bowel syndrome: Code(s): K58.9 - Irritable bowel syndrome, unspecified Category: Medical Qualifiers: Irritable bowel syndrome type: with diarrhea Qualified Code(s): K58.0 - Irritable bowel syndrome with diarrhea (6) 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: Code(s): Z79.4 - 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 Category: Medical (7) Diabetic nephropathy associated with type 2 diabetes mellitus: Code(s): E11.21 - Type 2 diabetes mellitus with diabetic nephropathy Category: Medical (8) CKD stage 3 due to type 2 diabetes mellitus: Code(s): E11.22 - Type 2 diabetes mellitus with diabetic chronic kidney disease; N18.30 - Chronic kidney disease, stage 3 unspecified Category: Medical (9) Hypertension: Code(s): I10 - Essential (primary) hypertension Category: Medical Qualifiers: Hypertension type: essential hypertension Qualified Code(s): I10 - Essential (primary) hypertension (10) Morbid obesity: Code(s): E66.01 - Morbid (severe) obesity due to excess calories Category: Medical (11) Iron deficiency anemia: Code(s): D50.9 - Iron deficiency anemia, unspecified Category: Medical Qualifiers: Iron deficiency anemia type: chronic blood loss Qualified Code(s): D50.0 - Iron deficiency anemia secondary to blood loss (chronic) Plan Regular follow-up appointment - The patient is a 73-year-old female With a history of peripheral neuropathy, diabetes, chronic anemia iron-deficiency, morbid obesity, compromised renal function, IBS, depression, anxiety, lipid disorder, hypothyroidism, allergies, restless legs syndrome, lower extremity edema Currently patient is homeless She is staying 2 weeks with 1 daughter and 2 weeks with other daughter She has applied for housing and is on a waiting list She suffers from sleep apnea as well and is having difficulty with the equipment Waiting for the parts Continued to be severely depressed since her situation has changed Patient had baseline depression and anxiety to begin with She is dependent on walker for mobility presenting with concerns about bowel changes and medication management. - Reports black stools, potentially linked to iron supplementation. She takes iron twice daily and expressed interest in reducing intake. Past hemoglobin was 11.3 g/dL. - Her kidney function has declined, potentially due to diabetes, requiring repeat evaluation. - The patient manages diabetes, checking glucose levels twice daily, with recent readings of 111 mg/dL and 117 mg/dL. - The patient's residence in a basement was condemned due to insufficient emergency exits, affecting her living situation. Currently rotating between family homes. Medications - Iron supplementation: 2x daily for iron deficiency anemia - Levothyroxine for hypothyroidism - Simvastatin for hyperlipidemia - Propranolol for anxiety - Metoprolol for hypertension - Tresheba, 15 units BID, for diabetes mellitus - Fluoxetine, 40 mg daily, for depression - Flucemide, presumably for fluid retention or heart failure - Finofibrate, 160 mg for dyslipidemia - Dicyclomine, 10 mg for irritable bowel symptoms - Carvedilol, 6.25 mg BID for hypertension/heart failure - Bupropion, 200 mg for depression - Albuterol inhaler as needed for respiratory issues Patient Instructions - Reduce iron supplementation to once daily. - Complete blood tests today to monitor hemoglobin and kidney function. - Continue current medication regimen. - Follow up with a psychiatrist regarding mental health medication adjustments. - Utilize the behavioral anesthesiologist and critical care to expedite mental health support. - Explore housing stability options and continue necessary applications. Patient met with our behavior health coordinator as well today 40 minute visit Orders: Orders Microalbumin, Random (w Creat) Today D50.9 - Iron deficiency anemia, unspecified, E11.21 - Type 2 diabetes mellitus with diabetic nephropathy, E11.22 - Type 2 diabetes mellitus with diabetic chronic kidney disease, E13.9 - Other specified diabetes mellitus without complications, E66.01 - Morbid (severe) obesity due to excess calories, E78.9 - Disorder of lipoprotein metabolism, unspecified, F33.41 - Major depressive disorder, recurrent, in partial remission, F41.1 - Generalized anxiety disorder, I10 - Essential (primary) hypertension, K58.0 - Irritable bowel syndrome with diarrhea, N18.30 - Chronic kidney disease, stage 3 unspecified, Z79.4 - 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 Complete Blood Count Auto Diff Today D50.9 - Iron deficiency anemia, unspecified, E11.21 - Type 2 diabetes mellitus with diabetic nephropathy, E11.22 - Type 2 diabetes mellitus with diabetic chronic kidney disease, E13.9 - Other specified diabetes mellitus without complications, E66.01 - Morbid (severe) obesity due to excess calories, E78.9 - Disorder of lipoprotein metabolism, unspecified, F33.41 - Major depressive disorder, recurrent, in partial remission, F41.1 - Generalized anxiety disorder, I10 - Essential (primary) hypertension, K58.0 - Irritable bowel syndrome with diarrhea, N18.30 - Chronic kidney disease, stage 3 unspecified, Z79.4 - 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 TSH reflex Free T4 Today D50.9 - Iron deficiency anemia, unspecified, E11.21 - Type 2 diabetes mellitus with diabetic nephropathy, E11.22 - Type 2 diabetes mellitus with diabetic chronic kidney disease, E13.9 - Other specified diabetes mellitus without complications, E66.01 - Morbid (severe) obesity due to excess calories, E78.9 - Disorder of lipoprotein metabolism, unspecified, F33.41 - Major depressive disorder, recurrent, in partial remission, F41.1 - Generalized anxiety disorder, I10 - Essential (primary) hypertension, K58.0 - Irritable bowel syndrome with diarrhea, N18.30 - Chronic kidney disease, stage 3 unspecified, Z79.4 - 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 Hemoglobin A1c Today D50.9 - Iron deficiency anemia, unspecified, E11.21 - Type 2 diabetes mellitus with diabetic nephropathy, E11.22 - Type 2 diabetes mellitus with diabetic chronic kidney disease, E13.9 - Other specified diabetes mellitus without complications, E66.01 - Morbid (severe) obesity due to excess calories, E78.9 - Disorder of lipoprotein metabolism, unspecified, F33.41 - Major depressive disorder, recurrent, in partial remission, F41.1 - Generalized anxiety disorder, I10 - Essential (primary) hypertension, K58.0 - Irritable bowel syndrome with diarrhea, N18.30 - Chronic kidney disease, stage 3 unspecified, Z79.4 - 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 Panel Fast Today D50.9 - Iron deficiency anemia, unspecified, E11.21 - Type 2 diabetes mellitus with diabetic nephropathy, E11.22 - Type 2 diabetes mellitus with diabetic chronic kidney disease, E13.9 - Other specified diabetes mellitus without complications, E66.01 - Morbid (severe) obesity due to excess calories, E78.9 - Disorder of lipoprotein metabolism, unspecified, F33.41 - Major depressive disorder, recurrent, in partial remission, F41.1 - Generalized anxiety disorder, I10 - Essential (primary) hypertension, K58.0 - Irritable bowel syndrome with diarrhea, N18.30 - Chronic kidney disease, stage 3 unspecified, Z79.4 - FPC (current) use of insulin Lipid Panel Today D50.9 - Iron deficiency anemia, unspecified, E11.21 - Type 2 diabetes mellitus with diabetic nephropathy, E11.22 - Type 2 diabetes mellitus with diabetic chronic kidney disease, E13.9 - Other specified diabetes mellitus without complications, E66.01 - Morbid (severe) obesity due to excess calories, E78.9 - Disorder of lipoprotein metabolism, unspecified, F33.41 - Major depressive disorder, recurrent, in partial remission, F41.1 - Generalized anxiety disorder, I10 - Essential (primary) hypertension, K58.0 - Irritable bowel syndrome with diarrhea, N18.30 - Chronic kidney disease, stage 3 unspecified, Z79.4 - FPC (current) use of insulin Vitamin D 25-OH (D2 and D3) Today D50.9 - Iron deficiency anemia, unspecified, E11.21 - Type 2 diabetes mellitus with diabetic nephropathy, E11.22 - Type 2 diabetes mellitus with diabetic chronic kidney disease, E13.9 - Other specified diabetes mellitus without complications, E66.01 - Morbid (severe) obesity due to excess calories, E78.9 - Disorder of lipoprotein metabolism, unspecified, F33.41 - Major depressive disorder, recurrent, in partial remission, F41.1 - Generalized anxiety disorder, I10 - Essential (primary) hypertension, K58.0 - Irritable bowel syndrome with diarrhea, N18.30 - Chronic kidney disease, stage 3 unspecified, Z79.4 - 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
[2024-07-20 12:17] VITALS: BP 136/82; PULSE 80; O2SAT 98; BMI 51.4
== END 2024-07-20 12:38 | disposition home or self-care (01) ==
LOC: HO.HMCC 12:12
PROVIDERS: PCP Internal Medicine; Visit Provider Internal Medicine
DX: I12.9 Hypertensive chronic kidney disease with stage 1 through stage 4 chronic kidney disease, or unspecified chronic kidney disease (principal); E11.21 Type 2 diabetes mellitus with diabetic nephropathy; F33.41 Major depressive disorder, recurrent, in partial remission; Z79.4 Long term (current) use of insulin; E11.22 Type 2 diabetes mellitus with diabetic chronic kidney disease; N18.30 Chronic kidney disease, stage 3 unspecified; E66.01 Morbid (severe) obesity due to excess calories; Z68.43 Body mass index [BMI] 50.0-59.9, adult; E78.9 Disorder of lipoprotein metabolism, unspecified; F41.1 Generalized anxiety disorder; K58.0 Irritable bowel syndrome with diarrhea; D50.0 Iron deficiency anemia secondary to blood loss (chronic)

== ENCOUNTER 2024-07-26 12:00 | Outpatient (REF) | payer MEDICARE, MEDICAID, SELFPAY ==
--- OUTSIDE RECORDS SUMMARY | 2024-07-26 14:18 | XMS_ITS | Encounter Summary ---
Author Organization [facility] Address [address] [facility] [address] [place] [address] Phone Care Team Providers Care Cobbler Sole Name Role Phone Marilyn Gillespie MD Primary Care Provider [phone] Reason for Visit * Reason Comments Med Refill Encounter Details Date Type Department Care Team (Late st Contact Info) Description 12/24/2022 Refill [facility] [address] [facility] [address] [place] [phone] Ricco Butler MD [address] [facility] [address] [place] [address] Hypertensive renal disease; Chronic kidney [...] (HCC) documented in this encounter Care Teams Cobbler Sole Relationship Specialty Start Date End Date Marilyn Gillespie MD [address] [place] [address] PCP - General 05/07/20 documented as of this encounter
--- OUTSIDE RECORDS SUMMARY | 2024-07-26 14:18 | XMS_ITS | Encounter Summary ---
Author Organization [facility] Address [address] [facility] [address] [place] [address] Phone Care Team Providers Care Groover And Striper Operator Name Role Phone Marilyn Gillespie MD Primary Care Provider [phone] Reason for Visit * Reason Comments Med Refill Encounter Details Date Type Department Care Team (Late st Contact Info) Description 01/09/2021 Refill [facility] [address] [facility] [address] [place] [phone] Ricco Butler MD [address] [facility] [address] [place] [address] Social History Tobacco Use Types [...] on filedocumented in this encounter Care Teams Groover And Striper Operator Relationship Specialty Start Date End Date Marilyn Gillespie MD [place] [address] PCP - General 05/07/20 documented as of this encounter
--- OUTSIDE RECORDS SUMMARY | 2024-07-26 14:18 | XMS_ITS | Clinical Summary ---
Author Organization [facility] Address [address] [facility] [address] [place] [address] Phone Care Team Providers Care Semi Driver Name Role Phone Marilyn Gillespie MD Primary Care Provider [phone] Allergies No known active allergies Medications amLODIPine [...] complete this topic Insurance MEDICAID [place] AENA [facility] ADV PPO ([id number]) AETNA [facility] ADV PPO ([id number]) MEDICAID [place] Care Teams Semi Driver Relationship Specialty Start Date End Date Marilyn Gillespie MD [facility] [place] [address] PCP - General 05/07/20
--- OUTSIDE RECORDS SUMMARY | 2024-07-26 14:18 | XMS_ITS | Encounter Summary ---
Author Organization [facility] Address 100 [facility] [address] [place] [address] Phone Care Team Providers Care Dental Ceramist Name Role Phone Marilyn Gillespie MD Primary Care Provider Reason for Visit * Reason Comments Med Refill Encounter Details Date Type Department Care Team (Late st Contact Info) Description 02/05/2021 Refill [facility] 200 [place] [phone] Ricco Butler MD [address] [facility] [address] [place] [address] Social History Tobacco Use Types [...] on filedocumented in this encounter Care Teams Dental Ceramist Relationship Specialty Start Date End Date Marilyn Gillespie MD [facility] [place] [address] PCP - General 05/07/20 documented as of this encounter
== END 2024-07-26 12:01 | disposition home or self-care (01) ==
LOC: HO.MAMMO 12:00
PROVIDERS: PCP Internal Medicine; Visit Provider Internal Medicine
DX: Z13.89 Encounter for screening for other disorder (principal)

== ENCOUNTER 2024-07-28 11:05 | Outpatient (AMB) | payer MEDICARE, MEDICAID, SELFPAY ==
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
--- OUTSIDE RECORDS SUMMARY | 2024-07-28 12:29 | XMS_ITS | Encounter Summary ---
Author Organization [facility] Address 100 [facility] 200 [place] [address] Phone Care Team Providers Care Policy Value Calculator Name Role Phone Marilyn Gillespie MD Primary Care Provider [phone] Reason for Visit * Reason Comments Med Refill Encounter Details Date Type Department Care Team (Late st Contact Info) Description 12/24/2022 Refill [facility] 100 [facility] 200 [place] [phone] Ricco Butler MD [address] [facility] [address] [place] [address] Hypertensive renal disease; Chronic kidney [...] (HCC) documented in this encounter Care Teams Policy Value Calculator Relationship Specialty Start Date End Date Marilyn Gillespie MD [address] [place] [address] PCP - General 05/07/20 documented as of this encounter
--- OUTSIDE RECORDS SUMMARY | 2024-07-28 12:29 | XMS_ITS | Clinical Summary ---
Author Organization [facility] Address [address] [facility] [address] [place] [address] Phone Care Team Providers Care Relief Map Modeler Name Role Phone Marilyn Gillespie MD Primary Care Provider [phone] Allergies No known active allergies Medications amLODIPine [...] AENA [facility] ADV PPO ([id number]) AETNA [facility] ADV PPO ([id number]) MEDICAID [place] Care Teams Relief Map Modeler Relationship Specialty Start Date End Date Marilyn Gillespie MD [facility] [place] [address] PCP - General 05/07/20
--- OUTSIDE RECORDS SUMMARY | 2024-07-28 12:29 | XMS_ITS | Encounter Summary ---
Author Organization [facility] Address 100 [facility] 200 [place] [address] Phone Care Team Providers Care Flower Machine Operator Name Role Phone Marilyn Gillespie MD Primary Care Provider [phone] Reason for Visit * Reason Comments Med Refill Encounter Details Date Type Department Care Team (Late st Contact Info) Description 01/09/2021 Refill [facility] [address] [facility] 200 [place] [phone] Ricco Butler MD [address] [facility] [address] [place] [address] Social History Tobacco Use Types [...] on filedocumented in this encounter Care Teams Flower Machine Operator Relationship Specialty Start Date End Date Marilyn Gillespie MD [facility] [place] [address] PCP - General 05/07/20 documented as of this encounter
--- OUTSIDE RECORDS SUMMARY | 2024-07-28 12:29 | XMS_ITS | Encounter Summary ---
Author Organization [facility] Address [address] [facility] 200 [place] [address] Phone Care Team Providers Care Head Start Assistant Teacher Name Role Phone Marilyn Gillespie MD Primary Care Provider [phone] Reason for Visit * Reason Comments Med Refill Encounter Details Date Type Department Care Team (Late st Contact Info) Description 02/05/2021 Refill [facility] [address] [place] [phone] Ricco Butler MD [address] [facility] [address] [place] [address] Social History Tobacco Use Types [...] on filedocumented in this encounter Care Teams Head Start Assistant Teacher Relationship Specialty Start Date End Date Marilyn Gillespie MD [facility] [place] [address] PCP - General 05/07/20 documented as of this encounter
== END 2024-07-28 11:33 | disposition home or self-care (01) ==
LOC: HO.HVS 11:06
PROVIDERS: PCP Internal Medicine; Visit Provider Physician Assistant Surgical
DX: I89.0 Lymphedema, not elsewhere classified (principal)
CPT/HCPCS: 99214

== ENCOUNTER → 2024-07-28 11:05 | Outpatient (BNVA) | payer MEDICARE, MEDICAID, SELFPAY | PROVIDERS: PCP Internal Medicine; Visit Provider Physician Assistant Surgical | DX: I89.0 Lymphedema, not elsewhere classified (principal) | CPT/HCPCS: 99212 ==

== ENCOUNTER 2024-10-17 13:47 | Outpatient (REF) | payer MEDICARE, MEDICAID, SELFPAY ==
--- OUTSIDE RECORDS SUMMARY | 2024-10-17 15:14 | XMS_ITS | Clinical Summary ---
Author Organization [facility] Address [address] [facility] [address] [place] [address] Phone Care Team Providers Care Fiber Optic Central Office Installer Name Role Phone Marilyn Gillespie MD Primary Care Provider [phone] Allergies No known active allergies Medications amLODIPine [...] Comments Breast Cancer Screening 1950 Pneumococcal Vaccine: 50+ Ye ars (1 of 2 - PCV) 10/07/1970 Colorectal Cancer Screening: Annual FOBT 10/07/2000 Colorectal Cancer Screening: Colonoscopy 10/07/2000 Colorectal Cancer Screening: Sigmoidoscopy 10/07/2000 Diabetes: Hemoglobin A1C 05/28/2020 Diabetes: Ophthalmology Exam 05/28/2020 Diabetes: Pedal Pulse Checked 05/28/2020 Diabetes: Sensory Foot Exam 05/28/2020 Diabetes: Visual Foot Exam 05/28/2020 Influenza Vaccine (Season Ended) 2024 Hepatitis B Vaccine Aged Out No longe r eligible based on patient's age to complete this topic Insurance Medicaid [place] Aena [facility] Adv PPO ([id number]) Aetna [facility] Adv PPO ([id number]) [place] [address] Medicaid [place] Care Teams Fiber Optic Central Office Installer Relationship Specialty Start Date End Date Marilyn Gillespie MD [facility] [place] [address] PCP - General 05/07/20
[2024-10-17 16:23] LABS: Anion Gap 12 (12-20); Blood Urea Nitrogen 47 mg/dL (9-16); Calcium 9.8 mg/dL (8.4-10.2); Carbon Dioxide 27 mmol/L (22-29); Chloride 105 mmol/L (96-108); Estimated Glomerular Filt Rate 28; Glucose Random 130 mg/dL (60-115); Potassium 4.6 mmol/L (3.3-5.1); Sodium 139 mmol/L (135-145)
== END 2024-10-17 13:48 | disposition home or self-care (01) ==
LOC: HO.HMGCLDS 13:47
PROVIDERS: PCP Internal Medicine; Visit Provider Internal Medicine Hypertension Specialist
DX: R60.0 Localized edema (principal); E11.22 Type 2 diabetes mellitus with diabetic chronic kidney disease; N18.30 Chronic kidney disease, stage 3 unspecified
CPT/HCPCS: 36415; 80048

== ENCOUNTER 2024-10-18 09:50 | Outpatient (AMB) | payer MEDICARE, MEDICAID, SELFPAY ==
[2024-10-18 09:53] VITALS: BP 116/70; PULSE 82; O2SAT 96; BMI 51.6
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
--- OUTSIDE RECORDS SUMMARY | 2024-10-18 10:46 | XMS_ITS | Clinical Summary ---
Author Organization [facility] Address [address] [facility] [address] [place] [address] Phone Care Team Providers Care Plant Guard Name Role Phone Marilyn Gillespie MD Primary Care Provider [phone] Allergies No known active allergies Medications amLODIPine [...] complete this topic Insurance Medicaid [place] Aena [facility] Adv PPO ([id number]) Aetna [facility] Adv PPO ([id number]) [place] [address] Medicaid [place] Care Teams Plant Guard Relationship Specialty Start Date End Date Marilyn Gillespie MD [facility] [place] [address] PCP - General 05/07/20
== END 2024-10-18 10:13 | disposition home or self-care (01) ==
LOC: HO.HKA 09:50
PROVIDERS: PCP Internal Medicine; Visit Provider Internal Medicine Hypertension Specialist
DX: E11.22 Type 2 diabetes mellitus with diabetic chronic kidney disease (principal); N18.30 Chronic kidney disease, stage 3 unspecified; R60.0 Localized edema; M17.0 Bilateral primary osteoarthritis of knee
CPT/HCPCS: 99214

== ENCOUNTER → 2024-10-18 09:50 | Outpatient (BNVA) | payer MEDICARE, MEDICAID, SELFPAY | PROVIDERS: PCP Internal Medicine; Visit Provider Internal Medicine Hypertension Specialist | DX: E11.22 Type 2 diabetes mellitus with diabetic chronic kidney disease (principal); N18.30 Chronic kidney disease, stage 3 unspecified; R60.0 Localized edema; M17.0 Bilateral primary osteoarthritis of knee | CPT/HCPCS: 99212 ==

== ENCOUNTER 2024-10-19 10:39 | Outpatient (AMB) | payer MEDICARE, MEDICAID, SELFPAY ==
[2024-10-19 10:42] VITALS: BP 116/70; PULSE 67; RESP 16; TEMP 36.9; O2SAT 94; BMI 51.6
--- NOTE | 2024-10-19 10:42 | MHC.PC.OV ---
Vital Signs 10/19/24 10:42 Height 4 ft 10 in Weight 247 lb BMI 51.6 BP 116/70 Blood Pressure Location Lt radial Position Sitting Respiration 16 Pulse 67 Pulse Source Pulse Oximeter Temp 98.4 F Temp Source Oral Pulse Oximetry (%) 94 Oxygen Delivery Method Room Air Intake Visit Reasons: 3m follow up Allergies adhesive tape (Adhesive Tape) Allergy (Severe, Verified 10/19/24 10:42) BLISTERS dairy products Allergy (Severe, Verified 10/19/24 10:42) GI upset semaglutide (From Ozempic) Allergy (Severe, Verified 10/19/24 10:42) Diarrhea NSAIDS (Non-Steroidal Anti-Inflamma Adverse Reaction (Verified 10/19/24 10:42) Nephropathy Medication List - Last Reconciled 10/19/24 by Marilyn Gillespie MD acetaminophen ER (Tylenol Arthritis Pain) 650 mg PO Q8H PRN [Adult Pull-ups As directed] [adult pull-ups size As directed] albuterol sulfate 90 mcg/actuation 2 puffs inhalation Q4H PRN alcohol swabs (Alcohol Pads) 1 pad topical TIDWMEAL blood sugar diagnostic (OneTouch Ultra Test strips) tid esting 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 meter (OneTouch Ultra2 Meter) tid testing 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 sensor (FreeStyle Ihsan 3 Sensor device) As directed 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,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,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 (FreeStyle Ihsan 3 [place]) As directed bupropion HCl SR 200 mg PO DAILY carvedilol 6.25 mg PO BID [cloth bed pads As directed] dicyclomine 10 mg PO BID PRN 90 days fenofibrate 160 mg PO DAILY 90 days ferrous sulfate 324 mg PO ONCE fluoxetine 40 mg PO DAILY 90 days furosemide 20 mg PO DAILY insulin degludec (Tresiba FlexTouch U-200 insulin) 15 units (0.075 mL) subcut BID 90 days lancets tid testing lancets Use to check blood sugars three times a day levothyroxine 25 mcg PO DAILY loratadine (Allergy Relief (loratadine)) 10 mg PO DAILY 90 days metoprolol succinate ER 25 mg PO BEDTIME nystatin 1 appl topical DAILY 30 days [panty liners As directed] pen needle, diabetic daily pen needle, diabetic 1 ea miscellaneous BID ropinirole 0.5 mg PO BEDTIME 90 days simvastatin 20 mg PO DAILY 90 days tramadol 50 mg PO DAILY PRN Tobacco use date assessed: 10/19/24 Fall risk assessment: 1 Fall in past year Last assessed Fall Risk: 10/19/24 Dental Screening Dental Screen Date: 10/19/24 Did you have a dental visit in the last 12 months?: Yes Did you have a dental problem in the last 6 months where you did not have access to dental care?: No Was dental information given to patient?: Patient has dentist HPI follow up HPI Details History - The patient is a 74-year-old female presenting with chronic condition management and medication refills. This is the ongoing care Patient has finally find a residence for herself and is feeling happy and excited. - Chronic Kidney Disease: The patient has been under the care of a mastic floor layer, Dr. Lay, who advised stopping aspirin due to its impact on kidney function. - Osteoarthritis: The patient experiences significant joint pain, managed with tramadol and Tylenol Arthritis, due to morbid obesity knee replacement is not reasonable at this time - Diabetes Mellitus: The patient's blood sugar was 88 mg/dL this morning, indicating good control. - Hypertension: Managed with carvedilol and metoprolol, prescribed by cardiology. - Restless Leg Syndrome: Managed with ropinirole, which is effective for the patient. - Hyperlipidemia: Managed with fenofibrate and simvastatin. - Depression: Managed with Wellbutrin 200 mg, which the patient takes as a mood stabilizer. - Allergic Rhinitis: Managed with loratadine. - Hypothyroidism: Managed with levothyroxine 25 mcg. - Irritable Bowel Syndrome: Managed with dicyclomine. - Fungal Infection: Managed with nystatin powder. Medications - Tramadol: For osteoarthritis pain, taken daily. - Tylenol Arthritis: For osteoarthritis pain, taken as needed. - Wellbutrin 200 mg: For depression, taken daily. - Fenofibrate: For hyperlipidemia, taken daily. - Iron supplements: For anemia, taken once daily. - Fluoxetine 40 mg: For depression, taken daily. - Insulin 15 units: For diabetes mellitus, taken daily. - Levothyroxine 25 mcg: For hypothyroidism, taken daily. - Loratadine: For allergic rhinitis, taken daily. - Metoprolol: For hypertension, taken daily. - Carvedilol: For hypertension, taken daily. - Nystatin powder: For fungal infection, used as needed. - Ropinirole: For restless leg syndrome, taken as needed. - Simvastatin 20 mg: For hyperlipidemia, taken daily. Problem List - Chronic Kidney Disease - Osteoarthritis - Diabetes Mellitus - Hypertension - Restless Leg Syndrome - Hyperlipidemia - Depression - Allergic Rhinitis - Hypothyroidism - Irritable Bowel Syndrome - Fungal Infection Diagnostic results - Labs: Kidney function tests indicate slight abnormalities. - Labs: Blood glucose level was 88 mg/dL, indicating good control. [place] [facility] The patient is under the care of Dr. Lay for nephrology Dr. Zimmer skin care specialist Cardiology [facility] Patient Instructions - Continue taking all prescribed medications as directed. - Be cautious with tramadol use, especially at night, to avoid drowsiness-related falls. - Schedule a follow-up appointment in three months to review medication and health status. Review of Systems General: No fever no chills neurological: No headaches no dizziness ear nose throat: No sore throat no hearing difficulty no ear pain cardiovascular: No syncope, no chest pain, no palpitations gastrointestinal: No nausea vomiting or diarrhea endocrine: No polyuria polydipsia no heat intolerance genitourinary: No dysuria skin: No new complaints Physical Exam general: No acute distress, morbidly obese female sitting in a wheelchair HEENT: No acute findings neck: Supple respiratory system: Able to talk in full sentences, no audible wheeze no stridor, lungs are clear cardiovascular: S1-S2 RRR gastrointestinal: No pain extremities: No new findings 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 awake oriented x3 motor sensory intact skin: Normal turgor PFSH Medical History Restrictive lung disease Breast cancer COVID-19 vaccine series completed Dyspnea on exertion OZ (obstructive sleep apnea) Morbid obesity with BMI of 50.0-59.9, adult Diabetic polyneuropathy associated with type 2 diabetes mellitus Hypertension Dyslipidemia CKD stage 3 due to type 2 diabetes mellitus Diabetic nephropathy associated with type 2 diabetes mellitus penit[facility]iary (current) 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 Other Mental health disorder Substance use disorder Social History Household Members: Family Housing: House Are you a primary transitional care nurse to a significant other at home: No Do you presently have visiting nurse or other home services: No Alcohol intake: current Alcohol intake frequency: a few times a week Alcohol type: beer Patient Tobacco Use Status: Former Tobacco user Tobacco use type: Cigarette e-Cigarette/Vaping Use: Never Used service: No Current occupational status: unemployed Cognitive needs: No Hearing needs: No Vision needs: No Questionnaire Thrive Questionnaire Date Thrive assessed: 07/20/24 I am a: Parent/Caregiver What is your living situation today?: I do not have a steady places to live I am temporarily staying with others Within the past 12 months, did the food you bought not last and you didn't have the money to get more?: I choose not to answer this question Within the past 12 months, did you worry whether your food would run out before you got money to buy more?: I choose not to answer this question Do you have trouble paying for medicines?: No Do you have trouble getting transportation to medical appointments?: No Do you have trouble paying your heating and electricity bill?: No Do you have trouble taking care of your child, family member or friend?: No Do you have trouble with day-to-day activities such as bathing, preparing meals, shopping, managing finances, etc.?: No Are you currently unemployed and looking for a job?: I choose not to answer this question Are you interested in more education?: No Please select the resources that you would like help with: Housing/Chcf Currently or been in a relationship where the following occur: I choose not to answer THRIVE Score: 1 MADI-7 AMB Questionnaire MADI-7 Date MADI - 7 assessed: 07/20/24 Feeling nervous, anxious, or on edge: 1 = Several days Not being able to stop or control worryin = Several days Worrying too much about different things: 1 = Several days Trouble relaxin = Several days Being so restless that it is hard to sit still: 1 = Several days Becoming easily annoyed or irritable: 1 = Several days Feeling afraid as if something awful might happen: 2 = More than half the days Total MADI-7 score (0-4 normal; 5-9 mild; 10-14 moderate; 15-21 severe): 8 Source: Developed by Drs. Johnnie Hammonds, Laly Hoyt, León Norton and colleagues, with an educational maryanne from [employer]. Physical exam (Primary Care) Vital Signs: Last Vital Signs Temp 98.4 F 10/19/24 10:42 Pulse 67 10/19/24 10:42 Resp 16 10/19/24 10:42 BP 116/70 10/19/24 10:42 Pulse Ox 94 10/19/24 10:42 Oxygen Delivery Method Room Air 10/19/24 10:42 BMI result Body Mass Index 51.6 Tobacco/Smoking Status: Tobacco use Status Tobacco use date assessed 10/19/24 10/19/24 10:43 Patient Tobacco Use Status Former Tobacco user 10/19/24 10:43 Tobacco use type Cigarette 10/19/24 10:43 e-Cigarette/Vaping Use Never Used 10/19/24 10:43 Thrive Assessment: Date of Thrive Assessment Date Thrive assessed 07/20/24 10/19/24 10:43 Currently or been in a relationship where the following occur: I choose not to answer Coding Level of Care Code Est Pt Level 5 (28775) Complex EM visit Add On G2211 Diagnoses Diabetes 1.5, managed as type 1 E13.9 Lipid disorder E78.9 Anxiety, generalized F41.1 Recurrent major depressive disorder, in partial remission F33.41 Active/Remission status: in partial remission Irritable bowel syndrome with diarrhea K58.0 Irritable bowel syndrome type: with diarrhea penitentiary (current) use of insulin Z79.4 Diabetic nephropathy associated with type 2 diabetes mellitus E11.21 CKD stage 3 due to type 2 diabetes mellitus E11.22; N18.30 Essential hypertension I10 Hypertension type: essential hypertension Morbid obesity E66.01 Iron deficiency anemia due to chronic blood loss D50.0 Iron deficiency anemia type: chronic blood loss Time Spent (min) 41 Comment Reviewing consultation, labs, [id number] with patient and daughter/coordination of care Assessment & Plan Assessment & Plan (1) Diabetes 1.5, managed as type 1: Code(s): E13.9 - Other specified diabetes mellitus without complications Category: Medical (2) Lipid disorder: Code(s): E78.9 - Disorder of lipoprotein metabolism, unspecified Category: Medical (3) Anxiety, generalized: Code(s): F41.1 - Generalized anxiety disorder Category: Medical (4) Depression, major, recurrent: Code(s): F33.9 - Major depressive disorder, recurrent, unspecified Category: Medical Qualifiers: Active/Remission status: in partial remission Qualified Code(s): F33.41 - Major depressive disorder, recurrent, in partial remission (5) Irritable bowel syndrome: Code(s): K58.9 - Irritable bowel syndrome, unspecified Category: Medical Qualifiers: Irritable bowel syndrome type: with diarrhea Qualified Code(s): K58.0 - Irritable bowel syndrome with diarrhea (6) 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: Code(s): Z79.4 - 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 Category: Medical (7) Diabetic nephropathy associated with type 2 diabetes mellitus: Code(s): E11.21 - Type 2 diabetes mellitus with diabetic nephropathy Category: Medical (8) CKD stage 3 due to type 2 diabetes mellitus: Code(s): E11.22 - Type 2 diabetes mellitus with diabetic chronic kidney disease; N18.30 - Chronic kidney disease, stage 3 unspecified Category: Medical (9) Hypertension: Code(s): I10 - Essential (primary) hypertension Category: Medical Qualifiers: Hypertension type: essential hypertension Qualified Code(s): I10 - Essential (primary) hypertension (10) Morbid obesity: Code(s): E66.01 - Morbid (severe) obesity due to excess calories Category: Medical (11) Iron deficiency anemia: Code(s): D50.9 - Iron deficiency anemia, unspecified Category: Medical Qualifiers: Iron deficiency anemia type: chronic blood loss Qualified Code(s): D50.0 - Iron deficiency anemia secondary to blood loss (chronic) Plan History - The patient is a 74-year-old female presenting with chronic condition management and medication refills. This is the ongoing care Patient has finally find a residence for herself and is feeling happy and excited. - Chronic Kidney Disease: The patient has been under the care of a mastic floor layer, Dr. Lay, who advised stopping aspirin due to its impact on kidney function. - Osteoarthritis: The patient experiences significant joint pain, managed with tramadol and Tylenol Arthritis, due to morbid obesity knee replacement is not reasonable at this time - Diabetes Mellitus: The patient's blood sugar was 88 mg/dL this morning, indicating good control. - Hypertension: Managed with carvedilol and metoprolol, prescribed by cardiology. - Restless Leg Syndrome: Managed with ropinirole, which is effective for the patient. - Hyperlipidemia: Managed with fenofibrate and simvastatin. - Depression: Managed with Wellbutrin 200 mg, which the patient takes as a mood stabilizer. - Allergic Rhinitis: Managed with loratadine. - Hypothyroidism: Managed with levothyroxine 25 mcg. - Irritable Bowel Syndrome: Managed with dicyclomine. - Fungal Infection: Managed with nystatin powder. Medications - Tramadol: For osteoarthritis pain, taken daily. - Tylenol Arthritis: For osteoarthritis pain, taken as needed. - Wellbutrin 200 mg: For depression, taken daily. - Fenofibrate: For hyperlipidemia, taken daily. - Iron supplements: For anemia, taken once daily. - Fluoxetine 40 mg: For depression, taken daily. - Insulin 15 units: For diabetes mellitus, taken daily. - Levothyroxine 25 mcg: For hypothyroidism, taken daily. - Loratadine: For allergic rhinitis, taken daily. - Metoprolol: For hypertension, taken daily. - Carvedilol: For hypertension, taken daily. - Nystatin powder: For fungal infection, used as needed. - Ropinirole: For restless leg syndrome, taken as needed. - Simvastatin 20 mg: For hyperlipidemia, taken daily. Problem List - Chronic Kidney Disease - Osteoarthritis - Diabetes Mellitus - Hypertension - Restless Leg Syndrome - Hyperlipidemia - Depression - Allergic Rhinitis - Hypothyroidism - Irritable Bowel Syndrome - Fungal Infection Diagnostic results - Labs: Kidney function tests indicate slight abnormalities. - Labs: Blood glucose level was 88 mg/dL, indicating good control. [place] [facility] The patient is under the care of Dr. Lay for nephrology Dr. Zimmer skin care specialist Cardiology [facility] Patient Instructions - Continue taking all prescribed medications as directed. - Be cautious with tramadol use, especially at night, to avoid drowsiness-related falls. - Schedule a follow-up appointment in three months to review medication and health status. Medications: Changed From ferrous sulfate 324 mg PO BID 90 days 180 tabs 0RF To ferrous sulfate 324 mg PO ONCE From tramadol 50 mg PO DAILY PRN 30 tabs 0RF pain To tramadol 50 mg PO DAILY PRN 90 tabs 0RF pain 90 days Refilled albuterol sulfate 90 mcg/actuation 2 puffs inhalation Q4H PRN 8.5 grams 1RF Wheezing
--- OUTSIDE RECORDS SUMMARY | 2024-10-19 12:39 | XMS_ITS | Clinical Summary ---
Author Organization [facility] Address [address] [address] [place] [address] Phone Care Team Providers Care Assistant Baseball Coach Name Role Phone Marilyn Gillespie MD Primary Care Provider [phone] Allergies No known active allergies Medications amLODIPine [...] complete this topic Insurance Medicaid [place] [facility] Adv PPO ([id number]) [employer] [facility] Adv PPO ([id number]) [place] [id number] Medicaid [place] Care Teams Assistant Baseball Coach Relationship Specialty Start Date End Date Marilyn Gillespie MD [facility] [place] [address] PCP - General 05/07/20
== END 2024-10-19 12:39 | disposition home or self-care (01) ==
LOC: HO.HMCC 10:40
PROVIDERS: PCP Internal Medicine; Visit Provider Internal Medicine
DX: I12.9 Hypertensive chronic kidney disease with stage 1 through stage 4 chronic kidney disease, or unspecified chronic kidney disease (principal); Z79.4 Long term (current) use of insulin; E11.21 Type 2 diabetes mellitus with diabetic nephropathy; E11.22 Type 2 diabetes mellitus with diabetic chronic kidney disease; E66.01 Morbid (severe) obesity due to excess calories; N18.30 Chronic kidney disease, stage 3 unspecified; Z68.43 Body mass index [BMI] 50.0-59.9, adult; E78.9 Disorder of lipoprotein metabolism, unspecified; F41.1 Generalized anxiety disorder; F33.41 Major depressive disorder, recurrent, in partial remission; K58.0 Irritable bowel syndrome with diarrhea; D50.0 Iron deficiency anemia secondary to blood loss (chronic)

== ENCOUNTER → 2024-10-19 10:39 | Outpatient (BNVA) | payer MEDICARE, MEDICAID, SELFPAY | PROVIDERS: PCP Internal Medicine; Visit Provider Internal Medicine | DX: E11.22 Type 2 diabetes mellitus with diabetic chronic kidney disease (principal); E11.21 Type 2 diabetes mellitus with diabetic nephropathy; E66.01 Morbid (severe) obesity due to excess calories; I12.9 Hypertensive chronic kidney disease with stage 1 through stage 4 chronic kidney disease, or unspecified chronic kidney disease; N18.30 Chronic kidney disease, stage 3 unspecified; G25.81 Restless legs syndrome; E78.5 Hyperlipidemia, unspecified; E03.9 Hypothyroidism, unspecified; E78.9 Disorder of lipoprotein metabolism, unspecified; F41.1 Generalized anxiety disorder; F33.41 Major depressive disorder, recurrent, in partial remission; K58.0 Irritable bowel syndrome with diarrhea; D50.0 Iron deficiency anemia secondary to blood loss (chronic); Z79.4 Long term (current) use of insulin | CPT/HCPCS: 99212 ==

== ENCOUNTER 2024-11-10 10:27 | Outpatient (AMB) | payer MEDICARE, MEDICAID, SELFPAY ==
--- NOTE | 2024-11-10 10:35 | A.OFFVIS_ITS ---
Vital Signs 11/10/24 10:39 Height 4 ft 10 in Weight 248 lb BMI 51.8 BP 133/65 Blood Pressure Location Rt radial Position Sitting Pulse 65 Pulse Source Pulse Oximeter Pulse Oximetry (%) 96 Oxygen Delivery Method Room Air Intake Visit Reasons: Bilateral primary osteoarthritis of knee Intake Note: Pain today 01/04 Business Solutions Consultant Required: No Accompanied by: Family/Other Allergies adhesive tape (Adhesive Tape) Allergy (Severe, Verified 11/10/24 10:39) BLISTERS dairy products Allergy (Severe, Verified 11/10/24 10:39) GI upset semaglutide (From Ozempic) Allergy (Severe, Verified 11/10/24 10:39) Diarrhea NSAIDS (Non-Steroidal Anti-Inflamma Adverse Reaction (Verified 11/10/24 10:39) Nephropathy HPI Comments Details: The patient is a 74-year-old female presenting with chronic bilateral knee pain due to severe osteoarthritis. She has a history of right knee repair approximately 14 years ago, performed by Dr. Binu Ward. The pain is constant and affects her mobility, including standing, walking, and climbing stairs. The left knee is more severely affected than the right, with frequent episodes of the knees giving out, necessitating the use of a cane for ambulation. She experiences a sensation of fbdy-el-ojee contact and locking of the knees. The patient has tried Tylenol Arthritis and was recently prescribed tramadol, both providing minimal relief. She has chronic kidney disease stage 3, which limits her treatment options. She also completed physical therapy 1.5 years ago with minimal improvement. Patient also reports previous cortisone injections with temporary and minimal pain relief. Her BMI is 51.8, making her ineligible for knee replacement surgery. She has a history of type 2 diabetes mellitus, with a well-controlled A1c of 5.9. The patient also reports chronic low back pain and left shoulder pain due to arthritis, present for at least 10 years. She broke her right ankle a year ago and underwent surgical repair with plates and screws. She has sleep apnea but does not use a CPAP machine, and she has asthma for which she uses inhalers. - Onset: Chronic, constant pain in both knees, more severe in the right knee. - Quality: Described as bfww-sa-ahym sensation, aching, throbbing, tingling, with locking and giving out of the knees. - Location: Bilateral knees, with the left knee being more affected. - Exacerbating factors: Standing, walking, climbing stairs. - Relieving factors: Minimal relief with Tylenol Arthritis and tramadol. - Interference: Affects mobility, requiring use of wheelchair and cane. - Affect: Pain significantly impacts mobility and daily activities. - Analgesia: Currently using Tylenol Arthritis and tramadol with minimal relief. - Adverse Effects: No specific adverse effects from current medications reported. - Activities of Daily Living: Pain limits ability to stand, walk, and climb stairs; uses wheelchair and cane for mobility. - Aberrant Drug Related Behaviors: No aberrant behaviors reported. 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 Other Mental health disorder Substance use disorder Social History Household Members: Family Housing: House Are you a primary rehab care assistant to a significant other at home: No Do you presently have visiting nurse or other home services: No Alcohol intake: current Alcohol intake frequency: a few times a week Alcohol t ype: beer Patient Tobacco Use Status: Former Tobacco user Tobacco use type: Cigarette e-Cigarette/Vaping Use: Never Used service: No Current occupational status: unemployed Cognitive needs: No Hearing needs: No Vision needs: No Review of Systems Const Details: - Musculoskeletal: Reports chronic bilateral knee pain, low back pain, and left shoulder pain due to arthritis. - Endocrine: Reports type 2 diabetes mellitus, well-controlled with A1c of 5.9. Morbidly obese, BMI=51.8. - Neurological: Denies any neurological symptoms such as numbness or tingling. - Sleep: Reports sleep apnea, does not use CPAP machine. All systems reviewed & are unremarkable except as noted in HPI and below Physical Exam Vital Signs: Last Vital Signs Pulse 65 11/10/24 10:39 BP 133/65 11/10/24 10:39 Pulse Ox 96 11/10/24 10:39 Oxygen Delivery Method Room Air 11/10/24 10:39 BMI result Body Mass Index 51.8 General: Appears afebrile. Morbidly obese. No acute distress. Alert and oriented. Mood and affect appropriate. Follows and participates in conversation appropriately. Respiratory effort is unlabored. No cough. Able to transition from sit to stand with assistance. Sitting comfortably in wheelchair. Uses cane at home. Back/Spine/Pelvis Cervical Spine: cervical ROM normal, cervical muscular tenderness and No Cervical spine tenderness Thoracic/Lumbar Spine: thoracic and lumbar spine normal to inspection, No Thoracic/lumbar spine scar(s), Lasegue's sign negative, straight leg raise negative bilaterally, pain with thoraco-lumbar ROM, thoraco-lumbar ROM limited, No thoracic spinal tenderness and lumbar spinal tenderness at L4 and at L5 Extrem Other: Examination of knees revealed clicking and popping in both knees, more severe in the left knee, with global involvement of joint lines, medial and lateral. Right lower extremity: knee (Limited ROM due to pain) Details: normal to inspection, tenderness Location: of the patella, of the medial joint line and of the lateral joint line and crepitus; no swelling and no unusual warmth Left lower extremity: knee (Limited ROM due to pain.) Details: normal to inspection, tenderness Location: of the medial joint line and of the lateral joint line and crepitus; no swelling and no unusual warmth Results Reviewed Results Reviewed: XR KNEE STANDING, BILATERAL XR KNEE, RIGHT XR KNEE, LEFT 10/16/22 CLINICAL INFORMATION: Pain in both knees. COMPARISON: 08/27/2022 TECHNIQUE: Standing AP view of both knees and sunrise views of each knee. FINDINGS: RIGHT KNEE: Severe tricompartmental osteoarthritis is most pronounced in the medial compartment with complete joint space, articular cortical irregularity, articular sclerosis, and marginal osteophytes. The joint space remains apparent at the patellofemoral compartment, though there is significant articular cortical remodeling and large marginal osteophytes. A vacuum phenomenon is present in the narrowed lateral compartment with associated articular cortical remodeling. Minimal varus angulation. Small ossific foci medial to the tibial plateau likely correspond to the foci of heterotopic bone in the superficial soft tissues anteriorly seen on the prior study. Soft tissues are diffusely swollen with subcutaneous edema. No fractures. Two curvilinear metallic foci are evident within the regions of the medial femoral condyles, unchanged as compared to prior. LEFT KNEE: Tricompartmental osteoarthritis is most severe in the medial compartment with complete medial joint space narrowing. Articular sclerosis, articular cortical remodeling, and marginal osteophytes are again noted. There is associated varus angulation at the knee which is more pronounced on these weightbearing images. More moderate osteoarthritis is evident in the lateral and patellofemoral compartments. Soft tissues are swollen with associated subcutaneous edema, IMPRESSION: 1. Severe tricompartmental osteoarthritis in both knees, most severe in the medial compartments with associated varus angulation. Varus angulation in the left knee, in particular, is more pronounced with weightbearing. 2. Small foci of heterotopic bone in the superficial soft tissues anteriorly at the right knee, unchanged from the prior study. Assessment & Plan Assessment & Plan (1) Knee pain, bilateral: Code(s): M25.561 - Pain in right knee; M25.562 - Pain in left knee Category: Medical (2) Morbid obesity with BMI of 50.0-59.9, adult: Comment: Patient has super morbid obesity. She was in wheelchair and could not be weighed today. She has not been able to lose any weight. Code(s): E66.01 - Morbid (severe) obesity due to excess calories; Z68.43 - Body mass i ndex [BMI] 50.0-59.9, adult Category: Medical (3) Osteoarthritis of knees, bilateral: Code(s): M17.0 - Bilateral primary osteoarthritis of knee Category: Medical Qualifiers: Osteoarthritis type: primary Qualified Code(s): M17.0 - Bilateral primary osteoarthritis of knee (4) Chronic low back pain: Code(s): M54.50 - Low back pain, unspecified; G89.29 - Other chronic pain Category: Medical (5) Muscle spasm of back: Code(s): M62.830 - Muscle spasm of back Category: Medical Plan The patient will be considered for bilateral knee Synvisc One injections with local and fluoroscopy to provide temporary relief from knee pain, as she has not previously received these injections. Expectations, risks and benefits were reviewed. Patient is aware she will be contacted to schedule this procedure. Given her BMI, she is not a candidate for knee replacement surgery or neuromodulation with Sprint PNS trial. Weight management strategies were discussed. Genicular radiofrequency ablation was discussed as a potential option for pain relief, pending insurance approval and completion of diagnostic nerve blocks. Informational pamphlets were provided to patient and family. The use of a TENS unit was recommended for pain management, particularly for bilateral knee and low back pain, and arrangements will be made to provide this device to the patient. All questions and concerns have been answered and patient agreed with the plan. Follow up after injections and sooner as needed. Patient was informed and verbally consented to the use of an ambient scribe for clinic note documentation during this visit. Coding Level of Care Code New Pt Level 4 (18850) Diagnoses Knee pain, bilateral M25.561; M25.562 Morbid obesity with BMI of 50.0-59.9, adult E66.01; Z68.43 Primary osteoarthritis of both knees M17.0 Osteoarthritis type: primary Chronic low back pain M54.50; G89.29 Muscle spasm of back M62.830
[2024-11-10 10:39] VITALS: BP 133/65; PULSE 65; O2SAT 96; BMI 51.8
--- OUTSIDE RECORDS SUMMARY | 2024-11-10 10:59 | XMS_ITS | Clinical Summary ---
Author Organization [facility] Address [address] [facility] [address] [place] [address] Phone Care Team Providers Care Sales Audit Clerk Name Role Phone Marilyn Gillespie MD Primary Care Provider [phone] Allergies No known active allergies Medications amLODIPine [...] Visual Foot Exam 05/28/2020 Influenza Vaccine (#1) 2024 Hepatitis B Vaccine Aged Out No longe r eligible based on patient's age to complete this topic Insurance [place] Aena [facility] Adv PPO ([id number]) Aetna [facility] Adv PPO ([id number]) [place] [address] Medicaid [place] Care Teams Sales Audit Clerk Relationship Specialty Start Date End Date Marilyn Gillespie MD [facility] [place] [address] PCP - General 05/07/20
== END 2024-11-10 11:19 | disposition home or self-care (01) ==
LOC: HO.PMC 10:28
PROVIDERS: PCP Internal Medicine; Referring Provider Psychiatry & Neurology Neurology; Visit Provider Nurse Practitioner Family
DX: M25.561 Pain in right knee (principal); M25.562 Pain in left knee; E66.01 Morbid (severe) obesity due to excess calories; Z68.43 Body mass index [BMI] 50.0-59.9, adult; M17.0 Bilateral primary osteoarthritis of knee; M54.50 Low back pain, unspecified; G89.29 Other chronic pain; M62.830 Muscle spasm of back
CPT/HCPCS: 99204

== ENCOUNTER → 2024-11-10 10:27 | Outpatient (BNVA) | payer MEDICARE, MEDICAID, SELFPAY | PROVIDERS: PCP Internal Medicine; Referring Provider Psychiatry & Neurology Neurology; Visit Provider Nurse Practitioner Family | DX: M17.0 Bilateral primary osteoarthritis of knee (principal); M25.561 Pain in right knee; M25.562 Pain in left knee; E66.01 Morbid (severe) obesity due to excess calories; Z68.43 Body mass index [BMI] 50.0-59.9, adult | CPT/HCPCS: 99202 ==

== ENCOUNTER 2024-12-29 06:26 | Outpatient (REF) | payer MEDICARE, MEDICAID, SELFPAY ==
--- NOTE | ~2024-12-29 | FL_ITS ---
EXAMINATION: XR FLUOROSCOPY WITH IMAGES CLINICAL INFORMATION: Left knee pain management. COMPARISON: None available. TECHNIQUE: Fluoroscopy provided to: Dr. Lawton Fluoroscopy time: 0.1 minutes DAP: [id number] Images: 1 FINDINGS: Solitary spot image left knee taken during intra-articular injection. Please refer to the full operative report for details. FL/FL guidance in treatment room IMPRESSION: Fluoroscopic guidance. Electronically signed by: Apollo Amin MD 12/29/2024 02:00 PM EDT
--- OUTSIDE RECORDS SUMMARY | 2024-12-29 06:29 | XMS_ITS | Encounter Summary ---
Author Organization [facility] Address [address] [facility] [address] [place] [address] Phone Care Team Providers Care Bmw Service Technician Name Role Phone Marilyn Gillespie MD Primary Care Provider [phone] Reason for Visit * Reason Comments Med Refill Encounter Details Date Type Department Care Team (Late st Contact Info) Description 01/09/2021 Refill [facility] [address] [facility] [address] [place] [phone] Ricco Butler MD [address] [facility] [address] [place] [address] Social History Tobacco Use Types [...] on filedocumented in this encounter Care Teams Bmw Service Technician Relationship Specialty Start Date End Date Marilyn Gillespie MD [facility] [place] [address] PCP - General 05/07/20 documented as of this encounter
--- OUTSIDE RECORDS SUMMARY | 2024-12-29 06:29 | XMS_ITS | Encounter Summary ---
Author Organization [facility] Address [address] [facility] [address] [place] [address] Phone Care Team Providers Care Tile Professional Name Role Phone Marilyn Gillespie MD Primary Care Provider [phone] Reason for Visit * Reason Comments Med Refill Encounter Details Date Type Department Care Team (Late st Contact Info) Description 02/05/2021 Refill [facility] [address] [facility] [address] [place] [phone] Ricco Butler MD [address] [facility] [address] [place] [address] Social History Tobacco Use Types [...] on filedocumented in this encounter Care Teams Tile Professional Relationship Specialty Start Date End Date Marilyn Gillespie MD [facility] [place] [address] PCP - General 05/07/20 documented as of this encounter
--- OUTSIDE RECORDS SUMMARY | 2024-12-29 06:29 | XMS_ITS | Clinical Summary ---
Author Organization [facility] Address [address] [facility] [address] [place] [address] Phone Care Team Providers Care Sewing Teacher Name Role Phone Marilyn Gillespie MD Primary Care Provider [phone] Allergies No known active allergies Medications amLODIPine [...] complete this topic Insurance [place] Aena [facility] Adv PPO ([id number]) [employer] [facility] Adv PPO ([id number]) [place] [address] Medicaid [place] Care Teams Sewing Teacher Relationship Specialty Start Date End Date Marilyn Gillespie MD [facility] [place] [address] PCP - General 05/07/20
--- OUTSIDE RECORDS SUMMARY | 2024-12-29 06:29 | XMS_ITS | Encounter Summary ---
Author Organization [facility] Address [address] [facility] [address] [place] [address] Phone Care Team Providers Care Animal Treatment Investigator Name Role Phone Marilyn Gillespie MD Primary Care Provider [phone] Reason for Visit * Reason Comments Med Refill Encounter Details Date Type Department Care Team (Late st Contact Info) Description 12/24/2022 Refill [facility] [address] [facility] [address] [place] [phone] Ricco Butler MD [address] [facility] [address] [place] [address] Hypertensive renal disease; Chronic kidney [...] (HCC) documented in this encounter Care Teams Animal Treatment Investigator Relationship Specialty Start Date End Date Marilyn Gillespie MD [address] [place] [address] PCP - General 05/07/20 documented as of this encounter
== END 2024-12-29 06:27 | disposition home or self-care (01) ==
LOC: CF 06:26
PROVIDERS: Visit Provider Internal Medicine
DX: M17.0 Bilateral primary osteoarthritis of knee (principal)
CPT/HCPCS: 20610; J7325; Q9967

== ENCOUNTER 2024-12-29 09:56 | Outpatient (AMB) | payer MEDICARE, MEDICAID, SELFPAY ==
[2024-12-29 10:08] VITALS: BP 130/72; PULSE 105; RESP 16; O2SAT 97
--- NOTE | 2024-12-29 10:08 | A.OFFVIS_ITS ---
Vital Signs 12/29/24 10:08 12/29/24 11:14 BP 130/72 136/60 Blood Pressure Location Lt radial Lt radial Position Sitting Sitting Respiration 16 16 Pulse 105 H 97 Pulse Source Pulse Oximeter Pulse Oximeter Pulse Oximetry (%) 97 97 Oxygen Delivery Method Room Air Room Air Intake Visit Reasons: Oswaldo Synvisc One Systems Consultant Required: No Allergies adhesive tape (Adhesive Tape) Allergy (Severe, Verified 12/29/24 10:09) BLISTERS dairy products Allergy (Severe, Verified 12/29/24 10:09) GI upset semaglutide (From Ozempic) Allergy (Severe, Verified 12/29/24 10:09) Diarrhea NSAIDS (Non-Steroidal Anti-Inflamma Adverse Reaction (Verified 12/29/24 10:09) Nephropathy Medication List - Last Reconciled 12/29/24 by Park Plummer LPN acetaminophen ER (Tylenol Arthritis Pain) 650 mg PO Q8H PRN [Adult Pull-ups As directed] [adult pull-ups size As directed] albuterol sulfate 90 mcg/actuation 2 puffs inhalation Q4H PRN alcohol swabs (Alcohol Pads) 1 pad topical TIDWMEAL blood sugar diagnostic (OneTouch Ultra Test strips) tid esting 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 meter (OneTouch Ultra2 Meter) tid testing 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 sensor (FreeStyle Ihsan 3 Sensor device) As directed 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,fitness plan coordinator,cont (FreeStyle Ihsan 3 [place]) As directed bupropion HCl SR 200 mg PO DAILY carvedilol 6.25 mg PO BID [cloth bed pads As directed] dicyclomine 10 mg PO BID PRN 90 days fenofibrate 160 mg PO DAILY 90 days ferrous sulfate 324 mg PO ONCE fluoxetine 40 mg PO DAILY 90 days furosemide 20 mg PO DAILY insulin degludec (Tresiba FlexTouch U-200 insulin) 15 units (0.075 mL) subcut BID 90 days lancets tid testing lancets Use to check blood sugars three times a day levothyroxine 25 mcg PO DAILY loratadine (Allergy Relief (loratadine)) 10 mg PO DAILY 90 days metoprolol succinate ER 25 mg PO BEDTIME nystatin 1 appl topical DAILY 30 days [panty liners As directed] pen needle, diabetic daily pen needle, diabetic 1 ea miscellaneous BID ropinirole 0.5 mg PO BEDTIME 90 days simvastatin 20 mg PO DAILY 90 days tramadol 50 mg PO DAILY PRN 90 days HPI HPI Oswaldo Synvisc One: Details: Patient presents for scheduled procedure. Denies any recent cough, cold, infection, fever or other significant changes in medical history since last office visit. [facility] Medical History Restrictive lung disease Breast cancer COVID-19 vaccine series completed Dyspnea on exertion OZ (obstructive sleep apnea) Morbid obesity with BMI of 50.0-59.9, adult Diabetic polyneuropathy associated with type 2 diabetes mellitus Hypertension Dyslipidemia CKD stage 3 due to type 2 diabetes mellitus Diabetic nephropathy associated with type 2 diabetes mellitus [facility]PC (current) 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 Other Mental health disorder Substance use disorder Social History Household Members: Family Housing: House Are you a primary healthcare project manager to a significant other at home: No Do you presently have visiting nurse or other home services: No Alcohol intake: current Alcohol intake frequency: a few times a week Alcohol type: beer Patient Tobacco Use Status: Former Tobacco user Tobacco use type: Cigarette e-Cigarette/Vaping Use: Never Used service: No Current occupational status: unemployed Cognitive needs: No Hearing needs: No Vision needs: No Physical Exam Vital Signs: Last Vital Signs Pulse 105 H 12/29/24 10:08 Resp 16 12/29/24 10:08 BP 130/72 12/29/24 10:08 Pulse Ox 97 12/29/24 10:08 Oxygen Delivery Method Room Air 12/29/24 10:08 Office Procedures AMB Joint Injection/Aspiration Joint Injection/Aspiration Primary Site: left knee Prep: site was prepped using sterile technique Approach Used: medial parapatellar (Fluoroscopy guided with arthrogram) Procedure: The patient tolerated the procedure well Coding - Large joint Procedure code (CPT) selection complete Office Meds Synvisc-One 48 mg/6 mL intra-articular syringe Performing Provider: Wiley Lawton MD Performing Location: [facility] Administered by: Wiley Lawton MD on 12/29/24 10:40 Dose Route Admin Location Dispensed Lot Number Expiration Date [facility] Administrative Assistant Receptionist 48 mg intra-articular 6 mL [id number] 09/25/26 [address]-4 [employer] - Total Dispensed Waste 6 mL 0 % Assessment & Plan Assessment & Plan (1) Osteoarthritis of knees, bilateral: Code(s): M17.0 - Bilateral primary osteoarthritis of knee Category: Medical Qualifiers: Osteoarthritis type: primary Qualified Code(s): M17.0 - Bilateral primary osteoarthritis of knee Plan Patient is status post bilateral Synvisc-One injections under fluoroscopy. Patient tolerated procedure well and was discharged home in stable condition with discharge instructions. All questions were answered. We will follow-up via telephone or in clinic to assess response to therapy. A follow-up appointment was made during today's visit. Orders: Orders FL guidance in treatment room Today Zenaida Eden APRN, SHIPYARD PAINTER M25.562 - Pain in left knee FL guidance in treatment room Today Zenaida Eden APRN, SHIPYARD PAINTER M25.561 - Pain in right knee AMB Hyaluronic Injection Today Wiley Lawton MD M17.0 - Bilateral primary osteoarthritis of knee Coding Level of Care Code Procedure Only Diagnoses Primary osteoarthritis of both knees M17.0 Osteoarthritis type: primary CPT Codes Coding - 55490 Large joint: 64668 - Large joint ([id number])
[2024-12-29 11:14] VITALS: BP 136/60; PULSE 97; RESP 16; O2SAT 97
== END 2024-12-29 11:12 | disposition home or self-care (01) ==
LOC: HO.PMCPRC 09:56
PROVIDERS: PCP Internal Medicine; Visit Provider Internal Medicine
DX: M17.0 Bilateral primary osteoarthritis of knee (principal)
CPT/HCPCS: 20610; 77002

== ENCOUNTER 2025-01-12 10:12 | Outpatient (AMB) | payer MEDICARE, MEDICAID, SELFPAY ==
--- NOTE | ~2025-01-12 | FL_ITS ---
EXAMINATION: FL GUIDANCE ONLY HISTORY: M17.0 - Bilateral primary osteoarthritis of knee COMPARISON: None available. TECHNIQUE: Fluoroscopy time: Less than 1 minute. Cumulative Dose: 0.500 mGy. DAP: 0.0870 mGym2 Images: 2. FINDINGS: Fluoroscopic spot films of the right knee in the lateral projection demonstrate a needle in place and contrast material in the joint space. FL/FL guidance in treatment room IMPRESSION: Fluoroscopy during procedure. Please see procedure report for additional information. Electronically signed by: Johnnie Newton MD 01/12/2025 03:07 PM EDT
[2025-01-12 10:23] VITALS: BP 142/61; PULSE 67; RESP 16; O2SAT 96; BMI 51.8
--- NOTE | 2025-01-12 10:23 | MHC.OFFVIS ---
Vital Signs 01/12/25 10:23 01/12/25 11:58 Height 4 ft 10 in Weight 248 lb BMI 51.8 BP 142/61 H 147/58 H Blood Pressure Location Rt radial Rt radial Position Sitting Sitting Respiration 16 16 Pulse 67 63 Pulse Source Pulse Oximeter Pulse Oximeter Pulse Oximetry (%) 96 99 Oxygen Delivery Method Room Air Room Air Intake Visit Reasons: Right Knee Synvisc Inj. Allergies adhesive tape (Adhesive Tape) Allergy (Severe, Verified 12/29/24 10:09) BLISTERS dairy products Allergy (Severe, Verified 12/29/24 10:09) GI upset semaglutide (From Ozempic) Allergy (Severe, Verified 12/29/24 10:09) Diarrhea NSAIDS (Non-Steroidal Anti-Inflamma Adverse Reaction (Verified 12/29/24 10:09) Nephropathy [facility] Medical History Restrictive lung disease Breast cancer COVID-19 vaccine series completed Dyspnea on exertion OZ (obstructive sleep apnea) Morbid obesity with BMI of 50.0-59.9, adult Diabetic polyneuropathy associated with type 2 diabetes mellitus Hypertension Dyslipidemia CKD stage 3 due to type 2 diabetes mellitus Diabetic nephropathy associated with type 2 diabetes mellitus MCC (current) 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 Other Mental health disorder Substance use disorder Social History Household Members: Family Housing: House Are you a primary healthcare applications analyst to a significant other at home: No Do you presently have visiting nurse or other home services: No Alcohol intake: current Alcohol intake frequency: a few times a week Alcohol type: beer Patient Tobacco Use Status: Former Tobacco user Tobacco use type: Cigarette e-Cigarette/Vaping Use: Never Used service: No Current occupational status: unemployed Cognitive needs: No Hearing needs: No Vision needs: No Physical Exam Vital Signs: Last Vital Signs Pulse 67 01/12/25 10:23 Resp 16 01/12/25 10:23 BP 142/61 H 01/12/25 10:23 Pulse Ox 96 01/12/25 10:23 Oxygen Delivery Method Room Air 01/12/25 10:23 BMI result Body Mass Index 51.8 Office Procedures AMB Joint Injection/Aspiration Joint Injection/Aspiration Primary Site: right knee Prep: site was prepped using sterile technique Injected: 1% plain lidocaine Approach Used: medial parapatellar (Fluoroscopy guided) Procedure: The patient tolerated the procedure well Coding - Large joint Procedure code (CPT) selection complete Office Meds Synvisc-One 48 mg/6 mL intra-articular syringe Performing Provider: Wiley Lwaton MD Performing Location: [facility] Administered by: Wiley Lawton MD on 01/12/25 11:49 Dose Route Admin Location Dispensed Lot Number Expiration Date [facility] Credit Risk Review Officer 48 mg intra-articular 6 mL [id number] 08/25/26 [address]-2 [employer] - Total Dispensed Waste 6 mL 0 % Assessment & Plan Assessment & Plan (1) Knee pain, right: Code(s): M25.561 - Pain in right knee Category: Medical (2) Osteoarthritis of knees, bilateral: Code(s): M17.0 - Bilateral primary osteoarthritis of knee Category: Medical Qualifiers: Osteoarthritis type: primary Qualified Code(s): M17.0 - Bilateral primary osteoarthritis of knee Orders: Orders FL guidance in treatment room Today M17.0 - Bilateral primary osteoarthritis of knee AMB Hyaluronic Injection Today M17.0 - Bilateral primary osteoarthritis of knee, M25.561 - Pain in right knee Coding Diagnoses Knee pain, right M25.561 Primary osteoarthritis of both knees M17.0 Osteoarthritis type: primary CPT Codes Coding - Large joint: 62551 - Large joint ([id number])
[2025-01-12 11:58] VITALS: BP 147/58; PULSE 63; RESP 16; O2SAT 99
--- OUTSIDE RECORDS SUMMARY | 2025-01-12 12:10 | XMS_ITS | Clinical Summary ---
Author Organization [facility] Address [address] [facility] [address] [place] [address] Phone Care Team Providers Care Machine Shop Instructor Name Role Phone Marilyn Gillespie MD Primary Care Provider [phone] Allergies No known active allergies Medications amLODIPine [...] complete this topic Insurance [place] Aena [facility] Adv PPO ([id number]) [employer] [facility] Adv PPO ([id number]) [place] [phone] Medicaid [place] Care Teams Machine Shop Instructor Relationship Specialty Start Date End Date Marilyn Gillespie MD [facility] [place] [address] PCP - General 05/07/20
--- OUTSIDE RECORDS SUMMARY | 2025-01-12 12:10 | XMS_ITS | Encounter Summary ---
Author Organization [facility] Address [address] [facility] [address] [place] [address] Phone Care Team Providers Care Control Officer Name Role Phone Marilyn Gillespie MD Primary Care Provider [phone] Reason for Visit * Reason Comments Med Refill Encounter Details Date Type Department Care Team (Late st Contact Info) Description 02/05/2021 Refill [facility] [address] [facility] [address] [place] [phone] Ricco Butler MD [address] [facility] [address] [place] [address] Social History Tobacco Use Types [...] on filedocumented in this encounter Care Teams Control Officer Relationship Specialty Start Date End Date Marilyn Gillespie MD [facility] [place] [address] PCP - General 05/07/20 documented as of this encounter
--- OUTSIDE RECORDS SUMMARY | 2025-01-12 12:11 | XMS_ITS | Encounter Summary ---
Author Organization [facility] Address [address] [facility] [address] [place] [address] Phone Care Team Providers Care Sales Agent Financial Report Service Name Role Phone Marilyn Gillespie MD Primary Care Provider [phone] Reason for Visit * Reason Comments Med Refill Encounter Details Date Type Department Care Team (Late st Contact Info) Description 12/24/2022 Refill [facility] [address] [facility] [address] [place] [phone] Ricco Butler MD [address] [facility] [address] [place] [address] Hypertensive renal disease; Chronic kidney [...] (HCC) documented in this encounter Care Teams Sales Agent Financial Report Service Relationship Specialty Start Date End Date Marilyn Gillespie MD [address] [place] [address] PCP - General 05/07/20 documented as of this encounter
--- OUTSIDE RECORDS SUMMARY | 2025-01-12 12:11 | XMS_ITS | Encounter Summary ---
Author Organization [facility] Address [address] [facility] [address] [place] [address] Phone Care Team Providers Care Hat Stock Laminating Machine Operator Name Role Phone Marilyn Gillespie MD Primary Care Provider [phone] Reason for Visit * Reason Comments Med Refill Encounter Details Date Type Department Care Team (Late st Contact Info) Description 01/09/2021 Refill [facility] [address] [facility] [address] [place] [phone] Ricco Butler MD [address] [facility] [address] [place] [address] Social History Tobacco Use Types [...] on filedocumented in this encounter Care Teams Hat Stock Laminating Machine Operator Relationship Specialty Start Date End Date Marilyn Gillespie MD [facility] [place] [address] PCP - General 05/07/20 documented as of this encounter
== END 2025-01-12 11:58 | disposition home or self-care (01) ==
LOC: HO.PMCPRC 10:12
PROVIDERS: PCP Internal Medicine; Visit Provider Internal Medicine
DX: M25.561 Pain in right knee (principal); M17.0 Bilateral primary osteoarthritis of knee

== ENCOUNTER → 2025-01-12 10:12 | Outpatient (BNVA) | payer MEDICARE, MEDICAID, SELFPAY | PROVIDERS: PCP Internal Medicine; Visit Provider Internal Medicine | DX: M25.561 Pain in right knee (principal); M17.0 Bilateral primary osteoarthritis of knee | CPT/HCPCS: 20610; J2003; J7325; Q9967 ==

== ENCOUNTER 2025-02-15 10:35 | Outpatient (REF) | payer MEDICARE, MEDICAID, SELFPAY ==
[2025-02-15 13:04] LABS: MANUAL DIFF FLAG NO
[2025-02-15 13:17] LABS: Hematocrit 39.0 % (37.0-47.0); Hemoglobin 12.5 g/dl (12.0-16.0); Imm Gran Abs Auto 0.03 X10*3/uL (0.00-0.03); Imm Gran Pct Auto 0.3 % (0.0-0.4); Lymphocytes Absolute Auto 2.8 X10*3/uL (1.2-4.9); Mean Corpuscular HGB Conc 32.1 g/dl (31.0-35.0); Mean Corpuscular Hemoglobin 31.6 pg (27.0-33.0); Mean Corpuscular Volume 98.5 fL (80.0-98.0); NRBC Abs Auto 0.000 X10*3/uL (0.0-0.012); NRBC Pct Auto 0.0 /100WBC (0.0-0.2); Platelet Count 328 X10*3/uL (160-400); Red Blood Count 3.96 X10*6/uL (4.20-5.50); White Blood Count 8.9 X10*3/uL (4.8-10.8)
[2025-02-15 14:09] LABS: Alanine Aminotransferase 14 U/L (0-31); Albumin Level 3.9 g/dL (3.5-5.0); Alkaline Phosphatase 57 U/L (39-117); Anion Gap 11 (12-20); Aspartate Amino Transferase 23 U/L (5-31); Blood Urea Nitrogen 34 mg/dL (9-16); Calcium 9.5 mg/dL (8.4-10.2); Carbon Dioxide 27 mmol/L (22-29); Chloride 106 mmol/L (96-108); Estimated Glomerular Filt Rate 28; Potassium 4.9 mmol/L (3.3-5.1); Sodium 139 mmol/L (135-145); Total Protein 7.0 g/dL (6.5-8.0)
== END 2025-02-15 10:36 | disposition home or self-care (01) ==
LOC: HO.HMGCLDS 10:35
PROVIDERS: PCP Internal Medicine; Visit Provider Internal Medicine
DX: Z00.01 Encounter for general adult medical examination with abnormal findings (principal); E11.21 Type 2 diabetes mellitus with diabetic nephropathy; E11.42 Type 2 diabetes mellitus with diabetic polyneuropathy; E11.22 Type 2 diabetes mellitus with diabetic chronic kidney disease; I12.9 Hypertensive chronic kidney disease with stage 1 through stage 4 chronic kidney disease, or unspecified chronic kidney disease; N18.30 Chronic kidney disease, stage 3 unspecified; K58.0 Irritable bowel syndrome with diarrhea; E13.9 Other specified diabetes mellitus without complications; E66.01 Morbid (severe) obesity due to excess calories; E78.9 Disorder of lipoprotein metabolism, unspecified; F33.41 Major depressive disorder, recurrent, in partial remission; F41.1 Generalized anxiety disorder; T78.40XD Allergy, unspecified, subsequent encounter; Z79.4 Long term (current) use of insulin; Z68.43 Body mass index [BMI] 50.0-59.9, adult; Z79.890 Hormone replacement therapy; Z79.891 Long term (current) use of opiate analgesic; Z79.899 Other long term (current) drug therapy
CPT/HCPCS: 36415; 80053; 83036; 83721; 84443; 85025; 99397

== ENCOUNTER 2025-02-15 10:35 | Outpatient (AMB) | payer MEDICARE, MEDICAID, SELFPAY ==
--- NOTE | 2025-02-15 10:38 | A.OFFPC_ITS ---
Vital Signs 02/15/25 10:51 Height 4 ft 10 in Weight 260 lb BMI 54.3 BP 134/74 Blood Pressure Location Lt brachial Position Sitting Pulse 82 Pulse Source Pulse Oximeter Pulse Oximetry (%) 97 Intake Visit Reasons: Annual visit Allergies adhesive tape (Adhesive Tape) Allergy (Severe, Verified 02/15/25 10:51) BLISTERS dairy products Allergy (Severe, Verified 02/15/25 10:51) GI upset semaglutide (From Ozempic) Allergy (Severe, Verified 02/15/25 10:51) Diarrhea NSAIDS (Non-Steroidal Anti-Inflamma Adverse Reaction (Verified 02/15/25 10:51) Nephropathy Medication List - Last Reconciled 02/15/25 by Marilyn Gillespie MD acetaminophen ER (Tylenol Arthritis Pain) 650 mg PO Q8H PRN [Adult Pull-ups As directed] [adult pull-ups size As directed] albuterol sulfate 90 mcg/actuation 2 puffs inhalation Q4H PRN alcohol swabs (Alcohol Pads) 1 pad topical TIDWMEAL blood sugar diagnostic (OneTouch Ultra Test strips) tid esting 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 meter (OneTouch Ultra2 Meter) tid testing 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 sensor (FreeStyle Ihsan 3 Sensor device) As directed 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,adobe flex developer,cont (FreeStyle Ihsan 3 [place]) As directed bupropion HCl SR 200 mg PO DAILY carvedilol 6.25 mg PO BID [cloth bed pads As directed] dicyclomine 10 mg PO BID PRN 90 days fenofibrate 160 mg PO DAILY 90 days ferrous sulfate 324 mg PO ONCE fluoxetine 40 mg PO DAILY 90 days furosemide 20 mg PO DAILY insulin degludec (Tresiba FlexTouch U-200 insulin) 15 units (0.075 mL) subcut BID 90 days lancets tid testing lancets Use to check blood sugars three times a day levothyroxine 25 mcg PO DAILY loratadine (Allergy Relief (loratadine)) 10 mg PO DAILY 90 days metoprolol succinate ER 25 mg PO BEDTIME nystatin 1 appl topical DAILY 30 days [panty liners As directed] pen needle, diabetic daily pen needle, diabetic (Nadya 2nd Gen Pen Needle) USE 1 DIRECTED TWICE DAILY ropinirole 0.5 mg PO BEDTIME 90 days simvastatin 20 mg PO DAILY 90 days tramadol 50 mg PO DAILY PRN 90 days Tobacco use date assessed: 10/19/24 Fall risk assessment: 1 Fall in past year Last assessed Fall Risk: 02/15/25 Dental Screening Dental Screen Date: 10/19/24 HPI Annual visit HPI Details Physical exam appointment The patient is a 74-year-old female presenting with a history of multiple chronic conditions for routine evaluation. Morbid Obesity: - History of significant obesity with a current BMI of 54.3. - Patient has repeatedly declined bariat alexandru intervention. Type 2 Diabetes Mellitus: - A1c previously noted at 7.4, with a sl ight elevation from 7.0. - Increased fruit intake noted. Osteoarthritis, multiple joints, particularly knees: - Patient reports increased knee pain, e xacerbated by weather changes, spe cifically rain. - Previous intra-articular injections no javi; right knee significantly affected. Hypothyroidism: - History of hypothyroidism with ongoing management. Obstructive Sleep Apnea: - Patient uses CPAP intermittently but n otes difficulty with consistent use. Decreased Glomerular Filtration Rate and Creatinine elevation: - Previous eGFR noted at 28 with a creat inine level of 1.79. - Routine nephrology follow-up ongoing. Otitis media, suspected: - Patient presents with earache over the past week. Medical History: - Morbid Obesity - Intermittent Asthma - Type 2 Diabetes Mellitus - Major Depressive Disorder - Irritable Bowel Syndrome - Dyslipidemia - Generalized Anxiety Disorder - Chronic Lymphedema - Hypothyroidism - Restless Legs Syndrome - Osteoarthritis, multiple joints, parti cularly knees - Obstructive Sleep Apnea - Chronic Obstructive Pulmonary Disease (COPD) - Diabetic Neuropathy - Tubular Adenoma Surgical History: - Colonoscopy performed in 2020 with bio psy of tubular adenoma. Social History: - Patient manages her nutrition but ment ions increased intake of fruits affecting blood sugar control. - Patient expresses reluctance towards w eight management programs and bariatric surgery. Health Maintenance - Mammogram pending due to scheduling is sues; last attempt in September found a superficial lump not concerning for breast tissue. - Scheduled follow-up colonoscopy for ne xt year per Dr. Dennison?s recommendation. - Routine vaccinations up-to-date with r ecent influenza and pneumococcal vaccines. - RSV vaccination recommended due to hig h-risk status; patient advised accordingly. - Tetanus vaccine in 2023 and Zoster vac cines completed in 2015. Viper of Care - Follow-up with engineering operator, Dr. Kisha brooks, and bicycle repairman, Dr. Dennison. - Dr. Nicole for kidney care coordinati on. Patient Instructions - Proceed with obtaining routine laborat ory tests. - Book mammogram appointment as suggeste d. - Ensure all vaccinations are current an d address RSV vaccination. - Continue CPAP use although it is being used inconsistently. - continue medications as prescribed - follow-up 3 months Review of Systems - General: No fever no chills - Neurological: No headaches no dizzin ess - Ear nose throat: No sore throat no hearing difficulty no ear pain - Cardiovascular: No syncope, no chest pain, no palpitations - Gastrointestinal: No nausea vomiting - Skin: No new complaints Physical Exam General: Cooperative, morbidly obese, healthy appearing, comfortable, no acute distress sitting in wheelchair Orientation: Patient oriented x3 Limitations: Morbid obesity, causing difficulty getting on examination table Head: Normal to inspection Ears: Slightly red, no infection Nose: Normal external nose present Face and sinus: Normal facial exam Eyes: Appearance normal, extraocular movement intact pupils reactive Neck: Normal visual inspection and supple Respiratory: Normal respiratory effort and able to speak in complete sentences. Clear to auscultation, no stridor Cardiovascular: S1 and S2 RRR Breast exam shows a very superficial dermal small cyst size of half a Pea nontender GI: Difficult to examine due to body habitus Skin: Turgor normal Neuro: Patient oriented x3, motor intact, able to move all extremities she was able to stand but had to lean on examination table Extremities: Chronic lymphedema bilateral lower extremities . [facility] Medical History Restrictive lung disease Breast cancer COVID-19 vaccine series completed Dyspnea on exertion OZ (obstructive sleep apnea) Morbid obesity with BMI of 50.0-59.9, adult Diabetic polyneuropathy associated with type 2 diabetes mellitus Hypertension Dyslipidemia CKD stage 3 due to type 2 diabetes mellitus Diabetic nephropathy associated with type 2 diabetes mellitus residential (current) 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 Other Mental health disorder Substance use disorder Social History Household Members: Family Housing: House Are you a primary manager medicare marketing to a significant other at home: No Do you presently have visiting nurse or other home services: No Alcohol intake: current Alcohol intake frequency: a few times a week Alcohol type: beer Patient Tobacco Use Status: Former Tobacco user Tobacco use type: Cigarette e-Cigarette/Vaping Use: Never Used service: No Current occupational status: unemployed Cognitive needs: No Hearing needs: No Vision needs: No Questionnaire Thrive Questionnaire Date Thrive assessed: 07/20/24 I am a: Parent/Caregiver What is your living situation today?: I do not have a steady places to live I am temporarily staying with others Within the past 12 months, did the food you bought not last and you didn't have the money to get more?: I choose not to answer this question Within the past 12 months, did you worry whether your food would run out before you got money to buy more?: I choose not to answer this question Do you have trouble paying for medicines?: No Do you have trouble getting transportation to medical appointments?: No Do you have trouble paying your heating and electricity bill?: No Do you have trouble taking care of your child, family member or friend?: No Do you have trouble with day-to-day activities such as bathing, preparing meals, shopping, managing finances, etc.?: No Are you currently unemployed and looking for a job?: I choose not to answer this question Are you interested in more education?: No Please select the resources that you would like help with: Housing/Custodial Currently or been in a relationship where the following occur: I choose not to answer THRIVE Score: 1 MADI-7 AMB Questionnaire MADI-7 Date MADI - 7 assessed: 07/20/24 Source: Developed by Drs. Johnnie Hammonds, Laly Hoyt, León Norton and colleagues, with an educational maryanne from [employer]. Physical exam (Primary Care) Vital Signs: Last Vital Signs Pulse 82 02/15/25 10:51 BP 134/74 02/15/25 10:51 Pulse Ox 97 02/15/25 10:51 BMI result Body Mass Index 54.3 Tobacco/Smoking Status: Tobacco use Status Tobacco use date assessed 10/19/24 02/15/25 10:39 Patient Tobacco Use Status Former Tobacco user 02/15/25 10:39 Tobacco use type Cigarette 02/15/25 10:39 e-Cigarette/Vaping Use Never Used 02/15/25 10:39 Thrive Assessment: Date of Thrive Assessment Date Thrive assessed 07/20/24 02/15/25 10:39 Currently or been in a relationship where the following occur: I choose not to answer Results AMB Hemoglobin A1c AMB Hemoglobin A1c 7.4 % Last Edit by Etienne Velásquez CMA on 02/15/25 12: 40 AMB Hemoglobin A1c previously reported as 8.1 Etienne Velásquez 02/15/25 12:40 Results Reviewed Results Reviewed: Laboratory Last Values Hgb A1c (Clinic) 7.4 % (4.0-6.0) H 02/15/25 12:17 Coding Level of Care Code Est Pt Level 4 (71145) Est Pt Prev Care >65y(73998) Diagnoses Encounter for general adult medical examination with abnormal findings Z00.01 Diabetic polyneuropathy associated with type 2 diabetes mellitus E11.42 CKD stage 3 due to type 2 diabetes mellitus E11.22; N18.30 Irritable bowel syndrome with diarrhea K58.0 Irritable bowel syndrome type: with diarrhea Morbid obesity with BMI of 50.0-59.9, adult E66.01; Z68.43 ocean transportation intermediary (current) use of insulin Z79.4 Diabetes 1.5, managed as type 1 E13.9 Lipid disorder E78.9 Essential hypertension I10 Hypertension type: essential hypertension Recurrent major depressive disorder, in partial remission F33.41 Active/Remission status: in partial remission Anxiety, generalized F41.1 Allergy, subsequent encounter T78.40XD Encounter type: subsequent encounter Assessment & Plan Assessment & Plan (1) Encounter for general adult medical examination with abnormal findings: Code(s): Z00.01 - Encounter for general adult medical examination with abnormal findings Category: Medical (2) Diabetic polyneuropathy associated with type 2 diabetes mellitus: Code(s): E11.42 - Type 2 diabetes mellitus with diabetic polyneuropathy Category: Medical (3) CKD stage 3 due to type 2 diabetes mellitus: Code(s): E11.22 - Type 2 diabetes mellitus with diabetic chronic kidney disease; N18.30 - Chronic kidney disease, stage 3 unspecified Category: Medical (4) Irritable bowel syndrome: Code(s): K58.9 - Irritable bowel syndrome, unspecified Category: Medical Qualifiers: Irritable bowel syndrome type: with diarrhea Qualified Code(s): K58.0 - Irritable bowel syndrome with diarrhea (5) Morbid obesity with BMI of 50.0-59.9, adult: Code(s): E66.01 - Morbid (severe) obesity due to excess calories; Z68.43 - Body mass index [BMI] 50.0-59.9, adult Category: Medical (6) ocean transportation intermediary (current) use of insulin: Code(s): Z79.4 - residential (current) use of insulin Category: Medical (7) Diabetes 1.5, managed as type 1: Code(s): E13.9 - Other specified diabetes mellitus without complications Category: Medical (8) Lipid disorder: Code(s): E78.9 - Disorder of lipoprotein metabolism, unspecified Category: Medical (9) Hypertension: Code(s): I10 - Essential (primary) hypertension Category: Medical Qualifiers: Hypertension type: essential hypertension Qualified Code(s): I10 - Essential (primary) hypertension (10) Depression, major, recurrent: Code(s): F33.9 - Major depressive disorder, recurrent, unspecified Category: Medical Qualifiers: Active/Remission status: in partial remission Qualified Code(s): F33.41 - Major depressive disorder, recurrent, in partial remission (11) Anxiety, generalized: Code(s): F41.1 - Generalized anxiety disorder Category: Medical (12) Allergies: Code(s): T78.40XA - Allergy, unspecified, initial encounter Category: Medical Qualifiers: Encounter type: subsequent encounter Qualified Code(s): T78.40XD - Allergy, unspecified, subsequent encounter Plan Morbid Obesity: - History of significant obesity with a current BMI of 54.3. - Patient has repeatedly declined bariatric intervention. Type 2 Diabetes Mellitus: - A1c previously noted at 7.4, with a slight elevation from 7.0. - Increased fruit intake noted. Osteoarthritis, multiple joints, particularly knees: - Patient reports increased knee pain, exacerbated by weather changes, specifically rain. - Previous intra-articular injections noted; right knee significantly affected. Hypothyroidism: - History of hypothyroidism with ongoing management. Obstructive Sleep Apnea: - Patient uses CPAP intermittently but notes difficulty with consistent use. Decreased Glomerular Filtration Rate and Creatinine elevation: - Previous eGFR noted at 28 with a creatinine level of 1.79. - Routine nephrology follow-up ongoing. Otitis media, suspected: - Patient presents with earache over the past week. Surgical History: - Colonoscopy performed in 2020 with biopsy of tubular adenoma. Social History: - Patient manages her nutrition but mentions increased intake of fruits affecting blood sugar control. - Patient expresses reluctance towards weight management programs and bariatric surgery. Health Maintenance - Mammogram pending due to scheduling issues; last attempt in September found a superficial lump not concerning for breast tissue. - Scheduled follow-up colonoscopy for next year per Dr. Dennison?s recommendation. - Routine vaccinations up-to-date with recent influenza and pneumococcal vaccines. - RSV vaccination recommended due to high-risk status; patient advised accordingly. - Tetanus vaccine in 2023 and Zoster vaccines completed in 2015. Viper of Care - Follow-up with engineering operator, Dr. Butler, and bicycle repairman, Dr. Dennison. - Dr. Nicole for kidney care coordination. Patient Instructions - Proceed with obtaining routine laboratory tests. - Book mammogram appointment as suggested. - Ensure all vaccinations are current and address RSV vaccination. - Continue CPAP use although it is being used inconsistently. - continue medications as prescribed - follow-up 3 months . Orders: Orders Hemoglobin A1c Today E11.21 - Type 2 diabetes mellitus with diabetic nephropathy, E11.22 - Type 2 diabetes mellitus with diabetic chronic kidney disease, E11.42 - Type 2 diabetes mellitus with diabetic polyneuropathy, E13.9 - Other specified diabetes mellitus without complications, E66.01 - Morbid (severe) obesity due to excess calories, E78.9 - Disorder of lipoprotein metabolism, unspecified, F33.41 - Major depressive disorder, recurrent, in partial remission, F41.1 - Generalized anxiety disorder, I10 - Essential (primary) hypertension, K58.0 - Irritable bowel syndrome with diarrhea, N18.30 - Chronic kidney disease, stage 3 unspecified, T78.40XD - Allergy, unspecified, subsequent encounter, Z00.01 - Encounter for general adult medical examination with abnormal findings, Z68.43 - Body mass index [BMI] 50.0-59.9, adult, Z79.4 - ocean transportation intermediary (current) use of insulin Complete Blood Count Auto Diff Today E11.21 - Type 2 diabetes mellitus with diabetic nephropathy, E11.22 - Type 2 diabetes mellitus with diabetic chronic kidney disease, E11.42 - Type 2 diabetes mellitus with diabetic polyneuropathy, E13.9 - Other specified diabetes mellitus without complications, E66.01 - Morbid (severe) obesity due to excess calories, E78.9 - Disorder of lipoprotein metabolism, unspecified, F33.41 - Major depressive disorder, recurrent, in partial remission, F41.1 - Generalized anxiety disorder, I10 - Essential (primary) hypertension, K58.0 - Irritable bowel syndrome with diarrhea, N18.30 - Chronic kidney disease, stage 3 unspecified, T78.40XD - Allergy, unspecified, subsequent encounter, Z00.01 - Encounter for general adult medical examination with abnormal findings, Z68.43 - Body mass index [BMI] 50.0-59.9, adult, Z79.4 - ocean transportation intermediary (current) use of insulin LDL Cholesterol Direct Today E11.21 - Type 2 diabetes mellitus with diabetic nephropathy, E11.22 - Type 2 diabetes mellitus with diabetic chronic kidney disease, E11.42 - Type 2 diabetes mellitus with diabetic polyneuropathy, E13.9 - Other specified diabetes mellitus without complications, E66.01 - Morbid (severe) obesity due to excess calories, E78.9 - Disorder of lipoprotein metabolism, unspecified, F33.41 - Major depressive disorder, recurrent, in partial remission, F41.1 - Generalized anxiety disorder, I10 - Essential (primary) hypertension, K58.0 - Irritable bowel syndrome with diarrhea, N18.30 - Chronic kidney disease, stage 3 unspecified, T78.40XD - Allergy, unspecified, subsequent encounter, Z00.01 - Encounter for general adult medical examination with abnormal findings, Z68.43 - Body mass index [BMI] 50.0-59.9, adult, Z79.4 - residential (current) use of insulin MM tomosynthesis screening BI Today Z12.31 - Encounter for screening mammogram for malignant neoplasm of breast Comprehensive Met. Panel Today E11.21 - Type 2 diabetes mellitus with diabetic nephropathy, E11.22 - Type 2 diabetes mellitus with diabetic chronic kidney disease, E11.42 - Type 2 diabetes mellitus with diabetic polyneuropathy, E13.9 - Other specified diabetes mellitus without complications, E66.01 - Morbid (severe) obesity due to excess calories, E78.9 - Disorder of lipoprotein metabolism, unspecified, F33.41 - Major depressive disorder, recurrent, in partial remission, F41.1 - Generalized anxiety disorder, I10 - Essential (primary) hypertension, K58.0 - Irritable bowel syndrome with diarrhea, N18.30 - Chronic kidney disease, stage 3 unspecified, T78.40XD - Allergy, unspecified, subsequent encounter, Z00.01 - Encounter for general adult medical examination with abnormal findings, Z68.43 - Body mass index [BMI] 50.0-59.9, adult, Z79.4 - residential (current) use of insulin TSH reflex Free T4 Today E11.21 - Type 2 diabetes mellitus with diabetic nephropathy, E11.22 - Type 2 diabetes mellitus with diabetic chronic kidney disease, E11.42 - Type 2 diabetes mellitus with diabetic polyneuropathy, E13.9 - Other specified diabetes mellitus without complications, E66.01 - Morbid (severe) obesity due to excess calories, E78.9 - Disorder of lipoprotein metabolism, unspecified, F33.41 - Major depressive disorder, recurrent, in partial remission, F41.1 - Generalized anxiety disorder, I10 - Essential (primary) hypertension, K58.0 - Irritable bowel syndrome with diarrhea, N18.30 - Chronic kidney disease, stage 3 unspecified, T78.40XD - Allergy, unspecified, subsequent encounter, Z00.01 - Encounter for general adult medical examination with abnormal findings, Z68.43 - Body mass index [BMI] 50.0-59.9, adult, Z79.4 - residential (current) use of insulin AMB Hemoglobin A1c Today Z13.9 - Encounter for screening, unspecified
[2025-02-15 10:51] VITALS: BP 134/74; PULSE 82; O2SAT 97; BMI 54.3
== END 2025-02-15 11:15 | disposition home or self-care (01) ==
LOC: HO.HMCC 10:36
PROVIDERS: PCP Internal Medicine; Visit Provider Internal Medicine
DX: Z00.01 Encounter for general adult medical examination with abnormal findings (principal); I12.9 Hypertensive chronic kidney disease with stage 1 through stage 4 chronic kidney disease, or unspecified chronic kidney disease; E11.42 Type 2 diabetes mellitus with diabetic polyneuropathy; E11.22 Type 2 diabetes mellitus with diabetic chronic kidney disease; N18.30 Chronic kidney disease, stage 3 unspecified; E66.01 Morbid (severe) obesity due to excess calories; Z68.43 Body mass index [BMI] 50.0-59.9, adult; Z79.4 Long term (current) use of insulin; E13.9 Other specified diabetes mellitus without complications; K58.0 Irritable bowel syndrome with diarrhea; E78.9 Disorder of lipoprotein metabolism, unspecified; F33.41 Major depressive disorder, recurrent, in partial remission; F41.1 Generalized anxiety disorder; T78.40XD Allergy, unspecified, subsequent encounter

== ENCOUNTER 2025-02-24 10:40 | Outpatient (AMB) | payer MEDICARE, MEDICAID, SELFPAY ==
--- NOTE | 2025-02-24 10:47 | HO.NEPHOV ---
Vital Signs 02/24/25 10:48 Height 4 ft 10 in BP 116/82 Blood Pressure Location Lt radial Position Sitting Pulse 73 Pulse Source Pulse Oximeter Pulse Oximetry (%) 97 Oxygen Delivery Method Room Air Intake Visit Reasons: 4 MO FU t lvm Patient Care Provider Required: No Accompanied by: Daughter Allergies adhesive tape (Adhesive Tape) Allergy (Severe, Verified 02/24/25 10:50) BLISTERS dairy products Allergy (Severe, Verified 02/24/25 10:50) GI upset semaglutide (From Ozempic) Allergy (Severe, Verified 02/24/25 10:50) Diarrhea NSAIDS (Non-Steroidal Anti-Inflamma Adverse Reaction (Verified 02/24/25 10:50) Nephropathy Medication List - Last Reconciled 02/24/25 by Vitor Lay MD acetaminophen ER (Tylenol Arthritis Pain) 650 mg PO Q8H PRN [Adult Pull-ups As directed] [adult pull-ups size As directed] albuterol sulfate 90 mcg/actuation 2 puffs inhalation Q4H PRN alcohol swabs (Alcohol Pads) 1 pad topical TIDWMEAL blood sugar diagnostic (OneTouch Ultra Test strips) tid esting 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 meter (OneTouch Ultra2 Meter) tid testing 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 sensor (FreeStyle Ihsan 3 Sensor device) As directed 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,teaching assistant,cont (FreeStyle Ihsan 3 [place]) As directed bupropion HCl SR 200 mg PO DAILY carvedilol 6.25 mg PO BID [cloth bed pads As directed] dicyclomine 10 mg PO BID PRN 90 days fenofibrate 160 mg PO DAILY 90 days ferrous sulfate 324 mg PO ONCE fluoxetine 40 mg PO DAILY 90 days furosemide 20 mg PO DAILY insulin degludec (Tresiba FlexTouch U-200 insulin) 15 units (0.075 mL) subcut BID 90 days lancets tid testing lancets Use to check blood sugars three times a day levothyroxine 25 mcg PO DAILY loratadine (Allergy Relief (loratadine)) 10 mg PO DAILY 90 days metoprolol succinate ER 25 mg PO BEDTIME nystatin 1 appl topical DAILY 30 days [panty liners As directed] pen needle, diabetic daily pen needle, diabetic (Nadya 2nd Gen Pen Needle) USE 1 DIRECTED TWICE DAILY ropinirole 0.5 mg PO BEDTIME 90 days simvastatin 20 mg PO DAILY 90 days tramadol 50 mg PO DAILY PRN 90 days HPI Comments Details: Melvina is a pleasant 73-year-old woman with a history of longstanding diabetes mellitus and obesity. She has been referred for leg edema. She was history of chronic kidney disease. Serum creatinine has been around 1.5-1.7 mg/dL. However the recent serum creatinine was around 1.18 mg/dL as of April 26. She was on Lasix 20 mg a day she ran out of it about a month ago. She has a history of obstructive sleep apnea. She does not use CPAP. Recently echocardiogram with the heart was unremarkable. No mention of pulmonary hypertension. She claims to be on low-sodium diet. Recent urine microalbumin creatinine ratio was 42.4 and a as of October 2019 urine protein creatinine ratio was 0.21. Urinalysis was otherwise unremarkable. She does have mild anemia with a hemoglobin of 11.4 06/20/2024. After adding Lasix 20 mg daily there has been no significant improvement in leg edema Recent serum creatinine is 1.57 No significant proteinuria She complains of pain and she has been on tramadol on and off 10/18/24 74-year-old female presenting with chronic kidney disease and associated pain management issues. She reports chronic pain primarily due to arthritis, post-surgical knee pain, and an ankle fracture sustained last year. The patient has been using tramadol and Tylenol for pain management, but her kidney function has declined, possibly due to aspirin use. The patient has a history of hypertension, which is being managed with medication. She denies any significant leg swelling currently, although she has been on diuretics in the past. The patient is advised to maintain adequate hydration and monitor her blood pressure and blood sugar levels to support kidney health. 02/24/2025. Overall Melvina is doing well. She has gained weight. Blood pressure has been well controlled. Hemoglobin A1c has increased. Today she denies any specific complaints. 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 Other Mental health disorder Substance use disorder Social History Household Members: Family Housing: House Are you a primary resident caregiver to a significant other at home: No Do you presently have visiting nurse or other home services: No Alcohol intake: current Alcohol intake frequency: a few times a week Alcohol type: beer Patient Tobacco Use Status: Former Tobacco user Tobacco use type: Cigarette e-Cigarette/Vaping Use: Never Used service: No Current occupational status: unemployed Cognitive needs: No Hearing needs: No Vision needs: No Physical Exam Vital Signs: Last Vital Signs Pulse 73 02/24/25 10:48 BP 116/82 02/24/25 10:48 Pulse Ox 97 02/24/25 10:48 Oxygen Delivery Method Room Air 02/24/25 10:48 Comfortable Neck supple no JVD. Lungs entry equal no rales. Heart S1-S2 heard no gallop or rub. Abdomen soft nontender. Neuro alert awake oriented. No asterixis. Extremities no edema. Results Reviewed Nephrology Results: Hgb, (12.0-16.0) 12.5 g/dl 02/15/25 WBC, (4.8-10.8) 8.9 X10*3/uL 02/15/25 Plt Count, (160-400) 328 X10*3/uL 02/15/25 Sodium, (135-145) 139 mmol/L 02/15/25 Potassium, (3.3-5.1) 4.9 mmol/L 02/15/25 Chloride, (96-108) 106 mmol/L 02/15/25 Carbon Dioxide, (22-29) 27 mmol/L 02/15/25 BUN, (9-16) 34 mg/dL H 02/15/25 Creatinine, (0.5-1.4) 1.78 mg/dL H 02/15/25 Calcium, (8.4-10.2) 9.5 mg/dL 02/15/25 Renal US 05/19/24 Assessment & Plan Assessment & Plan (1) CKD stage 3 due to type 2 diabetes mellitus: Code(s): E11.22 - Type 2 diabetes mellitus with diabetic chronic kidney disease; N18.30 - Chronic kidney disease, stage 3 unspecified Category: Medical (2) Edema: Code(s): R60.9 - Edema, unspecified Category: Medical Qualifiers: Edema type: localized Qualified Code(s): R60.0 - Localized edema (3) Osteoarthritis of knees, bilateral: Code(s): M17.0 - Bilateral primary osteoarthritis of knee Category: Medical Qualifiers: Osteoarthritis type: primary Qualified Code(s): M17.0 - Bilateral primary osteoarthritis of knee Plan 74-year-old woman with a history of longstanding diabetes mellitus and obesity has CKD 3B. This is most likely due to underlying diabetic kidney disease. No significant proteinuria Serum creatinine is at 1.7 Bump due to NSAIDS Goal is to slow the progression of renal disease. Discussed importance of tight control of blood sugar. Maintain blood pressure less than 130/80. She will benefit from low-dose MARGO inhibitors or ARB use. Next step would be to add an SGLT2 inhibitor as well. AVOID NSAIDS Leg edema. Stay on LAsix 20 mg QD She should stay on low-sodium diet. I have encouraged her to use CPAP regularly. Follow up with the vascular PRN. Avoid NSAIDs Needs follow up with PCP or Pain management Orders: Orders Basic Metabolic Panel 6 Months I10 - Essential (primary) hypertension, N18.9 - Chronic kidney disease, unspecified Complete Blood Count no Diff 6 Months I10 - Essential (primary) hypertension, N18.9 - Chronic kidney disease, unspecified Creatinine Urine 6 Months I10 - Essential (primary) hypertension Total Protein Urine Random 6 Months I10 - Essential (primary) hypertension UA and rflx microscopic 6 Months I10 - Essential (primary) hypertension Coding Level of Care Code Est Pt Level 4 (10429) Diagnoses CKD stage 3 due to type 2 diabetes mellitus E11.22; N18.30 Localized edema R60.0 Edema type: localized Primary osteoarthritis of both knees M17.0 Osteoarthritis type: primary
[2025-02-24 10:48] VITALS: BP 116/82; PULSE 73; O2SAT 97
== END 2025-02-24 11:05 | disposition home or self-care (01) ==
LOC: HO.HKAS 10:41
PROVIDERS: PCP Internal Medicine; Visit Provider Internal Medicine Hypertension Specialist
DX: E11.22 Type 2 diabetes mellitus with diabetic chronic kidney disease (principal); N18.30 Chronic kidney disease, stage 3 unspecified; R60.0 Localized edema; M17.0 Bilateral primary osteoarthritis of knee
CPT/HCPCS: 99214

== ENCOUNTER → 2025-02-24 10:40 | Outpatient (BNVA) | payer MEDICARE, MEDICAID, SELFPAY | PROVIDERS: PCP Internal Medicine; Visit Provider Internal Medicine Hypertension Specialist | DX: E11.22 Type 2 diabetes mellitus with diabetic chronic kidney disease (principal); N18.30 Chronic kidney disease, stage 3 unspecified; R60.0 Localized edema; M17.0 Bilateral primary osteoarthritis of knee | CPT/HCPCS: 99212 ==